=== PATIENT | female | born 1945 | race Two or more races ===

== ENCOUNTER 2024-05-11 14:05 | Emergency (ER) | payer MEDICARE, OTHER, SELFPAY ==
[2024-05-11 14:17] VITALS: BP 157/73; BMI 43.6
[2024-05-11 14:18] VITALS: BP 157/73
--- NOTE | 2024-05-11 14:53 | ED.GENMED ---
History of Present Illness
General
Chief Complaint: Fall
Source: patient and records
Exam Limitations: dementia
Time Seen by Provider: 05/11/24 14:47
History of Present Illness
History of Present Illness:
78-year-old female apparently found on the floor. Unwitnessed fall. Complains of pain all over but mostly complaining of pain in her neck that she states resolved with removal of the collar. She also had pain in her finger with a pulse ox was
that also resolved when removing the pulse ox. She was no other specific complaints.
Past History
Past History
ED Past Medical History: HTN, NIDDM and Other (Dementia)
Social History
Tobacco: Non-smoker
Alcohol: None
Drug: None
Living: half-way
Employment: Not employed
Family History
Family History: Diabetes
Review of Systems
Review of Systems
Unable to obtain full review of systems at this time due to: dementia
All Other Systems: Not applicable
Phy Exam
Physical Exam
Physical Exam:
TRAUMA EXAM:
VITAL SIGNS: Vital signs reviewed, cooperative
DISTRESS: No active disease
EYES: Pupils reactive, no orbital trauma
NOSE: No deformity or epistaxis
FACE AND SCALP: No scalp or facial trauma, external canals no blood
NECK: Supple nontender
BACK: Back nontender, pelvis stable to compression
RESPIRATORY: No distress, breath sounds normal, no tender chest wall
CARDIAC: No murmur, pulses equal and strong
ABDOMEN: Soft nontender bowel sounds normal
SKIN: Skin intact no bleeding, color normal
EXTREMITIES: Chronic edema and chronic erythematous changes to both lower extremities. No pain with motion movement or point tenderness of any of the extremities. No pain with hip rotation. Pelvis is stable. No pain with leg movement flexion of
the knees ankles. No pain with upper extremity movement. No deformities. No open wounds or abrasions. Back without abrasions.
NEUROLOGICAL: Alert, oriented x 1, no motor deficits
PSYCH: Mood affect normal. Pleasant
Course
Orders/Labs/Results
Orders:
Orders
05/11/24 15:22
CT Cervical Spine W/o Iv Contr Urgent
Comment:
Reason For Exam: trauma
CT Head W/o Iv Contrast Urgent
Comment:
Reason For Exam: trauma
Cardiac Monitoring- Treatment ONCE
05/11/24 15:40
Basic Metabolic Panel Urgent
Complete Blood Count/With Diff Urgent
Abnormal Lab Results
05/11/24
15:40
RBC 3.88 L 10^6/uL
(4.20-5.40)
Hgb 11.3 L g/dL
(12.0-16.0)
Hct 35.7 L %
(37.0-47.0)
MCHC 31.7 L g/dL
(33.0-37.0)
Carbon Dioxide 31 H mmol/L
(22-30)
Glucose 108 H mg/dl
(70-99)
05/11/24 15:40
05/11/24 15:40
Vital Signs
Initial and Last Documented VS:
Initial Vital Signs
Temp
98.0 F
05/11/24 14:15
Last Documented Vital Signs
Temp Pulse Resp BP Pulse Ox
98.0 F 64 16 157/73 99
05/11/24 14:15 05/11/24 14:18 05/11/24 14:18 05/11/24 14:18 05/11/24 14:18
MDM/Problems Addressed
Differential Diagnosis Includes:
Patient with an unwitnessed fall. Clinically stable. No serious trauma currently. No history or anything that would be suspicious for significant arrhythmia. We will check labs and electrolytes and place her on a monitor. She does seem to
complain of some vague mild neck discomfort. We will CT her head and cervical spine. No signs of extremity trauma.
*Radiology
Radiology exam reviewed: radiology read reviewed (No acute findings)
*Pulse Oximetry
Patient hypoxic: no
*Franchise Development Manager Interpretation
Rate: normal
Interpretation: normal
Heart Rate: 80
Rhythm: sinus
*Critical Care Note
Total Time (30-74mins, 75-104mins- exclusive of procedures): Not Applicable
Data Reviewed
Review of Other/Old Records Reveals: Labs and Records
Update Note
Update Note:
Patient has remained stable. Guardian contacted. Discharged to follow-up
ED Attending Note
-
Portions of this chart may have been created with voice recognition software.� Occasional wrong word or��sound alike� substitutions may have occurred due to the inherent limitations of voice recognition software.
Discharge Plan
Departure
Patient Disposition: Home (Routine Discharge)
Date of Disposition: 05/11/24
Time of Disposition: 19:05
Patient with high blood pressure during this ER visit?: Yes
Discharge Problem:
Evaluation of unwitnessed fall
Instructions: Preventing falls in adults, BLOOD PRESSURE
Prescriptions:
No Action
levothyroxine [Synthroid] 50 mcg Tablet
50 mcg PO DAILY
metoprolol tartrate 25 mg Tablet
25 mg PO BID
acetaminophen [Tylenol] 325 mg Capsule
650 mg PO Q4H PRN (Reason: MILD PAIN/FEVER)
miconazole nitrate [Zeasorb (miconazole)] 2 % Powder
1 applic TOPICAL DAILY
ascorbic acid (vitamin C) [Vitamin C] 500 mg Tablet
500 mg PO DAILY
ferrous sulfate 325 mg (65 mg iron) Tablet
325 mg PO DAILY
sertraline [Zoloft] 25 mg Tablet
25 mg PO DAILY
folic acid 1 mg Tablet
1 mg PO DAILY
Referrals:
Collin Moreno MD [Family Provider] - Follow up in 2-3 days
Activity Restrictions/Additional Instructions:
Return with any concerning issues including unusual pain vomiting headache etc.
Interventions
Interventions:
*Risk Screen - Suicide Last Done: 05/11/24 17:33
*Neglect/Abuse Screening Last Done: 05/11/24 17:33
*ED COVID-19 Vaccine History Last Done: 05/11/24 17:33
ED-Musculoskeletal Assessment Last Done: 05/11/24 17:33
ED- Neurological Assessment Last Done: 05/11/24 17:33
Discharge Date and Time
Print Language: HEBREW
[2024-05-11 15:59] LABS: % Basophils 0.5 % (0-2); % Eosinophils 2.5 % (0-6); % Immature Granulocytes 0.3 % (0-0.5); % Lymphocytes 25.7 % (20.5-51.1); % Monocytes 5.7 % (1.7-9.3); % Neutrophils 65.3 % (42.2-75.2); Absolute Eosinophils 0.2 10^3/uL (0-0.7); Absolute Lymphocytes 2.3 10^3/uL (1.2-3.4); Absolute Monocytes 0.5 10^3/uL (0.1-0.6); Absolute Neutrophils 5.8 10^3/uL (1.4-6.5); Hematocrit 35.7 % (37.0-47.0); Hemoglobin 11.3 g/dL (12.0-16.0); Mean Corp Hgb Conc. 31.7 g/dL (33.0-37.0); Mean Corpuscular Hgb 29.1 pg (27.0-31.0); Mean Platelet Volume 9.5 fL (7.4-10.4); Nucleated Red Blood Cells % 0 %; Platelet Count 266 10^3/uL (130-400); Red Blood Cell Count 3.88 10^6/uL (4.20-5.40); Red Cell Dist. Width 12.8 % (11.5-14.5); White Blood Cell Count 8.8 10^3/uL (4.8-10.8)
[2024-05-11 16:06] LABS: Blood Urea Nitrogen 12 mg/dl (7-17); Calcium 8.8 mg/dl (8.4-10.2); Carbon Dioxide 31 mmol/L (22-30); Chloride 101 mmol/L (98-107); Estimated Creatinine Clearance 84 ml/min; Glucose 108 mg/dl (70-99); Sodium 140 mmol/L (135-145); eGFR > 60.00
[2024-05-11 21:09] VITALS: BP 151/78
== END 2024-05-11 21:50 | disposition home or self-care (01) ==
LOC: EMR 14:05
PROVIDERS: EMERGENCY PHYSICIAN Emergency Medicine; FAMILY PHYSICIAN Internal Medicine
DX: R52 Pain, unspecified (principal); F03.90 Unspecified dementia, unspecified severity, without behavioral disturbance, psychotic disturbance, mood disturbance, and anxiety; W19.XXXA Unspecified fall, initial encounter; R60.0 Localized edema; I10 Essential (primary) hypertension
CPT/HCPCS: 99285; 70450; 72125; 80048; 85025

== ENCOUNTER 2024-09-06 15:59 | Inpatient (IN) | payer MEDICARE, OTHER, SELFPAY ==
[2024-09-06] VITALS (11 sets, daily range): BP systolic 93–169; BP diastolic 47–87; BMI 37.4
[2024-09-06 10:01] LABS: ALT (SGPT) 11 U/L (0-35); AST (SGOT) 16 U/L (14-36); Albumin 3.6 g/dl (3.5-5.0); Alkaline Phosphatase 127 U/L (38-126); Blood Urea Nitrogen 12 mg/dl (7-17); Calcium 8.7 mg/dl (8.4-10.2); Carbon Dioxide 30 mmol/L (22-30); Chloride 103 mmol/L (98-107); Glucose 161 mg/dl (70-99); Potassium 3.9 mmol/L (3.5-5.1); Sodium 140 mmol/L (135-145); Total Bilirubin 0.7 mg/dl (0.2-1.3); Total Protein 6.6 g/dl (6.3-8.2); eGFR > 60.00
[2024-09-06 10:03] LABS: INR 1.03
[2024-09-06 10:04] LABS: APTT 37.4 Sec (23.4-35.0)
[2024-09-06 10:05] LABS: Hematocrit 31.8 % (37.0-47.0); Hemoglobin 10.2 g/dL (12.0-16.0); Mean Corp Hgb Conc. 32.1 g/dL (33.0-37.0); Mean Corpuscular Hgb 29.8 pg (27.0-31.0); Mean Platelet Volume 9.6 fL (7.4-10.4); Platelet Count 221 10^3/uL (130-400); Red Blood Cell Count 3.42 10^6/uL (4.20-5.40); White Blood Cell Count 7.6 10^3/uL (4.8-10.8)
[2024-09-06] MEDS: NSS 500 IV (10:30)
[2024-09-06 11:03] LABS: % Basophils 0.4 % (0-2); % Eosinophils 2.9 % (0-6); % Immature Granulocytes 0.4 % (0-0.5); % Lymphocytes 24.1 % (20.5-51.1); % Monocytes 4.2 % (1.7-9.3); Absolute Eosinophils 0.2 10^3/uL (0-0.7); Absolute Lymphocytes 1.8 10^3/uL (1.2-3.4); Absolute Monocytes 0.3 10^3/uL (0.1-0.6); Absolute Neutrophils 5.2 10^3/uL (1.4-6.5); Nucleated Red Blood Cells % 0 %
--- NOTE | 2024-09-06 13:00 | ED.GENMED ---
History of Present Illness
<Elver Alexandra Jr., PA-C - Last Filed: 09/06/24 14:38>
General
Chief Complaint: Vaginal Bleeding
Source: patient
Exam Limitations: none
Time Seen by Provider: 09/06/24 09:59
Nursing documentation reviewed up to this point in time: agreed with
History of Present Illness
History of Present Illness:
79-year-old female presenting to the emergency department today with concerns of vaginal bleeding with clots. Started this morning. Has had previous history of this in the past requiring a D&C 2 years ago. Confused at baseline does not history of
dementia. No specific complaints at this time no pain.
Past History
<Elver Alexandra Jr., PA-C - Last Filed: 09/06/24 14:38>
Past History
ED Past Medical History: HTN, NIDDM and Other (Dementia)
Social History
Tobacco: Non-smoker
Alcohol: None
Drug: None
Living: [facility]
Employment: Not employed
Family History
Family History: Diabetes
Review of Systems
<Elver Alexandra Jr., PA-C - Last Filed: 09/06/24 14:38>
Review of Systems
Allergies reviewed?: Yes
All Other Systems: ROS reviewed and negative except as documented in HPI and ROS
Phy Exam
<Elver Alexandra Jr., PA-C - Last Filed: 09/06/24 14:38>
Physical Exam
Physical Exam:
GENERAL: Alert , in no apparent distress
EYE: pupils equal and reactive
NECK: Supple, no significant adenopathy.
ENT: o/p clr, mmm.
CARDIAC: Regular rate and rhythm .
LUNGS: Clear breath sounds bilaterally, no acute respiratory distress, no wheezes/rales/rhonchi
ABDOMEN: Soft, without focal tenderness, no r/g, no cvat
NEUROLOGICAL: Alert, no focal neuro deficits
SKIN: Warm and dry, skin intact.
MUSCULOSKELETAL: No edema, well perfused.
PSYCH: Normal and appropriate interaction.
Course
<Elver Alexandra Jr., PA-C - Last Filed: 09/06/24 14:38>
Orders/Labs/Results
Orders:
Orders
09/06/24 09:34
Complete Blood Count/With Diff Urgent
Comprehensive Metabolic Panel Urgent
PTT Urgent
Prothrombin Time Urgent
09/06/24 09:36
Type And Crossmatch [Type+Screen] Urgent
09/06/24 09:54
ABO2 Urgent
BBK Wristband Number:
Associate notified that ABO2 has been ordered: [id number]
Date: 09/06/24
Time: 09:52
Process Control Engineer ID: [id number]
09/06/24 10:28
0.9% Sodium Chloride 500 ml [Nss] 500 ml IV BOLUS
09/06/24 11:40
US Pelvis Only (non-obstetric) Urgent
Reason For Exam: Vaginal bleeding, pain
09/06/24 13:03
EKG [Electrocardiogram (*1)] Urgent
Reason for Study: Bradycardia / Tachycardia
EKG- Treatment ONCE
09/06/24 13:46
CBC/With Diff [Complete Blood Count/With Diff] Urgent
09/06/24 14:05
Urinalysis Reflex To Culture Urgent
Date Specimen was Collected: 09/06/24
Time Specimen was Collected: 13:48
Urine Microscopic Reflex Cult Urgent
Urine Culture Urgent
BRANDYN Source: U
Specimen Description:
Date Specimen was Collected: 09/06/24
Time Specimen was Collected: 13:48
Abnormal Lab Results
09/06/24 09/06/24 09/06/24
09:34 13:46 14:05
RBC 3.42 L 10^6/uL 2.98 L 10^6/uL
(4.20-5.40) (4.20-5.40)
Hgb 10.2 L g/dL 9.1 L g/dL
(12.0-16.0) (12.0-16.0)
Hct 31.8 L % 28.1 L %
(37.0-47.0) (37.0-47.0)
MCHC 32.1 L g/dL 32.4 L g/dL
(33.0-37.0) (33.0-37.0)
APTT 37.4 H Sec
(23.4-35.0)
Glucose 161 H mg/dl
(70-99)
Alkaline Phosphatase 127 H U/L
(38-126)
Leukocyte Esterase Rfl 3+ A
(Negative)
09/06/24 13:46
09/06/24 09:34
Vital Signs
Initial and Last Documented VS:
Initial Vital Signs
Pulse Resp
48 20
09/06/24 09:30 09/06/24 09:30
Last Documented Vital Signs
Temp Pulse Resp BP Pulse Ox
95.3 F L 42 12 121/55 97
09/06/24 09:41 09/06/24 11:06 09/06/24 10:45 09/06/24 11:00 09/06/24 11:00
<Omar Lyn, DO - Last Filed: 09/06/24 14:18>
Orders/Labs/Results
Orders:
Orders
09/06/24 09:34
Complete Blood Count/With Diff Urgent
Comprehensive Metabolic Panel Urgent
PTT Urgent
Prothrombin Time Urgent
09/06/24 09:36
Type And Crossmatch [Type+Screen] Urgent
09/06/24 09:54
ABO2 Urgent
BBK Wristband Number:
Associate notified that ABO2 has been ordered: [id number]
Date: 09/06/24
Time: 09:52
Process Control Engineer ID: [id number]
09/06/24 10:28
0.9% Sodium Chloride 500 ml [Nss] 500 ml IV BOLUS
09/06/24 11:40
US Pelvis Only (non-obstetric) Urgent
Reason For Exam: Vaginal bleeding, pain
09/06/24 13:03
EKG [Electrocardiogram (*1)] Urgent
Reason for Study: Bradycardia / Tachycardia
EKG- Treatment ONCE
09/06/24 13:46
CBC/With Diff [Complete Blood Count/With Diff] Urgent
09/06/24 14:05
Urinalysis Reflex To Culture Urgent
Date Specimen was Collected: 09/06/24
Time Specimen was Collected: 13:48
Urine Microscopic Reflex Cult Urgent
Urine Culture Urgent
BRANDYN Source: U
Specimen Description:
Date Specimen was Collected: 09/06/24
Time Specimen was Collected: 13:48
Abnormal Lab Results
09/06/24 09/06/24 09/06/24
09:34 13:46 14:05
RBC 3.42 L 10^6/uL 2.98 L 10^6/uL
(4.20-5.40) (4.20-5.40)
Hgb 10.2 L g/dL 9.1 L g/dL
(12.0-16.0) (12.0-16.0)
Hct 31.8 L % 28.1 L %
(37.0-47.0) (37.0-47.0)
MCHC 32.1 L g/dL 32.4 L g/dL
(33.0-37.0) (33.0-37.0)
APTT 37.4 H Sec
(23.4-35.0)
Glucose 161 H mg/dl
(70-99)
Alkaline Phosphatase 127 H U/L
(38-126)
Leukocyte Esterase Rfl 3+ A
(Negative)
09/06/24 13:46
09/06/24 09:34
Vital Signs
Initial and Last Documented VS:
Initial Vital Signs
Pulse Resp
48 20
09/06/24 09:30 09/06/24 09:30
Last Documented Vital Signs
Temp Pulse Resp BP Pulse Ox
95.3 F L 42 12 121/55 97
09/06/24 09:41 09/06/24 11:06 09/06/24 10:45 09/06/24 11:00 09/06/24 11:00
<Elver Alexandra Jr., PA-C - Last Filed: 09/06/24 14:38>
MDM/Problems Addressed
MDM/Problems Addressed:
71-year-old female presenting to the emergency department from her nursing facility with concerns of vaginal bleeding. Started this morning. On arrival heart rate was in the 40s temperature was 95.3. Pulm examination was performed that did not
show any hemorrhage there is a small amount of blood in the vaginal vault. Hemoglobin was obtained 10.2 which is near patient's baseline which tends to be in 10-11. Otherwise labs unremarkable. Case was discussed with gynecology that would like
to discuss the case with Bonita Curran due to the ultrasound findings. Ultrasound findings showing progressive thickening of the endometrial stripe. Otherwise hemoglobin here repeated and decreasing. Plan to admit for monitoring and hemoglobin
trending.
<Elver Alexandra Jr., PA-C - Last Filed: 09/06/24 14:38>
*Critical Care Note
Total Time (30-74mins, 75-104mins- exclusive of procedures): Not Applicable
ED Attending Note
<VIKRAM Robertson Jr. Last Filed: 09/06/24 14:38>
-
Portions of this chart may have been created with voice recognition software.� Occasional wrong word or��sound alike� substitutions may have occurred due to the inherent limitations of voice recognition software.
<Omar Lyn DO - Last Filed: 09/06/24 14:18>
ED Attending Note
Patient seen and examined by attending physician: Yes
I performed the substantive portion of visit, reviewed & personally made and approve the management plan that is documented in note by myself or PEYMAN.: Yes
ED Attending Note:
I have seen and evaluated the patient with a [id number] encounter. I have spoken to the advance practicer provider and involved in the medical history, the physical exam, medical decision making.
Evaluation and management service: agree unless noted differently below.
Results interpretation: agree unless noted differently below.
Focused HPI: 79-year-old female presenting for evaluation of vaginal bleeding. It apparently started this morning. She does have a history of postmenopausal bleeding and has required D&C in the past
Physical exam: Sitting bed comfortably. Skin pale. Abdomen soft and nontender
Medical Decision Making: Per PA, no hemorrhaging noted on vaginal exam. Given the drop in hemoglobin, will admit and have RIGGING MAN evaluate
Discharge Plan
Departure
Patient Disposition: Admit
Date of Disposition: 09/06/24
Time of Disposition: 14:38
Admit to: Med/Surg
Admit to doctor: Sandro
Presentation/result/management discussed w/ accepting MD/DO: Hospitalist
Patient with high blood pressure during this ER visit?: No
Condition: Fair
Covid-19: Not Applicable
Discharge Problem:
Anemia, Abnormal vaginal bleeding, Endometrial hyperplasia
Prescriptions:
No Action
levothyroxine [Synthroid] 50 mcg Tablet
50 mcg PO DAILY
metoprolol tartrate 25 mg Tablet
25 mg PO BID
ascorbic acid (vitamin C) [Vitamin C] 500 mg Tablet
500 mg PO DAILY
ferrous sulfate 325 mg (65 mg iron) Tablet
325 mg PO DAILY
sertraline [Zoloft] 25 mg Tablet
25 mg PO DAILY
folic acid 1 mg Tablet
1 mg PO DAILY
acetaminophen 325 mg Tablet
650 mg PO Q4HPRN PRN (Reason: mild pain/temp>100F)
vitamin A and D Ointment
1 applic TOPICAL DAILY
Rx Instructions:
apply to dry skin of B/L LE
magnesium hydroxide [Milk of Magnesia] 400 mg/5 mL Suspension
30 ml PO HSPRN PRN (Reason: if no bm in 3 days)
cyanocobalamin (vitamin B-12) 500 mcg Tablet
500 mcg PO DAILY
calcium carbonate 500 mg calcium (1,250 mg) Tablet
500 mg PO DAILY
bisacodyl [Dulcolax (bisacodyl)] 10 mg Suppository
10 mg DE DAILYPRN PRN (Reason: if no results for MOM)
Referrals:
Collin Moreno MD [Family Provider] -
Interventions
Interventions:
*Risk Screen - Suicide Last Done: 09/06/24 09:30
*General Assessment Last Done: 09/06/24 09:30
*Neglect/Abuse Screening Last Done: 09/06/24 11:07
*ED- Fall Risk Assessment Last Done: 09/06/24 11:07
*ED COVID-19 Vaccine History Last Done: 09/06/24 11:07
ED-Female Genitourinary Assessment Last Done: 09/06/24 09:42
Discharge Date and Time
Print Language: MOSOTHO
[2024-09-06 14:02] LABS: Hematocrit 28.1 % (37.0-47.0); Hemoglobin 9.1 g/dL (12.0-16.0); Mean Corp Hgb Conc. 32.4 g/dL (33.0-37.0); Mean Corpuscular Hgb 30.5 pg (27.0-31.0); Mean Corpuscular Volume 94.3 fL (81.0-99.0); Mean Platelet Volume 9.8 fL (7.4-10.4); Platelet Count 189 10^3/uL (130-400); Red Blood Cell Count 2.98 10^6/uL (4.20-5.40); Red Cell Dist. Width 12.9 % (11.5-14.5); White Blood Cell Count 7.7 10^3/uL (4.8-10.8)
[2024-09-06 14:14] LABS: Urine Albumin Negative (Neg - Trace); Urine Bilirubin Negative (Negative); Urine Character Clear (Clear); Urine Color Yellow; Urine Glucose Negative (Negative); Urine Ketone Negative (Negative); Urine Leukocyte 3+ (Negative); Urine Nitrite Negative (Negative); Urine Occult Blood Negative (Negative); Urine Specific Gravity 1.005 (<1.030); Urine Urobilinogen Negative (Neg - 1+)
[2024-09-06 14:46] LABS: % Basophils 0.4 % (0-2); % Eosinophils 2.5 % (0-6); % Immature Granulocytes 0.4 % (0-0.5); % Lymphocytes 22.8 % (20.5-51.1); % Neutrophils 68.9 % (42.2-75.2); Absolute Eosinophils 0.2 10^3/uL (0-0.7); Absolute Lymphocytes 1.8 10^3/uL (1.2-3.4); Absolute Monocytes 0.4 10^3/uL (0.1-0.6); Absolute Neutrophils 5.3 10^3/uL (1.4-6.5); Nucleated Red Blood Cells % 0 %
[2024-09-06 14:49] LABS: Urine Bacteria Moderate (Negative); Urine Red Blood Cell 0-2 /HPF (0-2); Urine White Cell 16-20 /HPF (0-5)
--- NOTE | 2024-09-06 14:59 | HPS.HSE ---
Addendum entered and electronically signed by Marce Jo MD 09/06/24 22:02:
I saw and examined the patient.
The HEAD BAGGAGE PORTER or PA's note was reviewed and I agree with the note.
Comment:
79F [place] (fluent Telugu speaking) Dementia, oriented only to self, HTN Hypothyroidism presents from [facility] for evaluation intermittent heavy vaginal bleeding. Has had prior vaginal bleeding episodes 2021 2022 that required D&C
with pathology results concerning for endometrial hyperplasia vs carcinoma- lost to follow up. Though fluent speech, following simple commands, patient notably confused poor historian. All of history obtained from records and reports. BP stable
though significant bradycardia 40s noted with cold stress temp<97 but >95 (tempt at lowest 95.1). Patient otherwise appeared comfortable, no acute distress.
Physical Exam
General: Comfortable, Conversant, Obese
HEENT: Anicteric and Moist mucous membranes
Respiratory: Clear and Non Labored Respirations
Cardiac: S1/S2 and Regular Rhythm
GI: Soft and Non Tender
Musculoskeletal: No Clubbing and No Cyanosis
Skin: Warm and Dry
Neuro: Awake, Alert, and Oriented to self only
Psych: Confused but calm cooperative
Vaginal Bleeding
Acute Blood Loss Anemia secondary to Vaginal Bleeding
Hypothermia suspect thermoregulatory dysfunction related to dementia
Anxiety/depression
Severe Bradycardia 40s
Essential Hypertension
-2PRBC transfusion follow up post-transfusion H&H
-Check TSH and AM Cortisol
-giovanni hart prn
-monitor H&H
-Residential Carpet Installer eval appreciated D&C planned
-Cardio eval appreciated pre-op risk assessment
-Patient at intermittent risk complication but risk of D&C is not prohibitive
-Metoprolol held d/t severe bradycardia, ok to resume with holding parameters if severe bradycardia resolved.
-Continue home levothyroxine
Original Note:
Family Physician
-
Family Physician: Collin Moreno
Chief Complaint
-
Vaginal Bleeding
History of Present Illness
Patient is a 79 y/o female past medical history of dementia, hypertension, hypothyroidism and prior episodes of vaginal bleeding who presents with vaginal bleeding. Patient is unable to provide much history. [place] home paperwork indicates vaginal
bleeding with clots since this morning. Nursing staff in ED confirms episodes of vaginal bleeding with clots here in the emergency department. Review of records indicate patient required in D&C in 2021 and 2022 for vaginal bleeding.
Medical History
Past Medical History
Past Medical History: Reports Other
Additional Past Medical History:
Dementia
Anxiety / Depression
Essential Hypertension
Hypothyroidism
Vaginal Bleeding
Past Surgical History: Reports Other
Additional Past Surgical History:
D&C
Social History
Unable to obtain full social history at this time due to: Dementia
Living: Intermediate
Family History
Family History: Unable to Obtain
Allergies / Home Medications
Allergies reflects when Allergies were last updated in [facility].
Home Medications with original date entered in [facility]
Allergy/Medication List:
Allergies
Allergy/AdvReac Type Severity Reaction Status Date / Time
No Known Allergies Allergy Verified 07/16/22 08:41
Home Medications
levothyroxine 50 mcg tablet (Synthroid) 50 mcg PO DAILY 02/03/22
metoprolol tartrate 25 mg tablet 25 mg PO BID 02/03/22
ascorbic acid (vitamin C) 500 mg tablet (Vitamin C) 500 mg PO DAILY 07/12/22
ferrous sulfate 325 mg (65 mg iron) tablet 325 mg PO DAILY 07/12/22
folic acid 1 mg tablet 1 mg PO DAILY 07/12/22
sertraline 25 mg tablet (Zoloft) 25 mg PO DAILY 07/12/22
acetaminophen 325 mg tablet 650 mg PO Q4HPRN PRN mild pain/temp>100F 09/06/24
bisacodyl 10 mg rectal suppository (Dulcolax (bisacodyl)) 10 mg NM DAILYPRN PRN if no results for MOM 09/06/24
calcium carbonate 500 mg PO DAILY 09/06/24
cyanocobalamin (vitamin B-12) 500 mcg tablet 500 mcg PO DAILY 09/06/24
magnesium hydroxide 400 mg/5 mL oral suspension (Milk of Magnesia) 30 ml PO HSPRN PRN if no bm in 3 days 09/06/24
vitamin A and D 1 applic topical DAILY 09/06/24
Review of Systems
-
Unable to obtain full review of systems at this time due to: Dementia
Physical Exam
Vital Signs
Vital Signs
Temp Pulse Resp BP Pulse Ox
95.3 F L 42 12 121/55 97
09/06/24 09:41 09/06/24 11:06 09/06/24 10:45 09/06/24 11:00 09/06/24 11:00
Physical Exam
General: Comfortable, Conversant and Obese
HEENT: Anicteric and Moist mucous membranes
Respiratory: Clear and Non Labored Respirations
Cardiac: S1/S2 and Regular Rhythm
GI: Soft and Non Tender
Musculoskeletal: No Clubbing and No Cyanosis
Skin: Warm and Dry
Neuro: Awake, Alert and Oriented (Patient correctly states year but unable to tell me where she is or who the president is)
Psych: Confused
Laboratory Results
-
09/06/24 13:46
09/06/24 09:34
Laboratory Results
PT 14.0 Sec (11.4-14.6) 09/06/24 09:34
INR 1.03 09/06/24 09:34
APTT 37.4 Sec (23.4-35.0) H 09/06/24 09:34
Total Bilirubin 0.7 mg/dl (0.2-1.3) 09/06/24 09:34
AST 16 U/L (14-36) 09/06/24 09:34
ALT 11 U/L (0-35) 09/06/24 09:34
Alkaline Phosphatase 127 U/L (38-126) H 09/06/24 09:34
Pelvis Ultrasound:
Progressed thickened appearance of the endometrial stripe.
Data Reviewed
-
Diagnostic Radiology: Report Reviewed by me
Lab Data: Labs Reviewed by me
Impression/Plan
-
Vaginal Bleeding
-Consult FIELD CROP TECHNICAL OFFICER
-Check Abd/Pelvis CT scan
-Consult Cardiology for pre-op cardiac evaluation
Acute Blood Loss Anemia secondary to Vaginal Bleeding
-Check iron studies
-Trend serial Hgb
-Blood consent obtained from Veronica Vazquez (Legal Guardian) and scanned into chart
Hypothermia, no other symptoms of infection suspect thermoregulatory dysfunction related to dementia
-Check TSH and AM Cortisol
Dementia
-Monitor for mood/behavior changes during hospitalization
Anxiety / Depression
-Continue Zoloft
Essential Hypertension
-Continue metoprolol with hold parameters
Hypothyroidism
-Continue levothyroxine
DVT proph: SCDs
Code Status: Full Code
--- NOTE | 2024-09-06 15:27 | CON.CAR ---
Addendum entered and electronically signed by Prasanna Rashid MD 09/06/24 18:04:
79 yo female with PMH of advanced dementia, HTN, PAC's is admitted with vaginal bleeding. She need D&C. We are consulted for pre-op risk assessment. She denies CP. EKG shows sinus tess, 1st degree AVB. Echo is normal with EF 55-60%.
She can proceed to OR at intermediate risk.
Marked sinus bradycardia, 1st degree AVB. Reduce metoprolol to 25mg (succinate qHS). She also takes this for PAC's. If BP trends up, will add another agent.
Original Note:
Consultation
Consultation Request
Date/Time Consultation Requested: 09/06/241521
Date/Time Consultation Performed: 09/06/241526
Requesting Provider: Patricia Edmondson
Performing Provider: Rose MANCINI for Dr. Rashid
Reason for Consultation: pre-op cardiovascular risk assessment
Medical History
-
Chief Complaint: vaginal bleeding
History of Present Illness:
79 y/o female with dementia, hypertension, hypothyroidism, obesity, venous insufficiency who is here for vaginal bleeding and there are plans for D&C and we are consulted for pre-op cardiovascular risk assessment. She denies any CP, SOB, or
dizziness. She is in no distress at the time of my assessment. Her EKG shows SB in 40's. She is hypothermic 95.3.
Past Medical History
Past Medical History: HTN, Hypothyroidism and Other (as above)
Social History
Tobacco: Non-Smoker
Living: [facility]
Family History
Family History: Reviewed & Not Pertinent
Allergies / Home Medications
Allergy/AdvReac Type Severity Reaction Status Date / Time
No Known Allergies Allergy Verified 07/16/22 08:41
�Medication �Instructions �Recorded �Confirmed �Type
levothyroxine 50 mcg tablet 50 mcg PO DAILY 02/03/22 09/06/24 History
(Synthroid)
metoprolol tartrate 25 mg tablet 25 mg PO BID 02/03/22 09/06/24 History
ascorbic acid (vitamin C) 500 mg 500 mg PO DAILY 07/12/22 09/06/24 History
tablet (Vitamin C)
ferrous sulfate 325 mg (65 mg 325 mg PO DAILY 07/12/22 09/06/24 History
iron) tablet
folic acid 1 mg tablet 1 mg PO DAILY 07/12/22 09/06/24 History
sertraline 25 mg tablet (Zoloft) 25 mg PO DAILY 07/12/22 09/06/24 History
acetaminophen 325 mg tablet 650 mg PO Q4HPRN PRN mild 09/06/24 09/06/24 History
pain/temp>100F
bisacodyl 10 mg rectal suppository 10 mg SC DAILYPRN PRN if no 09/06/24 09/06/24 History
(Dulcolax (bisacodyl)) results for MOM
calcium carbonate 500 mg PO DAILY 09/06/24 09/06/24 History
cyanocobalamin (vitamin B-12) 500 500 mcg PO DAILY 09/06/24 09/06/24 History
mcg tablet
magnesium hydroxide 400 mg/5 mL 30 ml PO HSPRN PRN if no bm in 3 09/06/24 09/06/24 History
oral suspension (Milk of Magnesia) days
vitamin A and D 1 applic topical DAILY 09/06/24 09/06/24 History
Review of Systems
-
History Source: Patient and Other (and chart)
All other systems: Negative unless noted
: Bleeding
Physical Exam
Vital Signs
Temp Pulse Resp BP Pulse Ox
95.3 F L 42 12 121/55 97
09/06/24 09:41 09/06/24 11:06 09/06/24 10:45 09/06/24 11:00 09/06/24 11:00
Lab Results
09/06/24 13:46
09/06/24 09:34
Physical Exam
General: Well Developed and No Apparent Distress
HEENT: Normocephalic and Anicteric
Respiratory: Clear and Non Labored Respirations
Cardiac: Regular Rhythm (SB)
Musculoskeletal: Edema (mild BLE edema)
Skin: Warm, Dry and Other (BLE's dry)
Neuro: Awake, Alert and Oriented (to self)
Psych: Calm
Impression / Plan
-
Vaginal bleeding, anemia, abnormal pelvic u/s:
-severe in that she is requiring admission and surgical management
-plan is for D&C per batch operator
-follow hgb closely
-pre-op cardiovascular risk assessment: she denies any CP, SOB, or dizziness. She is at intermediate risk for proposed procedure. We are obtaining echo. Follow telemetry.
Bradycardia:
-EKG shows SB at 42 BPM. We will obtain echo. I also ordered TSH. She is hypothermic as well, so recommend correction of that.
-denies any dizziness
-no advanced heart block seen
-follow telemetry
-reduce BB
HTN:
-BP stable to low
-monitor with decreased BB
Dementia
Obesity
Hypothyroidism: on meds, check labs
Data Reviewed
-
EKG: Tracing Personally Visualized and interpreted (SB with 1st degree AVB 43 BPM)
Ultrasound: Report Reviewed by me (Myomatous uterus. None appear submucosal. Progressed thickened appearance of the endometrial stripe. Differential diagnosis includes endometrial hyperplasia, carcinoma and polyp. )
Medical Tests (Nuc Med, Echo etc): Other (echo ordered)
Labs: Labs Reviewed by me
--- NOTE | 2024-09-06 16:19 | CON.MD ---
Consultation - Medical
-
Consult: postmenopausal bleeding
HPI: Patient is a 79yo female who presented to the ED via [place] from [place] [facility] with complaints of heavy vaginal bleeding. Patient has dementia and is a very poor historian. No one was present while I was speaking with the patient so encounter was
very limited. Information is from previous documentation. Staff reporting heavy vaginal bleeding with clots. She has a history of postmenopausal bleeding and had 2 previous D&Cs in 02/2022 and 07/2022. Pathology was 02/2022 possible atypical
hyperplasia/EIN and pathology from 07/2022 showed changes associated with endometrial hyperplasia or endometrial carcinoma. Per patient's guardian, she was lost to follow up. This morning, she was found to have intermittent heavy vaginal bleeding. In
the ED, patient has had intermittent vaginal bleeding with clots. Per the patient, she is fine and no longer has bleeding.
ROS negative unless otherwise noted in the HPI
PMHx: dementia, anxiety/depression, HTN, hypothyroidism
Meds: Synthroid, metoprolol, Vit C, iron, sertraline
Surghx: D&C
NKDA
Socilahx: lives in [facility]
Famhx: unable to obtain
O:
BP 121/63, HR in the 40s in the ED
General: well appearing, confused, resting in bed
Patient refused the rest of the physical exam. Unable to check for any vaginal bleeding at the time of my examination
Labs: Hgb 10.2->9.1, Plt 221->189
Pelvic US:
Indication: Vaginal bleeding. Pain
COMPARISON: 03/24/2023
Scanning parameters:
Real-time/grayscale transabdominal ultrasound of the pelvis was obtained. The patient refused transvaginal imaging.
FINDINGS:
The uterus is normal in size contour and echogenicity measuring 9.4 x 5.2 x 6.3 cm. There is a calcified mass in the anterior right fundus measuring 1.8 x 0.7 x 1.5 cm consistent with a fibroid. There is a second similar finding on the left
measuring 4.3 x 2.6 x 4.0 cm. These are both intramural. There is a third similar finding on the right measuring 3.2 x 2.6 x 2.9 cm. This is subserosal. There is a fourth finding on the right measuring 2.1 x 2.3 x 2.2 cm. This is subserosal.
The imaged stripe is difficult to visualize but appears thickened measuring 1.9 cm. This previously measured 0.9 cm.
There are no abnormal solid or complex adnexal masses.
The ovaries are not visualized.
IMPRESSION:
Myomatous uterus. None appear submucosal.
Progressed thickened appearance of the endometrial stripe. Differential diagnosis includes endometrial hyperplasia, carcinoma and polyp. This would better be evaluated by transvaginal imaging. However, the patient refused the transvaginal scan. This
could be confirmed by MR examination. If this is truly thickened and further evaluation is desired, sonohysterogram recommended
Nonvisualization the ovaries.
In accordance with Act 112, known as the Patient Test Results Information Act, a letter will be sent to the patient which notifies the patient that a significant abnormality may exist. The letter will be sent within approximately 20 days of the
date the results were sent to the ordering health care practitioner.
A/P: Patient is a 79yo female admitted with postmenopausal bleeding
- She has a history of PMB for several years and has had 2 previous D&Cs with evidence of atypical hyperplasia or endometrial carcinoma. She was lost to follow up. Pelvic US today shows progressed thickening of the endometrium with concern for
endometrial hyperplasia or carcinoma. I spoke with Dr. Youngblood, SWIMMING POOL SERVICEPERSON/ONC who recommends repeat D&C for sampling. This can also be therapeutic and help with her current episode of bleeding. Patient HR was in the 40s on admission and she will need both
cardiac and medical clearance prior to proceeding. If the patient has an episode of significant vaginal bleeding while waiting for clearance, can consider uterine artery embolization as an emergent intervention. He also recommended, when proceeding
with the D&C to speak with the Pathologist to expedite the pathology for results in 24-48hrs if possible. He recommended a CT of the abdomen and pelvis to evaluate for metastatic disease which was ordered by the primary team
- Patient refused any examination by me, but per nursing in the ED, she has had intermittent episodes of vaginal bleeding with clots. Continue to trend hemoglobin
- Patient has a legal guardian, Veronica Vazquez ([phone]) who I spoke with regarding the plan of care. She would like to proceed with the D&C. She will need to be contacted for consents prior to the procedure
- Will make patient NPO after midnight in case we are able to proceed with D&C tomorrow
45 minutes spent with patient, coordinating care, reviewing the chart, and documenting
--- NOTE | 2024-09-06 16:57 | CM ---
Cm spoke to patient's legal guardian, Veronica Vazquez. Patient LTC resident of [facility]. Per staff at SNF patient walks with out device. Feeds self. Regular diet and regular liquids. It is difficult for them to get her to shower regularly.
PCP At snf Collin Moreno.
Pharmacy: [facility]
Alert and oriented times 2. Veronica Vazquez updated by CM .
PLAN: return to SNF.
[2024-09-06] MEDS: OMNIPAQUE 50 ML PO (17:24)
[2024-09-06 17:31] LABS: TSH Reflex To Free T4 3.41 uIU/ml (0.47-4.68)
[2024-09-06] MEDS: LOPRESSOR 25 MG PO (22:45)
[2024-09-07] VITALS (15 sets, daily range): BP systolic 104–178; BP diastolic 53–86; BMI 35.3
[2024-09-07] MEDS: SYNTHROID 50 MCG PO (06:21)
--- NOTE | 2024-09-07 07:04 | W.PN.HOSP.TC ---
Today's Communication/Plan
-
see a/p
Assessment / Plan
Assessment / Plan
Physical Exam
General: Comfortable, Conversant, Obese
HEENT: Anicteric and Moist mucous membranes
Respiratory: Clear and Non Labored Respirations
Cardiac: S1/S2 and Regular Rhythm
GI: Soft and Non Tender
Musculoskeletal: No Clubbing and No Cyanosis
Skin: Warm and Dry
Neuro: Awake, Alert, and Oriented to self only
Psych: Confused but calm cooperative
79F Mauritian (fluent Surinamese speaking) Dementia, oriented only to self, HTN Hypothyroidism presents from [facility] for evaluation intermittent heavy vaginal bleeding. Has had prior vaginal bleeding episodes 2021 2022 that required D&C
with pathology results concerning for endometrial hyperplasia vs carcinoma- lost to follow up. Though fluent speech, following simple commands, patient notably confused poor historian. All of history obtained from records and reports. BP stable
though significant bradycardia 40s noted with cold stress temp<97 but >95 (tempt at lowest 95.1). Patient otherwise appeared comfortable, no acute distress.
Vaginal Bleeding
-Consult MUFFLER TENDER appreciated Hysteroscopy, D&C with Myosure for post menopausal bleeding completed 09/07/24
-Cardiology pre-op cardiac evaluation appreciated
Abd/Pelvis CT scan appreciated
-thickened endometrium approximately 1.8 cm. The differential included endometrial hyperplasia, polyp possible malignancy
-Leiomyomatous uterus with multiple calcified fibroids measuring up to 5.5 cm.
-Mild rectal stool burden which likely represents constipation.
-Ectopic location of the left kidney which is present in the upper pelvis, slightly eccentric to the right..
Sinus Bradycardia 1st deg AV block
-metoprolol briefly held, bradycardia since resolved, metoprolol resumed with holding parameters
-ECHO appreciated EF 55-60% no significant valve disease
Acute Blood Loss Anemia secondary to Vaginal Bleeding
-iron studies appreciated wnl
-2PRBC transfused empirically due to severity of bleeding noted on initial presentation and following admission
-monitor H&H
Cold stress suspect thermoregulatory dysfunction related to dementia
-TSH and AM Cortisol wnl
-since resolved
Dementia
-Monitor for mood/behavior changes during hospitalization
Anxiety / Depression
-Continue Zoloft
Essential Hypertension
-Continue metoprolol with hold parameters
Hypothyroidism
-Continue levothyroxine
DVT proph: SCDs
Code Status: Full Code
I spent a total of 50 minutes with the patient or on the floor. More than 50% of this time involved counseling and coordination of care.
Anticipated Discharge: 24 - 48 hours
Subjective/Interval History
-
Date of Service: September 07, 2024
no acute distress. pleasantly demented.
Objective Data
-
Labs:
Laboratory Results
09/07/24
06:44
WBC Pending
Hgb Pending
Hct Pending
Plt Count Pending
Sodium Pending
Potassium Pending
Chloride Pending
Carbon Dioxide Pending
BUN Pending
Creatinine Pending
Glucose Pending
Calcium Pending
Vital Signs:
Vital Signs
Temp Pulse Resp BP Pulse Ox
97.6 F 69 18 178/86 99
09/07/24 03:11 09/07/24 03:11 09/07/24 03:11 09/07/24 03:11 09/07/24 03:11
I&O
09/06/24 09/07/24 09/08/24
06:59 06:59 06:59
Intake Total 500 / 500
Balance 500 / 500
[2024-09-07 07:36] LABS: Blood Urea Nitrogen 11 mg/dl (7-17); Calcium 8.8 mg/dl (8.4-10.2); Carbon Dioxide 32 mmol/L (22-30); Chloride 103 mmol/L (98-107); Estimated Creatinine Clearance 89 ml/min; Glucose 109 mg/dl (70-99); Hematocrit 35.5 % (37.0-47.0); Hemoglobin 11.9 g/dL (12.0-16.0); Iron 89 ug/dl (37-170); Mean Corp Hgb Conc. 33.5 g/dL (33.0-37.0); Mean Corpuscular Hgb 29.5 pg (27.0-31.0); Mean Corpuscular Volume 88.1 fL (81.0-99.0); Mean Platelet Volume 10.1 fL (7.4-10.4); Platelet Count 212 10^3/uL (130-400); Potassium 4.3 mmol/L (3.5-5.1); Red Blood Cell Count 4.03 10^6/uL (4.20-5.40); Red Cell Dist. Width 14.3 % (11.5-14.5); Sodium 140 mmol/L (135-145); White Blood Cell Count 9.8 10^3/uL (4.8-10.8); eGFR > 60.00
[2024-09-07 07:45] LABS: Percent Saturation 30 % (20-50); Total Iron Binding Capacity 288 ug/dl (265-497)
[2024-09-07] MEDS: FEOSOL 325 MG PO (08:05)
[2024-09-07] MEDS: ZOLOFT 25 MG PO (08:05)
[2024-09-07] MEDS: FOLVITE 1 MG PO (08:05)
[2024-09-07] MEDS: LOPRESSOR 25 MG PO ×2 (08:06→20:35)
[2024-09-07 10:10] LABS: Cortisol, Random 6.5 ug/dl
[2024-09-07 10:14] LABS: Ferritin 19.9 ng/ml (11.1-264.0)
[2024-09-07 10:46] LABS: Vitamin B12 819 pg/ml (239-931)
[2024-09-07 12:07] LABS: Folate > 20.0 ng/ml (2.76-20)
--- NOTE | 2024-09-07 13:15 | W.PN.OBG.DWH ---
Today's Communication / Plan
-
Hysteroscopy, D&C with Myosure for post menopausal bleeding
Assessment/Plan
-
Post menopausal bleeding-Reviewed with patient's guardian the need to proceed with hysteroscopy, D&C. Patient has been NPO since midnight. Spoke at length with guardian, Veronica Vaqzuez, reviewed rationale for the procedure, possible risks and
complications. Consent obtained by phone, JUSTINO Winston was witness. OR notified.
Subjective Data
-
Pt awake, smiling. Denies pain. Per RN, bleeding lime vat tender
Objective Data
-
Laboratory Results
09/07/24 06:44
09/07/24 06:44
Vital Signs
Temp Pulse Resp BP Pulse Ox
97.6 F 69 18 119/80 100
09/07/24 11:11 09/07/24 11:11 09/07/24 11:11 09/07/24 11:11 09/07/24 11:11
Abdomen-soft, nontender, nondistended
Extremities-no calf pain
--- NOTE | 2024-09-07 14:08 | W.PN.CD ---
Addendum entered and electronically signed by Shlomo Hooper MD 09/07/24 16:35:
I saw and examined the patient.
The KAIAWHINA KOHANGA REO's note was reviewed and I agree with the note.
Comment:
79F with dementia, hypertension, hypothyroidism, obesity, venous insufficiency who is here for vaginal bleeding. We were consulted for preoperative risk stratification in the setting of sinus bradycardia and first-degree AV block. Yesterday her
metoprolol was decreased to 25 mg daily. Today she underwent uncomplicated D&C.
Physical exam with regular rate and rhythm, no murmurs, no lower extremity edema, clear lungs.
Monitor on telemetry overnight on reduced dose metoprolol. If no symptomatic bradycardia or pauses, okay to stop telemetry and would be safe for discharge from cardiovascular standpoint.
Original Note:
Today's Communication / Plan
-
OR today
Telemetry overnight
Impression / Plan
-
I/P: 79F with dementia, hypertension, hypothyroidism, obesity, venous insufficiency who is here for vaginal bleeding and there are plans for D&C and we are consulted for pre-op cardiovascular risk assessment.
Pre-Op Risk Assessment
-Intermediate
-Denies anginal complaints, no heart failure
Vaginal bleeding, anemia, abnormal pelvic u/s:
-Severe in that she is requiring admission and surgical management
-D/C today with Dr. Lantigua
Sinus bradycardia:
-EKG shows SB at 42 BPM
-Echo without acute findings
-TSH stable
-No advanced heart block seen
-Metoprolol decreased
HTN:
-BP elevated overnight, follow post op
Dementia
Obesity
Hypothyroidism: on levothyroxine, TSH stable
Physical Exam
Vital Signs/Labs
Vital Signs
Temp Pulse Resp BP Pulse Ox
97.6 F 69 18 119/80 100
09/07/24 11:11 09/07/24 11:11 09/07/24 11:11 09/07/24 11:11 09/07/24 11:11
09/06/24 09/07/24 09/08/24
06:59 06:59 06:59
Actual Weight 96.332 kg
09/07/24 06:44
09/07/24 06:44
PT 14.0 Sec (11.4-14.6) 09/06/24 09:34
INR 1.03 09/06/24 09:34
APTT 37.4 Sec (23.4-35.0) H 09/06/24 09:34
Physical Exam
Constitutional: No acute distress and Comfortable
EENT: Anicteric and Moist mucous membranes
Cardiovascular: Rhythm & rate is regular and S1S2 is normal
Respiratory: Respiratory effort normal and Lungs clear to auscul.
GI: Soft, Distention absent, Flat, Non tender and Normal bowel sounds
Neuro/Psych: Alert
Other: Skin (warm and dry)
Data Reviewed
-
Date of Service: September 07, 2024
--- NOTE | 2024-09-07 14:57 | W.IMMPOSTOP ---
Surgical Immed Post Op Note
-
Primary Surgeon: Miguel Ángel Lantigua MD
Assisting Surgeon: N/A
Pre-op Diagnosis: Postmenopausal bleeding
Post-op Diagnosis: same-pathology pending
Procedure Performed: Hysteroscopy, D&C with Myosure
Anesthesia Type: general with LMA-Katin
Specimen / Cultures: ECC, Endometrial biopsy, Myosure specimen
Estimated Blood Loss: 25 cc
Complications: none
Operative Findings: Uterus sounds to 8 cm. Uterine cavity with large amount of tissue, obscures visualization of cornua. TXA given for post op bleeding.
Pathology aware to expedite the processing of the specimens.
Guardian notified.
Dictation [id number]
--- NOTE | 2024-09-07 14:58 | PTCARENOTE ---
1440 Admit pt from OR. Pt converting back and forth from Aflutter/Afib to NSR, Dr Orona aware, no new orders at this time, pt remains hemodynamically stable
[2024-09-07] MEDS: SUBLIMAZE 25 MCG IV (15:11)
--- NOTE | 2024-09-07 19:13 | PTCARENOTE ---
Pt in bed awake, alert and very pleasant. Pt denies pain and discomfort at this time. Personal items and call light within reach. Jenny pad noted. All needs met at this time.
[2024-09-08 03:20] VITALS: BP 140/77
[2024-09-08] MEDS: SYNTHROID 50 MCG PO (05:39)
--- NOTE | 2024-09-08 06:25 | W.PN.HOSP.TC ---
Addendum entered and electronically signed by Marce Jo MD 09/08/24 14:17:
Correction to documentation
Sinus Bradycardia 1st deg AV block
-metoprolol briefly held due to severe bradycardia (HR 40s) since resolved, home metoprolol resumed, tolerated well. no significant symptoms bradycardia noted during stay.
-ECHO appreciated EF 55-60% no significant valve disease
Original Note:
Today's Communication/Plan
-
discharge
Assessment / Plan
Assessment / Plan
Physical Exam
General: Comfortable, Conversant, Obese
HEENT: Anicteric and Moist mucous membranes
Respiratory: Clear and Non Labored Respirations
Cardiac: S1/S2 and Regular Rhythm
GI: Soft and Non Tender
Musculoskeletal: No Clubbing and No Cyanosis
Skin: Warm and Dry
Neuro: Awake, Alert, and Oriented to self only
Psych: Confused but calm cooperative
79F [place] (fluent Portuguese speaking) Dementia, oriented only to self, HTN Hypothyroidism presents from [facility] for evaluation intermittent heavy vaginal bleeding. Has had prior vaginal bleeding episodes 2021 2022 that required D&C
with pathology results concerning for endometrial hyperplasia vs carcinoma- lost to follow up. Though fluent speech, following simple commands, patient notably confused poor historian. All of history obtained from records and reports. BP stable
though significant bradycardia 40s noted with cold stress temp<97 but >95 (tempt at lowest 95.1). Patient otherwise appeared comfortable, no acute distress.
Postmenopausal bleeding
-Consult RAILROAD SHOP INSPECTOR appreciated Hysteroscopy, D&C with Myosure for post menopausal bleeding completed 09/07/24 bleeding since resolved
-Cardiology pre-op cardiac evaluation appreciated
Abd/Pelvis CT scan appreciated
-thickened endometrium approximately 1.8 cm. The differential included endometrial hyperplasia, polyp possible malignancy
-Leiomyomatous uterus with multiple calcified fibroids measuring up to 5.5 cm.
-Mild rectal stool burden which likely represents constipation.
-Ectopic location of the left kidney which is present in the upper pelvis, slightly eccentric to the right..
Sinus Bradycardia 1st deg AV block
-metoprolol briefly held, bradycardia since resolved, metoprolol resumed with holding parameters
-ECHO appreciated EF 55-60% no significant valve disease
Acute Blood Loss Anemia secondary to Vaginal Bleeding
-iron studies appreciated wnl
-2PRBC transfused empirically due to severity of bleeding noted on initial presentation and following admission
-anemia since resolved as above
Cold stress suspect thermoregulatory dysfunction related to dementia
-TSH and AM Cortisol wnl
-since resolved
Dementia
-pleasant and cooperative throughout stay
Anxiety / Depression
-Continue Zoloft
Essential Hypertension
-Continue metoprolol with hold parameters
Hypothyroidism
-Continue levothyroxine
DVT proph: SCDs
Code Status: Full Code
Medically stable for discharge back to [facility] with outpatient follow up recommendations.
Discussed with guardian Veronica.
Total Time Preparing Discharge __40 minutes including examination of the patient, summary of the hospital stay, instructions for continuing care to all relevant caregivers; and preparation of discharge records, prescriptions, and referral
forms if necessary.
Anticipated Discharge: Today
Subjective/Interval History
-
Date of Service: September 08, 2024
No acute distress. Pleasantly demented. Conversant coherent. Ambulatory without need for assist device. No further bleeding noted by nurse/staff. Morning labs note resolution anemia.
Objective Data
-
Labs:
Laboratory Results
09/08/24
06:00
WBC Pending
Hgb Pending
Hct Pending
Plt Count Pending
Sodium Pending
Potassium Pending
Chloride Pending
Carbon Dioxide Pending
BUN Pending
Creatinine Pending
Glucose Pending
Calcium Pending
Vital Signs:
Vital Signs
Temp Pulse Resp BP Pulse Ox
98.1 F 73 17 140/77 94
09/07/24 19:25 09/08/24 03:20 09/08/24 03:20 09/08/24 03:20 09/08/24 03:20
I&O
09/06/24 09/07/24 09/08/24
06:59 06:59 06:59
Intake Total 500 / 500
Balance 500 / 500
[2024-09-08 07:40] VITALS: BP 139/70
[2024-09-08 08:00] LABS: Hematocrit 38.7 % (37.0-47.0); Mean Corp Hgb Conc. 33.6 g/dL (33.0-37.0); Mean Corpuscular Volume 89.2 fL (81.0-99.0); Platelet Count 225 10^3/uL (130-400); Red Blood Cell Count 4.34 10^6/uL (4.20-5.40); Red Cell Dist. Width 14.4 % (11.5-14.5); White Blood Cell Count 11.3 10^3/uL (4.8-10.8)
[2024-09-08 08:08] LABS: Blood Urea Nitrogen 16 mg/dl (7-17); Carbon Dioxide 28 mmol/L (22-30); Chloride 102 mmol/L (98-107); Estimated Creatinine Clearance 89 ml/min; Glucose 123 mg/dl (70-99); Magnesium 2.2 mg/dl (1.6-2.3); Phosphorus 3.9 mg/dl (2.5-4.5); Potassium 4.8 mmol/L (3.5-5.1); Sodium 139 mmol/L (135-145); eGFR > 60.00
[2024-09-08] MEDS: LOPRESSOR 25 MG PO (09:24)
[2024-09-08] MEDS: FOLVITE 1 MG PO (09:24)
[2024-09-08] MEDS: FEOSOL 325 MG PO (09:24)
[2024-09-08] MEDS: ZOLOFT 25 MG PO (09:24)
--- NOTE | 2024-09-08 11:29 | CM ---
Addendum entered by Sariah Pina 09/08/24 12:01:
OK per Shani to return today. Spoke with Guardian Jody, in agreement of return to [facility]. Requests dc summary be faxed to her at [phone].
Original Note:
Referral sent via [facility] for return to [facility].
[2024-09-08 11:51] VITALS: BP 119/58
--- NOTE | 2024-09-08 12:33 | CM ---
Addendum entered by Sariah Pina 09/08/24 12:53:
Addendum: [facility] ph # [phone] and fax # is [phone]
Original Note:
[facility] report # is [phone] and fax # is [phone]
--- NOTE | 2024-09-08 14:17 | W.DCSUMMARY ---
Discharge Summary
Discharge Data
Date of Admission: 09/06/24
Date of Discharge: 09/08/24
-
Pending Results: Yes
Additional Pending Results:
Pathology results to be followed up with Gynecology
Hospital Course
79F Colombian (fluent Czech speaking) Dementia, oriented only to self, HTN Hypothyroidism presented from [facility] for evaluation intermittent heavy vaginal bleeding. Has had prior vaginal bleeding episodes 2021 and 2022 that required
D&C with pathology results concerning for endometrial hyperplasia vs carcinoma- lost to follow up. Though fluent speech, following simple commands, patient notably confused poor historian. All of history obtained from records and reports. BP
stable though significant bradycardia 40s noted with cold stress temp<97 but >95 (tempt at lowest 95.1). Patient otherwise appeared comfortable, no acute distress. TSH and random Cortisol wnl. Cold stress resolved soon following admission.
Consult PROJECT MANAGER evaluated and performed Hysteroscopy, D&C with Myosure for post menopausal bleeding completed 09/07/24 bleeding since resolved. Pathology results pending.
Abd/Pelvis CT scan appreciated:
-thickened endometrium approximately 1.8 cm. The differential included endometrial hyperplasia, polyp possible malignancy
-Leiomyomatous uterus with multiple calcified fibroids measuring up to 5.5 cm.
-Mild rectal stool burden which likely represents constipation.
-Ectopic location of the left kidney which is present in the upper pelvis, slightly eccentric to the right..
Hospital course was notable for severe Sinus Bradycardia 40s asymptomatic. Home Metoprolol was briefly held, severe bradycardia since resolved. Home metoprolol resumed, tolerated well. ECHO for pre-op cardiac risk assessment appreciated EF 55-60%
no significant valve disease. Acute Blood Loss Anemia secondary to postmenopausal bleeding, iron studies appreciated wnl. 2PRBC were empirically transfused due to severity of bleeding noted on initial presentation and following admission. Anemia
since resolved following transfusions and D&C procedure as aforementioned. Patient was pleasantly demented and cooperative throughout stay. Medically stable, patient was discharged back to [facility] with outpatient follow up
recommendations.
Discharge Plan
-
Patient Disposition: Prison/SNF
Discharge Diagnosis/Procedures: Postmenopausal bleeding status post Hysteroscopy, D&C
Leiomyomatous uterus
Sinus Bradycardia 1st deg AV block
Acute Blood Loss Anemia resolved
Dementia
Anxiety / Depression
Hypertension
Condition: Fair
Diet: Regular
Activity: As tolerated
Driving Restrictions: No driving
Bathing Restrictions: None
Activity Restrictions/Additional Instructions:
Follow up with primary care provider in 1 week of discharge and Gynecology in 1-2 weeks of discharge.
Referrals:
Miguel Ángel Lantigua MD [Active] - in one to two weeks
Collin Moreno MD [Family Provider] - in one week
Prescriptions:
Continued
levothyroxine [Synthroid] 50 mcg Tablet
50 mcg PO DAILY
metoprolol tartrate 25 mg Tablet
25 mg PO BID
ascorbic acid (vitamin C) [Vitamin C] 500 mg Tablet
500 mg PO DAILY
ferrous sulfate 325 mg (65 mg iron) Tablet
325 mg PO DAILY
sertraline [Zoloft] 25 mg Tablet
25 mg PO DAILY
folic acid 1 mg Tablet
1 mg PO DAILY
acetaminophen 325 mg Tablet
650 mg PO Q4HPRN PRN (Reason: mild pain/temp>100F)
vitamin A and D Ointment
1 applic TOPICAL DAILY
Rx Instructions:
apply to dry skin of B/L LE
magnesium hydroxide [Milk of Magnesia] 400 mg/5 mL Suspension
30 ml PO HSPRN PRN (Reason: if no bm in 3 days)
cyanocobalamin (vitamin B-12) 500 mcg Tablet
500 mcg PO DAILY
calcium carbonate 500 mg calcium (1,250 mg) Tablet
500 mg PO DAILY
bisacodyl [Dulcolax (bisacodyl)] 10 mg Suppository
10 mg VT DAILYPRN PRN (Reason: if no results for MOM)
Discharge Orders:
Discharge Patient (As Directed); Ordered 09/08/24
Ordered By: Marce Jo
Discharge Date and Time
Print Language: LITHUANIAN
[2024-09-08 15:25] VITALS: BP 130/70
== END 2024-09-08 17:20 | DRG 744 ==
LOC: 3 WEST ACU 15:59
PROVIDERS: Emergency Medicine; Obstetrics & Gynecology; Physician Assistant; Physician Assistant Medical; ADMITTING PHYSICIAN Internal Medicine; CONSULT PHYSICIAN Internal Medicine; CONSULT PHYSICIAN Student in an Organized Health Care Education/Training Program; EMERGENCY PHYSICIAN Student in an Organized Health Care Education/Training Program; FAMILY PHYSICIAN Internal Medicine
PROC: 30233N1 Transfusion of Nonautologous Red Blood Cells into Peripheral Vein, Percutaneous Approach (ICD-10-PCS; 2024-09-06)
PROC: 0UDB8ZZ Extraction of Endometrium, Via Natural or Artificial Opening Endoscopic (ICD-10-PCS; 2024-09-07)
DX: D25.9 Leiomyoma of uterus, unspecified (principal); C45.1 Mesothelioma of peritoneum; D62 Acute posthemorrhagic anemia; F03.94 Unspecified dementia, unspecified severity, with anxiety; F03.93 Unspecified dementia, unspecified severity, with mood disturbance; N95.0 Postmenopausal bleeding; I44.0 Atrioventricular block, first degree; F32.A Depression, unspecified; I10 Essential (primary) hypertension; E03.9 Hypothyroidism, unspecified; N85.00 Endometrial hyperplasia, unspecified; N84.0 Polyp of corpus uteri; E11.9 Type 2 diabetes mellitus without complications; E66.9 Obesity, unspecified; Z68.35 Body mass index [BMI] 35.0-35.9, adult; I87.2 Venous insufficiency (chronic) (peripheral); Z79.890 Hormone replacement therapy; Z79.899 Other long term (current) drug therapy; Q63.2 Ectopic kidney
CPT/HCPCS: 88305; 74177; 76856; 80048; 80053; 81003; 81015; 82533; 82607; 82728; 82746; 83540; 83550; 83735; 84100; 84443; 85025; 85027; 85610; 85730; 86850; 86900; 86901; 86920; 87077; 87086; 87186; 88341; 88342; 88360; 93005; 93306; 99285; P9016; Q9967

== ENCOUNTER → 2024-12-04 13:23 | Outpatient (REF) | payer MEDICARE, OTHER, SELFPAY | LOC: RAD 13:23 | PROVIDERS: ATTENDING PHYSICIAN Physician Assistant Surgical; FAMILY PHYSICIAN Internal Medicine | DX: C54.1 Malignant neoplasm of endometrium (principal); N95.0 Postmenopausal bleeding | CPT/HCPCS: 71260; 74177; Q9967 ==

== ENCOUNTER → 2024-12-11 08:44 | Outpatient (REF) | payer MEDICARE, OTHER, SELFPAY | LOC: SDSPAT 08:44 | PROVIDERS: ATTENDING PHYSICIAN Obstetrics & Gynecology Gynecologic Oncology | DX: C54.1 Malignant neoplasm of endometrium (principal) | CPT/HCPCS: 36415; 86850; 86900; 86901; 93005 ==

== ENCOUNTER 2025-01-15 20:56 | Inpatient (IN) | payer MEDICARE, OTHER, SELFPAY ==
--- NOTE | 2024-12-11 13:58 | PTCARENOTE ---
Patients 7/8 ECG abnormal- reviewed by Dr. Girard- no additional interventions required
[2024-12-11 14:17] VITALS: BMI 42.9
--- NOTE | 2025-01-14 06:30 | W.CON.GYNONC ---
Chief Complaint
-
endometrial ca
History of Present Illness
79�yr�old�female�referred�to�us�from�Dr�Lantigua�for�grade�1�endometrioid�endometrial�carcinoma�with�invasion�of�the�myometrium on�D�&�C�specimen.�Patient�was�brought�to�[facility]from[facility]�for�her�second�know�episode�of
vaginal�bleeding�where�d�&�c�was�preformed.�History�is�from�her�legal�guardian,�because�patient�has�dementia.�She�has�only�known
patient�since�2020�when�she�was�placed�in�the�nursing�home.�So�medical�hx�prior�to�2020�not�well�known.�Patient�states�no pregnancies�and�only�has�brother�who�lives�in�[place].�She�denies�any�family�hx�of�cancer.
currently�being�treated�for�hypothyroidism,HTN�and�dementia.�unknown�if�she�has�had�any�previous�surgery.
meds
acetaminophen�325�mg�tablet 11/22/2024 0 prn bisacodyl�10�mg�rectal�suppository 11/22/2024 0 prn calcium�500�mg�(as�calcium�carbonate�1,250�mg) chewable�tablet 11/22/2024 0 1�p.o.�q.�day ferrous�sulfate�325�mg�(65�mg�iron)�tablet 11/22/2024 0
1�p.o.�q.�day folic�acid�1�mg�tablet 11/22/2024 0 1�p.o.�q.�day metoprolol�tartrate�25�mg�tablet 11/22/2024 0 1�p.o.�twice�a day�(BID) Milk�of�Magnesia�400�mg/5�mL�oral�suspension 11/22/2024 0 prn Synthroid�50�mcg�tablet 11/22/2024 0 1�p.o.�q.�day
vitamin�A�and�D�topical 11/22/2024 0 prn Vitamin�B�12�500�mcg�tablet 11/22/2024 0 1�p.o.�q.�day Vitamin�C�500�mg�tablet 11/22/2024 0 1�p.o.�q.�day
Zoloft�25�mg�tablet 11/22/2024 0 1�p.o.�q.�day
Medical History
Allergies
Allergies reflect when allergies were last updated in [facility].
No Known Allergies Allergy (Verified 12/19/24 10:07)
Physical Exam
Physical Exam
Pelvic�Examination:�External�normal�labia,�urethra,�anus.�urine�leakage�before�exam�Vagina:�Normal�mucosa.�Cervix:�normal appearance,�small�amt�of�blood�and�yellow�discharge�Uterus:�normal�size.�Adnexa:�No�pelvic�mass.�RVE:�no�masses�or�nodularity
In�no�acute�distress. Atraumatic�and�normocephalic. Neck:�No�cervical�masses�present. No�respiratory�distress. Regular�rate. Right�Breast:�No�masses�or�dimpling.�No�nipple�discharge. Left�Breast:�No�masses�or�dimpling.�No�nipple�discharge.
Abdomen:�Abdomen�is�soft.�Non�tender�to�palpation.�Non�distended.�Without�masses. Extremities:�lower�leg�edema� Hematologic/Lymphatic:�No�palpable�lymphadenopathy. Musculoskeletal:�Strength�and�Tone�are�normal.Decreased�range�of�motion.
Results
-
[facility]
[address] [place] [id number]
[phone]
Patient Name: CHAD MCKEON
: 1945
Unit Number: [id number]
Age/Sex: 79/F
Patient
Location: RAD
Order Provider: Ambreen Ramirez PA-C
Exam Service Date: 12/04/24

Diagnostic Imaging Report
SignedOrder #:[id number]
Exams: CT Chest/abd/pel W Iv Cont
PROCEDURE: CT Chest/abd/pel W Iv Cont
CLINICAL INDICATION: Malignant neoplasm of endometrium
TECHNIQUE: Axial images through the chest, abdomen and pelvis following oral contrast and intravenous nonionic contrast administration with coronal and sagittal reformations. Automated dose reduction technique utilized.
COMPARISON: Abdomen and Pelvis CT September 06, 2024
FINDINGS:
Chest: Evaluation is somewhat limited as a result of some respiratory/motion artifact as well as some beam hardening artifact from the patient's bilateral upper extremities without focal parenchymal opacification or mass. The heart is at least top
normal in size. There are likely coronary artery calcifications limited by contrast. There is no significant hilar, mediastinal or axillary lymphadenopathy. No pleural or pericardial effusion is seen. The thyroid gland is predominantly homogeneous.
Degenerative changes are seen within the thoracic spine. There are a few small scattered sclerotic densities within some thoracic vertebral bodies most likely representing benign bone islands.
Abdomen: Limited by some beam hardening artifact from the patient's bilateral upper extremities, there are no gross focal intrinsic abnormality of the liver, spleen, relative atrophic pancreas or adrenal glands. The gallbladder is surgically absent.
There is no biliary tract dilatation. The left kidney is again ectopically located in the upper pelvis midline and slightly to the right with stable subcentimeter low-attenuation lesions, too small to characterize. The abdominal aorta is normal in
caliber with calcific atherosclerotic changes. There is no retroperitoneal lymphadenopathy. No intestinal obstruction or free air is seen. There are degenerative changes within the lumbar spine.
Pelvis: Again identified are several scattered partially calcified uterine fibroids. Uterus/endometrium limited with this imaging modality, known endometrial carcinoma not well demonstrated. The incompletely distended and incompletely opacified
urinary bladder demonstrates mild relative diffuse wall thickening most likely due to underdistention. There is no true pelvis free fluid or significant adenopathy. There is no focal suspicious osseous lesion.
IMPRESSION:
Numerous at least partially calcified uterine fibroids again seen. Patient's known endometrial carcinoma not well demonstrated with this imaging modality.
Evaluation overall limited as a result of several factors, as detailed above, without gross findings to suggest suspicious mass or significant lymphadenopathy throughout the remainder of the abdomen and pelvis.
Prior cholecystectomy.
Ectopic left kidney again noted with subcentimeter low-attenuation lesions too small to characterize.
Suspected coronary artery calcifications.
Electronically signed by Lamont Stanley MD, 12/04/2024 4:12 PM
[facility] Dose Report: Up-to-date CT equipment and radiation dose reduction techniques were employed. CTDIvol: 12.3 - 22.6 mGy. DLP: 1511 mGy-cm.
Dictated By: Jaden HALE,Lamont Snider.
Dictated Date & Time: 12/04/24 1603
Impression / Plan
-
endometrial�cancer reviewed�dx�with�guardian�Veronica�Vann�and�that�initial�treatment�would�be�Robotic�assisted�laparoscopy�hysterectomy�with BSO�and�sentinel�lymph�node�bx�
explained�that�there�are�risk�to�the�surgery�and�would�need�to�be�cleared�by�her�physician�at�[facility]�and�did�put�that�on�her
consult�orders.�Also�explained�that�we�would�need�to�get�labs�which�we�will�draw�in�the�office�today�and�CT�scan�of�chest�abdomen and�pelvis�that�can�be�done�at�[facility]
[2025-01-15] VITALS (15 sets, daily range): BP systolic 90–132; BP diastolic 42–71; BMI 42.9
[2025-01-15] MEDS: NORMOSOL-R/PLASMALYTE-A 1000 IV (12:58)
[2025-01-15] MEDS: HEPARIN 5000 UNITS SC (12:59)
--- NOTE | 2025-01-15 13:20 | W.SUR.PREOP ---
Pre-Operative Surgical Note
-
I have examined this patient prior to the performance of the scheduled procedure.
The patient's condition is unchanged from the time of the current History and
Physical and the patient is able to undergo the scheduled procedure.
I spoke to legal guardian of this patient in the preoperative area, we reviewed the procedure including removal of uterus cervix bilateral tubes and ovaries as well as sentinel lymph nodes. Risks benefits and alternatives to the procedure were
rereviewed and reiterated. She is in agreement to proceed with surgery as previously planned. It is our intent to hopefully return back the patient to her long term facility where she is long-term resident. Preoperative nurse was present
and was witness to this conversation.
Lamont Youngblood MD
--- NOTE | 2025-01-15 15:37 | W.IMMPOSTOP ---
Surgical Immed Post Op Note
-
Primary Surgeon: Lamont Youngblood
Assisting Surgeon: Ambreen Ramirez PA-C
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
Post-op Diagnosis: Same
Procedure Performed: Robotic assisted total laparoscopic hysterectomy, bilateral salpingo-oophorectomy (uterus greater than 250 g ) with pelvic washing
Injection of cervix with ICG dye, bilateral, for mapping and identification of bilateral sentinel lymph nodes
Robotic assisted laparoscopic bilateral sentinel lymphadenectomy
Repair of vaginal introitus and periurethral lacerations
Anesthesia Type: General endotracheal intubation, tap block
Specimen / Cultures: Uterus and cervix with bilateral tubes and ovaries, right and left external iliac sentinel lymph nodes, pelvic washings
Estimated Blood Loss: 100 cc
Complications: None
Operative Findings: Intra-abdominal examination reveals upper abdomen including liver spleen stomach and diaphragms to be within normal limits visualized portions of large and small bowel are within normal limits. The tip of her appendix was
adherent to right ovary, the left fallopian tube was dilated and was adherent to adjacent sigmoid colon, uterus is enlarged with calcified leiomyoma as well as exophytic fibroids on the right and anterior left side, there is no obvious implants of
tumor throughout the peritoneal cavity. Specimen was removed intact in an Endo Catch bag vaginally.
--- NOTE | 2025-01-15 15:41 | OR.RPT ---
Operative Report
Operative Report
Date of procedure: January 15, 2025
Primary Surgeon: Lamont Youngblood
Assisting Surgeon: Ambreen Ramirez PA-C
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
Post-op Diagnosis: Same
Procedure Performed: Robotic assisted total laparoscopic hysterectomy, bilateral salpingo-oophorectomy (uterus greater than 250 g ) with pelvic washing
Injection of cervix with ICG dye, bilateral, for mapping and identification of bilateral sentinel lymph nodes
Robotic assisted laparoscopic bilateral sentinel lymphadenectomy
Repair of vaginal introitus and periurethral lacerations
Anesthesia Type: General endotracheal intubation, tap block
Specimen / Cultures: Uterus and cervix with bilateral tubes and ovaries, right and left external iliac sentinel lymph nodes, pelvic washings
Estimated Blood Loss: 100 cc
Complications: None
Operative Findings: Intra-abdominal examination reveals upper abdomen including liver spleen stomach and diaphragms to be within normal limits visualized portions of large and small bowel are within normal limits. The tip of her appendix was
adherent to right ovary, the left fallopian tube was dilated and was adherent to adjacent sigmoid colon, uterus is enlarged with calcified leiomyoma as well as exophytic fibroids on the right and anterior left side, there is no obvious implants of
tumor throughout the peritoneal cavity. Specimen was removed intact in an Endo Catch bag vaginally.
Operative procedure in detail: This patient was taken to the operating room for definitive management of endometrial cancer. The patient is not fully oriented, informed consent was obtained by legal guardian. She has a preoperative diagnosis of
grade 1 endometrioid adenocarcinoma of the uterus. Upon arrival to the operating room she was placed in supine position. Appropriate IVs were placed and she was placed under general anesthesia and intubated. She was positioned in lithotomy
position using yellowfin stirrups and prepped in the abdomen perineum and vagina we ensured that her neck shoulders as well as arms and extremities were probably positions and there was no excessive pressure on any of them. Timeout procedure was
carried out, she received combination of Ancef and Flagyl for prophylaxis. Jefferson catheter was inserted under sterile conditions in the bladder. Anterior lip of the cervix was grasped with single-tooth tenaculum and cervical canal was dilated, we
injected the cervix with approximately 4 to 5 cc ICG dye split on 3:00 and 9:00 location at 5 and 10 mm deep stations. Uterine manipulator brand manager type with 3.0 cm MIMI ring was placed in the uterine cavity and vaginal cuff occluder was
insufflated. Following this attention was turned abdominally, Veress needle was inserted just below the left subcostal margin, pneumoperitoneum was created up to pressure of 15 mmHg. A KSI robotic port was inserted at 25 cm cephalad to symphysis
pubis into the peritoneal cavity, tap block with combination of ropivacaine and Decadron was injected 2 fingerbreadths below right and left lateral aspect of subcostal margin and also right and left lateral mid abdomen. 8 mm excised robotic ports
were inserted right and left upper quadrants right and left lateral abdomen. Survey of the abdomen was performed with the findings noted above. The patient was placed in maximum Trendelenburg, and the robotic system was docked. Washings were
collected in the pelvis. Right and left round ligaments were sealed and divided anterior and posterior leaves of the broad ligament were dissected open. Both infundibulopelvic ligaments were isolated sealed 3 times and divided tubes and ovaries
were left attached to the uterus we took down the adhesions between the left fallopian tube and the sigmoid colon as well as right ovary and appendix anterior cul-de-sac peritoneum was opened and vesicouterine space was developed. Right and left
retroperitoneal spaces were opened and using firefly mode I was able to map right and left external iliac sentinel lymph nodes which were excised and submitted to pathology. Uterine arteries followed by cardinal ligaments followed by uterosacral
ligaments were serially sealed and divided circumferential incision was made over the MIMI ring. I was able to detach the uterine manipulator, introduced a large Endo Catch bag through the vagina in the abdomen and placed the entire specimen in the
Endo Catch bag. The bag was then removed vaginally with moderate resistance. Once this was completed the vaginal cuff was closed with 0 Vicryl suture ligature on right and left apices incorporating uterosacral ligaments for support. V-Loc suture
was used to close the cuff starting from right going to the left and coming back in a second layer. Good hemostasis was present we irrigated the pelvis copiously and there was no additional foci or concern for bleeding. Robotic system was
undocked, all 8 mm port sites were closed with 4-0 Monocryl in a subcuticular fashion. Skin glue was applied to all of them. I did examine the vagina at the completion of the surgery there was superficial lacerations that were bleeding on the
right side of the urethral meatus as well as just at the introitus on the right side both of these were repaired with a [id number] suture of 3-0 Vicryl. The vagina was irrigated and there was no additional foci of bleeding. Jefferson catheter was
removed. Patient returned back to recovery room stable awake and extubated condition. counts of laps instruments and needle was correct x 2. I was present and scrubbed for entire procedure as dictated above
Disposition: To PACU stable awake and extubated. I plan to check labs including CBC and BMP prior to her discharge back to her custodial facility
[2025-01-15 16:20] LABS: Hematocrit 19.3 % (37.0-47.0); Hemoglobin 6.0 g/dL (12.0-16.0); Mean Corp Hgb Conc. 31.1 g/dL (33.0-37.0); Mean Corpuscular Volume 98.5 fL (81.0-99.0); Platelet Count 110 10^3/uL (130-400); Red Cell Dist. Width 14.9 % (11.5-14.5)
[2025-01-15 16:32] LABS: Blood Urea Nitrogen 25 mg/dl (7-17); Calcium 7.7 mg/dl (8.4-10.2); Carbon Dioxide 31 mmol/L (22-30); Chloride 106 mmol/L (98-107); Estimated Creatinine Clearance 79 ml/min; Glucose 123 mg/dl (70-99); Potassium 4.5 mmol/L (3.5-5.1); Sodium 140 mmol/L (135-145); eGFR > 60.00
--- NOTE | 2025-01-15 16:46 | CON.HOSP ---
Addendum entered and electronically signed by Bethany Garcia MD 01/15/25 19:18:
This is an addendum to H&P written by Radha Vasquez on 01/15/2025. �Patient seen and examined independently with [facility] [employer].
79-year-old Samoan-speaking female past medical history of endometrial cancer status post robotic assisted total laparoscopic hysterectomy, bilateral salpingo-oophorectomy with pelvic washing today, dementia, hypertension, hypothyroidism for which
hospitalist was consulted for anemia.
She underwent robotic assisted total laparoscopic hysterectomy, bilateral salpingo-oophorectomy with pelvic washing today today.
100 cc blood loss.
Lab work was checked postoperatively showed hemoglobin of 6 from 13 in September. �Hemoglobin was [address] Yuongblood's office.
Patient with intermittent vaginal bleeding for years.
Vital signs show temperature of 93.
Patient with hypothermia likely secondary to anemia. �Seems that anemia could be acute on chronic from ongoing vaginal bleeding for which hysterectomy was performed as well as some blood loss from surgery today. �2 units blood transfusion check iron
studies, B12 and folate. �Check fecal occult. Check Hb q6.�
SCDs for DVT prophylaxis. �Clear liquid diet.
Original Note:
Consultation
-
Date/Time Consultation Requested: 01/15/2025 1643
Date/Time Consultation Performed: 01/15/2025 1649
Requesting Provider: Dr. Lamont Youngblood
Performing Provider: Dr. Chris Garcia and Jacquelyn MANCINI
Reason for Consultation: medical management
Family Physician
-
Family Physician: NO INTERVIEW UNKNOWN
Chief Complaint
-
medical management
History of Present Illness
Patient is a 79-year-old female with past medical history significant for dementia, hypertension, hypothyroidism and endometrial carcinoma who is present at [facility] for robotic assisted total laparoscopic hysterectomy, bilateral salpingo-oophorectomy
(uterus greater than 250 g ) with pelvic washing with Dr. Youngblood who was found to be anemic post operatively.
Medical History
Past Medical History
Additional Past Medical History:
Dementia
Anxiety / Depression
Essential Hypertension
Hypothyroidism
Vaginal Bleeding
Endometrial Carcinoma
Additional Past Surgical History:
D&C
s/p robotic [facility] BSO 01/15/2025
Social History
Unable to obtain full social history at this time due to: Dementia
Allergies / Home Medications
Allergies reflects when Allergies were last updated in [employer].
Home Medications with original date entered in [employer]
Allergy/Medication List:
Allergies
Allergy/AdvReac Type Severity Reaction Status Date / Time
No Known Allergies Allergy Verified 01/15/25 11:41
Home Medications
levothyroxine 50 mcg tablet (Synthroid) 50 mcg PO DAILY Thyroid 02/03/22
metoprolol tartrate 25 mg tablet 25 mg PO BID Blood Pressure 02/03/22
ascorbic acid (vitamin C) 500 mg tablet (Vitamin C) 500 mg PO DAILY Supplement 07/12/22
ferrous sulfate 325 mg (65 mg iron) tablet 325 mg PO DAILY Supplement 07/12/22
folic acid 1 mg tablet 1 mg PO DAILY Supplement 07/12/22
sertraline 25 mg tablet (Zoloft) 25 mg PO DAILY Mental Health/Anxiety 07/12/22
acetaminophen 325 mg tablet 650 mg PO Q4HPRN PRN mild pain/temp>100F 09/06/24
bisacodyl 10 mg rectal suppository (Dulcolax (bisacodyl)) 10 mg ND DAILYPRN PRN if no results for MOM 09/06/24
calcium carbonate 500 mg PO DAILY Supplement 09/06/24
cyanocobalamin (vitamin B-12) 500 mcg tablet 500 mcg PO DAILY Supplement 09/06/24
magnesium hydroxide 400 mg/5 mL oral suspension (Milk of Magnesia) 30 ml PO HSPRN PRN if no bm in 3 days 09/06/24
vitamin A and D 1 applic topical DAILY Skin Issues 09/06/24
Review of Systems
-
Unable to obtain full review of systems at this time due to: Dementia
Physical Exam
Vital Signs
Vital Signs
Temp Pulse Resp BP Pulse Ox
95.4 F L 75 15 103/57 100
01/15/25 15:35 01/15/25 15:35 01/15/25 15:35 01/15/25 15:35 01/15/25 15:35
Physical Exam
General: Well Developed, Well Nourished and No Apparent Distress
HEENT: Normocephalic, Moist Mucous Membranes, Atraumatic and Oxygen
Respiratory: Clear and Non Labored Respirations; Negative Wheezes, Rales or Rhonchi
Cardiac: S1/S2 and Regular Rhythm; Negative Murmur, Rub or Peripheral Edema
Breast: Deferred by me
GI: Soft, Non Distended, Normal Bowel Sounds, Tender and Other (5 incisions for robotic TLH BSO, all closed with glue )
Rectal: Deferred by Provider
Musculoskeletal: No Clubbing, No Cyanosis and No Edema
Skin: Warm and Other (5 incisions for robotic TLH BSO, all closed with glue ); Negative Rash
Neuro: Awake and Nonfocal/Grossly Intact
Psych: Agitated and Apparent Dementia
Laboratory Results
-
Laboratory Results
01/15/25 16:07
01/15/25 16:07
Data Reviewed
-
Lab Data: Labs Reviewed (hgb 6.0, hct 19.3, plt 110)
Impression / Plan
-
IMPRESSION/PLAN:
#anemia
hgb 6.0, hct 19.3, plt 110
s/p robotic TLH BSO with Dr. Youngblood 01/15/2025
Last hgb 11/[address] Youngblood, preop labs not drawn today, 100cc documented blood loss
patient with vaginal bleeding hx, likely source of anemia
- Transfer to telemetry
- transfuse PRBCs and trend H/H
- monitor for continued bleeding
- check iron studies
- continue ferrous sulfate
#Anxiety / Depression
- continue sertraline
#Essential Hypertension
- continue metoprolol
#Hypothyroidism
- continue levothyroxine
#Vaginal Bleeding
#Endometrial Carcinoma
follows with Dr. Youngblood with [facility]
s/p robotic [facility] 01/15/2025
- continue to follow up out patient
#Dementia
Code status: full code
DVT prophylaxis: SCDs
--- NOTE | 2025-01-15 17:15 | W.PN.GYNONC ---
Today's Communication
-
admit , blood transfusion
Impression / Plan
-
endometrial�cancer reviewed�dx�with�guardian�Veronica�Vann�and�that�initial�treatment�would�be�Robotic�assisted�laparoscopy�hysterectomy�with BSO�and�sentinel�lymph�node�bx�
Labs were obtained in the recovery room, indicating hemoglobin 6. Patient's vital signs are stable, most likely she has had blood loss over the course of the summer leading to this. I did not expect significant bleeding intraoperatively and did
not note any. I am going to repeat her CBC and coagulation studies
Plan of transfer back to facility was canceled
Patient will receive 2 units of blood
I have discussed the situation with Veronica Vazquez, her power of employment law attorney and legal guardian
I have also consulted hospitalist service requesting evaluation whether the patient is appropriate for MedSurg level or whether she should be escalated to stepdown or ICU. I do suspect she will need CBC checked every 6 hours over the next 24 hours
Subjective / Interval History
-
POD0 robotic TLH BSO, bilateral sentinel lymph node excision
Patient is in the recovery room, she is comfortable, does not have any complaints except when blood draw was performed.
Objective Data
-
Lab Results:
01/15/25 16:07
Physical Exam
Vital Signs / I&O
Vitals
Temp Pulse Resp BP Pulse Ox
95.4 F L 75 15 103/57 100
01/15/25 15:35 01/15/25 15:35 01/15/25 15:35 01/15/25 15:35 01/15/25 15:35
Physical Exam
General: No Apparent Distress
Cardiac: Regular Rhythm
GI: Soft
Psych: Calm
Data Reviewed
-
Lab Data: Labs Reviewed
[2025-01-15 17:39] LABS: ALT (SGPT) 13 U/L (0-35); AST (SGOT) 20 U/L (14-36); Albumin 2.7 g/dl (3.5-5.0); Alkaline Phosphatase 146 U/L (38-126); Total Protein 5.3 g/dl (6.3-8.2)
[2025-01-15 18:11] LABS: Hematocrit 21.8 % (37.0-47.0); Hemoglobin 6.8 g/dL (12.0-16.0); Mean Corp Hgb Conc. 31.2 g/dL (33.0-37.0); Mean Corpuscular Volume 97.3 fL (81.0-99.0); Nucleated Red Blood Cells % 0 %; Platelet Count 121 10^3/uL (130-400); Red Cell Dist. Width 14.8 % (11.5-14.5)
[2025-01-15 18:13] LABS: APTT 35.5 Sec (23.4-35.0); INR 1.01; PT 13.6 Sec (11.4-14.6)
--- NOTE | 2025-01-15 20:25 | PTCARENOTE ---
PT arrived from PACU, transferred to bed. Pt drowsy, arousable to tactile stimuli, pt pinching staff when being repositioned, Pt moans and does not answer questions. vss. pox 92% on RA, placed on 2L NC, pox 96%. nsr on monitor. 1 unit PRBCs
transfusing. Small amount of vaginal bleeding present. Pt changed and repositioned. foam dressings placed on bl heels for protection. call dixon within reach.
[2025-01-15] MEDS: COLACE PO (21:31)
[2025-01-15] MEDS: TYLENOL PO ×2 (21:31→23:38)
[2025-01-15] MEDS: NSS 1000 IV (22:39)
--- NOTE | 2025-01-15 23:30 | PTCARENOTE ---
Pt sleeping, arousable to tactile stimuli, does not answer questions when spoke to. Unable to obtain oral or axillary temp, rectal temp 92. bp: 90/47. Hephziba BAR USEFUL OR BUSSER notified, labs and bolus ordered ordered. labs sent. House COOK SEAFOOD at the bedside.
bladder scanned for 294ml. Declan hart applied.
--- NOTE | 2025-01-15 23:52 | W.PN.UPDATE ---
Update Note
Progress Note Update
RN reports patient rectal temp 92 BP 90/47 HR 73 97% 2L, patient is lethargic post op as well. labs ordered in place, NSS bolus IV.
Patient seen and evaluated, arousable to name, opens eyes, agitated when checking BP, then back to sleeping. Lungs clear, + BS 4 quad incisions CDI, no hematoma noted
patient is warm to touch, room was cold temp increased manually. Camila huger in place
H&H 8.9/27.3 Lactic 1.3 BMP wnl
BP 150/80's, 75 after IV bolus , continue IV fluids
drowsy likely due to Anaesthesia?
ABG now
0130 ABG results noted, will transfer patient to IMU for Bipap
BP 70'/40's -90/40's HR 70'. Will start Levophed IV infusion now.
Patient is still lethargic, on BiPap, ABG now. CT head now
Dr. Youngblood made aware. Dr. Youngblood wants to transfer patient to ICU now, Transfer order in place, Senior Quality Control Inspector consult in place.
[2025-01-16] VITALS (88 sets, daily range): BP systolic 70–152; BP diastolic 35–88; PULSE 2–98; BMI 44.8; BMI 44.7
[2025-01-16] MEDS: NSS 250 IV (00:09)
[2025-01-16 00:35] LABS: Hematocrit 27.3 % (37.0-47.0); Hemoglobin 8.9 g/dL (12.0-16.0); Mean Corp Hgb Conc. 32.6 g/dL (33.0-37.0); Mean Corpuscular Volume 94.5 fL (81.0-99.0); Platelet Count 100 10^3/uL (130-400); Red Cell Dist. Width 15.3 % (11.5-14.5)
[2025-01-16 00:35] LABS: Glucose - Point of Care 168 mg/dl (70-99)
[2025-01-16 00:43] LABS: Blood Urea Nitrogen 23 mg/dl (7-17); Calcium 7.5 mg/dl (8.4-10.2); Carbon Dioxide 30 mmol/L (22-30); Chloride 108 mmol/L (98-107); Estimated Creatinine Clearance 79 ml/min; Glucose 170 mg/dl (70-99); Potassium 4.7 mmol/L (3.5-5.1); Sodium 140 mmol/L (135-145); eGFR > 60.00
[2025-01-16 01:30] LABS: B.E. 3.0 mmol/L; HCO3 29.9 mmol/L (21-28); O2 Saturation % 99.2 % (94-98); PCO2 58 mmHg (32-35); PO2 109 mmHg (83-108)
--- NOTE | 2025-01-16 02:06 | RESPNOTE ---
PT is ordered for incentive spirometry Q1 hrs, while awake, PT has been somewhat unresponsive, prompting a STAT ABG and is being moved to IMU for BIPAP, will revisit IS when appropriate.
--- NOTE | 2025-01-16 02:35 | PTCARENOTE ---
Report given to Ericka in IMU. PT's rectal temp 93.6. Pt transferred to 3350.
--- NOTE | 2025-01-16 03:00 | PTCARENOTE ---
Addendum entered by Ericka Ugalde RN 01/16/25 04:56:
patient only responsive to tactile, does not follow commands. Patient yelled out when being turned.
Original Note:
received patient from [address] [place] [address]. Patient using bare hugger with goal temp of 97.0. Patient on bipap. Patient cayman islander speaking with hx of dementia. Patient very drowsy and only appears orientated to self. NSR on monitor. Rectal probe in place to
monitor temps. assessment and vitals as documented. call dixon in reach.
--- NOTE | 2025-01-16 03:45 | PTCARENOTE ---
0100 TT sent to in regards to Pt's h&H results as ordered.
0335 responded to TT, and given update on Pt's status.
[2025-01-16] MEDS: LEVOPHED 250 IV (04:19)
[2025-01-16 04:42] LABS: Hematocrit 25.1 % (37.0-47.0); Hemoglobin 8.0 g/dL (12.0-16.0); Mean Corp Hgb Conc. 31.9 g/dL (33.0-37.0); Mean Corpuscular Volume 94.0 fL (81.0-99.0); Nucleated Red Blood Cells % 0 %; Platelet Count 106 10^3/uL (130-400); Red Cell Dist. Width 15.8 % (11.5-14.5)
--- NOTE | 2025-01-16 04:53 | PTCARENOTE ---
patient bp 70/40. Temp still 95 with bare hugger. Patient only arousable to tactile, does not follow commands. TT TOOLING MANAGER. Levo ordered and started for bp. Labs drawn and sent. no active signs of bleeding. Patient 99% with bipap on. After levo started
patient bp back up to 126/72. continuing to monitor.
[2025-01-16] MEDS: SYNTHROID PO (05:15)
[2025-01-16] MEDS: TYLENOL PO ×3 (05:15→23:23)
[2025-01-16 05:17] LABS: ALT (SGPT) 12 U/L (0-35); AST (SGOT) 20 U/L (14-36); Albumin 2.6 g/dl (3.5-5.0); Alkaline Phosphatase 124 U/L (38-126); Blood Urea Nitrogen 23 mg/dl (7-17); Calcium 7.2 mg/dl (8.4-10.2); Carbon Dioxide 27 mmol/L (22-30); Chloride 109 mmol/L (98-107); Estimated Creatinine Clearance 81 ml/min; Glucose 166 mg/dl (70-99); Iron 51 ug/dl (37-170); Potassium 4.8 mmol/L (3.5-5.1); Sodium 140 mmol/L (135-145); Total Protein 5.2 g/dl (6.3-8.2); eGFR > 60.00
--- NOTE | 2025-01-16 05:24 | W.PN.GYNONC ---
Today's Communication
-
regular diet
pulmonary toilet
PT eval
Impression / Plan
-
endometrial�cancer reviewed�dx�with�guardian�Veronica�Vann�and�that�initial�treatment�would�be�Robotic�assisted�laparoscopy�hysterectomy�with BSO�and�sentinel�lymph�node�bx�
Labs were obtained in the recovery room, indicating hemoglobin 6.
Patient's vital signs are stable, most likely she has had blood loss over the course of the summer leading to this.
H/H followed overnight seems like hgb rashid to 8 after 2 units prbc
I have discussed the situation with Veronica Vazquez, her power of production machine tender and legal guardian
Appreciate assistance from hospitalist with management
I will also ask heme/onc to weigh in and make recommendations.
Subjective / Interval History
-
POD1 Robotic TLH BSO, SLN, repair of vaginal lacerations
overnight slept on and off
does not appear in pain
Objective Data
-
Lab Results:
01/16/25 04:27
Physical Exam
Vital Signs / I&O
Vitals
Temp Pulse Resp BP Pulse Ox
96.5 F L 77 15 126/88 100
01/16/25 05:00 01/16/25 02:45 01/16/25 02:45 01/16/25 02:34 01/16/25 02:54
I&O
01/13/25 01/14/25 01/15/25 01/16/25
06:59 06:59 06:59 06:59
Intake Total 400 / 400
Balance 400 / 400
Physical Exam
General: No Apparent Distress
HEENT: Normocephalic
Respiratory: Clear and Non Labored Respirations
Cardiac: S1/S2 and Regular Rhythm
GI: Soft, Non Tender and Other (port sites are intact)
Skin: Warm
Neuro: Awake and Alert
[2025-01-16 05:25] LABS: Total Iron Binding Capacity 286 ug/dl (265-497)
[2025-01-16 05:35] LABS: Ferritin 25.0 ng/ml (11.1-264.0)
[2025-01-16 06:06] LABS: Folate > 20.0 ng/ml (2.76-20); Vitamin B12 928 pg/ml (239-931)
[2025-01-16 06:13] LABS: B.E. 2.0 mmol/L; HCO3 27.7 mmol/L (21-28); O2 Saturation % 99.3 % (94-98); PCO2 48 mmHg (32-35); PO2 119 mmHg (83-108)
[2025-01-16] MEDS: CALCIUM GLUCONATE 100 IV (06:37)
[2025-01-16] MEDS: NSS 1000 IV (06:37)
--- NOTE | 2025-01-16 07:36 | CON.INTV ---
Consultation
Consultation Request
Date/Time Consultation Requested: 01/16/2025
Date/Time Consultation Performed: 01/16/2025
Medical History
-
Chief Complaint: Vaginal bleeding
History of Present Illness:
Patient is a 79-year-old female with past medical history for dementia, hypertension, hypothyroidism as well as known diagnosis of endometrial carcinoma. She was admitted to the hospital for robotic assisted laparoscopic hysterectomy, bilateral
salpingo-oophorectomy and pelvic washing.
Overnight patient was noted to be more lethargic and bilateral gas was suggestive of hypercapnia, patient was initiated on BiPAP and transferred to IMU. Later on patient developed hypotension blood pressure of 70 x 40 to 90 x 40. Patient was
initiated on Levophed. Lactate was checked which was normal at 1.3. In view of hypotension requiring pressors, respiratory failure requiring BiPAP, patient was subsequently transferred to ICU and director appointment consultation was requested for further
input.
Past Medical History
Additional Past Medical History:
Dementia
Anxiety / Depression
Essential Hypertension
Hypothyroidism
Vaginal Bleeding
Endometrial Carcinoma
Additional Past Surgical History:
D&C
s/p robotic TL BSO 01/15/2025
Social History
Unable to obtain full social history at this time due to: Dementia
Allergies / Home Medications
Allergies / Home Medications
Allergies
Allergy/AdvReac Type Severity Reaction Status Date / Time
No Known Allergies Allergy Verified 01/15/25 11:41
Home Medications
�Medication �Instructions �Recorded �Confirmed �Last Taken �Type
levothyroxine 50 mcg tablet 50 mcg PO DAILY Thyroid 02/03/22 01/15/25 01/14/25 06:00 History
(Synthroid)
metoprolol tartrate 25 mg tablet 25 mg PO BID Blood Pressure 02/03/22 12/19/24 01/15/25 06:30 History
ascorbic acid (vitamin C) 500 mg 500 mg PO DAILY Supplement 07/12/22 01/15/25 01/14/25 08:00 History
tablet (Vitamin C)
ferrous sulfate 325 mg (65 mg 325 mg PO DAILY Supplement 07/12/22 01/15/25 01/14/25 08:00 History
iron) tablet
folic acid 1 mg tablet 1 mg PO DAILY Supplement 07/12/22 01/15/25 01/14/25 08:00 History
sertraline 25 mg tablet (Zoloft) 25 mg PO DAILY Mental 07/12/22 12/19/24 01/15/25 06:30 History
Health/Anxiety
acetaminophen 325 mg tablet 650 mg PO Q4HPRN PRN mild 09/06/24 01/15/25 01/06/25 History
pain/temp>100F
bisacodyl 10 mg rectal suppository 10 mg FL DAILYPRN PRN if no 09/06/24 01/15/25 Unknown History
(Dulcolax (bisacodyl)) results for MOM
calcium carbonate 500 mg PO DAILY Supplement 09/06/24 01/15/25 01/14/25 08:00 History
cyanocobalamin (vitamin B-12) 500 500 mcg PO DAILY Supplement 09/06/24 01/15/25 01/14/25 08:00 History
mcg tablet
magnesium hydroxide 400 mg/5 mL 30 ml PO HSPRN PRN if no bm in 3 09/06/24 01/15/25 Unknown History
oral suspension (Milk of Magnesia) days
vitamin A and D 1 applic topical DAILY Skin Issues 09/06/24 01/15/25 Unknown History
Review of Systems
Vitals / Labs / Diagnostic Testing
Vital Signs
Temp Pulse Resp BP Pulse Ox
97.6 F 90 15 118/61 97
01/16/25 06:00 01/16/25 06:15 01/16/25 06:15 01/16/25 06:00 01/16/25 06:15
Lab Data
01/16/25 04:27
Laboratory Results
08/12/25 08/13/25 08/13/25
17:55 01:25 06:05
PT 13.6
INR 1.01
APTT 35.5 H
pH 7.32 L 7.37
pCO2 58 H 48 H
pO2 109 H 119 H
HCO3 29.9 H 27.7
O2 Delivery Level
Diagnostic Testing:
Physical Exam
-
HEENT: Normocephalic and Other (Pale conjunctiva)
Cardiovascular: S1/S2 and Peripheral Edema (1+, bilateral)
Respiratory: Clear
GI: Soft
Neurology: Awake
Skin: Warm
General: Comfortable
Assessment
-
#1. Acute hypercapnic respiratory failure.
- 7.32/58, patient initiated on BiPAP, most recent blood gas 7.37/48, significantly improved
- Suspect hypercapnia related to hypoventilation in the setting of sedation
- Noon VBG suggestive of mild compensated hypercapnia, normal pH. Trial off BiPAP for 2 hours
#2. Hypotension.
- Suspect primarily related to hypovolemia. Patient also has been on metoprolol 25 mg p.o. twice daily
- Hold antihypertensive medications,, continue PRBC as needed to keep hemoglobin above 7, Levophed as needed to keep MAP above 65
- Follow-up lactate, initial lactate was unremarkable
- Developing trace pedal edema, discontinue additional IV fluids for now
- Normal WBC count, continues to be afebrile. Chest x-ray reviewed, mild volume loss appears to be more suggestive of atelectasis than pneumonia. Monitor off antibiotics for now.
#3. Anemia, Acute on chronic
- Known history of chronic vaginal bleeding, likely anemia further exacerbated by acute blood loss with surgery, dilution with IV. Fluid resuscitation
- Serial H&H and transfuse as needed to keep hemoglobin above 7
#4. Endometrial carcinoma with chronic vaginal bleeding
- S/p TLH, BSO, 01/15/2025
- Gynecologic oncology service on case
Other medical diagnoses:
- Hypothyroidism
- Hypertension
- Anxiety/depression
- Dementia
Critical Care time 67 mins -- The patient is admitted for acute critical illness for the treatment of vital organ failure and/or prevention of further life-threatening conditions. Total care includes time spent in review of history, physical exam,
medications, hemodynamic/ventilator parameters, laboratory data, imaging and discussion with house staff, pharmacy, respiratory therapy, crystal flat grinder, and nursing.
Data:
CT C/A/P 01/2025: Numerous at least partially calcified uterine fibroids again seen. Patient's known endometrial carcinoma not well demonstrated with this imaging modality.
Evaluation overall limited as a result of several factors, as detailed above, without gross findings to suggest suspicious mass or significant lymphadenopathy throughout the remainder of the abdomen and pelvis.
Prior cholecystectomy.
Ectopic left kidney again noted with subcentimeter low-attenuation lesions too small to characterize.
Suspected coronary artery calcifications
ECHO 09/2024: Normal biventricular size and systolic function without regional wall motion
abnormality. Estimated LVEF 55-60%.
No significant valve disease.
--- NOTE | 2025-01-16 07:43 | W.PN.HOSP.TC ---
Addendum entered and electronically signed by Marion Patel MD 01/16/25 14:55:
discussed with patient's guardian, Veronica, and she is a full code.
Original Note:
Today's Communication/Plan
-
see plan
Assessment / Plan
Assessment / Plan
Ms. Natalya Ronquillo is a 79 yo woman, Surinamese-speaking, with hx dementia, [facility] resident, essential HTN, hypothyroidism, stage 1 endometrial cancer s/p robotic assisted total laparoscopic hysterectomy, bilateral salpino-oopherectomy with
pelvic washing 01/15/25 with post-op course complicated by anemia, hypothermia, hypotension requiring levophed overnight.
Altered mental status post-op
Hypercarbic respiratory failure
Hypothermia
-patient with lethargy post-op, ABG with CO2 58, pH 7.32, placed on BiPAP and transferred to ICU
-suspect AE from anesthesia, she is more awake now
-BiPAP titration per Pulmonary
-follow up CXR, UA
-AM Cortisol
-TSH WNL
Hypotension
-now resolved post fluids
-briefly required Levophed overnight, now off
-titrate down fluids NS from 125cc/hr to 70cc/hr
Acute on chronic blood loss anemia
-patient's Hg post-op was 6, had likely been slowly losing blood over months with acute loss during OR
-s/p PRBC transfusion
-repeat Hg later this morning
Stage 1 Endometrial Cancer
-s/p Robotic�assisted�laparoscopy�hysterectomy�with BSO�and�sentinel�lymph�node�bx on 01/15/25
Anxiety/Depression
-FIRE FIGHTERS DISPATCHER Zoloft
Essential Hypertension
-hold FIRE FIGHTERS DISPATCHER Metoprolol
Hypothyroidism
-TSH OK, FIRE FIGHTERS DISPATCHER Synthroid
Dementia
-patient has a guardian
Code status: full code
DVT prophylaxis: SCDs
51 minutes spent on patient care
Anticipated Discharge: > 48 hours
Subjective/Interval History
-
Date of Service: January 16, 2025
patient opens eyes easily to stimuli, able to say hi
she is seen on BiPAp
Objective Data
-
Labs:
Laboratory Results
01/16/25 01/16/25 01/16/25
00:02 00:02 00:02
WBC 8.2
Hgb Cancelled 8.9 L D
Hct Cancelled 27.3 L
Plt Count 100 L
HCO3
Sodium 140
Potassium 4.7
Chloride 108 H
Carbon Dioxide 30
BUN 23 H
Creatinine 0.6
Glucose 170 H
Calcium 7.5 L
Total Bilirubin
AST
ALT
Alkaline Phosphatase
01/16/25 01/16/25 01/16/25
01:25 04:27 06:05
WBC 9.3
Hgb 8.0 L
Hct 25.1 L
Plt Count 106 L
HCO3 29.9 H 27.7
Sodium 140
Potassium 4.8
Chloride 109 H
Carbon Dioxide 27
BUN 23 H
Creatinine 0.6
Glucose 166 H
Calcium 7.2 L
Total Bilirubin 0.3
AST 20
ALT 12
Alkaline Phosphatase 124
01/16/25
11:45
WBC
Hgb Pending
Hct Pending
Plt Count
HCO3
Sodium
Potassium
Chloride
Carbon Dioxide
BUN
Creatinine
Glucose
Calcium
Total Bilirubin
AST
ALT
Alkaline Phosphatase
Vital Signs:
Vital Signs
Temp Pulse Resp BP Pulse Ox
97.6 F 90 15 118/61 97
01/16/25 06:00 01/16/25 06:15 01/16/25 06:15 01/16/25 06:00 01/16/25 06:15
I&O
01/15/25 01/16/25 01/17/25
06:59 06:59 06:59
Intake Total 400 / 400
Balance 400 / 400
Review of Systems
-
History Source: Patient
All other systems: Reviewed and negative
Physical Exam
-
General: No Apparent Distress and Other (on BiPAP, opens eyes to verbal stimuli )
HEENT: PERRLA
Respiratory: Negative Wheezes
Cardiac: Regular Rhythm and S1/S2
GI: Soft, Nontender and Other (lap incisions c/d/i, abdomen soft)
Musculoskeletal: No Edema
Skin: Warm and Dry; Negative Rash
Neuro: Sedated (arousable to voice)
Psych: Calm
Data Reviewed
-
Diagnostic Radiology: Report Reviewed by me
Labs: Labs Reviewed by me
--- NOTE | 2025-01-16 08:15 | PTCARENOTE ---
Pt received into Rm 3369 via bed following transfer report from IMU RN. Pt drowsy but opens eyes to name and says 'Yes?' Eyes closed and appears to be sleeping when not disturbed. Received on BiPap 12/5 w/ O2 @ 4l/min with rate 12 (increased to 16
by RT). Pox 100%. Respirations shallow but no distress noted. IVF of NS @ 125ml/hr and Levophed gtt infusing at 2 mcg/min at time of arrival- adjusted as documented in work list intervention. Declan Hugger in use w/ rectal temp= 97.1F. Declan Hugger
placed on standby and will monitor continuous rectal temp on monitor. Physical assessment completed as documented.
[2025-01-16 10:14] LABS: Cortisol, Random 2.7 ug/dl
[2025-01-16 10:18] LABS: Urine Character Clear (Clear)
[2025-01-16 10:35] LABS: Urine Urothelial Cell 0-2 /LPF (FEW)
--- NOTE | 2025-01-16 11:07 | PTCARENOTE ---
Titrating Levophed as documented. Declan Catalinogger in use and monitoring continuous rectal temp w/ rectal probe. Pt remains drowsy/lethargic but arousable to name. Straight cath completed as ordered by Dr Patel and urine specimen sent to lab.
Repositioned and comfort care provided q2hr or more frequently. Bipap remains in use w/ Pox stable upper 90's. No resp. distress noted.
--- NOTE | 2025-01-16 11:40 | CM ---
Patient is alf at [facility] . Spoke with Guardian Jody [phone] and Shani liaison from [facility] .Pt is confused at times. She uses a walker
She is assisted in all activities of daily living.As per Jody pt will return to [facility].at discharge via ambulance .Pt is currently postop hysterectomy and in ICU .She required blood transfusion.
[facility] medical doctor nuclear medicine
[facility]
PCP Dr Collin Laguna
PLAN Return to [facility]
[2025-01-16 12:20] LABS: Hematocrit 26.3 % (37.0-47.0); Hemoglobin 8.6 g/dL (12.0-16.0)
[2025-01-16 12:27] LABS: Venous Blood Gas B.E. 3.0 mmol/L (-4 to +4); Venous Blood Gas O2 Sat % 99.5 %
[2025-01-16] MEDS: FEOSOL 325 MG PO (12:54)
[2025-01-16] MEDS: VITAMIN B-12 500 MCG PO (12:54)
[2025-01-16] MEDS: FOLVITE 1 MG PO (12:54)
[2025-01-16] MEDS: TYLENOL 650 MG PO (12:54)
[2025-01-16] MEDS: COLACE 100 MG PO (12:54)
[2025-01-16] MEDS: SYNTHROID 50 MCG PO (12:55)
[2025-01-16] MEDS: ZOLOFT 25 MG PO (13:00)
--- NOTE | 2025-01-16 13:05 | PTCARENOTE ---
VBG results reported to Dr Mix. Order received to take pt off BiPap x2hr and then replace for 2hrs. RT notified and removed BiPap and placed pt on O2 at 2l/min via NC. POx 98%. No distress. Smiling and saying 'yes' to various questions. With
assist, pt was sble to take AM meds PO w/ sips of water. Remains on Levophed at 2mcg/min. Will taper per ordered parameters.
[2025-01-16] MEDS: CORTROSYN 0.25 MG IV (14:25)
[2025-01-16] MEDS: NSS (PRESERVATIVE FREE) 1 ML IV (14:26)
--- NOTE | 2025-01-16 14:52 | PTCARENOTE ---
Pt transported off unit w/ this RN for ordered CT Head. No complications. Returned to room and pt complete feed for lunch. Stated 'enough' and 'no more' to indicate when she was done eating. Remains off Bipap on O2 at 2l/min w/ POx 100%. Will place
on RA and monitor POx and resp status
[2025-01-16 16:00] LABS: ACTH Stim Cortisol 0 Min 2.0 ug/dl
[2025-01-16 16:04] LABS: ACTH Stim Cortisol 30 Min 14.1 ug/dl
[2025-01-16 16:28] LABS: ACTH Stim Cortisol 60 Min 19.5 ug/dl
--- NOTE | 2025-01-16 17:20 | PTCARENOTE ---
Pt's POx intermittently down to mid to low 80's on RA when asleep. O2 reapplied at 2l/min via NC w/ PO improved to 98%. Pt arousable to name and responsive. No resp. distress. Bladder scan repeated for no urine output. Dr Mix notified of low
urine output this shift as well as POx dropping when asleep. Order for IVF received. Pt placed back on Bipap by RT. No additional changes from previous assessment findings.
[2025-01-16] MEDS: LR 1000 IV (17:33)
--- NOTE | 2025-01-16 20:00 | PTCARENOTE ---
Resumed care of pt this evening. Received pt on bipap, 12/5 w/ 2L. Pt is tolerating bipap settings and is satting at 98% pulse ox. Pt is resting comfortably.
[2025-01-16] MEDS: COLACE PO (23:08)
[2025-01-17] VITALS (53 sets, daily range): BP systolic 93–167; BP diastolic 44–85; PULSE 2–80; O2SAT 100; BMI 45.1
[2025-01-17 03:32] LABS: Urine Character Cloudy (Clear)
--- NOTE | 2025-01-17 04:00 | PTCARENOTE ---
Levo gtt turned off per protocol.
[2025-01-17 04:47] LABS: Hematocrit 22.6 % (37.0-47.0); Hemoglobin 7.3 g/dL (12.0-16.0); Mean Corp Hgb Conc. 32.3 g/dL (33.0-37.0); Mean Corpuscular Volume 94.6 fL (81.0-99.0); Nucleated Red Blood Cells % 0.2 %; Platelet Count 128 10^3/uL (130-400); Red Cell Dist. Width 16.1 % (11.5-14.5)
[2025-01-17 05:01] LABS: Blood Urea Nitrogen 24 mg/dl (7-17); Calcium 7.5 mg/dl (8.4-10.2); Carbon Dioxide 30 mmol/L (22-30); Chloride 109 mmol/L (98-107); Estimated Creatinine Clearance 69 ml/min; Glucose 105 mg/dl (70-99); Magnesium 2.2 mg/dl (1.6-2.3); Potassium 4.7 mmol/L (3.5-5.1); Sodium 136 mmol/L (135-145); eGFR > 60.00
[2025-01-17 05:34] LABS: Urine Squamous Cell >30 /LPF (Few)
[2025-01-17 05:35] LABS: Urine Red Blood Cell 40-50 /HPF (0-2)
--- NOTE | 2025-01-17 06:02 | W.PN.GYNONC ---
Today's Communication
-
see above
Impression / Plan
-
endometrial�cancer reviewed�dx�with�guardian�Veronica�Vann�and�that�initial�treatment�would�be�Robotic�assisted�laparoscopy�hysterectomy�with BSO�and�sentinel�lymph�node�bx�
Labs were obtained in the recovery room, indicating hemoglobin 6.
Patient's vital signs are stable, most likely she has had blood loss over the course of the summer leading to this.
H/H followed overnight seems like hgb rashid to 8 after 2 units prbc
I appreciate the support by critical care and hospitalist team
1. consider 1 u prbc for borderline hgb 7.3 today , her VS ok
2. may advance diet to regular as tolerated no concern from surgical perpective though she maybe at aspiration risk
3. baseline non ambulatory, reposition, PT at bed to decrease risk of decubitous ulcer
4. she is incontinent, difficult to assess I/O
5. needs bowel regimen
6. continue communication with Luz Vazquez her POA, for goals of care
Subjective / Interval History
-
POD2
in ICU for hypoxia, hypercapnea, hypotension and somnolescence
not verbally communicating
Objective Data
-
Lab Results:
01/17/25 04:18
01/17/25 04:18
Physical Exam
Vital Signs / I&O
Vitals
Temp Pulse Resp BP Pulse Ox
97.4 F 72 14 127/55 100
01/17/25 03:09 01/17/25 04:00 01/17/25 04:00 01/17/25 04:00 01/17/25 04:00
I&O
01/14/25 01/15/25 01/16/25 01/17/25
06:59 06:59 06:59 06:59
Intake Total 400 / 400 1318.0 / 1318.0
Output Total 850 / 850
Balance 400 / 400 468.0 / 468.0
Physical Exam
General: No Apparent Distress
Respiratory: Clear
Cardiac: S1/S2 and Regular Rhythm
GI: Soft and Non Distended
Neuro: Nonfocal/Grossly Intact and Other
[2025-01-17] MEDS: SYNTHROID 50 MCG PO (06:26)
[2025-01-17] MEDS: TYLENOL 650 MG PO ×2 (06:27→17:29)
--- NOTE | 2025-01-17 07:26 | W.PN.HOSP.TC ---
Today's Communication/Plan
-
trend Hg
PT/OT
F/U ACTH - this AM
patient needs outpatient sleep study
appreciate consultants
likely transfer out of ICU later today
Assessment / Plan
Assessment / Plan
Ms. Natalya Ronquillo is a 79 yo woman, Uruguayan-speaking, with hx dementia, [facility] resident, essential HTN, hypothyroidism, stage 1 endometrial cancer s/p robotic assisted total laparoscopic hysterectomy, bilateral salpino-oopherectomy with
pelvic washing 01/15/25 with post-op course complicated by anemia, hypothermia, hypotension requiring levophed overnight.
Altered mental status post-op
Hypercarbic respiratory failure
Hypothermia
-patient with lethargy post-op, ABG with CO2 58, pH 7.32, placed on BiPAP and transferred to ICU evening of 01/15-01/16
-suspect AE from anesthesia, she is more awake now
-BiPAP titration per Pulmonary, she wore overnight on 2L this AM (01/17) and easily arousable
-CXR likely atelectasis, UA without significant inflammation
-AM Cortisol low followed by normal cosyntropin stim test - will review results with Endocrinology
-TSH WNL
-PT/OT ordered
Hypotension
-now resolved post fluids
-briefly required Levophed overnight and during day 01/16, now off
-titrate down fluids NS from 125cc/hr to 70cc/hr
Acute on chronic blood loss anemia
-patient's Hg post-op was 6, had likely been slowly losing blood over months with acute loss during OR
-s/p PRBC transfusion
-Hg drop this AM likely dilutional - repeat this afternoon
Stage 1 Endometrial Cancer
-s/p Robotic�assisted�laparoscopy�hysterectomy�with BSO�and�sentinel�lymph�node�bx on 01/15/25
Anxiety/Depression
-ZINC ETCHER Zoloft
Essential Hypertension
-hold ZINC ETCHER Metoprolol
Hypothyroidism
-TSH OK, ZINC ETCHER Synthroid
Dementia
-patient has a guardian
Code status: full code - confirmed with tremayne on 01/16
DVT prophylaxis: SCDs
51 minutes spent on patient care
Anticipated Discharge: > 48 hours
Subjective/Interval History
-
Date of Service: January 17, 2025
laying in bed
denies pain
Objective Data
-
Labs:
Laboratory Results
01/17/25 01/17/25
04:18 14:00
WBC 9.1
Hgb 7.3 L Pending
Hct 22.6 L
Plt Count 128 L D
Sodium 136
Potassium 4.7
Chloride 109 H
Carbon Dioxide 30
BUN 24 H
Creatinine 0.7
Glucose 105 H
Calcium 7.5 L
Vital Signs:
Vital Signs
Temp Pulse Resp BP Pulse Ox
97.4 F 71 22 111/54 98
01/17/25 03:09 01/17/25 06:00 01/17/25 06:00 01/17/25 06:00 01/17/25 06:00
I&O
01/16/25 01/17/25 01/18/25
06:59 06:59 06:59
Intake Total 400 / 400 1468.0 / 1468.0
Output Total 850 / 850
Balance 400 / 400 618.0 / 618.0
Review of Systems
-
History Source: Patient
All other systems: Reviewed and negative
Physical Exam
-
General: No Apparent Distress and Other (easily awoken from sleep )
HEENT: PERRLA
Respiratory: Negative Wheezes
Cardiac: Regular Rhythm and S1/S2
GI: Soft, Nontender and Other (lap incisions c/d/i, abdomen soft)
Musculoskeletal: No Edema
Skin: Warm and Dry; Negative Rash
Neuro: Awake and Alert
Psych: Calm
Data Reviewed
-
Diagnostic Radiology: Report Reviewed by me
Labs: Labs Reviewed by me
--- NOTE | 2025-01-17 08:00 | PTCARENOTE ---
Assumed care of pt at 0715 following shift report. Pt received on O2 at 2l/min w/ Pox 100%. Easily arousable to name. States 'no' when asked if having any pain. Pt primarily Mongolian speaking per report but able to communicate w/ simple words and
gestures. Physical assessment completed as documented. Turned and repositioned, comfort care provided. Remains on IVF. Off pressors since previous shift. Declan Hugger currently not in use. Will monitor temp. Ordered breakfast for pt when she
indicated she was hungry.
[2025-01-17] MEDS: LR 1000 IV (08:35)
[2025-01-17] MEDS: COLACE 100 MG PO ×2 (08:37→20:45)
[2025-01-17] MEDS: FOLVITE 1 MG PO (08:37)
[2025-01-17] MEDS: ZOLOFT 25 MG PO (08:37)
[2025-01-17] MEDS: FEOSOL 325 MG PO (08:37)
[2025-01-17] MEDS: VITAMIN B-12 500 MCG PO (08:38)
--- NOTE | 2025-01-17 09:04 | CON.ONC ---
Impression
Impression
79yoF PMH HTN, hypothyroidism, dementia, chronic normocytic anemia, endometrial cancer s/p TLH BSO 01/15/25 with acute on chronic normocytic anemia.'
Pt was in ICU on BiPAP overnight now weaned to 2L NC. Off levophed at 3am. Primary team plans to transfer out of ICU.
Iron, B12, folate studies WNL. RDW borderline elevated aligning with acute surgery. MCV WNL and stable.
Plan
Plan
#acute on chronic normocytic anemia
Follow H+H
Continue outpt supplements folate, b12, iron.
Evaluate retic count with normal MCV and RDW. If abnormally low, can plan to follow up outpt with bone marrow bx.
Repeat coagulation studies
Recommend evaluating for other sources of blood loss, ie heme occult stool.
Tranfuse Hgb<7
#endometrial cancer
Pending patholgoy and sentinel lymph node biopsy. Follow outpt with Dr. Youngblood
Patient History
History of Present Illness
79yoF PMH HTN, hypothyrodism, dementia, endometrial cancer s/p TLH+BSO 01/15/25 with acute on chronic anemia.
Pt is on home folate 1mg, B12 500mcg, iron 325mg for findings of outpt anemia prior to surgery. Post-op Hgb was 6. She received 2 units of pRBCs with increase fo Hgb to 8.9. Hgb has since dropped to 7.3 today with repeat planned for 2pm.
Pt is minimally communicative but describes bilateral leg pain. Nurse reports minimal vaginal bleeding.
Past-Medical/Surgical History
TLH+BSO 01/15/25
Cholecystectomy
Patient Medication
�Medication �Instructions �Recorded �Confirmed �Last Taken �Type
levothyroxine 50 mcg tablet 50 mcg PO DAILY Thyroid 02/03/22 01/15/25 01/14/25 06:00 History
(Synthroid)
metoprolol tartrate 25 mg tablet 25 mg PO BID Blood Pressure 02/03/22 12/19/24 01/15/25 06:30 History
ascorbic acid (vitamin C) 500 mg 500 mg PO DAILY Supplement 07/12/22 01/15/25 01/14/25 08:00 History
tablet (Vitamin C)
ferrous sulfate 325 mg (65 mg 325 mg PO DAILY Supplement 07/12/22 01/15/25 01/14/25 08:00 History
iron) tablet
folic acid 1 mg tablet 1 mg PO DAILY Supplement 07/12/22 01/15/25 01/14/25 08:00 History
sertraline 25 mg tablet (Zoloft) 25 mg PO DAILY Mental 07/12/22 12/19/24 01/15/25 06:30 History
Health/Anxiety
acetaminophen 325 mg tablet 650 mg PO Q4HPRN PRN mild 09/06/24 01/15/25 01/06/25 History
pain/temp>100F
bisacodyl 10 mg rectal suppository 10 mg MI DAILYPRN PRN if no 09/06/24 01/15/25 Unknown History
(Dulcolax (bisacodyl)) results for MOM
calcium carbonate 500 mg PO DAILY Supplement 09/06/24 01/15/25 01/14/25 08:00 History
cyanocobalamin (vitamin B-12) 500 500 mcg PO DAILY Supplement 09/06/24 01/15/25 01/14/25 08:00 History
mcg tablet
magnesium hydroxide 400 mg/5 mL 30 ml PO HSPRN PRN if no bm in 3 09/06/24 01/15/25 Unknown History
oral suspension (Milk of Magnesia) days
vitamin A and D 1 applic topical DAILY Skin Issues 09/06/24 01/15/25 Unknown History
Active Medications
Generic Name Dose Route Start Last Admin
Trade Name Freq PRN Reason Stop Dose Admin
Acetaminophen 650 mg 01/15/25 18:00 01/17/25 06:27
Acetaminophen 325 Mg Tablet PO 02/12/25 17:59 650 mg
Q6 MIGUEL A Administration
Cyanocobalamin 500 mcg 01/16/25 08:00 01/17/25 08:38
Cyanocobalamin 1,000 Mcg Tablet PO 02/13/25 07:59 500 mcg
DAILY MIGUEL A Administration
Docusate Sodium 100 mg 01/15/25 20:00 01/17/25 08:37
Docusate Sodium 100 Mg Capsule PO 02/12/25 19:59 100 mg
BID MIGUEL A Administration
Enoxaparin Sodium 40 mg 01/15/25 18:00 01/15/25 21:31
Enoxaparin Sodium 40 Mg/0.4 Ml Syringe SC 02/12/25 17:59 Not Given
On Hold: 01/15/25 18:02 QPM MIGUEL A
Ferrous Sulfate 325 mg 01/16/25 08:00 01/17/25 08:37
Ferrous Sulfate 325 Mg Tablet PO 02/13/25 07:59 325 mg
DAILY MIGUEL A Administration
Folic Acid 1 mg 01/16/25 08:00 01/17/25 08:37
Folic Acid 1 Mg Tablet PO 02/13/25 07:59 1 mg
DAILY MIGUEL A Administration
Norepinephrine Bitartrate 4 mg in 250 mls @ 0 mls/hr 01/16/25 04:15 01/16/25 04:19
Levophed IV 250 mls
PER PROTOCOL MIGUEL A Administration
Protocol
Per Protocol
Lactated Ringer's 1,000 mls @ 75 mls/hr 01/16/25 18:00 01/17/25 08:35
Lr IV 1,000 mls
.[id number] MIGUEL A Administration
Levothyroxine Sodium 50 mcg 01/16/25 06:00 01/17/25 06:26
Levothyroxine 50 Mcg Tablet PO 02/13/25 05:59 50 mcg
DAILY@0600 MIGUEL A Administration
Ondansetron HCl 4 mg 01/15/25 17:09
Ondansetron 4 Mg/2 Ml Vial IV 02/12/25 17:08
Q6HPRN PRN
nausea and vomiting
Oxycodone HCl 5 mg 01/15/25 17:09
Oxycodone 5 Mg Regular Release Tablet PO 01/29/25 17:08
Q4HPRN PRN
severe pain when tolerating PO
Sertraline HCl 25 mg 01/16/25 08:00 01/17/25 08:37
Sertraline 25 Mg Tablet PO 02/13/25 07:59 25 mg
DAILY MIGUEL A Administration
Simethicone 80 mg 01/15/25 17:09
Simethicone 80 Mg Chewable Tablet PO 02/12/25 17:08
Q6HPRN PRN
gas distention
Sodium Chloride 0 flush 01/15/25 06:00
Sodium Chloride 0.9% (Flush) Syringe IV 02/12/25 05:59
PER PROTOCOL MIGUEL A
Review of Systems
-
Unable to obtain full review of systems at this time due to: Dementia
Physical Exam
-
General: No Apparent Distress, Comfortable and Obese
HEENT: Moist Mucous Membranes
Cardiology: Normal Sinus Rhythm
Pulmonary: Clear
GI: Soft and Other (incisional pain)
Musculoskeletal: No Edema
Extremities: Pulses Present
Neurology: No Lateralizing Symptoms
Skin: Warm and Dry
Labs
Lab Results
WBC 9.1 10^3/uL (4.8-10.8) 01/17/25 04:18
RBC 2.39 10^6/uL (4.20-5.40) L 01/17/25 04:18
Hgb 7.3 g/dL (12.0-16.0) L 01/17/25 04:18
Hct 22.6 % (37.0-47.0) L 01/17/25 04:18
MCV 94.6 fL (81.0-99.0) 01/17/25 04:18
MCH 30.5 pg (27.0-31.0) 01/17/25 04:18
MCHC 32.3 g/dL (33.0-37.0) L 01/17/25 04:18
RDW 16.1 % (11.5-14.5) H 01/17/25 04:18
Plt Count 128 10^3/uL (130-400) L D 01/17/25 04:18
MPV 11.0 fL (7.4-10.4) H 01/17/25 04:18
Abs Immat Gran (auto) 0.1 10^3/uL (0-0.05) H 01/17/25 04:18
Absolute Neuts (auto) 6.9 10^3/uL (1.4-6.5) H 01/17/25 04:18
Absolute Lymphs (auto) 1.6 10^3/uL (1.2-3.4) 01/17/25 04:18
Absolute Monos (auto) 0.5 10^3/uL (0.1-0.6) 01/17/25 04:18
Absolute Eos (auto) 0.1 10^3/uL (0-0.7) 01/17/25 04:18
Absolute Basos (auto) 0.0 10^3/uL (0-0.2) 01/17/25 04:18
Immature Gran % 0.7 % (0-0.5) H 01/17/25 04:18
Neutrophils % 75.6 % (42.2-75.2) H 01/17/25 04:18
Lymphocytes % 17.4 % (20.5-51.1) L 01/17/25 04:18
Monocytes % 5.6 % (1.7-9.3) 01/17/25 04:18
Eosinophils % 0.5 % (0-6) 01/17/25 04:18
Basophils % 0.2 % (0-2) 01/17/25 04:18
Creatinine 0.7 mg/dL (0.6-1.0) 01/17/25 04:18
Vital Signs
Vital Signs
Temp Pulse Resp BP Pulse Ox
96.8 F L 71 22 111/54 98
01/17/25 08:44 01/17/25 06:00 01/17/25 06:00 01/17/25 06:00 01/17/25 06:00
--- NOTE | 2025-01-17 10:08 | PN.CDI ---
CDI
- -
CDI:
Physician Documentation Request
Admit Date: 01/15/25 20:56
Dear Doctor Amanda,
Please review the following and provide your response in the progress notes.
Current documentation includes a diagnosis of hypotension.
Clinical Indicators:
Pt admitted with Endometrial cancer s/p TLH BSO on 01/15
Update note 01/16, ' BP 70'/40's -90/40's HR 70'.NSS bolus IV..... Will start Levophed IV infusion now. ...'
Satellite Specialist consult, 'Later on patient developed hypotension blood pressure of 70 x 40 to 90 x 40. Patient was initiated on Levophed. Hypotension. Suspect primarily related to hypovolemia....'
Progress notes 01/16&01/17, ' Hypotension now resolved post fluids briefly required Levophed overnight, now off titrate down fluids NS from 125cc/hr to 70cc/hr...'
01/16/25
04:00 01/16/25
04:01 01/16/25
04:05
Blood pressure 70/44 78/47 76/46
MAP (cuff-Helene Monitor) 53 58 56
01/16/25
04:23
Blood pressure 79/60
Please clarify which of the following is the most likely etiology of the above symptoms and treatment rendered:
Hypovolemic shock
Hemorrhagic shock
Hypotension -only
Other ( please specify)
Use of terms such as suspected, likely, concern for, or probable (associated with a specific diagnosis that is being evaluated, monitored, or treated as if it exists) are acceptable and can be coded in the inpatient setting, when documented at the
time of discharge.
Thank you,
Rosemary Laureano RN
CDI Specialist
[place] [facility]
Please use your independent medical judgment in providing your response.
--- NOTE | 2025-01-17 10:21 | PN.CDI ---
CDI
- -
CDI:
Physician Documentation Request
Admit Date: 01/15/25 20:56
Dear Doctor Amanda,
Please review the following and provide your response in the progress notes.
Clinical Indicators:
Height: 4 ft 11 in
Weight:212 lb 4.8 oz
BMI:42.9
If possible, please provide an associated diagnosis related to the abnormal BMI, such as:
BMI > or = to 40
Obesity:
Due to excess calories
Drug induced
Due to other cause
Severe or morbid obesity:
With alveolar hypoventilation (Obesity hypoventilation syndrome)
Without alveolar hypoventilation
- Other
Use of terms such as suspected, likely, concern for, or probable (associated with a specific diagnosis that is being evaluated, monitored, or treated as if it exists) are acceptable and can be coded in the inpatient setting, when documented at the
time of discharge.
Thank you,
Rosemary Laureano RN
CDI Specialist
[place] [facility]
Please use your independent medical judgment in providing your response.
--- NOTE | 2025-01-17 10:24 | PN.CDI ---
CDI
- -
CDI:
Physician Documentation Request
Admit Date: 01/15/25 20:56
Dear Doctor Amanda,
Please review the following and provide your response in the progress notes.
Clinical Indicators:
Pt admitted with Endometrial cancer s/p [facility] BSO on 01/15/HX of Dementia
V Belt Inspector consult, ' Overnight patient was noted to be more lethargic and bilateral gas was suggestive of hypercapnia, patient was initiated on BiPAP and transferred to IMU. ..'
Update note 01/15 2 8793, ' Patient seen and evaluated, arousable to name, opens eyes, agitated when checking BP, then back to sleeping...drowsy likely due to Anaesthesia? ...'
Progress note 01/16, ' Altered mental status post-op..patient with lethargy post-op, ABG with CO2 58, pH 7.32, placed on BiPAP and transferred to ICU...suspect AE from anesthesia..'
Pt care note 01/16 @ 0300' patient only responsive to tactile, does not follow commands. Patient yelled out when being turned....'
Pt care note 01/16 @ 0453,' Temp still 95 with bare hugger. Patient only arousable to tactile, does not follow commands...'
Pt care note 01/16 @ 1107, ' Titrating Levophed as documented. Declan Hugger in use and monitoring continuous rectal temp w/ rectal probe. Pt remains drowsy/lethargic but arousable to name...'
Based on the above, could you clarify in the Progress Notes and Discharge Summary which, if any of the following, is the most likely etiology of the confusion/altered mental status.
Metabolic Encephalopathy
Toxic metabolic Encephalopathy
Other ( please specify)
Use of terms such as suspected, likely, concern for, or probable (associated with a specific diagnosis that is being evaluated, monitored, or treated as if it exists) are acceptable and can be coded in the inpatient setting, when documented at the
time of discharge.
Thank you,
Rosemary Laureano RN
CDI Specialist
[place] [facility]
Please use your independent medical judgment in providing your response.
[2025-01-17] MEDS: TYLENOL PO (12:00)
--- NOTE | 2025-01-17 12:43 | PTCARENOTE ---
Pt noted to be in AFib on monitor w/ HR 70's. Woken w/o difficulty to name. No distress noted or acute changes from previous assessment findings. BP 122/65. EKG obtained. TT to Dr Patel w/ update on pt's rhythm change, BP.
--- NOTE | 2025-01-17 13:40 | CM ---
Addendum entered by Veronica Clifford 01/17/25 13:53:
clinical information sent to [facility] via all scripts to provide update.
Original Note:
Patient seen at bedside in ICU. Patient LTC patient at [facility]. CM will continue to follow for return to SNF when medically appropriate. Guardian Veronica [phone] to be updated. CM will continue to follow for discharge planning needs.
PLan; return to SNF; when medically appropriate.
--- NOTE | 2025-01-17 13:47 | W.PN.INTV ---
Today's Communication / Plan
Recommendations
- Patient stable for transfer out of ICU
- Continue BiPAP therapy nightly and when napping
- Avoid sedating medications
- Pulmonary service will follow along
Assessment
-
Patient is a 79-year-old female with past medical history for dementia, hypertension, hypothyroidism as well as known diagnosis of endometrial carcinoma. She was admitted to the hospital for robotic assisted laparoscopic hysterectomy, bilateral
salpingo-oophorectomy and pelvic washing.
Overnight patient was noted to be more lethargic and bilateral gas was suggestive of hypercapnia, patient was initiated on BiPAP and transferred to IMU. Later on patient developed hypotension blood pressure of 70 x 40 to 90 x 40. Patient was
initiated on Levophed. Lactate was checked which was normal at 1.3. In view of hypotension requiring pressors, respiratory failure requiring BiPAP, patient was subsequently transferred to ICU and window shade estimator consultation was requested for further
input.
#1. Acute on suspect chronic hypercapnic respiratory failure.
- Patient has morbid obesity, BMI 45, suspect she has underlying obstructive sleep apnea. Post surgery and anesthesia contributed to increased drowsiness and worsening hypercapnia requiring BiPAP support.
- Tolerated BiPAP well overnight, transition to nasal cannula this morning. Awake, alert, saturating well on nasal cannula at 2 L. Saturating 100%.
- 01/16, compensated hypercapnia noted 7.37/50, again suggestive of underlying sleep disordered breathing and possibly obesity hypoventilation syndrome.
- Continue nightly BiPAP while in hospital, also when napping. Avoid any sedating medication.
- Patient will need outpatient sleep study for further evaluation. Pulmonary service will continue to follow along
#2. Hypotension, required pressors briefly
- Suspect primarily related to hypovolemia, anesthetics etc. Patient also had been on metoprolol 25 mg p.o. twice daily
- Holding antihypertensive medications,, continue PRBC as needed to keep hemoglobin above 7, off Levophed now
- Serial lactate has been normal
- Developing trace pedal edema, discontinued additional IV fluids for
- Normal WBC count, continues to be afebrile. Chest x-ray reviewed, mild volume loss appears to be more suggestive of atelectasis than pneumonia. Monitor off antibiotics for now.
#3. Anemia, Acute on chronic
- Known history of chronic vaginal bleeding, likely anemia further exacerbated by acute blood loss with surgery, dilution with IV.
- Serial H&H and transfuse as needed to keep hemoglobin above 7
#4. Endometrial carcinoma with chronic vaginal bleeding
- S/p TLH, BSO, 01/15/2025
- Gynecologic oncology service on case
Other medical diagnoses:
- Hypothyroidism
- Hypertension
- Anxiety/depression
- Dementia
Critical Care time 38 mins -- The patient is admitted for acute critical illness for the treatment of vital organ failure and/or prevention of further life-threatening conditions. Total care includes time spent in review of history, physical exam,
medications, hemodynamic/ventilator parameters, laboratory data, imaging and discussion with house staff, pharmacy, respiratory therapy, lawyer, and nursing.
Data:
CT C/A/P 01/2025: Numerous at least partially calcified uterine fibroids again seen. Patient's known endometrial carcinoma not well demonstrated with this imaging modality.
Evaluation overall limited as a result of several factors, as detailed above, without gross findings to suggest suspicious mass or significant lymphadenopathy throughout the remainder of the abdomen and pelvis.
Prior cholecystectomy.
Ectopic left kidney again noted with subcentimeter low-attenuation lesions too small to characterize.
Suspected coronary artery calcifications
ECHO 09/2024: Normal biventricular size and systolic function without regional wall motion
abnormality. Estimated LVEF 55-60%.
No significant valve disease.
Subjective Dataa
Subjective Data
Date of Service:
Date of Service: January 17, 2025
Subjective:
Patient more awake, alert, sitting comfortably in bed.
Review of Systems
Genitourinary: Other (No acute distress noted, appears comfortable)
Objective Data
Data Reviewed
Vital Signs / I&O / Oxygen:
Vital Signs
Temp Pulse Resp BP Pulse Ox
97.2 F 71 22 111/54 99
01/17/25 12:00 01/17/25 06:00 01/17/25 06:00 01/17/25 06:00 01/17/25 08:00
Intake and Output
01/16/25 01/17/25 01/18/25
06:59 06:59 06:59
Intake Total 400 / 400 1468.0 / 1543.0 297 / 297
Output Total 850 / 850
Balance 400 / 400 618.0 / 693.0 297 / 297
SaO2 99
Nasal Cannula flow liters per 2
minute
Physical Exam
General: Comfortable
HEENT: Normocephalic
Cardiovascular: S1-S2 and Peripheral Edema (Trace edema on exam)
Respiratory: Clear
GI: Soft and Non Distended
Neurology: Awake and Alert
Skin: Warm
Labs/Micro/Reports
Lab Data
01/17/25 04:18
Microbiology
01/16/25 00:42 Nose MRSA Screen - Final
No Methicillin Resistant Staphylococcus aureus isolated.
[2025-01-17 15:15] LABS: Hemoglobin 7.7 g/dL (12.0-16.0); Reticulocyte Count 2.4 % (0.4-2.8)
[2025-01-17 15:25] LABS: APTT 31.6 Sec (23.4-35.0); INR 1.03; PT 14.1 Sec (11.4-14.6)
--- NOTE | 2025-01-17 15:28 | W.PN.UPDATE ---
Update Note
Progress Note Update
patient with rate controlled afib, new diagnosis. Recent TTE results below, TSH WNL, She is not currently an AC candidate with recent surgery and anemia.
CHADS2-VASC score = at least 4
given slight drop in Hg overnight, would not start AC at this time; will discuss further with Dr. Youngblood and consult Cardiology tomorrow
patient's POA updated.
-continue WRITER PRODUCER Metoprolol
TTE 09/06/24
CONCLUSIONS
Normal biventricular size and systolic function without regional wall motion
abnormality. Estimated LVEF 55-60%.
No significant valve disease.
No prior study available for comparison.
--- NOTE | 2025-01-17 15:50 | PTCARENOTE ---
Dr Patel on unit and notified of Hgb result. no new orders received.
--- NOTE | 2025-01-17 16:27 | PTCARENOTE ---
Transfer report given to 'Carmencita' JUSTINO. Pt transferred via bed to Rm [id number]. Pt remains alert and responsive to questions. Speaks in fragmented Wolof. Confused at times.
--- NOTE | 2025-01-17 19:55 | PTCARENOTE ---
recieved pt from icu this afternoon. no changes in reported assessment. lap sites on abdomen film or videotape editor with surgical adhesive present. pt incontinent of yellow urine. no vaginal bleeding noted.pt ate 100 percent of dinner tray.
[2025-01-18] VITALS (12 sets, daily range): BP systolic 135–168; BP diastolic 64–102; PULSE 2–74
[2025-01-18] MEDS: TYLENOL PO (00:41)
[2025-01-18] MEDS: SYNTHROID 50 MCG PO (05:34)
[2025-01-18] MEDS: TYLENOL 650 MG PO ×3 (05:34→18:35)
[2025-01-18 05:38] LABS: Blood Urea Nitrogen 28 mg/dl (7-17); Calcium 8.5 mg/dl (8.4-10.2); Carbon Dioxide 31 mmol/L (22-30); Chloride 108 mmol/L (98-107); Estimated Creatinine Clearance 69 ml/min; Glucose 95 mg/dl (70-99); Potassium 4.7 mmol/L (3.5-5.1); Sodium 139 mmol/L (135-145); eGFR > 60.00
--- NOTE | 2025-01-18 05:56 | PTCARENOTE ---
Received pt at change of shift. Pt offers no complaints of pain throughout shift. Laparoscopic sites with surgical glue intact. Hypoactive BS. AFib/Flutter on monitor. No vaginal discharge noted. Normothermic status maintained. Resting in bed
with call dixon in reach.
[2025-01-18 05:59] LABS: Hematocrit 25.2 % (37.0-47.0); Hemoglobin 8.0 g/dL (12.0-16.0); Mean Corp Hgb Conc. 31.7 g/dL (33.0-37.0); Mean Corpuscular Volume 95.8 fL (81.0-99.0); Platelet Count 131 10^3/uL (130-400); Red Cell Dist. Width 16.0 % (11.5-14.5)
--- NOTE | 2025-01-18 06:06 | W.PN.GYNONC ---
Today's Communication
-
management of Afib
Impression / Plan
-
POD 3
#1. Endometrial ca
she is s/p RObotic TLH BSO, SLN, path pending
pre op CT showed no obvious mets, awaiting final results to comment further about need for adjuvant therapy
#2. Acute on suspect chronic hypercapnic respiratory failure.
-probable underlying obstructive sleep apnea.
- Continue nightly BiPAP while in hospital, also when napping.
-appreciate pulmonary input
#3. Hypotension, required pressors briefly
- Suspect primarily related to hypovolemia, and anemia anesthetics etc.
#4 Anemia, Acute on chronic
- Known history of chronic vaginal bleeding, due to endometrial ca, received 2 u prbc on Tuesday
- Serial H&H and transfuse as needed to keep hemoglobin above 7
-appreciate input of Dr Marie (heme/Onc)
-hgb is 8 this am, stable
#5. Afib
new development, rate controlled.
likely developed due to stress of surgery this week and anemia
cardiology consulted,
possibility of pulmonary embolism considered, although she is not hypoxic or tachycardic. may need CT angio for PE evaluation
I am ok with starting anticoagulation (prefer enoxaparin during hospital stay and eliquis certification engineer).
Other medical diagnoses:
- Hypothyroidism
- Hypertension
- Anxiety/depression
- Dementia
I appreciate the efforts of Dr Patel Hospitalist and collaboration of other consultants in this complicated case
we may need to consider palliative care input given her social and medical issues.
Subjective / Interval History
-
POD3 s/p Robotic TLH BSO, SLN for endometrial cancer
She is stable but remains critically ill, transferred out of ICU, remains very drowsy this am
events of yesterday noted, unable to communicate with patient, her POA is availble and updated
Objective Data
-
Lab Results:
01/18/25 04:53
01/18/25 04:53
Physical Exam
Vital Signs / I&O
Vitals
Temp Pulse Resp BP Pulse Ox
97.6 F 69 13 148/64 95
01/18/25 03:35 01/18/25 05:00 01/18/25 05:00 01/18/25 04:01 01/18/25 05:00
I&O
01/15/25 01/16/25 01/17/25 01/18/25
06:59 06:59 06:59 06:59
Intake Total 400 / 400 1468.0 / 1543.0 657 / 657
Output Total 850 / 850
Balance 400 / 400 618.0 / 693.0 657 / 657
Physical Exam
General: No Apparent Distress and Comfortable
HEENT: Normocephalic
Respiratory: Clear and Non Labored Respirations
Cardiac: S1/S2 and Regular Rhythm
GI: Soft, Non Tender and Other (laparoscopic ports are intact)
--- NOTE | 2025-01-18 07:46 | W.PN.HOSP.TC ---
Addendum entered and electronically signed by Marion Patel MD 01/18/25 07:56:
Shock post-op likely related to anesthesia and hypovolemia
-now resolved
TME 2/2 anethesia and hypercarbic respiratory failure - now resolved
Obesity 2/2 excess calories
-dietary consult apreciated
Original Note:
Today's Communication/Plan
-
start Lovenox for stroke prevention with new afib
hold Metoprolol with bradycardia
Cardiology consult
BiPAP when sleeping
appreciate consultants
PT/OT - eventual SNF
Assessment / Plan
Assessment / Plan
Ms. Natalya Ronquillo is a 79 yo woman, [place]-speaking, with hx dementia, [facility] resident, essential HTN, hypothyroidism, stage 1 endometrial cancer s/p robotic assisted total laparoscopic hysterectomy, bilateral salpino-oopherectomy with
pelvic washing 01/15/25 with post-op course complicated by anemia, hypothermia, hypotension requiring levophed overnight.
Altered mental status post-op
Hypercarbic respiratory failure
Hypothermia
-patient with lethargy post-op, ABG with CO2 58, pH 7.32, placed on BiPAP and transferred to ICU evening of 01/15-01/16
-suspect AE from anesthesia with underlying JC, she is more awake now
-appreciate pulmonary - continue BiPAP qhs and when napping
-outpatient sleep study
-CXR likely atelectasis, UA without significant inflammation
-AM Cortisol low followed by normal cosyntropin stim test - reviewed with Endocrinology - do not suspect secondary adrenal insufficiency
-TSH WNL
-PT/OT --> SNF on DC
Hypotension
-now resolved post fluids
-briefly required Levophed overnight and during day 01/16, now off
-off fluids
New diagnosis atrial fibrillation - seen on EKG 01/17
-now 3 days post-op OK to start AC per surgery
-will start weight based Lovenox q 12
-CHADS2-VASC score = at least 4
TTE 09/06/24
CONCLUSIONS
Normal biventricular size and systolic function without regional wall motion
abnormality. Estimated LVEF 55-60%.
No significant valve disease.
-TSH WNL
-consult Cardiology
Acute on chronic blood loss anemia
-patient's Hg post-op was 6, had likely been slowly losing blood over months with acute loss during OR
-s/p 2 PRBC transfusions
-Hg drop this AM likely dilutional - repeat this afternoon
Stage 1 Endometrial Cancer
-s/p Robotic�assisted�laparoscopy�hysterectomy�with BSO�and�sentinel�lymph�node�bx on 01/15/25
-awaiting pathology
-seen by Oncology
Anxiety/Depression
-GARMENT PARTS CUTTER HAND Zoloft
Essential Hypertension
-continue to hold Metoprolol given bradycardia
Hypothyroidism
-TSH OK, GARMENT PARTS CUTTER HAND Synthroid
Dementia
-patient has a guardian
Code status: full code - confirmed with guardian on 01/16;
DVT prophylaxis: Lovenox subQ
51 minutes spent on patient care
guardian Jody updated daily
Anticipated Discharge: 24 - 48 hours
Subjective/Interval History
-
Date of Service: January 18, 2025
awoken from sleep
feeling well
denies pain
no chest pain or shortness of breath
Objective Data
-
Labs:
Laboratory Results
01/18/25
04:53
WBC 7.1
Hgb 8.0 L
Hct 25.2 L
Plt Count 131
Sodium 139
Potassium 4.7
Chloride 108 H
Carbon Dioxide 31 H
BUN 28 H
Creatinine 0.7
Glucose 95
Calcium 8.5
Vital Signs:
Vital Signs
Temp Pulse Resp BP Pulse Ox
97.6 F 69 13 148/64 95
01/18/25 03:35 01/18/25 05:00 01/18/25 05:00 01/18/25 04:01 01/18/25 05:00
I&O
01/17/25 01/18/25 01/19/25
06:59 06:59 06:59
Intake Total 1468.0 / 1543.0 657 / 657
Output Total 850 / 850
Balance 618.0 / 693.0 657 / 657
Review of Systems
-
History Source: Patient
All other systems: Reviewed and negative
Physical Exam
-
General: No Apparent Distress and Other (easily awoken from sleep )
HEENT: PERRLA
Respiratory: Negative Wheezes
Cardiac: Regular Rhythm and S1/S2
GI: Soft, Nontender and Other (lap incisions c/d/i, abdomen soft)
Musculoskeletal: No Edema
Skin: Warm and Dry; Negative Rash
Neuro: Awake and Alert
Psych: Calm
Data Reviewed
-
Diagnostic Radiology: Report Reviewed by me
Labs: Labs Reviewed by me
--- NOTE | 2025-01-18 08:35 | W.PN.ONC ---
Today's Communication / Plan
-
Plan reviewed with attending
Impression
Impression
79yoF PMH HTN, hypothyroidism, dementia, chronic normocytic anemia, endometrial cancer s/p TLH BSO 01/15/25 with acute on chronic normocytic anemia.
Iron, B12, folate studies WNL. Ferritin 25. RDW borderline elevated aligning with acute surgery. MCV WNL and stable. Retic 2.4. Coags WNL. Hgb increased to 8.0 from 7.3 yesterday.
Plan
Plan
#acute on chronic normocytic anemia
Follow H+H. Hgb stabilized
Continue outpt supplements folate, b12. IV iron infusion for ferritin 25.
Tranfuse Hgb<7
#endometrial cancer
Pending patholgoy and sentinel lymph node biopsy. Follow outpt with Dr. Youngblood
Subjective/Objective
Subjective/Objective
Vital Signs:
Vital Signs
Temp Pulse Resp BP Pulse Ox
97.6 F 69 13 148/64 95
01/18/25 07:23 01/18/25 05:00 01/18/25 05:00 01/18/25 04:01 01/18/25 05:00
Lab Results:
Laboratory Data
WBC 7.1 10^3/uL (4.8-10.8) 01/18/25 04:53
Hgb 8.0 g/dL (12.0-16.0) L 01/18/25 04:53
Plt Count 131 10^3/uL (130-400) 01/18/25 04:53
PT 14.1 Sec (11.4-14.6) 01/17/25 14:35
INR 1.03 01/17/25 14:35
APTT 31.6 Sec (23.4-35.0) 01/17/25 14:35
eGFR > 60.00 01/18/25 04:53
Orders
Orders
Orders From Last 24 Hours
01/17/25 14:35
PT/INR [Prothrombin Time] Routine
PTT Routine
[2025-01-18] MEDS: COLACE 100 MG PO ×2 (08:51→20:43)
[2025-01-18] MEDS: FEOSOL 325 MG PO (08:51)
[2025-01-18] MEDS: FOLVITE 1 MG PO (08:51)
[2025-01-18] MEDS: VITAMIN B-12 500 MCG PO (08:51)
[2025-01-18] MEDS: ZOLOFT 25 MG PO (08:52)
[2025-01-18] MEDS: LOVENOX 100 MG SC ×2 (09:07→20:43)
--- NOTE | 2025-01-18 09:22 | W.PN.PUL3 ---
Today's Communication / Plan
-
BIPAP continued nightly, no further issues
Will consult CM for DME set up at home, unlikely to be able to do sleep study due to facility/limited help/guardian
Will try to arrange OP FU for sleep
Otherwise, ok for d/c planning per team, likely eval for SNF
Assessment
-
Patient is a 79-year-old female with past medical history for dementia, hypertension, hypothyroidism as well as known diagnosis of endometrial carcinoma. She was admitted to the hospital for robotic assisted laparoscopic hysterectomy, bilateral
salpingo-oophorectomy and pelvic washing. Overnight patient was noted to be more lethargic and bilateral gas was suggestive of hypercapnia, patient was initiated on BiPAP and transferred to IMU. Later on patient developed hypotension blood
pressure of 70 x 40 to 90 x 40. Patient was initiated on Levophed. Lactate was checked which was normal at 1.3. In view of hypotension requiring pressors, respiratory failure requiring BiPAP, patient was subsequently transferred to ICU and
lang path therapist consultation was requested for further input.
Acute on chronic hypercapnic respiratory failure.
Undiagnosed JC/OHS
Hypotension, required pressors briefly, resolved
Acute LUCA on chronic anemia
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
Chronic vaginal bleeding s/p Robotic assisted total laparoscopic hysterectomy, bilateral salpingo-oophorectomy with pelvic washing/Injection of cervix with ICG dye, bilateral, for mapping and identification of bilateral sentinel lymph nodes/Robotic
assisted laparoscopic bilateral sentinel lymphadenectomy/Repair of vaginal introitus and periurethral lacerations 01/15/25
s/p Hysteroscopy, D&C with Myosure 09/07/24
Other medical diagnoses:
Hypothyroidism
Hypertension
Anxiety/depression
Dementia
Morbid obesity, BMI 45
PACs/sinus bradycardia, 1st degree AVB
Plan
Patient has morbid obesity, BMI 45, suspect she has underlying obstructive sleep apnea.
Post surgery and anesthesia contributed to increased drowsiness and worsening hypercapnia requiring BiPAP support.
Tolerated BiPAP well overnight, transition to nasal cannula this morning. Awake, alert, saturating well on nasal cannula at 2 L. Saturating 100%.
01/16, compensated hypercapnia noted 7.37/50, again suggestive of underlying sleep disordered breathing and possibly obesity hypoventilation syndrome.
Continue nightly BiPAP while in hospital, also when napping. Avoid any sedating medication.
Can arrange DME set up for OP use, CM consult
Suspect primarily related to hypovolemia, anesthetics etc. Patient also had been on metoprolol 25 mg p.o. twice daily
Holding antihypertensive medications,, continue PRBC as needed to keep hemoglobin above 7, off Levophed now
Serial lactate has been normal
Developing trace pedal edema, discontinued additional IV fluids for
Normal WBC count, continues to be afebrile. Chest x-ray reviewed, mild volume loss appears to be more suggestive of atelectasis than pneumonia. Monitor off antibiotics for now.
Known history of chronic vaginal bleeding, likely anemia further exacerbated by acute blood loss with surgery, dilution with IV.
Serial H&H and transfuse as needed to keep hemoglobin above 7
S/p TLH, BSO, 01/15/2025
Gynecologic oncology service on case
Discharge planning per team
We will follow
Data:
CT C/A/P 01/2025: Numerous at least partially calcified uterine fibroids again seen. Patient's known endometrial carcinoma not well demonstrated with this imaging modality. Evaluation overall limited as a result of several factors, as detailed
above, without gross findings to suggest suspicious mass or significant lymphadenopathy throughout the remainder of the abdomen and pelvis. Prior cholecystectomy. Ectopic left kidney again noted with subcentimeter low-attenuation lesions too small
to characterize. Suspected coronary artery calcifications
ECHO 09/2024: Normal biventricular size and systolic function without regional wall motion abnormality. Estimated LVEF 55-60%. No significant valve disease.
Total time spent on this consultation/encounter __50__ minutes which includes review of history, physical exam, medications, laboratory data, personal review of imaging, extensive review of outpatient records, discussion with care team and
respiratory therapy.
Subjective Data
-
Date of Service:
Date of Service: January 18, 2025
Chief Complaint: Pulmonary Follow Up
Subjective:
No complaints, stable on RA
Unable to give more ROS
Objective Data
Data Reviewed
Vital Signs / I&O / Oxygen:
Vital Signs
Temp Pulse Resp BP Pulse Ox
97.6 F 69 13 148/64 95
01/18/25 07:23 01/18/25 05:00 01/18/25 05:00 01/18/25 04:01 01/18/25 05:00
Intake and Output
01/17/25 01/18/25 01/19/25
06:59 06:59 06:59
Intake Total 1468.0 / 1543.0 657 / 657
Output Total 850 / 850
Balance 618.0 / 693.0 657 / 657
SaO2 95
Nasal Cannula flow liters per 2
minute
Physical Exam
General: Comfortable and Other (NAD)
HEENT: Normocephalic, Anicteric and Moist Mucous Membranes
Cardiovascular: S1-S2, Regular Rhythm and Peripheral Edema
Respiratory: Clear (diminished at bases) and Non-Labored Respirations
GI: Soft, Non Distended and Non Tender
Neurology: Awake, Alert, No Motor Deficits and Other (confused, does not answer appropriately at times)
Skin: Warm and Dry
Labs/Micro/Reports
Lab Data
01/18/25 04:53
01/18/25 04:53
Laboratory Results
01/17/25
14:35
PT 14.1
INR 1.03
APTT 31.6
Microbiology
01/16/25 00:42 Nose MRSA Screen - Final
No Methicillin Resistant Staphylococcus aureus isolated.
--- NOTE | 2025-01-18 11:49 | CON.CAR ---
Consultation
Consultation Request
Date/Time Consultation Requested: 01/18/2025
Date/Time Consultation Performed: 01/18/2025
Requesting Provider: Dr. Patel
Performing Provider: Dr. Hoffman
Reason for Consultation: New onset atrial fibrillation
Medical History
-
Chief Complaint: vaginal bleeding
History of Present Illness:
79 y/o [place]-speaking female with dementia, hypertension, hypothyroidism, obesity, venous insufficiency who underwent laparoscopic hysterectomy on 01/15/2025. Patient was severely anemic with a hemoglobin of 6.0. Cardiology now consulted for new
onset paroxysmal atrial fibrillation. Patient is a poor historian.
Past Medical History
Past Medical History: HTN, Hypothyroidism and Other (as above)
Social History
Tobacco: Non-Smoker
Living: [facility]
Family History
Family History: Reviewed & Not Pertinent
Allergies / Home Medications
Allergy/AdvReac Type Severity Reaction Status Date / Time
No Known Allergies Allergy Verified 01/15/25 11:41
�Medication �Instructions �Recorded �Confirmed �Type
levothyroxine 50 mcg tablet 50 mcg PO DAILY Thyroid 02/03/22 01/15/25 History
(Synthroid)
metoprolol tartrate 25 mg tablet 25 mg PO BID Blood Pressure 02/03/22 12/19/24 History
ascorbic acid (vitamin C) 500 mg 500 mg PO DAILY Supplement 07/12/22 01/15/25 History
tablet (Vitamin C)
ferrous sulfate 325 mg (65 mg 325 mg PO DAILY Supplement 07/12/22 01/15/25 History
iron) tablet
folic acid 1 mg tablet 1 mg PO DAILY Supplement 07/12/22 01/15/25 History
sertraline 25 mg tablet (Zoloft) 25 mg PO DAILY Mental 07/12/22 12/19/24 History
Health/Anxiety
acetaminophen 325 mg tablet 650 mg PO Q4HPRN PRN mild 09/06/24 01/15/25 History
pain/temp>100F
bisacodyl 10 mg rectal suppository 10 mg NV DAILYPRN PRN if no 09/06/24 01/15/25 History
(Dulcolax (bisacodyl)) results for MOM
calcium carbonate 500 mg PO DAILY Supplement 09/06/24 01/15/25 History
cyanocobalamin (vitamin B-12) 500 500 mcg PO DAILY Supplement 09/06/24 01/15/25 History
mcg tablet
magnesium hydroxide 400 mg/5 mL 30 ml PO HSPRN PRN if no bm in 3 09/06/24 01/15/25 History
oral suspension (Milk of Magnesia) days
vitamin A and D 1 applic topical DAILY Skin Issues 09/06/24 01/15/25 History
Review of Systems
-
Unable to obtain full review of systems at this time due to: Dementia
Physical Exam
Vital Signs
Temp Pulse Resp BP Pulse Ox
97.4 F 86 16 141/81 97
01/18/25 11:22 01/18/25 10:00 01/18/25 10:00 01/18/25 10:00 01/18/25 11:05
Lab Results
01/18/25 04:53
01/18/25 04:53
Physical Exam
General: No Apparent Distress and Comfortable
HEENT: Normocephalic
Respiratory: Clear (Anteriorly (unable to sit up to cooperate for examination))
Cardiac: S1/S2, Irregular Rhythm and Peripheral Edema (Trace)
Breast: Deferred by me
GI: Soft
Rectal: Deferred by Provider
Musculoskeletal: Edema (Trace)
Skin: Warm and Dry
Neuro: Awake and Other (Somnolent)
Psych: Calm
Impression / Plan
-
I/P: 79 y/o [place]-speaking female with dementia, hypertension, hypothyroidism, obesity, venous insufficiency who underwent laparoscopic hysterectomy on 01/15/2025. Patient was severely anemic with a hemoglobin of 6.0. Cardiology now consulted for
new onset paroxysmal atrial fibrillation.
New onset postoperative atrial fibrillation:
- Transthoracic echocardiogram/08/28: LVEF 55-60%, no significant valve disease.
- Patient was previously on metoprolol, which was subsequently discontinued secondary to bradycardia.
- The patient currently has intrinsically rate-controlled atrial fibrillation; no rate-controlling medications appear to be indicated at this time.
- The patient is being bridged with Lovenox, until cleared to start Eliquis (5 mg PO BID); transition to Eliquis when cleared by surgery.
- No further cardiac recommendations at this time; Cardiology will remain available on an as-needed basis.
Endometrial cancer status-post laparoscopic hysterectomy:
-Management as per surgery team.
HTN:
- Stable/controlled.
Dementia
Obesity
Hypothyroidism: on levothyroxine, TSH stable
Data Reviewed
-
EKG: Tracing Personally Visualized and interpreted (Telemetry: PAF.)
Medical Tests (Nuc Med, Echo etc): Report Reviewed by me (Echo 09/06/24: EF 55-60%; no significant valve disease.)
Labs: Labs Reviewed by me
[2025-01-18] MEDS: FERRLECIT 110 MG IV (13:11)
--- NOTE | 2025-01-18 18:31 | PTCARENOTE ---
Rec'd pt this AM. Pt incontinent of large amount of urine. Repeatedly taking off gown. vital signs stable.
[2025-01-19] VITALS (12 sets, daily range): BP systolic 95–156; BP diastolic 57–98; PULSE 2–88
[2025-01-19] MEDS: TYLENOL PO ×2 (00:30→17:49)
--- NOTE | 2025-01-19 00:37 | PTCARENOTE ---
Rectal temp 94.7. Declan hart ordered and placed on pt. H&H drawn and sent to lab. Pt offers no complaints
[2025-01-19 00:42] LABS: Hematocrit 25.1 % (37.0-47.0); Hemoglobin 8.1 g/dL (12.0-16.0)
[2025-01-19] MEDS: TYLENOL 650 MG PO ×3 (05:38→23:19)
[2025-01-19] MEDS: SYNTHROID 50 MCG PO (05:38)
[2025-01-19 06:03] LABS: Blood Urea Nitrogen 26 mg/dl (7-17); Calcium 8.2 mg/dl (8.4-10.2); Carbon Dioxide 30 mmol/L (22-30); Chloride 107 mmol/L (98-107); Estimated Creatinine Clearance 81 ml/min; Glucose 102 mg/dl (70-99); Magnesium 1.9 mg/dl (1.6-2.3); Potassium 4.4 mmol/L (3.5-5.1); Sodium 137 mmol/L (135-145); eGFR > 60.00
[2025-01-19 06:09] LABS: Hematocrit 25.0 % (37.0-47.0); Hemoglobin 8.1 g/dL (12.0-16.0); Mean Corp Hgb Conc. 32.4 g/dL (33.0-37.0); Mean Corpuscular Volume 94.7 fL (81.0-99.0); Platelet Count 139 10^3/uL (130-400); Red Cell Dist. Width 15.3 % (11.5-14.5)
--- NOTE | 2025-01-19 07:00 | PTCARENOTE ---
Cannot verify VS captured from prior shift.
--- NOTE | 2025-01-19 07:07 | W.PN.HOSP.TC ---
Today's Communication/Plan
-
Lovenox switched to Eliquis
Possible discharge tomorrow if tolerating PO Eliquis
monitor H&H
possible iatrogenic fluid overload, diuresis PO lasix 40 mg daily
daily weights I/O
Assessment / Plan
Assessment / Plan
Physical Exam
General: No Apparent Distress, appears comfortable
HEENT: EOMI moist mucus membrane normocephalic atraumatic
Respiratory: Negative Wheezes
Cardiac: Regular Rhythm and S1/S2
GI: Soft, Nontender, lap incisions c/d/i, abdomen soft
Musculoskeletal: pedal edema +1 b/l
Skin: Warm and Dry; Negative Rash
Neuro: AOx2 disoriented to place
Psych: Calm
79F [place]-speaking hx dementia, [facility] resident, Guardianship, HTN, hypothyroidism, stage 1 endometrial cancer s/p robotic assisted total laparoscopic hysterectomy, bilateral salpino-oopherectomy with pelvic washing 01/15/25 with post-op
course complicated by anemia, hypothermia, hypotension requiring Levophed overnight. Hospital course further complicated with new onset Afib.
AMS post-op
Hypercarbic respiratory failure
Hypothermia
-patient with lethargy post-op, ABG with CO2 58, pH 7.32, placed on BiPAP and transferred to ICU evening of 01/15-01/16
-suspect AE from anesthesia with underlying JC, Patient since improved
-appreciate pulmonary - continue BiPAP qhs and when napping
-outpatient sleep study
-CXR likely atelectasis, UA without significant inflammation
-AM Cortisol low followed by normal cosyntropin stim test - low suspicion secondary adrenal insufficiency
-TSH WNL
-PT/OT --> SNF on DC
Hypotension
-now resolved post fluids
-briefly required Levophed overnight and during day 01/16, now off
-off fluids
Possible Iatrogenic Fluid Overload
-significant wt gain noted
-otherwise stable respiratory status on room air
-Pulm eval appreciated
-PO Lasix 40 mg daily started, monitor response, consider discontinuing prior to discharge
New diagnosis atrial fibrillation - seen on EKG 01/17
-OK to start AC per Management Manager Surgeon
-initially started weight based Lovenox q 12, since cleared to transition to Eliquis as per Management Manager Surgeon
-CHADS2-VASC score = at least 4
TTE 09/06/24
CONCLUSIONS
Normal biventricular size and systolic function without regional wall motion
abnormality. Estimated LVEF 55-60%.
No significant valve disease.
-TSH WNL
-consult Cardiology appreciated
Acute on chronic blood loss anemia
-patient's Hg post-op was 6, had likely been slowly losing blood over months with acute loss during OR
-s/p 2 PRBC transfusions
-H&H stable since transfusions
Stage 1 Endometrial Cancer
-s/p Robotic�assisted�laparoscopy�hysterectomy�with BSO�and�sentinel�lymph�node�bx on 01/15/25
-awaiting pathology
-Management Manager Oncology Eval appreciated
Anxiety/Depression
-COMPUTER FORENSICS EXAMINER Zoloft
Essential Hypertension
-continue to hold Metoprolol given bradycardia
Hypothyroidism
-TSH OK, COMPUTER FORENSICS EXAMINER Synthroid
Dementia
-patient has a guardian
Code status: Full Code
DVT prophylaxis: Eliquis
I spent a total of 45 minutes with the patient or on the floor. More than 50% of this time involved counseling and coordination of care.
Anticipated Discharge: Within 24 hours
Subjective/Interval History
-
Date of Service: January 19, 2025
AOx[address], interviewed with international language line [place] streetcar repairer helper, reported current location as some where in [place], also reported severe pain lower ext's indeterminate duration ('long time'). Otherwise appeared
relatively comfortable, no acute distress.
Objective Data
-
Labs:
Laboratory Results
01/19/25 01/19/25
00:20 05:29
WBC 6.8
Hgb 8.1 L 8.1 L
Hct 25.1 L 25.0 L
Plt Count 139
Sodium 137
Potassium 4.4
Chloride 107
Carbon Dioxide 30
BUN 26 H
Creatinine 0.6
Glucose 102 H
Calcium 8.2 L
Vital Signs:
Vital Signs
Temp Pulse Resp BP Pulse Ox
98.1 F 82 13 95/57 94
01/19/25 06:42 01/19/25 02:00 01/19/25 02:00 01/19/25 02:00 01/19/25 02:00
I&O
01/18/25 01/19/25 01/20/25
06:59 06:59 06:59
Intake Total 657 / 657 720 / 720
Balance 657 / 657 720 / 720
[2025-01-19] MEDS: FEOSOL 325 MG PO (08:44)
[2025-01-19] MEDS: LOVENOX 100 MG SC (08:44)
[2025-01-19] MEDS: FOLVITE 1 MG PO (08:44)
[2025-01-19] MEDS: VITAMIN B-12 500 MCG PO (08:44)
[2025-01-19] MEDS: COLACE 100 MG PO ×2 (08:45→20:18)
[2025-01-19] MEDS: ZOLOFT 25 MG PO (08:45)
--- NOTE | 2025-01-19 10:44 | W.PN.GYNONC ---
Today's Communication
-
Discharge planning with transfers back to original residential facility should begin today
Impression / Plan
-
POD 3
#1. Endometrial ca
she is s/p RObotic TLH BSO, SLN,
pre op CT showed no obvious mets, awaiting final results to comment further about need for adjuvant therapy
Final pathology is pending
#2. Acute on suspect chronic hypercapnic respiratory failure.
-probable underlying obstructive sleep apnea.
- Continue nightly BiPAP while in hospital, also when napping.
-appreciate pulmonary input
#3. Hypotension, required pressors briefly
- Appears to be resolved after volume depletion is corrected
#4 Anemia, Acute on chronic
- Known history of chronic vaginal bleeding, due to endometrial ca, received 2 u prbc on Tuesday
-appreciate input of Dr Marie (heme/Onc)
-hgb is 8 this am, stable
#5. Afib
new development, rate controlled. Appreciate cardiology input
Patient has previously been on metoprolol and probably will resume that
There is no plans for any additional intervention.
From my perspective patient is okay after surgery to start Eliquis today
Obviously because of her lack of ambulation and fall risk she remains at risk for bleeding and this needs to be monitored
Other medical diagnoses:
- Hypothyroidism
- Hypertension
- Anxiety/depression
- Dementia
I appreciate the efforts of hospitalist, pulmonary critical care, hematology oncology as well as cardiology in this complicated case
we may need to consider palliative care input given her social and medical issues.
Subjective / Interval History
-
POD4 robotic hysterectomy, BSO, sentinel lymph node excision for surgical treatment of endometrial cancer
Postoperative care complicated by chronic anemia, hypoxia, hypertension as well as atrial fibrillation
Patient appears to be alert and most communicative since surgical procedure, she is eating and does not have any complaints
Objective Data
-
Lab Results:
01/19/25 05:29
01/19/25 05:29
Physical Exam
Vital Signs / I&O
Vitals
Temp Pulse Resp BP Pulse Ox
98.1 F 96 14 124/72 97
01/19/25 06:42 01/19/25 06:00 01/19/25 06:00 01/19/25 06:00 01/19/25 08:59
I&O
01/17/25 01/18/25 01/19/25 01/20/25
06:59 06:59 06:59 06:59
Intake Total 1468.0 / 1543.0 657 / 657 720 / 720
Output Total 850 / 850
Balance 618.0 / 693.0 657 / 657 720 / 720
Physical Exam
General: No Apparent Distress
Respiratory: Clear and Wheezes
GI: Soft, Non Tender and Other (Laparoscopic port incisions are intact there is no erythema)
Skin: Warm
Neuro: Awake and Alert
Hematologic/Lymphatic: No Lymphadenopathy
Psych: Calm and Apparent Dementia
Data Reviewed
-
Lab Data: Labs Reviewed
[2025-01-19] MEDS: ROXICODONE 2.5 MG PO (10:45)
--- NOTE | 2025-01-19 12:09 | W.PN.PUL3 ---
Today's Communication / Plan
-
- Continue nightly BiPAP, case management to help arrange outpatient BIPAP therapy nightly
- Recommend gentle diuresis, defer to primary team
Assessment
-
Patient is a 79-year-old female with past medical history for dementia, hypertension, hypothyroidism as well as known diagnosis of endometrial carcinoma. She was admitted to the hospital for robotic assisted laparoscopic hysterectomy, bilateral
salpingo-oophorectomy and pelvic washing. Overnight patient was noted to be more lethargic and bilateral gas was suggestive of hypercapnia, patient was initiated on BiPAP and transferred to IMU. Later on patient developed hypotension blood
pressure of 70 x 40 to 90 x 40. Patient was initiated on Levophed. Lactate was checked which was normal at 1.3. In view of hypotension requiring pressors, respiratory failure requiring BiPAP, patient was subsequently transferred to ICU and
refinery operator reforming unit consultation was requested for further input.
Acute on chronic hypercapnic respiratory failure.
Undiagnosed JC/OHS
Hypotension, required pressors briefly, resolved
Acute LUCA on chronic anemia
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
Chronic vaginal bleeding s/p Robotic assisted total laparoscopic hysterectomy, bilateral salpingo-oophorectomy with pelvic washing/Injection of cervix with ICG dye, bilateral, for mapping and identification of bilateral sentinel lymph nodes/Robotic
assisted laparoscopic bilateral sentinel lymphadenectomy/Repair of vaginal introitus and periurethral lacerations 01/15/25
s/p Hysteroscopy, D&C with Myosure 09/07/24
Other medical diagnoses:
Hypothyroidism
Hypertension
Anxiety/depression
Dementia
Morbid obesity, BMI 45
PACs/sinus bradycardia, 1st degree AVB
Plan
Patient has morbid obesity, BMI 45, suspect she has underlying obstructive sleep apnea.
Post surgery and anesthesia contributed to increased drowsiness and worsening hypercapnia requiring BiPAP support.
Tolerated BiPAP well overnight, transition to nasal cannula this morning. Awake, alert, saturating well on nasal cannula at 2 L. Saturating 100%.
08/13, compensated hypercapnia noted 7.37/50, again suggestive of underlying sleep disordered breathing and possibly obesity hypoventilation syndrome.
Continue nightly BiPAP while in hospital, also when napping. Avoid any sedating medication.
Can arrange DME set up for OP use, CM consult
Suspect primarily related to hypovolemia, anesthetics etc. Patient also had been on metoprolol 25 mg p.o. twice daily
Holding antihypertensive medications,, continue PRBC as needed to keep hemoglobin above 7, off Levophed now
Serial lactate has been normal
Developing trace pedal edema, discontinued additional IV fluids for
Normal WBC count, continues to be afebrile. Chest x-ray reviewed, mild volume loss appears to be more suggestive of atelectasis than pneumonia. Monitor off antibiotics for now.
Known history of chronic vaginal bleeding, likely anemia further exacerbated by acute blood loss with surgery, dilution with IV.
Serial H&H and transfuse as needed to keep hemoglobin above 7
S/p TLH, BSO, 01/15/2025
Gynecologic oncology service on case
Discharge planning per team
We will follow
Data:
CT C/A/P 01/2025: Numerous at least partially calcified uterine fibroids again seen. Patient's known endometrial carcinoma not well demonstrated with this imaging modality. Evaluation overall limited as a result of several factors, as detailed
above, without gross findings to suggest suspicious mass or significant lymphadenopathy throughout the remainder of the abdomen and pelvis. Prior cholecystectomy. Ectopic left kidney again noted with subcentimeter low-attenuation lesions too small
to characterize. Suspected coronary artery calcifications
ECHO 09/2024: Normal biventricular size and systolic function without regional wall motion abnormality. Estimated LVEF 55-60%. No significant valve disease.
Total time spent on this consultation/encounter __50__ minutes which includes review of history, physical exam, medications, laboratory data, personal review of imaging, extensive review of outpatient records, discussion with care team and
respiratory therapy.
Subjective Data
-
Date of Service:
Date of Service: January 19, 2025
Chief Complaint: Pulmonary Follow Up
Subjective:
Comfortably lying in bed in no acute distress
Review of Systems
Genitourinary: Other (Patient appears comfortable)
Objective Data
Data Reviewed
Vital Signs / I&O / Oxygen:
Vital Signs
Temp Pulse Resp BP Pulse Ox
97.5 F 96 14 124/72 97
01/19/25 11:00 01/19/25 06:00 01/19/25 06:00 01/19/25 06:00 01/19/25 08:59
Intake and Output
01/18/25 01/19/25 01/20/25
06:59 06:59 06:59
Intake Total 657 / 657 720 / 720
Balance 657 / 657 720 / 720
SaO2 97
Nasal Cannula flow liters per 2
minute
Physical Exam
General: Comfortable and Other (NAD)
HEENT: Normocephalic, Anicteric and Moist Mucous Membranes
Cardiovascular: S1-S2, Regular Rhythm and Peripheral Edema (Bilateral)
Respiratory: Clear (diminished at bases) and Non-Labored Respirations
GI: Soft, Non Distended and Non Tender
Neurology: Awake, Alert, No Motor Deficits and Other (confused, does not answer appropriately at times)
Skin: Warm and Dry
Labs/Micro/Reports
Lab Data
01/19/25 05:29
01/19/25 05:29
Microbiology
01/17/25 02:43 Urine Urine Culture - Final
NO GROWTH
01/16/25 00:42 Nose MRSA Screen - Final
No Methicillin Resistant Staphylococcus aureus isolated.
--- NOTE | 2025-01-19 12:41 | PTCARENOTE ---
Pt's assessment as documented. Aox1, confused. Afib on tele monitor. Sating high 90's on RA. Lab sites approximated with surgical glue present. Q2T maintained. Bed alarm in place for safety.
[2025-01-19] MEDS: LASIX 40 MG PO (13:19)
[2025-01-19] MEDS: FERRLECIT 110 MG IV (13:23)
[2025-01-19] MEDS: ELIQUIS 5 MG PO (20:18)
[2025-01-20] VITALS (12 sets, daily range): BP systolic 105–130; BP diastolic 51–87; PULSE 2–79
--- NOTE | 2025-01-20 01:47 | PTCARENOTE ---
Patient assessment and care as charted. Pt AAOx1, confused, disoriented to time and place. A-fib on the monitor. HR 70. RT bedside to place pt on the BiPAP overnight, pt tolerating mask. 5 lap sites approximated intact with surgical glue. Pt grossly
incontinent of urine, purewick in place. Clear yellow urine. Pt tolerating frequent turning and repositioning with foam wedge. Heels floated on a pillow. Bed alarm on for safety.
--- NOTE | 2025-01-20 03:51 | PTCARENOTE ---
Unable to obtain axillary temperature. Rectal temp 94.1. Declan hart ordered and placed.
[2025-01-20 05:06] LABS: Venous Blood Gas B.E. 10.7 mmol/L (-4 to +4); Venous Blood Gas O2 Sat % 100.0 %
[2025-01-20 05:27] LABS: Hematocrit 28.0 % (37.0-47.0); Hemoglobin 9.0 g/dL (12.0-16.0); Mean Corp Hgb Conc. 32.1 g/dL (33.0-37.0); Mean Corpuscular Volume 94.0 fL (81.0-99.0); Platelet Count 154 10^3/uL (130-400); Red Cell Dist. Width 15.4 % (11.5-14.5)
[2025-01-20 05:33] LABS: Blood Urea Nitrogen 20 mg/dl (7-17); Calcium 7.9 mg/dl (8.4-10.2); Carbon Dioxide 35 mmol/L (22-30); Chloride 102 mmol/L (98-107); Estimated Creatinine Clearance 81 ml/min; Glucose 100 mg/dl (70-99); Magnesium 1.7 mg/dl (1.6-2.3); Potassium 4.2 mmol/L (3.5-5.1); Sodium 136 mmol/L (135-145); eGFR > 60.00
[2025-01-20] MEDS: TYLENOL 650 MG PO (05:51)
[2025-01-20] MEDS: SYNTHROID 50 MCG PO (05:51)
--- NOTE | 2025-01-20 07:29 | W.PN.HOSP.TC ---
Today's Communication/Plan
-
see A/P
Assessment / Plan
Assessment / Plan
79F Norwegian-speaking hx dementia, [place] resident, Guardianship, HTN, hypothyroidism, stage 1 endometrial cancer s/p robotic assisted total laparoscopic hysterectomy, bilateral salpino-oopherectomy with pelvic washing 01/15/25 with post-op
course complicated by anemia, hypothermia, hypotension requiring Levophed. Hospital course further complicated with new onset Afib.
A/P:
# Stage 1 Endometrial Cancer
s/p Robotic�assisted�laparoscopy�hysterectomy�with BSO�and�sentinel�lymph�node�bx on 01/15/25
awaiting pathology
Machine Chain Maker Oncology Eval appreciated
# AMS post-op
# Hypothermia
patient with lethargy post-op, ABG with CO2 58, pH 7.32, placed on BiPAP and transferred to ICU evening of 01/15-01/16
suspect AE from anesthesia with underlying CJ, Patient since improved
appreciate pulmonary - continue BiPAP qhs and when napping
outpatient sleep study
CXR likely atelectasis, UA without significant inflammation
AM Cortisol low followed by normal cosyntropin stim test - low suspicion secondary adrenal insufficiency
TSH WNL
urine culture this admission negative
PT/OT recc SNF on DC
# Hypotension, resolved post fluids
briefly required Levophed overnight and during day 01/16, now off
off fluids
# Possible Iatrogenic Fluid Overload
significant wt gain noted
otherwise stable respiratory status on room air
Pulm eval appreciated
PO Lasix 40 mg daily started, monitor response, consider discontinuing prior to discharge
# New diagnosis atrial fibrillation - seen on EKG 01/17
OK to start AC per Machine Chain Maker Surgeon
initially started weight based Lovenox q 12, since cleared to transition to Eliquis as per Machine Chain Maker Surgeon
CHADS2-VASC score = at least 4
TTE 09/06/24: EF 55-60%. No significant valve disease.
TSH WNL
Cardiology input appreciated
# Acute on chronic blood loss anemia
patient's Hg post-op was 6, had likely been slowly losing blood over months with acute loss during OR
s/p 2 PRBC transfusions
H&H stable since transfusions, Hg today at 9.0
# Anxiety/Depression
ASSEMBLING MACHINE OPERATOR Zoloft
# Essential Hypertension
continue to hold Metoprolol given bradycardia
# Hypothyroidism
TSH OK, ASSEMBLING MACHINE OPERATOR Synthroid
# Dementia
patient has a guardian
Code status: Full Code
DVT prophylaxis: Eliquis
DW RN
total time 51 min
Anticipated Discharge: Within 24 hours
Subjective/Interval History
-
Date of Service: January 20, 2025
Objective Data
-
Labs:
Laboratory Results
01/20/25
04:38
WBC 5.3
Hgb 9.0 L
Hct 28.0 L
Plt Count 154
Sodium 136
Potassium 4.2
Chloride 102
Carbon Dioxide 35 H
BUN 20 H
Creatinine 0.6
Glucose 100 H
Calcium 7.9 L
Vital Signs:
Vital Signs
Temp Pulse Resp BP Pulse Ox
35.8 C L 74 11 114/57 93
01/20/25 07:00 01/20/25 06:00 01/20/25 06:00 01/20/25 06:00 01/20/25 06:00
I&O
01/19/25 01/20/25 01/21/25
06:59 06:59 06:59
Intake Total 720 / 720 100 / 100
Output Total 1400 / 1400
Balance 720 / 720 -1300 / -1300
Review of Systems
-
Unable to obtain full review of systems at this time due to: Dementia
History Source: Patient
Physical Exam
-
General: Well Developed, Well Nourished, No Apparent Distress and Comfortable
Respiratory: Clear to Auscultation and Non Labored Respirations; Negative Wheezes or Accessory Resp Muscle Use
Cardiac: Regular Rhythm and S1/S2
GI: Soft, Nontender and Other (lap incisions, abdomen soft)
Musculoskeletal: Edema, Right Lower Extrem (mild) and Edema, Left Lower Extrem (mild)
Skin: Warm and Dry; Negative Rash
Neuro: Awake
Psych: Calm and Apparent Dementia
Data Reviewed
-
Labs: Labs Reviewed by me
[2025-01-20] MEDS: ZOLOFT 25 MG PO (08:16)
[2025-01-20] MEDS: LASIX 40 MG PO (08:16)
[2025-01-20] MEDS: ELIQUIS 5 MG PO ×2 (08:17→21:08)
[2025-01-20] MEDS: FEOSOL 325 MG PO (08:17)
[2025-01-20] MEDS: FOLVITE 1 MG PO (08:17)
[2025-01-20] MEDS: VITAMIN B-12 500 MCG PO (08:17)
[2025-01-20] MEDS: MIRALAX 17 GRAMS PO (08:17)
[2025-01-20] MEDS: COLACE 100 MG PO ×2 (08:17→21:08)
--- NOTE | 2025-01-20 11:23 | W.PN.PUL3 ---
Today's Communication / Plan
-
- Continue BiPAP at night and when napping
- Can be discharged from pulmonary standpoint once BiPAP therapy has been arranged
- Outpatient follow-up with [facility] pulmonary clinic
Assessment
-
Patient is a 79-year-old female with past medical history for dementia, hypertension, hypothyroidism as well as known diagnosis of endometrial carcinoma. She was admitted to the hospital for robotic assisted laparoscopic hysterectomy, bilateral
salpingo-oophorectomy and pelvic washing. Overnight patient was noted to be more lethargic and bilateral gas was suggestive of hypercapnia, patient was initiated on BiPAP and transferred to IMU. Later on patient developed hypotension blood
pressure of 70 x 40 to 90 x 40. Patient was initiated on Levophed. Lactate was checked which was normal at 1.3. In view of hypotension requiring pressors, respiratory failure requiring BiPAP, patient was subsequently transferred to ICU and
superintendent drivers consultation was requested for further input.
Acute on chronic hypercapnic respiratory failure.
Undiagnosed JC/OHS
Hypotension, required pressors briefly, resolved
Acute LUCA on chronic anemia
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
Chronic vaginal bleeding s/p Robotic assisted total laparoscopic hysterectomy, bilateral salpingo-oophorectomy with pelvic washing/Injection of cervix with ICG dye, bilateral, for mapping and identification of bilateral sentinel lymph nodes/Robotic
assisted laparoscopic bilateral sentinel lymphadenectomy/Repair of vaginal introitus and periurethral lacerations 01/15/25
s/p Hysteroscopy, D&C with Myosure 09/07/24
Other medical diagnoses:
Hypothyroidism
Hypertension
Anxiety/depression
Dementia
Morbid obesity, BMI 45
PACs/sinus bradycardia, 1st degree AVB
Plan
Patient has morbid obesity, BMI 45, suspect she has underlying obstructive sleep apnea.
Post surgery and anesthesia contributed to increased drowsiness and worsening hypercapnia requiring BiPAP support.
Tolerated BiPAP well overnight, transition to nasal cannula this morning. Awake, alert, saturating well on nasal cannula at 2 L. Saturating 100%.
01/16, compensated hypercapnia noted 7.37/50, again suggestive of underlying sleep disordered breathing and possibly obesity hypoventilation syndrome.
Continue nightly BiPAP while in hospital, also when napping. Avoid any sedating medication.
Can arrange DME set up for OP use, CM consult
01/20, VBG reassuring, compensated hypercapnia
Suspect primarily related to hypovolemia, anesthetics etc. Patient also had been on metoprolol 25 mg p.o. twice daily
Holding antihypertensive medications,, continue PRBC as needed to keep hemoglobin above 7, off Levophed now
Serial lactate has been normal
Developing trace pedal edema, discontinued additional IV fluids for
Normal WBC count, continues to be afebrile. Chest x-ray reviewed, mild volume loss appears to be more suggestive of atelectasis than pneumonia. Monitor off antibiotics for now.
Known history of chronic vaginal bleeding, likely anemia further exacerbated by acute blood loss with surgery, dilution with IV.
Serial H&H and transfuse as needed to keep hemoglobin above 7
S/p TLH, BSO, 01/15/2025
Gynecologic oncology service on case
Discharge planning per team
We will follow
Data:
CT C/A/P 01/2025: Numerous at least partially calcified uterine fibroids again seen. Patient's known endometrial carcinoma not well demonstrated with this imaging modality. Evaluation overall limited as a result of several factors, as detailed
above, without gross findings to suggest suspicious mass or significant lymphadenopathy throughout the remainder of the abdomen and pelvis. Prior cholecystectomy. Ectopic left kidney again noted with subcentimeter low-attenuation lesions too small
to characterize. Suspected coronary artery calcifications
ECHO 09/2024: Normal biventricular size and systolic function without regional wall motion abnormality. Estimated LVEF 55-60%. No significant valve disease.
Total time spent on this consultation/encounter __28__ minutes which includes review of history, physical exam, medications, laboratory data, personal review of imaging, extensive review of outpatient records, discussion with care team and
respiratory therapy.
Subjective Data
-
Date of Service:
Date of Service: January 20, 2025
Chief Complaint: Pulmonary Follow Up
Subjective:
Patient comfortably sitting in bed, on room air in no distress.
Review of Systems
Genitourinary: Other (Appears comfortable)
Objective Data
Data Reviewed
Vital Signs / I&O / Oxygen:
Vital Signs
Temp Pulse Resp BP Pulse Ox
97.3 F 81 12 118/62 97
01/20/25 09:00 01/20/25 08:16 01/20/25 08:00 01/20/25 08:16 01/20/25 08:00
Intake and Output
01/19/25 01/20/25 01/21/25
06:59 06:59 06:59
Intake Total 720 / 720 100 / 100
Output Total 1400 / 1400
Balance 720 / 720 -1300 / -1300
SaO2 97
Nasal Cannula flow liters per 2
minute
Physical Exam
General: Comfortable and Other (NAD)
HEENT: Normocephalic, Anicteric and Moist Mucous Membranes
Cardiovascular: S1-S2, Regular Rhythm and Peripheral Edema (Bilateral)
Respiratory: Clear (diminished at bases) and Non-Labored Respirations
GI: Soft, Non Distended and Non Tender
Neurology: Awake, Alert and No Motor Deficits
Skin: Warm and Dry
Labs/Micro/Reports
Lab Data
01/20/25 04:38
01/20/25 04:38
Microbiology
01/17/25 02:43 Urine Urine Culture - Final
NO GROWTH
01/16/25 00:42 Nose MRSA Screen - Final
No Methicillin Resistant Staphylococcus aureus isolated.
[2025-01-20] MEDS: TYLENOL PO ×3 (13:10→23:21)
[2025-01-20] MEDS: FERRLECIT 110 MG IV (15:07)
--- NOTE | 2025-01-20 15:41 | PTCARENOTE ---
Rec'd pt this AM. Awake and alert. Pt repeatedly pulling at leads, wires and IVS. pulled out her IV. Declan hart on and off throughout the day.
--- NOTE | 2025-01-20 16:09 | PTCARENOTE ---
Pt repeatedly pulling on leads and wires, pulled out IV. Unable to be redirected. Notified Dr. Tapia who is cross coverage MD. B/L mitts ordered and placed on pt.
[2025-01-20] MEDS: ROXICODONE 5 MG PO (21:08)
[2025-01-21] VITALS (11 sets, daily range): BP systolic 96–151; BP diastolic 55–84; PULSE 70; O2SAT 98; BMI 43.4
--- NOTE | 2025-01-21 01:10 | PTCARENOTE ---
Pt wants to 'walk' out of hospital. Repeatedly asking for her sneakers to leave. Consistently taking off tele leads. Attempting to avoid putting mitts back on pt. Reorienting pt frequently. EKG obtained as pt converted back to NSR. EKG
confirmed.
[2025-01-21 05:59] LABS: Hematocrit 28.8 % (37.0-47.0); Hemoglobin 9.2 g/dL (12.0-16.0); Mean Corp Hgb Conc. 31.9 g/dL (33.0-37.0); Mean Corpuscular Volume 95.0 fL (81.0-99.0); Platelet Count 163 10^3/uL (130-400); Red Cell Dist. Width 15.8 % (11.5-14.5)
[2025-01-21] MEDS: SYNTHROID PO (06:13)
[2025-01-21] MEDS: TYLENOL PO (06:13)
[2025-01-21 06:24] LABS: Blood Urea Nitrogen 16 mg/dl (7-17); Calcium 8.5 mg/dl (8.4-10.2); Carbon Dioxide 34 mmol/L (22-30); Chloride 102 mmol/L (98-107); Estimated Creatinine Clearance 81 ml/min; Glucose 94 mg/dl (70-99); Magnesium 1.8 mg/dl (1.6-2.3); Potassium 4.4 mmol/L (3.5-5.1); Sodium 137 mmol/L (135-145); eGFR > 60.00
--- NOTE | 2025-01-21 06:30 | PTCARENOTE ---
Despite reorientation pt continued to pull tele leads off and pulled IV out. STERILIZER OPERATOR able to place new site in right AC. Notified HEALTH OUTREACH WORKER. B/L soft limb restraints with 4 side rails are ordered and placed on pt.
--- NOTE | 2025-01-21 07:56 | W.PN.HOSP.TC ---
Today's Communication/Plan
-
remove restraint
remove IV line
frequent reorientation to help with dementia
add Seroquel HS for agitation
Assessment / Plan
Assessment / Plan
79F [place] Irish-speaking hx dementia, [place] [employer] resident, Guardianship, HTN, hypothyroidism, stage 1 endometrial cancer s/p robotic assisted total laparoscopic hysterectomy, bilateral salpino-oopherectomy with pelvic washing 01/15/25 with post-op
course complicated by anemia, hypothermia, hypotension requiring Levophed. Hospital course further complicated with new onset Afib.
A/P:
# Stage 1 Endometrial Cancer
s/p Robotic�assisted�laparoscopy�hysterectomy�with BSO�and�sentinel�lymph�node�bx on 01/15/25
awaiting pathology
Sales And Service Agent Oncology Eval appreciated
# AMS post-op
# Hypothermia likely due to environmental factor (pt refuses to wear clothes)
patient with lethargy post-op, ABG with CO2 58, pH 7.32, placed on BiPAP and transferred to ICU evening of 01/15-01/16
suspect AE from anesthesia with underlying JC, Patient since improved
appreciate pulmonary - continue BiPAP qhs and when napping
outpatient sleep study
CXR likely atelectasis, UA without significant inflammation
AM Cortisol low followed by normal cosyntropin stim test - low suspicion secondary adrenal insufficiency
TSH WNL
urine culture this admission negative
PT/OT recc SNF
# Hypotension, resolved post fluids
briefly required Levophed overnight and during day 01/16, now off
off fluids
# Possible Iatrogenic Fluid Overload
significant wt gain noted
otherwise stable respiratory status on room air
Pulm eval appreciated
PO Lasix 40 mg daily started, monitor response, consider discontinuing prior to discharge
# New diagnosis atrial fibrillation - seen on EKG 01/17
CHADS2-VASC score = at least 4
TTE 09/06/24: EF 55-60%. No significant valve disease.
TSH WNL
OK to start AC per Sales And Service Agent Surgeon
initially started weight based Lovenox q 12, since cleared to transition to Eliquis as per Sales And Service Agent Surgeon, now on Eliquis 5 mg BID
Cardiology input appreciated
# Acute on chronic blood loss anemia
patient's Hg post-op was 6, had likely been slowly losing blood over months with acute loss during OR
s/p 2 PRBC transfusions
H&H stable since transfusions, Hg today at 9.2
# Anxiety/Depression
EMERGENCY NURSE Zoloft
# Dementia with agitation
patient has a guardian
add Seroquel 25 mg HS for agitation
frequent reorientate
Avoid restraint if able, remove IV line
# Essential Hypertension
continue to hold Metoprolol given bradycardia
# Hypothyroidism
TSH OK, EMERGENCY NURSE Synthroid
Code status: Full Code
DVT prophylaxis: Eliquis
DW RN
total time 51 min
Anticipated Discharge: Within 24 hours
Subjective/Interval History
-
Date of Service: January 21, 2025
Objective Data
-
Labs:
Laboratory Results
01/21/25
05:48
WBC 6.2
Hgb 9.2 L
Hct 28.8 L
Plt Count 163
Sodium 137
Potassium 4.4
Chloride 102
Carbon Dioxide 34 H
BUN 16
Creatinine 0.6
Glucose 94
Calcium 8.5
Vital Signs:
Vital Signs
Temp Pulse Resp BP Pulse Ox
35.7 C L 67 7 111/62 97
01/21/25 07:33 01/21/25 06:01 01/21/25 06:01 01/21/25 06:00 01/20/25 08:00
I&O
01/20/25 01/21/25 01/22/25
06:59 06:59 06:59
Intake Total 100 / 100 960 / 960
Output Total 1400 / 1400 1800 / 1800
Balance -1300 / -1300 -840 / -840
Review of Systems
-
Unable to obtain full review of systems at this time due to: Dementia
History Source: Patient
Physical Exam
-
General: Well Developed, Well Nourished, No Apparent Distress and Comfortable
Respiratory: Clear to Auscultation and Non Labored Respirations; Negative Wheezes or Accessory Resp Muscle Use
Cardiac: Regular Rhythm and S1/S2
GI: Soft, Nontender and Other (lap incisions, abdomen soft)
Musculoskeletal: Edema, Right Lower Extrem (mild) and Edema, Left Lower Extrem (mild)
Skin: Warm and Dry; Negative Rash
Neuro: Awake
Psych: Calm and Apparent Dementia
Data Reviewed
-
Labs: Labs Reviewed by me
--- NOTE | 2025-01-21 08:42 | W.PN.ONC ---
Today's Communication / Plan
-
Plan reviewed with attending.
Impression
Impression
79yoF PMH HTN, hypothyroidism, dementia, chronic normocytic anemia, endometrial cancer s/p TLH BSO 01/15/25 with acute on chronic normocytic anemia.
Iron, B12, folate studies WNL. Ferritin 25. RDW borderline elevated aligning with acute surgery. MCV WNL and stable. Retic 2.4. Coags WNL. Hgb increased to 9.2
Plan
Plan
#acute on chronic normocytic anemia
Follow H+H. Hgb stabilized
Continue outpt supplements folate, b12. Continue IV iron infusion. Dr. Youngblood will monitor outpt. If continued low iron, outpt f/u and infusion can be done.
Tranfuse Hgb<7
#endometrial cancer
Pending patholgoy and sentinel lymph node biopsy. Follow outpt with Dr. Youngblood
Subjective/Objective
Subjective/Objective
Vital Signs:
Vital Signs
Temp Pulse Resp BP Pulse Ox
96.3 F L 67 7 111/62 97
01/21/25 07:33 01/21/25 06:01 01/21/25 06:01 01/21/25 06:00 01/20/25 08:00
Lab Results:
Laboratory Data
WBC 6.2 10^3/uL (4.8-10.8) 01/21/25 05:48
Hgb 9.2 g/dL (12.0-16.0) L 01/21/25 05:48
Plt Count 163 10^3/uL (130-400) 01/21/25 05:48
PT 14.1 Sec (11.4-14.6) 01/17/25 14:35
INR 1.03 01/17/25 14:35
APTT 31.6 Sec (23.4-35.0) 01/17/25 14:35
eGFR > 60.00 01/21/25 05:48
[2025-01-21] MEDS: COLACE 100 MG PO ×2 (08:44→19:25)
[2025-01-21] MEDS: LASIX 40 MG PO (08:45)
[2025-01-21] MEDS: FOLVITE 1 MG PO (08:46)
[2025-01-21] MEDS: FEOSOL 325 MG PO (08:46)
[2025-01-21] MEDS: ELIQUIS 5 MG PO ×2 (08:46→19:25)
[2025-01-21] MEDS: ZOLOFT 25 MG PO (08:47)
[2025-01-21] MEDS: VITAMIN B-12 500 MCG PO (08:47)
--- NOTE | 2025-01-21 09:38 | PTCARENOTE ---
Rec'd pt this AM. Removed restraints, Temp 97.6 axillary, removed giovanni huggar. Pt now med/ surg. vital signs stable.
--- NOTE | 2025-01-21 09:50 | CM ---
Patient chart reviewed
LTC resident at [facility]
Referral updated in [facility]
Left Shani liaision message
PLAN: Return to [facility] when medically stable
Report #: [phone]
Fax #: [phone]
--- NOTE | 2025-01-21 10:23 | W.PN.PUL.V3 ---
Today's Communication / Plan
-
Wean oxygen
BiPAP at night and during the daytime as tolerated
Assessment
-
Patient is a 79-year-old female with past medical history for dementia, hypertension, hypothyroidism as well as known diagnosis of endometrial carcinoma. She was admitted to the hospital for robotic assisted laparoscopic hysterectomy, bilateral
salpingo-oophorectomy and pelvic washing. Overnight patient was noted to be more lethargic and bilateral gas was suggestive of hypercapnia, patient was initiated on BiPAP and transferred to IMU. Later on patient developed hypotension blood
pressure of 70 x 40 to 90 x 40. Patient was initiated on Levophed. Lactate was checked which was normal at 1.3. In view of hypotension requiring pressors, respiratory failure requiring BiPAP, patient was subsequently transferred to ICU and
awning craftsperson consultation was requested for further input.
Acute on chronic hypercapnic respiratory failure.
Undiagnosed JC/OHS
Hypotension, required pressors briefly, resolved
Acute LUCA on chronic anemia
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
Chronic vaginal bleeding s/p Robotic assisted total laparoscopic hysterectomy, bilateral salpingo-oophorectomy with pelvic washing/Injection of cervix with ICG dye, bilateral, for mapping and identification of bilateral sentinel lymph nodes/Robotic
assisted laparoscopic bilateral sentinel lymphadenectomy/Repair of vaginal introitus and periurethral lacerations 01/15/25
s/p Hysteroscopy, D&C with Myosure 09/07/24
Other medical diagnoses:
Hypothyroidism
Hypertension
Anxiety/depression
Dementia
Morbid obesity, BMI 45
PACs/sinus bradycardia, 1st degree AVB
Plan
Patient has morbid obesity, BMI 45, suspect she has underlying obstructive sleep apnea.
Post surgery and anesthesia contributed to increased drowsiness and worsening hypercapnia requiring BiPAP support.
Tolerating BiPAP 12/5 cm with a set rate of 16 and no supplemental oxygen well overnight-occasionally refusing, transition to nasal cannula in the morning.
Supplemental oxygen as needed-currently on room air
01/16/25, compensated hypercapnia noted 7.37/50, again suggestive of underlying sleep disordered breathing and possibly obesity hypoventilation syndrome.
Continue nightly BiPAP while in hospital, also when napping. Avoid any sedating medication.
Can arrange DME set up for OP use, CM consult
01/20/25, VBG reassuring, compensated hypercapnia
Suspect primarily related to hypovolemia, anesthetics etc. Patient also had been on metoprolol 25 mg p.o. twice daily
Holding antihypertensive medications,, continue PRBC as needed to keep hemoglobin above 7, off Levophed now
Serial lactate has been normal
Developing trace pedal edema, discontinued additional IV fluids for
Normal WBC count, continues to be afebrile. Chest x-ray reviewed, mild volume loss appears to be more suggestive of atelectasis than pneumonia.
Observe off antibiotics for now
Known history of chronic vaginal bleeding, likely anemia further exacerbated by acute blood loss with surgery, dilution with IV.
Serial H&H and transfuse as needed to keep hemoglobin above 7
S/p TLH, BSO, 01/15/2025
Gynecologic oncology service on case
DVT prophylaxis-on Eliquis
Discharge planning per team
We will follow
Data:
CT C/A/P 01/2025: Numerous at least partially calcified uterine fibroids again seen. Patient's known endometrial carcinoma not well demonstrated with this imaging modality. Evaluation overall limited as a result of several factors, as detailed
above, without gross findings to suggest suspicious mass or significant lymphadenopathy throughout the remainder of the abdomen and pelvis. Prior cholecystectomy. Ectopic left kidney again noted with subcentimeter low-attenuation lesions too small
to characterize. Suspected coronary artery calcifications
ECHO 09/2024: Normal biventricular size and systolic function without regional wall motion abnormality. Estimated LVEF 55-60%. No significant valve disease.
.
Subjective Data
-
Date of Service:
Date of Service: January 21, 2025
Chief Complaint: Pulmonary Follow Up
Subjective:
Tolerated BiPAP, no complaints shortness of breath, chest pain, chest congestion, productive cough
Review of Systems
General: Other ( per HPI)
Objective Data
Data Reviewed
Vital Signs / I&O:
Vital Signs
Temp Pulse Resp BP Pulse Ox
97.6 F 67 7 112/55 97
01/21/25 09:38 01/21/25 08:45 01/21/25 06:01 01/21/25 08:45 01/20/25 08:00
Intake and Output
01/20/25 01/21/25 01/22/25
06:59 06:59 06:59
Intake Total 100 / 100 960 / 960
Output Total 1400 / 1400 1800 / 1800
Balance -1300 / -1300 -840 / -840
SaO2: 97
Nasal Cannula flow liters per minute: 2
Physical Exam
General: Respiratory Distress (n), Comfortable and Other (NAD)
HEENT: Normocephalic, Anicteric and Moist Mucous Membranes
Cardiovascular: Regular Rhythm, Murmur and Peripheral Edema (Bilateral)
Respiratory: Crackles (To basilar), Non-Labored Respirations, Accessory Resp Muscle Use (n) and Stridor (n)
GI: Soft, Non Distended and Non Tender
Neurology: Awake, Alert and No Motor Deficits
Skin: Warm, Good Color, Cyanosis (n) and Jaundice (n)
Labs/Micro/Reports
Lab Data
01/21/25 05:48
01/21/25 05:48
Microbiology
01/17/25 02:43 Urine Urine Culture - Final
NO GROWTH
[2025-01-21] MEDS: DULCOLAX 10 MG RECTAL (11:43)
[2025-01-21] MEDS: TYLENOL 650 MG PO ×2 (11:43→19:25)
[2025-01-21] MEDS: MIRALAX 17 GRAMS PO (11:43)
[2025-01-21] MEDS: SEROQUEL 25 MG PO (19:25)
[2025-01-22] MEDS: TYLENOL PO (00:13)
[2025-01-22] MEDS: SYNTHROID 50 MCG PO (06:04)
[2025-01-22] MEDS: TYLENOL 650 MG PO ×2 (06:07→12:41)
--- NOTE | 2025-01-22 06:19 | W.PN.GYNONC ---
Today's Communication
-
ok to transfer back to facility from my perspective
Impression / Plan
-
POD 3
#1. Endometrial ca
she is s/p RObotic TLH BSO, SLN,
pre op CT showed no obvious mets, awaiting final results to comment further about need for adjuvant therapy
Final pathology is pending, discussed with Dr Moraes
#2. Acute on suspect chronic hypercapnic respiratory failure.
-probable underlying obstructive sleep apnea.
- Continue nightly BiPAP
#3. Hypotension, required pressors briefly
- Appears to be resolved after volume depletion is corrected
#4 Anemia, Acute on chronic
- Known history of chronic vaginal bleeding, due to endometrial ca, received 2 u prbc last week
-appreciate input of heme/Onc, iron infusion given
#5. Afib
new development, rate controlled. Appreciate cardiology input
Patient has previously been on metoprolol,
From my perspective patient is okay after surgery to start Eliquis
Other medical diagnoses:
- Hypothyroidism
- Hypertension
- Anxiety/depression
- Dementia
I appreciate the efforts of hospitalist, pulmonary critical care, hematology oncology as well as cardiology in this complicated case
we may need to consider palliative care input given her social and medical issues.
Subjective / Interval History
-
POD 7
she is more alert during daytime. spoke with her RN and note periods of agitation specially at night, pulling IV and other attachments
restraints noted on Tuesday
she offers no complaints
Objective Data
-
Lab Results:
01/21/25 05:48
01/21/25 05:48
Physical Exam
Vital Signs / I&O
Vitals
Temp Pulse Resp BP Pulse Ox
96.3 F L 95 20 151/82 98
01/21/25 23:34 01/21/25 23:34 01/21/25 23:34 01/21/25 23:34 01/21/25 23:34
I&O
01/19/25 01/20/25 01/21/25 01/22/25
06:59 06:59 06:59 06:59
Intake Total 720 / 720 100 / 100 960 / 960 0 / 0
Output Total 1400 / 1400 1800 / 1800 550 / 550
Balance 720 / 720 -1300 / -1300 -840 / -840 -550 / -550
Physical Exam
General: No Apparent Distress and Comfortable
Respiratory: Clear and Non Labored Respirations
Cardiac: S1/S2 and Regular Rhythm
GI: Soft, Non Tender and Non Distended
Psych: Confused and Apparent Dementia
[2025-01-22 07:36] VITALS: BP 102/52
[2025-01-22] MEDS: LASIX 40 MG PO (08:56)
[2025-01-22] MEDS: ZOLOFT 25 MG PO (08:56)
[2025-01-22] MEDS: FOLVITE 1 MG PO (08:56)
[2025-01-22] MEDS: COLACE 100 MG PO (08:56)
[2025-01-22] MEDS: FEOSOL 325 MG PO (08:56)
[2025-01-22] MEDS: ELIQUIS 5 MG PO (08:56)
[2025-01-22] MEDS: VITAMIN B-12 500 MCG PO (09:12)
--- NOTE | 2025-01-22 10:39 | W.PN.PUL.V3 ---
Today's Communication / Plan
-
.
Wean oxygen.
BiPAP if needed.
Stable for proposed discharge.
Pulmonary will sign off
Assessment
-
Patient is a 79-year-old female with past medical history for dementia, hypertension, hypothyroidism as well as known diagnosis of endometrial carcinoma. She was admitted to the hospital for robotic assisted laparoscopic hysterectomy, bilateral
salpingo-oophorectomy and pelvic washing. Overnight patient was noted to be more lethargic and bilateral gas was suggestive of hypercapnia, patient was initiated on BiPAP and transferred to IMU. Later on patient developed hypotension blood
pressure of 70 x 40 to 90 x 40. Patient was initiated on Levophed. Lactate was checked which was normal at 1.3. In view of hypotension requiring pressors, respiratory failure requiring BiPAP, patient was subsequently transferred to ICU and
greenhouse manager consultation was requested for further input.
Acute on chronic hypercapnic respiratory failure.
Undiagnosed JC/OHS
Hypotension, required pressors briefly, resolved
Acute LUCA on chronic anemia
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
Chronic vaginal bleeding s/p Robotic assisted total laparoscopic hysterectomy, bilateral salpingo-oophorectomy with pelvic washing/Injection of cervix with ICG dye, bilateral, for mapping and identification of bilateral sentinel lymph nodes/Robotic
assisted laparoscopic bilateral sentinel lymphadenectomy/Repair of vaginal introitus and periurethral lacerations 01/15/25
s/p Hysteroscopy, D&C with Myosure 09/07/24
Other medical diagnoses:
Hypothyroidism
Hypertension
Anxiety/depression
Dementia
Morbid obesity, BMI 45
PACs/sinus bradycardia, 1st degree AVB
Plan
Patient has morbid obesity, BMI 45, suspect she has underlying obstructive sleep apnea.
Post surgery and anesthesia contributed to increased drowsiness and worsening hypercapnia requiring BiPAP support.
Tolerating BiPAP 12/5 cm with a set rate of 16 and no supplemental oxygen well overnight-occasionally refusing, transition to nasal cannula in the morning.
Supplemental oxygen as needed-currently on room air
01/16/25, compensated hypercapnia noted 7.37/50, again suggestive of underlying sleep disordered breathing and possibly obesity hypoventilation syndrome.
Continue nightly BiPAP while in hospital, also when napping. Avoid any sedating medication.
Can arrange DME set up for OP use, CM consult
01/20/25, VBG reassuring, compensated hypercapnia
Suspect primarily related to hypovolemia, anesthetics etc. Patient also had been on metoprolol 25 mg p.o. twice daily
Holding antihypertensive medications,, continue PRBC as needed to keep hemoglobin above 7, off Levophed now
Serial lactate has been normal
Developing trace pedal edema, discontinued additional IV fluids for
Normal WBC count, continues to be afebrile. Chest x-ray reviewed, mild volume loss appears to be more suggestive of atelectasis than pneumonia.
Observe off antibiotics for now
Known history of chronic vaginal bleeding, likely anemia further exacerbated by acute blood loss with surgery, dilution with IV.
Serial H&H and transfuse as needed to keep hemoglobin above 7
S/p TLH, BSO, 01/15/2025
Gynecologic oncology service on case
DVT prophylaxis-on Eliquis
Discharge planning per team
We will follow
Data:
CT C/A/P 01/2025: Numerous at least partially calcified uterine fibroids again seen. Patient's known endometrial carcinoma not well demonstrated with this imaging modality. Evaluation overall limited as a result of several factors, as detailed
above, without gross findings to suggest suspicious mass or significant lymphadenopathy throughout the remainder of the abdomen and pelvis. Prior cholecystectomy. Ectopic left kidney again noted with subcentimeter low-attenuation lesions too small
to characterize. Suspected coronary artery calcifications
ECHO 09/2024: Normal biventricular size and systolic function without regional wall motion abnormality. Estimated LVEF 55-60%. No significant valve disease.
.
Subjective Data
-
Date of Service:
Date of Service: January 22, 2025
Chief Complaint: Pulmonary Follow Up and Dyspnea Follow Up
Subjective:
On room air, no complaints shortness of breath, chest pain, did not use BiPAP, no abdominal pain
Review of Systems
General: Other ( per HPI)
Objective Data
Data Reviewed
Vital Signs / I&O:
Vital Signs
Temp Pulse Resp BP Pulse Ox
97.7 F 76 16 102/52 97
01/22/25 07:36 01/22/25 08:56 01/22/25 07:36 01/22/25 08:56 01/22/25 07:36
Intake and Output
01/21/25 01/22/25 01/23/25
06:59 06:59 06:59
Intake Total 960 / 960 0 / 0
Output Total 1800 / 1800 550 / 550
Balance -840 / -840 -550 / -550
SaO2: 97
Nasal Cannula flow liters per minute: 2
Physical Exam
General: Respiratory Distress (n), Comfortable and Other (NAD)
HEENT: Normocephalic, Anicteric and Moist Mucous Membranes
Cardiovascular: Regular Rhythm, Murmur and Peripheral Edema (Bilateral)
Respiratory: Crackles (To basilar), Non-Labored Respirations, Accessory Resp Muscle Use (n) and Stridor (n)
GI: Soft, Non Distended and Non Tender
Neurology: Awake, Alert and No Motor Deficits
Skin: Warm, Good Color, Cyanosis (n) and Jaundice (n)
Labs/Micro/Reports
Lab Data
01/21/25 05:48
01/21/25 05:48
--- NOTE | 2025-01-22 11:19 | W.PN.HOSP.TC ---
Today's Communication/Plan
-
see A/P
DC today back to NH
Assessment / Plan
Assessment / Plan
79F [place] Islander-speaking hx dementia, Rosie cardenas resident, Guardianship, HTN, hypothyroidism, stage 1 endometrial cancer s/p robotic assisted total laparoscopic hysterectomy, bilateral salpino-oopherectomy with pelvic washing 01/15/25 with post-op
course complicated by anemia, hypothermia, hypotension requiring Levophed. Hospital course further complicated with new onset Afib.
A/P:
# Stage 1 Endometrial Cancer
s/p Robotic�assisted�laparoscopy�hysterectomy�with BSO�and�sentinel�lymph�node�bx on 01/15/25
awaiting pathology, follow up outpatient
Marketing Business Analyst Oncology Eval appreciated
# AMS post-op
# Hypothermia likely due to environmental factor (pt refuses to wear clothes)
patient with lethargy post-op, ABG with CO2 58, pH 7.32, placed on BiPAP and transferred to ICU evening of 01/15-01/16
suspect AE from anesthesia with underlying JC, Patient since improved
appreciate pulmonary - continue BiPAP qhs and when napping
outpatient sleep study
CXR likely atelectasis, UA without significant inflammation
AM Cortisol low followed by normal cosyntropin stim test - low suspicion secondary adrenal insufficiency
TSH WNL
urine culture this admission negative
PT/OT recc SNF
# Hypotension, resolved post fluids
briefly required Levophed overnight and during day 01/16, now off
off fluids
# Possible Iatrogenic Fluid Overload
significant wt gain noted
otherwise stable respiratory status on room air
Pulm eval appreciated
PO Lasix 40 mg daily started, monitor response, consider discontinuing prior to discharge
# New diagnosis atrial fibrillation - seen on EKG 01/17
CHADS2-VASC score = at least 4
TTE 09/06/24: EF 55-60%. No significant valve disease.
TSH WNL
OK to start AC per Marketing Business Analyst Surgeon
initially started weight based Lovenox q 12, since cleared to transition to Eliquis as per Marketing Business Analyst Surgeon, now on Eliquis 5 mg BID
Cardiology input appreciated
# Acute on chronic blood loss anemia
patient's Hg post-op was 6, had likely been slowly losing blood over months with acute loss during OR
s/p 2 PRBC transfusions
H&H stable since transfusions, Hg today at 9.2
# Anxiety/Depression
SUPERVISOR GLYCERIN Zoloft
# Dementia with agitation
patient has a guardian
added Seroquel 25 mg HS for agitation
frequent reorientate
Avoid restraint if able, remove IV line
# Essential Hypertension
continue to hold Metoprolol given bradycardia
# Hypothyroidism
TSH OK, SUPERVISOR GLYCERIN Synthroid
Code status: Full Code
DVT prophylaxis: Eliquis
DW RN
updated pt's guardian
Anticipated Discharge: Today
Subjective/Interval History
-
Date of Service: January 22, 2025
Objective Data
-
Vital Signs:
Vital Signs
Temp Pulse Resp BP Pulse Ox
36.5 C 76 16 102/52 97
01/22/25 07:36 01/22/25 08:56 01/22/25 07:36 01/22/25 08:56 01/22/25 10:39
I&O
01/21/25 01/22/25 01/23/25
06:59 06:59 06:59
Intake Total 960 / 960 0 / 0
Output Total 1800 / 1800 550 / 550
Balance -840 / -840 -550 / -550
Review of Systems
-
Unable to obtain full review of systems at this time due to: Dementia
Physical Exam
-
General: Well Developed, Well Nourished, No Apparent Distress and Comfortable
Respiratory: Clear to Auscultation and Non Labored Respirations; Negative Wheezes or Accessory Resp Muscle Use
Cardiac: Regular Rhythm and S1/S2
GI: Soft, Nontender and Other (lap incisions, abdomen soft)
Skin: Warm and Dry; Negative Rash
Neuro: Awake
Psych: Calm and Apparent Dementia
Data Reviewed
-
Labs: Labs Reviewed by me
--- NOTE | 2025-01-22 11:56 | CM ---
entered order for discharge
Spoke with Shani at [facility]
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
Spoke with Jody guardian she agrees with discharge and IMM
Medical nec form completed
[facility]
Report #: [phone]
Fax #: [phone]
PLAN Return to [facility] Pt
--- NOTE | 2025-01-22 12:39 | W.DCSUMMARY ---
Discharge Summary
Discharge Data
Date of Admission: 01/15/25
Date of Discharge: 01/22/25
Total time spent discharging patient (in min): 40
-
Pending Results: No
Hospital Course
Principal Diagnosis:
Stage 1 endometrial cancer status post surgery this admission.
AMS post-op, with hypothermia, likely due to anesthesia effect.
New diagnosis atrial fibrillation, rate controlled.
Chronic Diagnoses:�
Anxiety/Depression on Zoloft
Dementia with agitation
History of essential Hypertension, discontinued prior to admission metoprolol due to bradycardia and soft blood pressure
Hypothyroidism, continue prior to admission Synthroid
Consultations:�
COLD MOLDING PRESS OPERATOR oncologist Dr. Youngblood
Translation Director
Cathead Operator
Procedures:�
s/p Robotic�assisted�laparoscopy�hysterectomy�with BSO�and�sentinel�lymph�node�bx on 01/15/25
Clinical course:�
This is a 79 F Syrian-speaking woman with severe dementia, and other past medical history as stated above, who is a resident at a local senior living, presented for surgery for her stage I endometrial cancer.
Problem 1:
Stage 1 Endometrial Cancer.
s/p Robotic�assisted�laparoscopy�hysterectomy�with BSO�and�sentinel�lymph�node�bx on 01/15/25.
The patient can follow-up biopsy results outpatient. This was informed to her guardian.
Of note, the patient had acute blood loss anemia postop, and received 2 unit PRBC transfusion. Her last hemoglobin check was at 9.2.
She was briefly on Levophed for blood pressure support which was subsequently discontinued.
Problem 2:
AMS post-op, with hypothermia, likely due to anesthesia effect.
Her TSH was within normal limit.
Her am cortisol level was low but this was followed by normal cosyntropin stim test, hence low suspicion for adrenal insufficiency
Her urine culture was negative.
She was recommended by PT OT for SNF.
Problem 3:
New diagnosis atrial fibrillation, rate controlled.
Her echo from September 2024 was unrevealing: EF 55-60%. No significant valve disease.
Anticoagulation was started this admission, and the patient was discharged with Eliquis 5 mg twice daily.
Her prior to admission metoprolol was discontinued for borderline blood pressure and bradycardia.
As for the rest of her medical problems, they were stable during her hospital stay.
Discharge Plan
-
Patient Disposition: Shelter/SNF
Discharge Diagnosis/Procedures: # Stage 1 Endometrial Cancer s/p Robotic assisted laparoscopy hysterectomy with BSO and sentinel lymph node bx on 01/15/25;
# Confusion and Hypothermia post op (resolved);
# New diagnosis atrial fibrillation (rate controlled);
# Dementia with agitation
Condition: Fair
Diet: As tolerated
Activity: As tolerated
Driving Restrictions: No driving
Activity Restrictions/Additional Instructions:
Follow pathology report outpatient
Referrals:
UNKNOWN,NO INTERVIEW [Family Provider] - in less than 1 week
Additional Discharge Medication Instructions: Stop Metoprolol (HR and BP low)
Added low dose Seroquel 25 mg HS, continue as needed for agitation
Prescriptions:
New
Eliquis 5 mg Tablet
5 mg PO BID Qty: 60 0RF
quetiapine 25 mg Tablet
25 mg PO DAILY@1999 PRN (Reason: agitation) Qty: 7 0RF
Continued
levothyroxine [Synthroid] 50 mcg Tablet
50 mcg PO DAILY
ascorbic acid (vitamin C) [Vitamin C] 500 mg Tablet
500 mg PO DAILY
ferrous sulfate 325 mg (65 mg iron) Tablet
325 mg PO DAILY
sertraline [Zoloft] 25 mg Tablet
25 mg PO DAILY
folic acid 1 mg Tablet
1 mg PO DAILY
acetaminophen 325 mg Tablet
650 mg PO Q4HPRN PRN (Reason: mild pain/temp>100F)
vitamin A and D Ointment
1 applic TOPICAL DAILY
Rx Instructions:
apply to dry skin of B/L LE
magnesium hydroxide [Milk of Magnesia] 400 mg/5 mL Suspension
30 ml PO HSPRN PRN (Reason: if no bm in 3 days)
cyanocobalamin (vitamin B-12) 500 mcg Tablet
500 mcg PO DAILY
bisacodyl [Dulcolax (bisacodyl)] 10 mg Suppository
10 mg ID DAILYPRN PRN (Reason: if no results for MOM)
Discontinued
metoprolol tartrate 25 mg Tablet
25 mg PO BID
calcium carbonate 500 mg calcium (1,250 mg) Tablet
500 mg PO DAILY
Discharge Orders:
Discharge Patient (As Directed); Ordered 01/22/25
Ordered By: Lesa Reina
Discharge Date and Time
Print Language: CZECH
[2025-01-22 15:26] VITALS: BP 120/51
== END 2025-01-22 18:05 | DRG 739 ==
LOC: 3 WEST ACU 20:56
PROVIDERS: Internal Medicine; Nurse Practitioner Family; Nurse Practitioner Gerontology; Student in an Organized Health Care Education/Training Program; ADMITTING PHYSICIAN Obstetrics & Gynecology Gynecologic Oncology; ATTENDING PHYSICIAN Internal Medicine; CONSULT PHYSICIAN Internal Medicine; CONSULT PHYSICIAN Internal Medicine Hematology & Oncology; OTHER PHYSICIAN Hospitalist
PROC: 0UT94ZZ Resection of Uterus, Percutaneous Endoscopic Approach (ICD-10-PCS; 2025-01-15)
PROC: 30233N1 Transfusion of Nonautologous Red Blood Cells into Peripheral Vein, Percutaneous Approach (ICD-10-PCS; 2025-01-15)
PROC: 4A1 Measurement and Monitoring, Physiological Systems, Monitoring (ICD-10-PCS; 2025-01-15)
PROC: 07BC4ZX Excision of Pelvis Lymphatic, Percutaneous Endoscopic Approach, Diagnostic (ICD-10-PCS; 2025-01-15)
PROC: 0UT24ZZ Resection of Bilateral Ovaries, Percutaneous Endoscopic Approach (ICD-10-PCS; 2025-01-15)
PROC: 0UT74ZZ Resection of Bilateral Fallopian Tubes, Percutaneous Endoscopic Approach (ICD-10-PCS; 2025-01-15)
PROC: 0TQDXZZ Repair Urethra, External Approach (ICD-10-PCS; 2025-01-15)
PROC: 8E0W4CZ Robotic Assisted Procedure of Trunk Region, Percutaneous Endoscopic Approach (ICD-10-PCS; 2025-01-15)
PROC: 5A09357 Assistance with Respiratory Ventilation, Less than 24 Consecutive Hours, Continuous Positive Airway Pressure (ICD-10-PCS; 2025-01-16)
DX: C54.1 Malignant neoplasm of endometrium (principal); G92.8 Other toxic encephalopathy; J96.22 Acute and chronic respiratory failure with hypercapnia; T81.19XA Other postprocedural shock, initial encounter; D62 Acute posthemorrhagic anemia; F03.C3 Unspecified dementia, severe, with mood disturbance; F03.C4 Unspecified dementia, severe, with anxiety; Z68.42 Body mass index [BMI] 45.0-49.9, adult; F03.C11 Unspecified dementia, severe, with agitation; E03.9 Hypothyroidism, unspecified; I10 Essential (primary) hypertension; R68.0 Hypothermia, not associated with low environmental temperature; F32.A Depression, unspecified; I48.91 Unspecified atrial fibrillation; Y83.8 Other surgical procedures as the cause of abnormal reaction of the patient, or of later complication, without mention of misadventure at the time of the procedure; T41.45XA Adverse effect of unspecified anesthetic, initial encounter; I87.2 Venous insufficiency (chronic) (peripheral); E87.70 Fluid overload, unspecified; E66.01 Morbid (severe) obesity due to excess calories; G47.33 Obstructive sleep apnea (adult) (pediatric); I44.1 Atrioventricular block, second degree; D25.9 Leiomyoma of uterus, unspecified; Q63.2 Ectopic kidney; Z79.899 Other long term (current) drug therapy; Z79.890 Hormone replacement therapy; Z79.01 Long term (current) use of anticoagulants
CPT/HCPCS: 36600; 70450; 71045; 80048; 80053; 81003; 81015; 82024; 82533; 82607; 82728; 82746; 82805; 82962; 83540; 83550; 83605; 83735; 84100; 84443; 85014; 85018; 85025; 85027; 85045; 85610; 85730; 86850; 86900; 86901; 86920; 87070; 87086; 88112; 88307; 88309; 88311; 88341; 88342; 88360; 93005; 94660; 97163; 97167; 97530; 97535; J2916; P9016

== ENCOUNTER 2025-03-13 11:17 | Inpatient (IN) | payer MEDICARE, OTHER, SELFPAY ==
[2025-03-13] VITALS (53 sets, daily range): BP systolic 49–182; BP diastolic 25–165; PULSE 2–58; BMI 39.2; BMI 38.7
--- NOTE | 2025-03-13 08:00 | ED.GENMED ---
History of Present Illness
General
Chief Complaint: Breathing Problem
Source: patient
Exam Limitations: none
Time Seen by Provider: 03/13/25 07:57
Nursing documentation reviewed up to this point in time: agreed with
History of Present Illness
History of Present Illness:
The patient is a 79-year-old Sudanese-speaking woman who arrives by paramedics with acute respiratory distress and low blood pressure. Patient appears lethargic but is responsive and opens eyes to voice. Paramedics report patient has been hypoxic
in the 50s to 60s s. Patient cannot provide any history.
Past History
Past History
ED Past Medical History: HTN, NIDDM and Other (Dementia)
ED Past Surgical History: Orthopedic
Social History
Tobacco: Non-smoker
Alcohol: None
Drug: None
Personal: Other
Living: custodial
Employment: Not employed
Family History
Family History: Diabetes
Review of Systems
Review of Systems
Allergies reviewed?: Yes
Unable to obtain full review of systems at this time due to: due to acuity
Other source history: custodial and ambulance crew
All Other Systems: Not applicable
Respiratory: Reports trouble breathing
Phy Exam
Physical Exam
Physical Exam:
Physical Exam
General: Patient arrives tachypneic, coughing, cool to the touch. Decreased responsiveness but opens eyes to touch and voice and then shuts eyes
Neck: supple. Dry mucous membrane
Heart: Bradycardic
Lungs: Tachypneic, wheezing
Abdomen: mildly distended
Neuro: Nonfocal, lethargic
Skin: Cool to touch
Psychiatric: Barely interactive
Extremities: 3+ pitting edema bilateral lower extremities
Scores
Heart Failure Risk
Heart Failure Risk Score: Not Applicable
Sepsis
Sepsis Screening
Sepsis Assessment: Severe Sepsis
Sepsis Screening: Need for mechanical ventilation or BiPAP
Sepsis Screen
Sepsis Screen: Severe Sepsis
Date: 03/13/25
Time: 10:34
Course
Orders/Labs/Results
Orders:
Orders
03/13/25
Electrocardiogram (*1) Stat
Reason for Study: Chest Pain
Comment: DONE
03/13/25 07:53
CXR [CR Chest Portable - 1 View] Stat
Comment:
Reason For Exam: resp distress
Reason Study Needs to be Portable: Patient Unstable
03/13/25 08:00
COVID-19 Antigen Urgent
Source: Nasal Swab
Complete Blood Count/With Diff Urgent
Comprehensive Metabolic Panel Urgent
Manual Differential Urgent
NT-proBNP Urgent
Troponin I Urgent
03/13/25 08:01
0.9% Sodium Chloride 1000 ml [Nss] 1,000 ml IV BOLUS
Ipratropium/Albuterol Sulfate [Duoneb] 3 ml INH R NOW ONE
03/13/25 08:07
Lactic Acid Urgent
Blood Culture Q30M
BRANDYN Source: Blood/Venous
Specimen Description:
Influenza A+B Rapid Molecular Urgent
BRANDYN Source: Nasal Swab
Specimen Description:
03/13/25 08:15
Piperacillin/Tazo 4.5 Gram [Zosyn] 4.5 gram in 100 ml IV NOW
03/13/25 08:27
Blood Culture Q30M
BRANDYN Source: Blood/Venous
Specimen Description:
03/13/25 08:39
Vancomycin [Vancocin] 1,500 mg 0.9% Sodium Chloride 500 ml [Nss] 500 ml IV NOW
03/13/25 08:46
Piperacillin/Tazo 4.5 Gram [Zosyn] 4.5 gram in 100 ml IV NOW
03/13/25 09:01
0.9% Sodium Chloride 1000 ml [Nss] 1,000 ml IV BOLUS
03/13/25 09:11
Procalcitonin Urgent
03/13/25 09:15
NORepinephrine 4 MG/250 ML [Levophed] 4 mg in 250 ml IV PER PROTOCOL
Initial dose in mcg/min, then titrate:: 2
Titrate to keep:: MAP > 65 mmHg
Titrate by mcg/min:: 1-2 mcg/min
Frequency of titrations (minutes):: 5
Maximum dose in ICU in mcg/min:: 30
Maximum dose in IMU in mcg/min:: 8
Maximum dose in IVU in mcg/min:: 4
Begin to taper infusion when:: Remained at goal for 4hrs
Taper by mcg/min:: 1-2 mcg/min
Frequency of taper (minutes) if patient maintains goal:: 30
Taper to off?: Yes
If infusion off & no longer maintaining goal:: Contact Provider
03/13/25 09:46
Arterial Blood Gas Urgent
%Oxygen/Room Air: 15
Abnormal Lab Results
03/13/25 03/13/25 03/13/25
08:00 08:07 09:11
WBC 3.2 L 10^3/uL
(4.8-10.8)
RBC 3.44 L 10^6/uL
(4.20-5.40)
Hgb 10.7 L g/dL
(12.0-16.0)
Hct 34.5 L %
(37.0-47.0)
MCV 100.3 H fL
(81.0-99.0)
MCH 31.1 H pg
(27.0-31.0)
MCHC 31.0 L g/dL
(33.0-37.0)
RDW 19.9 H %
(11.5-14.5)
Plt Count 109 L 10^3/uL
(130-400)
MPV 11.3 H fL
(7.4-10.4)
Band Neutrophils 9 H %
(0-3)
pH
pCO2
pO2
BUN 31 H mg/dl
(7-17)
Creatinine 1.3 H mg/dL
(0.6-1.0)
Lactic Acid 2.3 H mmol/L
(0.7-2.0)
AST 58 H U/L
(14-36)
ALT 39 H U/L
(0-35)
Alkaline Phosphatase 233 H U/L
(38-126)
Albumin 3.2 L g/dl
(3.5-5.0)
Procalcitonin 1.45 H ng/ml
(0.0-0.25)
03/13/25
09:46
WBC
RBC
Hgb
Hct
MCV
MCH
MCHC
RDW
Plt Count
MPV
Band Neutrophils
pH 7.26 L
(7.35-7.45)
pCO2 55 H mmHg
(32-35)
pO2 78 L mmHg
(83-108)
BUN
Creatinine
Lactic Acid
AST
ALT
Alkaline Phosphatase
Albumin
Procalcitonin
03/13/25 09:07
03/13/25 08:00
Vital Signs
Initial and Last Documented VS:
Initial Vital Signs
Pulse Resp BP Pulse Ox
57 16 84/48 94
03/13/25 07:54 03/13/25 07:54 03/13/25 07:54 03/13/25 07:54
Last Documented Vital Signs
Temp Pulse Resp BP Pulse Ox
98.2 F 58 41 83/49 99
03/13/25 08:35 03/13/25 09:30 03/13/25 09:30 03/13/25 09:30 03/13/25 09:30
MDM/Problems Addressed
Differential Diagnosis Includes:
Acute septic shock, acute cardiogenic shock, acute dehydration
MDM/Problems Addressed:
Patient presents with acute respiratory distress and hypotension
*Radiology
Radiology exam reviewed: preliminary read by ED provider (Chest x-ray read by me. Multiple infiltrates right lung) and radiology read reviewed
*Pulse Oximetry
Oxygen Mode of Delivery: Room air
Patient hypoxic: yes
Comment: Patient is 64% on room air according to paramedics. She was hypoxic
*EKG
Interpreted by ED Provider?: Yes
Interpretation: abnormal
Comparison EKG: changes noted
Rate: bradycardiac
Rhythm: sinus
Wade: normal axis
Interval: first degree heart block
QRS Pattern: normal QRS
Ischemia: non-specific ST changes
*Surveying Crew Rodman Interpretation
Rate: bradycardiac
Interpretation: normal
Rhythm: sinus
*Critical Care Note
Total Time (30-74mins, 75-104mins- exclusive of procedures): 57 min
comment:
57 minutes critical care given to patient including frequent reassessments of her mental status, blood pressure, respiratory effort, as well as discussing the case with the hospitalist, reviewing her lab work, EKG as well as chest x-ray
Data Reviewed
Review of Other/Old Records Reveals: Discharge Summary (Discharge summary reviewed from 01/2025 when patient was admitted for hysterectomy for endometrial cancer)
Source: ambulance crew and custodial
Patient Management
Social determinants of health affecting care: Living situation and Strong social support
Discussion with other providers: Hospitalist
Update Note
Update Note:
I left a message on voicemail with patient's guardian, Veronica Vazquez, at [phone] to let her know that patient is in the ED
Patient is more arousable on BiPAP and with IV fluids. Given she is still hypotensive, we will proceed with the Levophed. ABG reviewed by me. We will increase patient's respiratory rate as well as her FiO2
ED Attending Note
-
Portions of this chart may have been created with voice recognition software.� Occasional wrong word or��sound alike� substitutions may have occurred due to the inherent limitations of voice recognition software.
Discharge Plan
Departure
Patient Disposition: Admit
Date of Disposition: 03/13/25
Time of Disposition: 08:16
Admit to: ICU and IVU
Presentation/result/management discussed w/ accepting MD/DO: Hospitalist
Patient with high blood pressure during this ER visit?: No
Condition: Critical
Covid-19: Negative COVID-19
Discharge Problem:
Acute respiratory failure with hypercapnia, Acute hypoxemic respiratory failure, Septic shock, Pneumonia
Prescriptions:
No Action
ascorbic acid (vitamin C) [Vitamin C] 500 mg Tablet
500 mg PO DAILY
ferrous sulfate 325 mg (65 mg iron) Tablet
325 mg PO DAILY
sertraline [Zoloft] 25 mg Tablet
25 mg PO DAILY
folic acid 1 mg Tablet
1 mg PO DAILY
acetaminophen 325 mg Tablet
650 mg PO Q4HPRN PRN (Reason: mild pain/temp>100F)
vitamin A and D Ointment
1 applic TOPICAL DAILY
Rx Instructions:
apply to dry skin of B/L LE
magnesium hydroxide [Milk of Magnesia] 400 mg/5 mL Suspension
30 ml PO HSPRN PRN (Reason: if no bm in 3 days)
cyanocobalamin (vitamin B-12) 500 mcg Tablet
500 mcg PO DAILY
bisacodyl [Dulcolax (bisacodyl)] 10 mg Suppository
10 mg NE DAILYPRN PRN (Reason: if no results for MOM)
Eliquis 5 mg Tablet
5 mg PO BID Qty: 60 0RF
ipratropium-albuterol [DuoNeb] 0.5 mg-3 mg(2.5 mg base)/3 mL Solution For Nebulization
3 ml INHALATION R Q6HPRN PRN (Reason: SOB)
levothyroxine [Synthroid] 75 mcg Tablet
75 mcg PO DAILY
calcium carbonate 500 mg calcium (1,250 mg) Tablet,Chewable
500 mg PO DAILY
Interventions
Interventions:
*Risk Screen - Suicide Last Done: 03/13/25 08:20
*General Assessment Last Done: 03/13/25 08:20
*Neglect/Abuse Screening Last Done: 03/13/25 08:20
ED- Cardiac Assessment Last Done: 03/13/25 08:20
ED- Pulmonary Assessment Last Done: 03/13/25 08:20
Discharge Date and Time
Print Language: TURKISH
[2025-03-13] MEDS: DUONEB 3 ML INH (08:08)
[2025-03-13] MEDS: NSS 1000 IV ×4 (08:20→23:52)
[2025-03-13 08:26] LABS: Hematocrit 34.5 % (37.0-47.0); Hemoglobin 10.7 g/dL (12.0-16.0); Mean Corp Hgb Conc. 31.0 g/dL (33.0-37.0); Mean Corpuscular Volume 100.3 fL (81.0-99.0); Platelet Count 109 10^3/uL (130-400); Red Cell Dist. Width 19.9 % (11.5-14.5)
[2025-03-13 08:35] LABS: ALT (SGPT) 39 U/L (0-35); AST (SGOT) 58 U/L (14-36); Albumin 3.2 g/dl (3.5-5.0); Alkaline Phosphatase 233 U/L (38-126); Blood Urea Nitrogen 31 mg/dl (7-17); Calcium 8.8 mg/dl (8.4-10.2); Carbon Dioxide 30 mmol/L (22-30); Chloride 105 mmol/L (98-107); Estimated Creatinine Clearance 39 ml/min; Glucose 94 mg/dl (70-99); Potassium 4.9 mmol/L (3.5-5.1); Sodium 139 mmol/L (135-145); Total Protein 6.4 g/dl (6.3-8.2); eGFR 42.09
[2025-03-13 08:47] LABS: Troponin I < 0.012 ng/ml
[2025-03-13 08:48] LABS: COVID-19 Antigen Negative (Negative)
[2025-03-13] MEDS: ZOSYN 100 IV (08:58)
[2025-03-13] MEDS: VANCOCIN 530 MG IV (09:29)
[2025-03-13 09:35] LABS: Absolute Neutrophils -Man Diff 2.3 10^3/uL (1.4-6.5); Normal RBC Morphology Yes; Platelets Checked Yes; Total Cells Counted 100
[2025-03-13 10:02] LABS: B.E. -2.6 mmol/L; HCO3 24.7 mmol/L (21-28); O2 Saturation % 96.6 % (94-98); PCO2 55 mmHg (32-35); PO2 78 mmHg (83-108)
[2025-03-13 10:12] LABS: Procalcitonin 1.45 ng/ml (0.0-0.25)
--- NOTE | 2025-03-13 10:16 | HPS.HSE ---
Family Physician
-
Family Physician: Collin Moreno
Chief Complaint
-
Hypoxia and hypotension
History of Present Illness
79-year-old female with PMHx significant for hypothyroidism, hypertension, anxiety, dementia morbid obesity with BMI of 45, recent hospitalization for grade 1 endometrioid adenocarcinoma, Atrial fibrillation on eliquis, history of chronic
hypercapnic respiratory failure with questionable undiagnosed JC/OHS presents to the hospital after being found to be hypoxic and hypotensive in long-term care facility. Per long-term care facility, patient choked on food about 3 days ago, has
been running soft on blood pressures for 3 days but in the a.m. today she was found to be hypoxic with saturations at 50 to 60% and unresponsive.
Upon arrival to the ER, she was found to be diaphoretic with a blood pressure of 66/30, sats of on nonrebreather mask 95% on nonrebreather mask, bradycardic and tachypneic at 41. Patient is primarily Citizen [place]-speaking, in the ER she was transitioned
to BiPAP, was given 2 L of IV fluid boluses, DuoNebs, vancomycin and Zosyn. Patient cyanosis resolved, continued to remain hypotensive and patient was started on Levophed. Currently at bedside patient's MAP is at 63, continues to remain hypoxic at
89%, and is responding to name.
Medical History
Past Medical History
Past Medical History: Reports Other (Undiagnosed JC/OHS history of hypercapnic respiratory failure, chronic, blood loss anemia, grade 1 endometrioid adenocarcinoma, hypothyroidism, hypertension, anxiety/depression, dementia, morbid obesity,
PACs/sinus bradycardia, first-degree AV block.)
Past Surgical History: Reports Other (Robotic assisted total laparoscopic hysterectomy, bilateral salpingo-oophorectomy, sentinel lymph node biopsy, repair of vaginal introitus and periurethral lacerations.)
Social History
Unable to obtain full social history at this time due to: Acuity
Family History
Family History: Not pertinent
Allergies / Home Medications
Allergies reflects when Allergies were last updated in [facility].
Home Medications with original date entered in [facility]
Allergy/Medication List:
Allergies
Allergy/AdvReac Type Severity Reaction Status Date / Time
No Known Allergies Allergy Verified 01/15/25 11:41
Home Medications
ascorbic acid (vitamin C) 500 mg tablet (Vitamin C) 500 mg PO DAILY Supplement 07/12/22
ferrous sulfate 325 mg (65 mg iron) tablet 325 mg PO DAILY Supplement 07/12/22
folic acid 1 mg tablet 1 mg PO DAILY Supplement 07/12/22
sertraline 25 mg tablet (Zoloft) 25 mg PO DAILY Mental Health/Anxiety 07/12/22
acetaminophen 325 mg tablet 650 mg PO Q4HPRN PRN mild pain/temp>100F 09/06/24
bisacodyl 10 mg rectal suppository (Dulcolax (bisacodyl)) 10 mg [place] DAILYPRN PRN if no results for MOM 09/06/24
cyanocobalamin (vitamin B-12) 500 mcg tablet 500 mcg PO DAILY Supplement 09/06/24
magnesium hydroxide 400 mg/5 mL oral suspension (Milk of Magnesia) 30 ml PO HSPRN PRN if no bm in 3 days 09/06/24
vitamin A and D 1 applic topical DAILY Skin Issues 09/06/24
apixaban 5 mg tablet (Eliquis) 5 mg PO BID #60 tabs 01/22/25
calcium carbonate 500 mg PO DAILY 03/13/25
ipratropium 0.5 mg-albuterol 3 mg (2.5 mg base)/3 mL nebulization soln 3 ml inhalation R Q6HPRN PRN SOB 03/13/25
levothyroxine 75 mcg tablet (Synthroid) 75 mcg PO DAILY 03/13/25
Review of Systems
-
Unable to obtain full review of systems at this time due to: Acuity
Physical Exam
Vital Signs
Vital Signs
Temp Pulse Resp BP Pulse Ox
98.2 F 58 41 83/49 99
03/13/25 08:35 03/13/25 09:30 03/13/25 09:30 03/13/25 09:30 03/13/25 09:30
Physical Exam
General: Respiratory Distress
HEENT: Anicteric; No Moist mucous membranes
Respiratory: Clear (In the left lung.) and Decreased Breath Sounds (In the right lung.); No Non Labored Respirations
Cardiac: S1/S2, Regular Rhythm and Bradycardia; No Murmur, Rub or Gallop
GI: Soft, Non Tender, Non Distended and Normal Bowel Sounds
Musculoskeletal: No Clubbing, No Cyanosis, Edema, Left Lower Extremity (Nonpitting edema extending up to the knees, possibly lymphedema, skin changes.) and Edema, Right Lower Extremity (Nonpitting edema extending up to the knees, possibly
lymphedema, skin changes.)
Skin: Warm
Neuro: No Awake, Alert or Oriented
Laboratory Results
-
03/13/25 09:07
03/13/25 08:00
Laboratory Results
pH 7.26 (7.35-7.45) L 03/13/25 09:46
pCO2 55 mmHg (32-35) H 03/13/25 09:46
pO2 78 mmHg (83-108) L 03/13/25 09:46
HCO3 24.7 mmol/L (21-28) 03/13/25 09:46
Lactic Acid 2.3 mmol/L (0.7-2.0) H 03/13/25 08:07
Total Bilirubin 0.8 mg/dl (0.2-1.3) 03/13/25 08:00
AST 58 U/L (14-36) H 03/13/25 08:00
ALT 39 U/L (0-35) H 03/13/25 08:00
Alkaline Phosphatase 233 U/L (38-126) H 03/13/25 08:00
Troponin I < 0.012 ng/ml 10/08/25 08:00
Data Reviewed
-
Diagnostic Radiology: Image Personally Visualized and interpreted, Report Reviewed by me, Discussed with Physician, Discussed with Nurse and Discussed with Family
Lab Data: Labs Reviewed by me, Discussed with Physician and Discussed with Family
Impression/Plan
-
IMPRESSION: 79-year-old female with PMHx significant for hypothyroidism, hypertension, anxiety, dementia morbid obesity with BMI of 45,Atrial fibrillation on eliquis, recent hospitalization for grade 1 endometrioid adenocarcinoma, history of
chronic hypercapnic respiratory failure with questionable undiagnosed JC/OHS presents to the ER for evaluation of hypoxia. Diagnosed to be in septic shock secondary to pneumonia.
PLAN:
# Septic shock -
Hypotension, bradycardia, tachypnea, elevated lactate levels, leukopenia.
Hypotension requiring pressors.
Likely secondary to pneumonia as evidenced by chest x-ray.
Admit the patient to the ICU, s/p 2 L bolus
Continue IV fluids, titrate Levophed as needed.
Blood cultures x 2 pending, chest x-ray showed pneumonia
Started the patient on vancomycin and Zosyn. Urine Legionella antigen and strep antigen pending.
Flu and COVID-negative.
Trend lactate levels, monitor CBC and fever curve.
# Acute hypercapnic respiratory failure-
pH-7.26, pCO2-55, pO2-78
Currently requiring BiPAP-18/6
May need intubation in the light of impending respiratory failure.
ICU consulted, utility lineman on board.
Likely secondary to pneumonia, history of aspiration about 3 days ago.
No prior history of aspiration, undiagnosed JC/OHS.
Procalcitonin at 1.35, currently made NPO.
Speech evaluation when patient more awake and alert.
# SAYDA-
Serum creatinine at 1.3, baseline 0.9
Likely secondary to septic shock
Continue IV fluids, monitor serum creatinine for improvement.
Monitor I's and O's, Jefferson catheter for ICU care.
# Anemia of chronic disease,
Currently macrocytic anemia,
History of acute blood loss anemia
Hemoglobin stable - 10.7
Thrombocytopenia
# transaminitis -
Likely secondary to shock
Monitor for resolution
#Hypothyroidism -
Home meds held,
#Afib -
Not on rate control
Eliquis held
# Anxiety/Depression -
Hold seroquel
# DVT prophylaxis -
Lovenox
# COde status -
Full code
[2025-03-13] MEDS: LEVOPHED 250 IV ×2 (10:34→22:04)
--- NOTE | 2025-03-13 11:02 | W.PN.UPDATE ---
Update Note
Progress Note Update
I have personally supervised the history, physical exam, medical decision-making, and care plan for this patient in conjunction with the resident. I have reviewed and discussed the resident�s documentation and findings. I confirm that this note
accurately reflects my supervision and input in the care of this patient
79 y/o F [place] speaking female presenting via EMS from local SNF with acute respiratory distress, hypotension. Patient was noted to have lethargy and hypoxia to 50s. BiPAP applied and patient more arousable, also pressors given with BP now in
higher 80s from mid 60s. Patient currently on BiPAP and more arousable now compared to presentation. POÓscar Martin contacted and confirmed full code status based off prior directives; patient has no family per POA. POA does not recall any prior
pneumonia events.
Of note, patient was admitted in January for hysterectomy and was noted in pulm notes to have concern for undiagnosed JC or OHS.
Exam:
General: Well Developed, Well Nourished, Respiratory Distress
HEENT: poor dentition
Respiratory: Tachypnea, rhonchi RLL, no significant wheezing noted
Cardiac: Regular Rhythm and S1/S2
GI: Soft, Nontender and Other (lap incisions, abdomen soft)
Skin: Warm and Dry; Negative Rash
Neuro: decreased responsive but opens eyes to touch/voice/tactile stimulation
Psych: Apparent Dementia
Assessment:
Septic shock present on arrival
- leukopenia, tachypnea, shock state requiring pressors
- Levophed; MAP Goal >65
- sepsis protocol IVF and trend lactate levels to normal
- ICU consulted
Suspected aspiration pneumonia
- CXR: new large area of dense opacification in the right upper lobe and there is some additional patchy opacification in the right lower lung
- IV Vanco/Zosyn, day 1; check MRSA swab and sputum culture
- check strep/legionella
Acute hypoxic respiratory failure on BiPAP
Underlying concern of undiagnosed OHS vs JC
- initial ABG on BIPAP without evidence of acidosis/hypercapnia; will repeat ABG when in ICU
- likely will need HS BiPAP going forward; outpatient sleep study
- Pulmonary/ICU consulted
SAYDA in setting of sepsis
- continue IVF; follow labs
History of stage 1 endometrial cancer
- s/p s/p Robotic�assisted�laparoscopy�hysterectomy�with BSO�and�sentinel�lymph�node�bx on 01/15/25
Afib, parox
- holding Eliquis; may need to consider IV Heparin drip if still NPO in 24 hours
- not on rate control meds
Anxiety/Depression
- hold Zoloft
Hypothyroidism - hold Synthroid
Essential HTN
- not on BP meds
DVT ppx: Lovenox
Code: Full, confirmed with ANCELMO Martin
Total Critical Care Time 44 minutes. I was immediately available to the patient and staff. I personally examined, reviewed labs, diagnostic images/reports, interpretations, treatment plans, discussed patient care with other providers and family
or caregivers (if patient is unable to make decisions), entered orders as appropriate and documented the medical record.
--- NOTE | 2025-03-13 11:30 | PTCARENOTE ---
Received patient from ED, A&Ox0, RASS-4, moaning w/ physical stimulation, on BiPAP 15L, SB w/ 1st AVB w/ PACs, BP at goal range on Levophed @8mcg/min, hypothermic, rectal probe inserted, on Declan Hugger, GI/ incontinent.
--- NOTE | 2025-03-13 11:40 | CON.INTV ---
Consultation
Consultation Request
Date/Time Consultation Requested: 03/13/2024
Date/Time Consultation Performed: 03/13/2020
Requesting Provider: Dr. Martinez
Performing Provider: Dr. Isaias Wood
Reason for Consultation: Acute hypercapnic respiratory failure/shock
Medical History
-
Chief Complaint: Vaginal bleeding
History of Present Illness:
Patient is a 79-year-old female with past medical history for dementia, hypertension, hypothyroidism as well as known diagnosis of endometrial carcinoma s/p resection 01/2025, chronic hypercapnic respiratory failure likely obesity hypoventilation
syndrome. assisted resident.
Patient found to be hypoxic and hypotensive at her long-term care facility. Apparently 3 days ago patient choked with food, for the last 3 days she has been relatively hypotensive. Pulse ox today was found to be 50 to 60%.
In the emergency room patient hypotensive down to 66/30 requiring Levophed. Patient was bradycardic down to 41.
She was transition to BiPAP therapy. Received fluid resuscitation.
Critical care consulted for further management and evaluation per
Past Medical History
Additional Past Medical History:
Patient developed postoperative decompensation of hypercapnia 01/2025.
Chronic hypercapnic respiratory failure-likely obesity hypoventilation.
Atrial fibrillation 01/2025
Dementia
Anxiety / Depression
Essential Hypertension
Hypothyroidism
Vaginal Bleeding
Endometrial Carcinoma
Additional Past Surgical History:
D&C
s/p robotic [facility] BSO 01/15/2025
Social History
Unable to obtain full social history at this time due to: Dementia
Allergies / Home Medications
Past Medical History
Past Medical History: Other (See assessment and plan)
Social History
Alcohol: None
Drug: None
Living: Prison
Family History
Family History: Unable to Obtain
Allergies / Home Medications
Allergies
Allergy/AdvReac Type Severity Reaction Status Date / Time
No Known Allergies Allergy Verified 01/15/25 11:41
Home Medications
�Medication �Instructions �Recorded �Confirmed �Last Taken �Type
ascorbic acid (vitamin C) 500 mg 500 mg PO DAILY Supplement 07/12/22 03/13/25 03/12/25 History
tablet (Vitamin C)
ferrous sulfate 325 mg (65 mg 325 mg PO DAILY Supplement 07/12/22 03/13/25 03/12/25 History
iron) tablet
folic acid 1 mg tablet 1 mg PO DAILY Supplement 07/12/22 03/13/25 03/12/25 History
sertraline 25 mg tablet (Zoloft) 25 mg PO DAILY Mental 07/12/22 03/13/25 03/12/25 History
Health/Anxiety
acetaminophen 325 mg tablet 650 mg PO Q4HPRN PRN mild 09/06/24 03/13/25 01/26/25 History
pain/temp>100F
bisacodyl 10 mg rectal suppository 10 mg LA DAILYPRN PRN if no 09/06/24 03/13/25 Unknown History
(Dulcolax (bisacodyl)) results for MOM
cyanocobalamin (vitamin B-12) 500 500 mcg PO DAILY Supplement 09/06/24 03/13/25 03/12/25 History
mcg tablet
magnesium hydroxide 400 mg/5 mL 30 ml PO HSPRN PRN if no bm in 3 09/06/24 03/13/25 Unknown History
oral suspension (Milk of Magnesia) days
vitamin A and D 1 applic topical DAILY Skin Issues 09/06/24 03/13/25 03/12/25 History
apixaban 5 mg tablet (Eliquis) 5 mg PO BID #60 tabs 01/22/25 03/13/25 03/12/25 Rx
calcium carbonate 500 mg PO DAILY 03/13/25 03/13/25 03/12/25 History
ipratropium 0.5 mg-albuterol 3 mg 3 ml inhalation R Q6HPRN PRN SOB 03/13/25 03/13/25 03/12/25 History
(2.5 mg base)/3 mL nebulization
soln
levothyroxine 75 mcg tablet 75 mcg PO DAILY 03/13/25 03/13/25 03/12/25 History
(Synthroid)
Review of Systems
-
Unable to Obtain full review of systems at this time due to: Acuity
Vitals / Labs / Diagnostic Testing
Vital Signs
Temp Pulse Resp BP Pulse Ox
98.2 F 57 18 68/35 87
03/13/25 08:35 03/13/25 10:45 03/13/25 10:45 03/13/25 10:30 03/13/25 10:45
Lab Data
03/13/25 09:07
03/13/25 08:00
Laboratory Results
03/13/25
09:46
pH 7.26 L
pCO2 55 H
pO2 78 L
HCO3 24.7
O2 Delivery Level
Microbiology
03/13/25 08:07 Nasal Swab Influenza Types A & B (EMMA) - Final
Negative for Influenza A & B, NAAT
Negative results must be combined with clinical observations
and patient history.
Nucleic Acid Amplification test (NAAT)performed on the
[employer] platform.
Diagnostic Testing:
Physical Exam
-
HEENT: Normocephalic
Cardiovascular: S1/S2
Respiratory: Wheeze (None) and Rhonchi
GI: Distended (Obese) and Non Tender
Neurology: Other (On BiPAP-Will open eyes to verbal stimuli. Able to move 4 extremities. Not following commands.)
Skin: Warm
General: Respiratory Distress
Assessment
-
79-year-old woman with past medical history noted. This reported that about 3 days ago had a choking event at the long-term care facility. Blood pressure been running low.
Sent to the emergency room after found with change in mental status and hypoxemia. Patient to the emergency room hypotensive requiring vasopressors despite IV fluid resuscitation. Patient required BiPAP therapy due to acute hypercapnic respiratory
failure. Transferred to the critical care unit 03/13/2025 for further care.
Acute on chronic hypercapnic respiratory failure-requiring BiPAP therapy
ABG 7.
Severe aspiration pneumonia: Patient choked on food about 3 days ago
Chest x-ray: Right upper lobe and right lower lobe infiltrate.
Septic shock
Acute kidney injury-suspect prerenal-hypotensive insult.
Abnormal LFT
? Previous low random cortisol level
Other medical diagnoses:
Chronic hypercapnic respiratory failure-likely undiagnosed obstructive sleep apnea/obesity hypoventilation syndrome
Atrial fibrillation-on anticoagulation diagnosed 01/2025
ECHO 09/2024: Normal biventricular size and systolic function without regional wall motion abnormality. Estimated LVEF 55-60%. No significant valve disease.
History of endometrial carcinoma status post resection 01/2025
Hypothyroidism
Hypertension
Anxiety/depression
Dementia
Morbid obesity, BMI 45
PACs/sinus bradycardia, 1st degree AVB
Assessment and plan:
Critically ill-respiratory failure, shock, acute kidney injury. Due to likely aspiration pneumonia. Witnessed aspiration event at the custodial about 3 days ago
-
Septic shock secondary to above.
Patient has inappropriate bradycardia-unclear reasons. Check TSH. Previous TSH during last admission was normal.
Currently on Levophed at 6 mics per minute-will titrate for mean arterial blood pressure 65 mmHg.
Status post IV fluid resuscitation received 2 L of crystalloids in the emergency room. Will continue with IV boluses as needed.
Follow renal function-acute kidney injury likely due to hypotensive insult
-
Interestingly, during last hospital stay random cortisol level was low. Cosyntropin stim test was performed and response was partially blunted.
Agree with IV corticosteroids for now.
Treat relative adrenal insufficiency in the setting of shock.
-
Follow LFTs-suspect hypotensive insult as well per
Follow
-
Broad-spectrum antibiotics to cover for aspiration pneumonia
Cultures were sent
Legionella and strep antigens were sent will follow
COVID-negative
Trend lactic levels
Monitor fever curve and leukocytosis
-
Continue BiPAP at the current settings for now.
Will provide oxygen to maintain pulse ox above 90%.
Not bronchospastic on exam-okay to continue nebulizers as needed
Dose has history of chronic hypercapnic respiratory failure due to likely obesity hypoventilation obstructive sleep apnea that is undiagnosed.
She seems to be tolerating
Mental status did not back to baseline
Patient opening eyes to verbal stimuli
Repeat ABG now
If there is no improvement then we will need to proceed with intubation and mechanical ventilation.
Keep n.p.o. for now
Head of the bed elevation
-
Follow hemoglobin-patient does have chronic anemia
No evidence for bleeding
Heme stools here negative
-
Atrial fibrillation-on anticoagulation.
Anticoagulation on hold for today
If remains n.p.o. in 24 hours heparin drip may need to be started
-
DVT prophylaxis with Lovenox for now
-
Patient is full code
-
Prognosis guarded
-
Case discussed with primary team.
Discussed with respiratory care as well and nursing.
-
Critical care statement: A total of 50 minutes of critical care time was provided for this patient today. This includes management of unstable vital signs, evaluation of the patient at bedside, reviewing the patient's pertinent medical records
including ventilator settings, arterial blood gases, radiographs, microbiology, laboratory evaluations and discussion with primary team, critical care nursing, and respiratory therapy.
--- NOTE | 2025-03-13 11:58 | PHA.VAN.IN ---
Assessment
- Assessment
Renal Function: SCR Appears Elevated from baseline (1.3 from baseline of 0.6)
Maximum Temperature: 98.2F
Concomitant Antimicrobials: Zosyn
Plan
- Plan
Initial / Loading Dose: 1500MG
Maintenance Regimen: Vancomycin PRN by level
Monitoring: Random level 03/14/25 with AM labs
MRSA Screen: Ordered per protocol
Pharmacokinetics Vancomycin I
- -
Patient Age: 79
Patient Sex: Female
Vancomycin Day #: 1
Indication: Pulmonary/Respiratory
Requesting Provider: Monserrat
Pertinent Antimicrobial Allergies:
NDKA
Height / Weight:
Height 5 ft 2 in
Actual Weight 97.1 kg
Pertinent Past Medical History: Morbid obesity (although current BMI 39.2), endometrioid adenocarcinoma
- Vital Signs / Lab Results
Temp Pulse Resp BP Pulse Ox
98.2 F 74 23 159/120 98
03/13/25 08:35 03/13/25 11:45 03/13/25 11:45 03/13/25 11:45 03/13/25 11:45
Lab Results - Hematology
03/13/25
08:00
WBC 3.2 L
Band Neutrophils 9 H
Lab Results - Chemistry
03/13/25
08:00
BUN 31 H
Creatinine 1.3 H
Estimated Creat Clear 39
Albumin 3.2 L
03/13/25
08:07
Lactic Acid 2.3 H
Microbiology Results
03/13/25 08:07 Influenza Types A & B (EMMA) - Final
Nasal Swab Negative for Influenza A & B, NAAT
Negative results must be combined with clinical observations
and patient history.
Nucleic Acid Amplification test (NAAT)performed on the
[employer] platform.
[2025-03-13 12:10] LABS: B.E. -3.4 mmol/L; HCO3 24.7 mmol/L (21-28); O2 Saturation % 99.6 % (94-98); PCO2 59 mmHg (32-35); PO2 130 mmHg (83-108)
[2025-03-13 12:31] LABS: INR 1.23; PT 16.0 Sec (11.4-14.6)
[2025-03-13 12:32] LABS: APTT 42.6 Sec (23.4-35.0)
[2025-03-13] MEDS: ZOSYN 50 IV ×2 (13:59→19:32)
[2025-03-13] MEDS: SOLU-CORTEF 50 MG IV ×3 (13:59→23:51)
[2025-03-13 14:04] LABS: Glucose - Point of Care 155 mg/dl (70-99)
--- NOTE | 2025-03-13 15:12 | W.PN.UPDATE ---
Addendum entered and electronically signed by Isaias Beltran MD 03/13/25 15:19:
Left a message on the contact listed on the chart Veronica Vazquez which is the guardian regarding update on this patient.
Will wait for the callback for now we will proceed with intubation as she is listed as full code.
Original Note:
Update Note
Progress Note Update
Unfortunately, patient has not improved.
Mental status remains unchanged-patient lethargic-only open eyes to sternal rub.
She is hypothermic
Remains hypotensive requiring low-dose vasopressors
Will continue with antibiotics to treat for aspiration pneumonia and sepsis
Will proceed with intubation and mechanical ventilation
AC mechanical ventilation will be ordered 450/16/100%/+5
ABG in 30 minutes
Sedation with fentanyl drip will be added
NPO
Head of the bed elevation
If there is abdominal distention NG tube will be placed
Daughter updated 03/13/[address] Wood
-
Additional CCT 35 min
--- NOTE | 2025-03-13 15:34 | W.PN.ANESINT ---
Anesthesia Intubation Note
- Intubation Note
Intubation Note:
Diagnosis: obtunded/ unprotected airway
Blade: Glidescope 4
Tube Size: 8.0
Depth: 21 cm
Side Taped: right
Drugs Used: Propofol 50mg / phenylephrine 200mcg- followed by post intubation 50mg zemuron
Grade View: I
EtCO2 Present: +
Atraumatic: yes
Attempts: 1
Insertion Start and Stop Time:15:27
SaO2 Pre: 100
SaO2 Post: 100
Glidescope Used: yes
Other Airway Adjustments: no
Pre-Oxygenated: yes
Portable Chest X-Ray: to follow
RSI: yes
Suctioned: ETT thick brown/ pink tinged
Bilateral Breath Sounds Confirmed: yes
Vent Settings:
Settings per _X__Attending Physician
--- NOTE | 2025-03-13 16:00 | PTCARENOTE ---
Reassessed the patient, intubated @15:25 d/t altered mental status and unable to protect airway, ET tube size 8 @21cm Lip, OGT inserted @60cm to Low intermittent suction, Bile/Yellow color output, 16 Fr Jefferson inserted.
[2025-03-13] MEDS: LOVENOX 40 MG SC (17:32)
[2025-03-13 17:58] LABS: B.E. -3.7 mmol/L; HCO3 22.6 mmol/L (21-28); O2 Saturation % 100.0 % (94-98); PCO2 46 mmHg (32-35); PO2 190 mmHg (83-108)
[2025-03-13 18:20] LABS: Glucose - Point of Care 167 mg/dl (70-99)
[2025-03-13] MEDS: SUBLIMAZE 50 MCG IV ×3 (18:31→20:44)
[2025-03-13] MEDS: SUBLIMAZE 100 IV (19:32)
--- NOTE | 2025-03-13 20:53 | W.PN.UPDATE ---
Update Note
Progress Note Update
Procedure Note: Arterial Line�
� Left Wrist Arrow 20 (08/07)�
Diagnosis:��Sepsis/aspiration
IV Line Comments: Uneventful Procedure�
Gabriel completed pre-procedure: Yes�
A-Line Comments: Sterile technique as per standard protocol, Ultrasound guided insertion�
Functioning�A-line in situ: Yes�
A-line Insertion Start Time:��1999
A-line in at:��2014
--- NOTE | 2025-03-13 21:24 | PTCARENOTE ---
Assumed care of pt at 1900. Received pt intubated, #8.0 ETT 21cm at lip, AC 16/450/60/5. Pt on Levophed at 6mcg/min at start of shift, see med titration flowsheet on worklist for titration details throughout shift. Arterial line placed by Sabine
Brianne MANCINI at around 1930, titrating Levo based on MAP reading from arterial line. Fentanyl drip started based on CPOT/vent dyssynchrony. Assessment as documented in nursing shift assessment flowsheet. SR with 1st deg AVB on monitor.
[2025-03-13 23:48] LABS: Glucose - Point of Care 129 mg/dl (70-99)
[2025-03-14] VITALS: BP 117/41
[2025-03-14] MEDS: SUBLIMAZE 50 MCG IV ×2 (00:35→05:27)
--- NOTE | 2025-03-14 01:34 | PTCARENOTE ---
Midnight assessment unchanged. Remains on Levo and Fentanyl. SR 70s on monitor. CHG cloth bath done and linens changed.
[2025-03-14] MEDS: ZOSYN 50 IV ×4 (02:06→21:03)
[2025-03-14 03:51] LABS: B.E. -2.2 mmol/L; HCO3 22.3 mmol/L (21-28); O2 Saturation % 99.8 % (94-98); PCO2 36 mmHg (32-35); PO2 128 mmHg (83-108); Potassium 5.3 mMOL/L (3.5-5.1); Sodium 136 mMOL/L (136-145)
[2025-03-14 03:53] LABS: Hematocrit 26.6 % (37.0-47.0); Hemoglobin 8.9 g/dL (12.0-16.0); Mean Corp Hgb Conc. 33.5 g/dL (33.0-37.0); Mean Corpuscular Volume 95.7 fL (81.0-99.0); Platelet Count 97 10^3/uL (130-400); Red Cell Dist. Width 18.4 % (11.5-14.5)
[2025-03-14 04:01] VITALS: BMI 39.0
--- NOTE | 2025-03-14 04:08 | PTCARENOTE ---
Physical assessment unchanged. Remains on same drips, same vent settings. SR 70s on monitor.
[2025-03-14 04:46] LABS: ALT (SGPT) 39 U/L (0-35); AST (SGOT) 62 U/L (14-36); Albumin 2.6 g/dl (3.5-5.0); Alkaline Phosphatase 184 U/L (38-126); Blood Urea Nitrogen 34 mg/dl (7-17); Calcium 7.8 mg/dl (8.4-10.2); Carbon Dioxide 24 mmol/L (22-30); Chloride 109 mmol/L (98-107); Estimated Creatinine Clearance 46 ml/min; Glucose 135 mg/dl (70-99); Magnesium 1.7 mg/dl (1.6-2.3); Potassium 5.3 mmol/L (3.5-5.1); Sodium 138 mmol/L (135-145); Total Protein 5.5 g/dl (6.3-8.2); eGFR 51.43
[2025-03-14] MEDS: SOLU-CORTEF 50 MG IV ×3 (05:27→21:03)
[2025-03-14] MEDS: SUBLIMAZE 100 IV (05:52)
[2025-03-14 06:03] LABS: Glucose - Point of Care 139 mg/dl (70-99)
[2025-03-14 06:38] LABS: Absolute Neutrophils -Man Diff 6.6 10^3/uL (1.4-6.5)
[2025-03-14 06:40] LABS: Stomatocytes 1+
[2025-03-14 06:41] LABS: Anisocytosis 1+; Hypochromasia 1+; Microcytosis 2+
[2025-03-14 06:57] LABS: Normal RBC Morphology No; Platelets Checked Yes; Total Cells Counted 100
--- NOTE | 2025-03-14 08:00 | PTCARENOTE ---
Assumed care of patient from off-going nurse. Hand-off validation done with off-going nurse. Patient has restraints intact for agitation. Patient moves spontaneously but does not follow commands. Pupils are equal and intact +2. Afebrile. Patient is
in NSR, with adequate blood pressure on 4 of levo. +1 edema in lower extremities, pulses obtained with doppler. Patient on A/C, with size 8.0 ETT at 21 on the lip. A/C 18/450/60%/8p, lowered to 40% and 5 of peep with adequate oxygenation by
respiratory. Lung sounds rhonchi throughout. OG to low intermittent suction. Jefferson in place with light yellow output. IVs and skin c/d/i.
[2025-03-14] MEDS: MIRALAX 17 GRAMS TUBE (08:33)
--- NOTE | 2025-03-14 10:43 | W.PN.INTV ---
Today's Communication / Plan
Recommendations
Continue mechanical ventilation without change
Not ready for spontaneous breathing trial
Restart apixaban
Hold tube feedings for today
Continue antibiotics
Follow cultures
Continue with Levophed-wean down as able
Continue with sedation-sedation breaks per protocol.
Will continue to follow
Assessment
-
79-year-old woman with past medical history noted. This reported that about 3 days ago had a choking event at the long-term care [facility]. Blood pressure been running low.
Sent to the emergency room after found with change in mental status and hypoxemia. Patient to the emergency room hypotensive requiring vasopressors despite IV fluid resuscitation. Patient required BiPAP therapy due to acute hypercapnic respiratory
failure. Transferred to the critical care unit 03/13/2025 for further care.
Acute on chronic hypercapnic respiratory failure-requiring BiPAP therapy
ABG 7.
Severe aspiration pneumonia: Patient choked on food about 3 days ago
Chest x-ray: Right upper lobe and right lower lobe infiltrate.
Septic shock
Acute kidney injury-suspect prerenal-hypotensive insult.
Abnormal LFT
? Previous low random cortisol level
Other medical diagnoses:
Chronic hypercapnic respiratory failure-likely undiagnosed obstructive sleep apnea/obesity hypoventilation syndrome
Atrial fibrillation-on anticoagulation diagnosed 01/2025
ECHO 09/2024: Normal biventricular size and systolic function without regional wall motion abnormality. Estimated LVEF 55-60%. No significant valve disease.
History of endometrial carcinoma status post resection 01/2025
Hypothyroidism
Hypertension
Anxiety/depression
Dementia
Morbid obesity, BMI 45
PACs/sinus bradycardia, 1st degree AVB
Assessment and plan:
Critically ill-respiratory failure, shock, acute kidney injury. Due to likely aspiration pneumonia. Witnessed aspiration event at the custodial about 3 days ago
-
Septic shock secondary to above.
Patient has inappropriate bradycardia-unclear reasons. Previous TSH during last admission was normal.
Currently on Levophed at 4 mics per minute-will titrate for mean arterial blood pressure 65 mmHg.
Status post IV fluid resuscitation received 2 L of crystalloids in the emergency room.
Will continue with IV boluses as needed.
Lactic acid has cleared
Kidney function improved.
Continue to follow urinary output.
-
Interestingly, during last hospital stay random cortisol level was low. Cosyntropin stim test was performed and response was partially blunted.
Agree with IV corticosteroids for now. Treat relative adrenal insufficiency in the setting of shock.
Will decrease dosage today and taper off over the next 48 to 72 hours. Patient's vasopressor requirements not increasing.
Mental status not completely back to baseline.
-
Follow LFTs-suspect hypotensive insult-improved
Follow
-
Broad-spectrum antibiotics to cover for aspiration pneumonia
Afebrile
No
Continue Zosyn
Discontinue vancomycin
MRSA screening negative
Sputum culture result pending.
Negative Legionella and Streptococcus urinary antigen
Blood cultures negative so far
Negative influenza
Legionella and strep antigens were sent will follow
COVID-negative
-
Acute respiratory failure-hypercapnic/hypoxemic requiring mechanical intubation 03/13/2025
Failed BiPAP-poor mental status
Continue current mechanical ventilation without change
ABG (03/14/2025)-7 point 4/36/120
Chest x-ray with significant right upper lobe infiltrate-ET tube with secretions.
Not ready for spontaneous breathing trial today
-
Continue sedation with fentanyl-patient did not tolerate sedation breaks
Will continue to attempt on a daily basis.
If mental status does not improve with sedation breaks a CT of the head will be required.
-
Follow hemoglobin-patient does have chronic anemia
No evidence for bleeding
Heme stools here negative
-
Atrial fibrillation-on anticoagulation.
Restart anticoagulation next
-
DVT prophylaxis-to restart anticoagulation
-
Patient is full code
Prognosis guarded
Dr. Wood call guardian over the phone 03/13/2025 for update. Left a voice message. Waiting for callback.
-
Case discussed with primary team.
Discussed with respiratory care as well and nursing.
-
Critical care statement: A total of 41 minutes of critical care time was provided for this patient today. This includes management of unstable vital signs, evaluation of the patient at bedside, reviewing the patient's pertinent medical records
including ventilator settings, arterial blood gases, radiographs, microbiology, laboratory evaluations and discussion with primary team, critical care nursing, and respiratory therapy.
Subjective Dataa
Subjective Data
Date of Service:
Date of Service: March 14, 2025
Chief Complaint: Operations Systems Specialist Follow Up (Acute respiratory failure-septic shock), Pneumonia Follow Up and Vent Management Follow Up
Subjective:
Sedated, mechanical ventilation.
Patient remains on sedation
Not ready for spontaneous breathing
Review of Systems
General: Unobtainable - Sedation
Objective Data
Data Reviewed
Vital Signs / I&O / Oxygen:
Vital Signs
Temp Pulse Resp BP Pulse Ox
98.5 F 73 18 117/41 96
03/14/25 04:00 03/14/25 10:00 03/14/25 10:00 03/14/25 00:00 03/14/25 10:00
Intake and Output
03/13/25 03/14/25 03/15/25
06:59 06:59 06:59
Intake Total 2142.0 / 2247.0 465.0 / 465.0
Output Total 621 / 656 130 / 130
Balance 1521.0 / 1591.0 335.0 / 335.0
SaO2 [A/C] 97
SaO2 96
Physical Exam
General: Comfortable
HEENT: Normocephalic
Cardiovascular: S1-S2
Respiratory: Non-Labored Respirations and ET Tube (Yellow thick secretion intermittent)
GI: Soft and Non Distended
Neurology: Other (Sedated. Increased work of breathing with sedation breaks. Not following commands.)
Skin: Warm
Labs/Micro/Reports
Lab Data
03/14/25 03:35
03/14/25 03:35
Laboratory Results
03/13/25 03/13/25 03/13/25
11:56 12:03 17:37
PT 16.0 H
INR 1.23
APTT 42.6 H
pH 7.23 L 7.30 L
pCO2 59 H 46 H
pO2 130 H 190 H
HCO3 24.7 22.6
O2 Delivery Level
03/14/25
03:35
PT
INR
APTT
pH 7.40
pCO2 36 H
pO2 128 H
HCO3 22.3
O2 Delivery Level
Microbiology
03/13/25 16:14 Sputum Gram Stain - Preliminary
03/13/25 08:27 Blood/Venous Blood Culture - Preliminary
No Growth in 24 hours- Final report to follow
03/13/25 08:07 Blood/Venous Blood Culture - Preliminary
No Growth in 24 hours- Final report to follow
03/13/25 16:14 Nose Nasal Screen MRSA (PCR) - Final
MRSA not detected - performed by PCR methodology.
03/13/25 16:14 Urine Legionella Urinary Antigen - Final
Negative for Legionella pneumophila Serogroup 1 antigen.
A negative result does not rule out the possiblity of
Legionella infection due to other serogroups or species of
Legionella. Clinical correlation is recommended.
03/13/25 16:14 Urine Streptococcus pneumoniae Antigen (M - Final
Negative for Streptococcus pneumoniae antigen.
A negative result does not exclude infection with
Streptococcus pneumoniae. Clinical correlation is
recommended.
03/13/25 08:07 Nasal Swab Influenza Types A & B (EMMA) - Final
Negative for Influenza A & B, NAAT
Negative results must be combined with clinical observations
and patient history.
Nucleic Acid Amplification test (NAAT)performed on the
[employer] platform.
--- NOTE | 2025-03-14 11:44 | WOUNDNOTE ---
WOC RN note: Patient developed a small mucosal L upper lip pressure injury r/t ET tube along with swelling. Prevalence ICU nurse Jerod stated they loosened ET tube strap. Discussed with RT Cierra and patient's nurses Katlin and Trung. Mouth
moisturizer being used. Protective foam on heels. Heels off bed with pillow. Patient on a Centrella Max air mattress.
--- NOTE | 2025-03-14 11:49 | WOUNDNOTE ---
LIP (UPPER LEFT)
--- NOTE | 2025-03-14 11:50 | WOUNDNOTE ---
WOC RN note: Patient developed a small mucosal L upper lip pressure injury r/t ET tube along with swelling. Prevalence ICU nurse Jerod stated they loosened ET tube strap. Discussed with RT Cierra, JUSTINO Flynn and Dr. Wood. Mouth
moisturizer being used. Protective foam on heels. Heels off bed with pillow. Patient on a Centre[employer] Max air mattress.
--- NOTE | 2025-03-14 12:00 | PTCARENOTE ---
No change in patient assessment. Fentanyl turned down dur to patient not scoring on the CPOT scale, see titrations.
[2025-03-14 12:01] LABS: Glucose - Point of Care 139 mg/dl (70-99)
[2025-03-14] MEDS: LEVOPHED 250 IV (12:04)
[2025-03-14] MEDS: NSS 1000 IV (13:31)
--- NOTE | 2025-03-14 15:17 | CM ---
Patient intubated. Is fdc resident at [facility]. Albanian speaking. Requires assist of 2 to transfer OOB. Has a guardian, Veronica Vazquez @ [phone]. PCP is Dr. Collin Moreno. Pharmacy is [facility]. Discharge POC: Return to [facility]
for resumption of LTC.
--- NOTE | 2025-03-14 15:31 | W.PN.HOSP.TC ---
Today's Communication/Plan
-
continue Abx, stress dose steroids
wean vent/sedation as able
prognosis guarded
Assessment / Plan
Assessment / Plan
Assessment:
Septic shock present on arrival
- leukopenia, tachypnea, shock state requiring pressors
- Levophed; MAP Goal >65
- sepsis protocol IVF and trend lactate levels to normal
- IV HC for stress dose steroids
- ICU managing
Suspected aspiration pneumonia (witness aspiration event 3 days ago at [facility])
- CXR: new large area of dense opacification in the right upper lobe and there is some additional patchy opacification in the right lower lung
- continue Zosyn, day 2; stop Vanco with negative MRSA swab.
- sputum culture: gram negative bacilli
- strep/legionella neg
Acute hypoxic respiratory failure on BiPAP, later required intubation for airway protection
Underlying concern of undiagnosed OHS vs JC
- initial ABG on BIPAP without evidence of acidosis/hypercapnia
- intubated 03/13
- sedation/vent management per ICU
- likely will need HS BiPAP going forward; outpatient sleep study
SAYDA in setting of sepsis
- continue IVF; follow labs
Hyperkalemia
- repeat labs PM
History of stage 1 endometrial cancer
- s/p s/p Robotic�assisted�laparoscopy�hysterectomy�with BSO�and�sentinel�lymph�node�bx on 01/15/25
Afib, parox
- continue Eliquis
- not on rate control meds
Anxiety/Depression
- hold Zoloft
Hypothyroidism - hold Synthroid
Essential HTN
- not on BP meds
DVT ppx: Lovenox
Code: Full, confirmed with ANCELMO Martin
Total Critical Care Time 41 minutes. I was immediately available to the patient and staff. I personally examined, reviewed labs, diagnostic images/reports, interpretations, treatment plans, discussed patient care with other providers and family
or caregivers (if patient is unable to make decisions), entered orders as appropriate and documented the medical record.
Anticipated Discharge: > 48 hours
Subjective/Interval History
-
Date of Service: March 14, 2025
Intubated 03/13 for airway protection; remains intubated and on lower sedation
remains on 3 of Levophed
no purposeful movements presently
Objective Data
-
Labs:
Laboratory Results
03/14/25
03:35
WBC 7.7
Hgb 8.9 L
Hct 26.6 L
Plt Count 97 L
HCO3 22.3
Sodium 138
Potassium 5.3 H
Chloride 109 H
Carbon Dioxide 24
BUN 34 H
Creatinine 1.1 H
Glucose 135 H
Calcium 7.8 L
Total Bilirubin 1.8 H D
AST 62 H
ALT 39 H
Alkaline Phosphatase 184 H
Vital Signs:
Vital Signs
Temp Pulse Resp BP Pulse Ox
99.3 F 76 18 117/41 95
03/14/25 12:00 03/14/25 13:00 03/14/25 13:00 03/14/25 00:00 03/14/25 14:54
I&O
03/13/25 03/14/25 03/15/25
06:59 06:59 06:59
Intake Total 2142.0 / 2247.0 753.9 / 753.9
Output Total 621 / 656 230 / 230
Balance 1521.0 / 1591.0 523.9 / 523.9
Physical Exam
-
General: No Apparent Distress and Intubated
HEENT: Normocephalic and Atraumatic
Respiratory: Rhonchi and Decreased Breath Sounds
Cardiac: S1/S2
GI: Soft
Neuro: Sedated
Data Reviewed
-
Critical Care Time (in minutes): 41
Labs: Labs Reviewed by me
[2025-03-14 16:43] LABS: Blood Urea Nitrogen 34 mg/dl (7-17); Calcium 7.7 mg/dl (8.4-10.2); Carbon Dioxide 23 mmol/L (22-30); Chloride 109 mmol/L (98-107); Estimated Creatinine Clearance 42 ml/min; Glucose 126 mg/dl (70-99); Potassium 4.5 mmol/L (3.5-5.1); Sodium 138 mmol/L (135-145); eGFR 46.33
--- NOTE | 2025-03-14 20:40 | PTCARENOTE ---
Assumed care of pt at 1900. Received pt intubated, #8.0 ETT 21cm at lip, AC 18/450/40/5. Fentanyl turned off, pt currently not on any continuous sedation. Will occasionally open eyes spontaneously but not follow commands or open eyes to voice, has
been able to move all extremities but not currently making any purposeful movements. B/L wrist restraints off. Levophed at 4mcg/min at start of shift, see med titration flowsheet on worklist for titration details throughout the shift, titrating off
of MAP readings from left radial arterial line (goal > 65). Assessment as documented in nursing shift assessment flowsheet. Currently AFib 100s-110s on monitor. SpO2 95% on current vent settings.
[2025-03-14] MEDS: NSS (PRESERVATIVE FREE) 10 ML IV (21:03)
[2025-03-14] MEDS: PROTONIX IV 40 MG IV (21:03)
[2025-03-14] MEDS: ELIQUIS 5 MG TUBE (21:03)
[2025-03-14 23:09] VITALS: BP 146/91
--- NOTE | 2025-03-15 00:30 | PTCARENOTE ---
Midnight assessment unchanged. Continuing to wean Levophed as tolerated to keep MAP >65. AFib 100s on monitor.
[2025-03-15] MEDS: NSS 1000 IV (00:54)
[2025-03-15] MEDS: ZOSYN 50 IV ×4 (02:50→20:31)
[2025-03-15 03:26] VITALS: BMI 39.3
[2025-03-15 04:26] LABS: B.E. -1.4 mmol/L; HCO3 22.6 mmol/L (21-28); O2 Saturation % 98.9 % (94-98); PCO2 34 mmHg (32-35); PO2 85 mmHg (83-108)
[2025-03-15 04:33] LABS: Hematocrit 23.3 % (37.0-47.0); Hemoglobin 7.6 g/dL (12.0-16.0); Mean Corp Hgb Conc. 32.6 g/dL (33.0-37.0); Mean Corpuscular Volume 95.1 fL (81.0-99.0); Platelet Count 78 10^3/uL (130-400); Red Cell Dist. Width 19.4 % (11.5-14.5)
[2025-03-15 04:59] LABS: ALT (SGPT) 37 U/L (0-35); AST (SGOT) 47 U/L (14-36); Albumin 2.4 g/dl (3.5-5.0); Alkaline Phosphatase 170 U/L (38-126); Blood Urea Nitrogen 33 mg/dl (7-17); Calcium 7.9 mg/dl (8.4-10.2); Carbon Dioxide 22 mmol/L (22-30); Chloride 111 mmol/L (98-107); Estimated Creatinine Clearance 42 ml/min; Glucose 128 mg/dl (70-99); Potassium 3.8 mmol/L (3.5-5.1); Sodium 138 mmol/L (135-145); Total Protein 5.3 g/dl (6.3-8.2); eGFR 46.33
[2025-03-15] MEDS: SOLU-CORTEF 50 MG IV ×2 (05:34→17:51)
[2025-03-15] MEDS: SYNTHROID 75 MCG TUBE (05:34)
--- NOTE | 2025-03-15 05:43 | PTCARENOTE ---
0400 assessment unchanged. CHG cloth bath done, linens and gown changed around 0300. Afterwards pt noted to have become disconnected from vent where the circuit connects to the vent (at bottom), SpO2 dropped as low as 49%, able to quickly recover
once connected to vent and at 100% FiO2 for 2 minutes, now 93-95% on same vent settings as previous (AC 18/450/40/5). Remains off Fentanyl, currently on 1mcg/min of Levophed. AFib 70s-80s on monitor.
[2025-03-15] MEDS: SUBLIMAZE 50 MCG IV ×5 (05:53→21:39)
[2025-03-15] MEDS: ZOLOFT 25 MG TUBE (07:42)
[2025-03-15] MEDS: NSS (PRESERVATIVE FREE) 10 ML IV (07:42)
[2025-03-15] MEDS: PROTONIX IV 40 MG IV (07:42)
[2025-03-15] MEDS: MIRALAX 17 GRAMS TUBE (07:42)
[2025-03-15 08:03] LABS: Absolute Neutrophils -Man Diff 16.6 10^3/uL (1.4-6.5); Anisocytosis 1+; Hypochromasia 1+; Normal RBC Morphology No; Platelets Checked Yes; Polychromasia 1+
[2025-03-15 08:04] LABS: Stomatocytes 1+; Target Cells 1+; Total Cells Counted 100
[2025-03-15 08:36] VITALS: BP 112/63
[2025-03-15] MEDS: ELIQUIS TUBE (08:40)
[2025-03-15] MEDS: LASIX 20 MG IV ×2 (09:40→16:32)
--- NOTE | 2025-03-15 10:37 | PTCARENOTE ---
Assumed care of patient at 0700. Patient A fib on the monitor. Patient intubated, #8.0 ETT 21cm at lip, AC 18/450/.4/+5. Lungs coarse w/ rhonchi throughout and expiratory wheezes anteriorly. Pt on Levophed at 1mcg/min through RAC and NSS @ 80mls/hr
through LAC. Patient opens eyes spontaneously but does not track. Pupils minimally responsive w/ R pupil 2mm and L pupil 1mm. Patient w/ +1 B/L LE edema and +2 edema in B/L hands/arms. DP pulses obtained via doppler. Thermistor falk w/ adequate
yellow urine. OGT @ 60 to LIMS.
--- NOTE | 2025-03-15 11:15 | W.PN.INTV ---
Today's Communication / Plan
Recommendations
Continue mechanical ventilation without change
Continue to hold sedation
Start low-dose aspirin
Will start anticoagulation again if hemoglobin is stable
Follow H&H later today
Hold off on tube feedings for today
Continue current antibiotic
Continue hydrocortisone for today
Wean off Levophed which is a low-dose.
Prognosis is guarded
Assessment
-
79-year-old woman with past medical history noted. This reported that about 3 days ago had a choking event at the [facility]. Blood pressure been running low.
Sent to the emergency room after found with change in mental status and hypoxemia. Patient to the emergency room hypotensive requiring vasopressors despite IV fluid resuscitation. Patient required BiPAP therapy due to acute hypercapnic respiratory
failure. Transferred to the critical care unit 03/13/2025 for further care.
Acute on chronic hypercapnic respiratory failure-requiring BiPAP therapy
ABG 7.
Severe aspiration pneumonia: Patient choked on food about 3 days ago
Chest x-ray: Right upper lobe and right lower lobe infiltrate.
Septic shock
Acute kidney injury-suspect prerenal-hypotensive insult.
Abnormal LFT
? Previous low random cortisol level
Normocytic anemia
Other medical diagnoses:
Chronic hypercapnic respiratory failure-likely undiagnosed obstructive sleep apnea/obesity hypoventilation syndrome
Atrial fibrillation-on anticoagulation diagnosed 01/2025
ECHO 09/2024: Normal biventricular size and systolic function without regional wall motion abnormality. Estimated LVEF 55-60%. No significant valve disease.
History of endometrial carcinoma status post resection 01/2025
Hypothyroidism
Hypertension
Anxiety/depression
Dementia
Morbid obesity, BMI 45
PACs/sinus bradycardia, 1st degree AVB
Assessment and plan:
Critically ill-respiratory failure, shock, acute kidney injury. Due to likely aspiration pneumonia. Witnessed aspiration event at the [facility] about 3 days ago
-
Septic shock secondary to above.
Patient has inappropriate bradycardia-unclear reasons. Previous TSH during last admission was normal.
No significant increase in Levophed requirements-will titrate for mean arterial blood pressure 65 mmHg.
Status post IV fluid resuscitation received 2 L of crystalloids in the emergency room.
Discontinue IV fluids-suspect patient volume overloaded.
Lactic acid has cleared
Kidney function improved.
Continue to follow urinary output.
-
Interestingly, during last hospital stay random cortisol level was low. Cosyntropin stim test was performed and response was partially blunted.
Agree with IV corticosteroids for now. Treat relative adrenal insufficiency in the setting of shock.
Continue hydrocortisone every 12. Will attempt to wean off in the next 48 hours.
Mental status not completely back to baseline.
-
Follow LFTs-suspect hypotensive insult-improved
Follow
-
Broad-spectrum antibiotics to cover for aspiration pneumonia
sputum with Klebsiella pneumonia-sensitive to ceftriaxone.
Blood culture x 1Staph species-possibly contaminant
-
Afebrile
Now with leukocytosis 17,000-possibly steroid effect.
Continue Zosyn
Discontinued vancomycin
MRSA screening negative
Negative Legionella and Streptococcus urinary antigen
Blood cultures negative so far
Negative influenza
Legionella and strep antigens were sent will follow
COVID-negative
-
Acute respiratory failure-hypercapnic/hypoxemic requiring mechanical intubation 03/13/2025
Failed BiPAP-poor mental status
Continue current mechanical ventilation without change
ABG (03/14/2025)-7.4/36/120
ABG 03/15/2025: 7.40 3/34/85
Initial chest x-ray with significant right upper lobe infiltrate-ET tube with secretions.
Not ready for spontaneous breathing trial today
-
Patient has been off sedation since yesterday
No meaningful neurological recovery. Unclear baseline. Patient does have underlying dementia per
Differential diagnosis includes hypoactive delirium due to sepsis on top of dementia or acute [employer] event
CT of the head ordered by me 03/15/2025, reviewed showed nonspecific 13 mm hypodensity within the left basal ganglia/mcmahan radiata which may represent subacute infarct. New compared to CAT scan from 01/16/2025. Unchanged moderate chronic white
matter disease.
Start aspirin.
Apixaban on hold due to anemia
-
Follow hemoglobin-patient does have chronic anemia
No evidence for bleeding
Heme stools here negative
Hemoglobin dropped from 8.9-7.6-repeat later per
Transfusion may be needed
Continue to hold anticoagulation.
-
Atrial fibrillation-on anticoagulation.
Will restart anticoagulation depending on hemoglobin stability
-
DVT prophylaxis-to restart anticoagulation
-
Patient is full code
Prognosis guarded
Dr. Wood call guardian over the phone 03/13/2025 for update. Left a voice message. Waiting for callback.
-
Unfortunately poor prognosis, possible new CVA. On top of underlying dementia. Mental status has not improved.
Continue supportive care
Will attempt to call guardian again 03/15/2025
-
Critical care statement: A total of 50 minutes of critical care time was provided for this patient today. This includes management of unstable vital signs, evaluation of the patient at bedside, reviewing the patient's pertinent medical records
including ventilator settings, arterial blood gases, radiographs, microbiology, laboratory evaluations and discussion with primary team, critical care nursing, and respiratory therapy.
Subjective Dataa
Subjective Data
Date of Service:
Date of Service: March 15, 2025
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
Subjective:
Remains on mechanical ventilation-on low-dose vasopressors. Remains critically ill
Mental status still not back to baseline despite stopping sedation.
Review of Systems
General: Other (Unresponsive, mechanical ventilation)
Objective Data
Data Reviewed
Vital Signs / I&O / Oxygen:
Vital Signs
Temp Pulse Resp BP Pulse Ox
98.1 F 83 18 112/63 92
03/15/25 08:00 03/15/25 10:00 03/15/25 10:00 03/15/25 08:36 03/15/25 10:45
Intake and Output
03/14/25 03/15/25 03/16/25
06:59 06:59 06:59
Intake Total 2142.0 / 2247.0 2554.45 / 2638.25 279.5 / 279.5
Output Total 621 / 656 1110 / 1140 485 / 485
Balance 1521.0 / 1591.0 1444.45 / 1498.25 -205.5 / -205.5
SaO2 [A/C] 92
SaO2 92
Physical Exam
General: Comfortable
HEENT: Normocephalic
Cardiovascular: S1-S2
Respiratory: Non-Labored Respirations and ET Tube (Yellow thick secretion intermittent)
GI: Soft and Non Distended
Neurology: Other (Unresponsive, not following commands. Has respiratory effort. Pupils with a sluggish reaction to light.)
Skin: Warm
Labs/Micro/Reports
Lab Data
03/15/25 04:18
Laboratory Results
03/15/25
04:18
pH 7.43
pCO2 34
pO2 85
HCO3 22.6
O2 Delivery Level
Microbiology
03/13/25 08:27 Blood/Venous Blood Culture - Preliminary
Staphylococcus species
03/13/25 08:27 Blood/Venous Gram Stain - Preliminary
03/13/25 16:14 Sputum Respiratory Culture - Final
Klebsiella pneumoniae
03/13/25 16:14 Sputum Gram Stain - Final
03/13/25 08:07 Blood/Venous Blood Culture - Preliminary
No Growth in 48 hours- Final report to follow
03/13/25 16:14 Nose Nasal Screen MRSA (PCR) - Final
MRSA not detected - performed by PCR methodology.
03/13/25 16:14 Urine Legionella Urinary Antigen - Final
Negative for Legionella pneumophila Serogroup 1 antigen.
A negative result does not rule out the possiblity of
Legionella infection due to other serogroups or species of
Legionella. Clinical correlation is recommended.
03/13/25 16:14 Urine Streptococcus pneumoniae Antigen (M - Final
Negative for Streptococcus pneumoniae antigen.
A negative result does not exclude infection with
Streptococcus pneumoniae. Clinical correlation is
recommended.
03/13/25 08:07 Nasal Swab Influenza Types A & B (EMMA) - Final
Negative for Influenza A & B, NAAT
Negative results must be combined with clinical observations
and patient history.
Nucleic Acid Amplification test (NAAT)performed on the
[employer] platform.
[2025-03-15] MEDS: LOW STRENGTH ASPIRIN 81 MG TUBE (11:52)
[2025-03-15 11:59] LABS: Glucose - Point of Care 134 mg/dl (70-99)
--- NOTE | 2025-03-15 12:00 | PTCARENOTE ---
1200 - Systems reviewed. Patient's pupils remain slugglish B/L - 3mm on R and 2mm on L, absent corneal reflex bilaterally. Tracks this RN at times. MD ordered CT scan of head - results w/ possible subacute infarct - Triage Technician notified and ASA
ordered and administered - see AUG. Per MD, CXR w/ new findings and BNP ordered per MD - BNP 4380. Dose of IV lasix ordered and administered - see AUG. Levophed turned off at 1020 w/ map of 70. Patient's goal changed from MAP>65 to SBP >90.
[2025-03-15 12:06] VITALS: BMI 39.3
[2025-03-15 12:09] LABS: Hematocrit 22.9 % (37.0-47.0); Hemoglobin 7.3 g/dL (12.0-16.0)
--- NOTE | 2025-03-15 15:40 | W.PN.HOSP.TC ---
Today's Communication/Plan
-
continue vent
now off sedation; not responding. CT with subacute CVA
reached out to [facility] for GOC - VM left await callback
continue Abx
steroids
prognosis poor
Assessment / Plan
Assessment / Plan
Assessment:
Septic shock present on arrival
- leukopenia, tachypnea, shock state requiring pressors
- Levophed weaned off 03/15
- sepsis protocol IVF and trend lactate levels to normal
- IV HC for stress dose steroids; wean off in 48 hours
- ICU managing
Suspected aspiration pneumonia (witness aspiration event [address] [facility])
- CXR: new large area of dense opacification in the right upper lobe and there is some additional patchy opacification in the right lower lung
- continue Zosyn, day 3; stop Vanco with negative MRSA swab.
- sputum culture: Klebsiella
- strep/legionella neg
Acute hypoxic respiratory failure on BiPAP, later required intubation for airway protection
Underlying concern of undiagnosed OHS vs JC
- initial ABG on BIPAP without evidence of acidosis/hypercapnia
- intubated 03/13
- sedation/vent management per ICU
- not ready from mentation standpoint for SBT
- likely will need HS BiPAP going forward; outpatient sleep study
Subacute CVA
- CT: nonspecific 13 mm hypodensity within the left basal ganglia/mcmahan radiata which may represent subacute infarct
- continue ASA
SAYDA in setting of sepsis
- continue IVF; follow labs
Hyperkalemia
- repeat labs PM
History of stage 1 endometrial cancer
- s/p s/p Robotic�assisted�laparoscopy�hysterectomy�with BSO�and�sentinel�lymph�node�bx on 01/15/25
Afib, parox
- holding Eliquis
- not on rate control meds
Anxiety/Depression
- hold Zoloft
Hypothyroidism - hold Synthroid
Essential HTN
- not on BP meds
Acute anemia of critical illness on chronic anemia
- monitor Hb; may need transfusion
DVT ppx: Lovenox
Code: Full, confirmed with ANCELMO Martin
Total Critical Care Time 41 minutes. I was immediately available to the patient and staff. I personally examined, reviewed labs, diagnostic images/reports, interpretations, treatment plans, discussed patient care with other providers and family
or caregivers (if patient is unable to make decisions), entered orders as appropriate and documented the medical record.
Anticipated Discharge: > 48 hours
Subjective/Interval History
-
Date of Service: March 15, 2025
remains intubated, off sedation without purposeful movements yet (mentation not back to baseline)
subacute CVA found on CT imaging
Objective Data
-
Labs:
Laboratory Results
03/15/25 03/15/25
04:18 12:00
WBC 17.9 H
Hgb 7.6 L 7.3 L
Hct 23.3 L 22.9 L
Plt Count 78 L
HCO3 22.6
Sodium 138
Potassium 3.8
Chloride 111 H
Carbon Dioxide 22
BUN 33 H
Creatinine 1.2 H
Glucose 128 H
Calcium 7.9 L
Total Bilirubin 2.5 H
AST 47 H
ALT 37 H
Alkaline Phosphatase 170 H
Vital Signs:
Vital Signs
Temp Pulse Resp BP Pulse Ox
98.7 F 63 18 112/63 95
03/15/25 15:20 03/15/25 13:00 03/15/25 13:00 03/15/25 08:36 03/15/25 13:00
I&O
03/14/25 03/15/25 03/16/25
06:59 06:59 06:59
Intake Total 2142.0 / 2247.0 2554.45 / 2638.25 329.5 / 329.5
Output Total 621 / 656 1110 / 1140 770 / 770
Balance 1521.0 / 1591.0 1444.45 / 1498.25 -440.5 / -440.5
Physical Exam
-
General: Intubated and Appears Chronically Ill
HEENT: Normocephalic and Atraumatic
Respiratory: Negative Wheezes
Cardiac: Regular Rhythm and S1/S2
GI: Soft
Neuro: Sedated
Psych: Calm
Data Reviewed
-
Critical Care Time (in minutes): 41
Labs: Labs Reviewed by me
--- NOTE | 2025-03-15 16:00 | PTCARENOTE ---
Systems reviewed. Assessment unchanged. Vent settings AC 18/450/.6/+5. Patient remains off levo.
[2025-03-15 17:42] LABS: Glucose - Point of Care 101 mg/dl (70-99)
--- NOTE | 2025-03-15 21:08 | PTCARENOTE ---
Assumed care of pt at 1900. Pt intubated, off sedation, off pressors. Vent settings AC 18/450/60/5 with SpO2 93-95%, AFib 70s on monitor. Pt opens eyes spontaneously and to voice, is able to track. Attempted to get pt to follow commands in both
[place] and [place] and pt unable to do so. Pupils are equal at 2mm/sluggishly reactive. Able to move all extremities but has not done anything purposeful. NIHSS done, pt scored 21, see stroke flowsheet on worklist for details. Assessment as
documented in nursing shift assessment flowsheet.
[2025-03-15 23:26] LABS: Glucose - Point of Care 111 mg/dl (70-99)
--- NOTE | 2025-03-16 00:15 | PTCARENOTE ---
Midnight assessment unchanged. CHG cloth bath done and all linens/gown changed at around 2300. AFib 70s on monitor.
[2025-03-16] MEDS: ZOSYN 50 IV ×2 (02:07→07:36)
[2025-03-16] MEDS: SUBLIMAZE 50 MCG IV ×2 (02:52→06:19)
[2025-03-16 04:02] VITALS: BMI 39.2
--- NOTE | 2025-03-16 04:03 | PTCARENOTE ---
Assessment unchanged except pt is more alert, still does not follow commands but eyes are open most of the time, pt has been moving her RUE frequently, at one point appeared to be reaching for the ETT, was able to flex her arm but not quite able to
reach up to the tube. Pt has been biting the ETT frequently, bite block placed by RT. AFib 60s-70s on monitor. BP soft, 90s/50s, but maintaining SBP goal >90.
[2025-03-16 04:27] LABS: Hematocrit 21.2 % (37.0-47.0); Hemoglobin 7.0 g/dL (12.0-16.0); Mean Corp Hgb Conc. 32.5 g/dL (33.0-37.0); Mean Corpuscular Volume 95.9 fL (81.0-99.0); Nucleated Red Blood Cells % 0.2 %; Platelet Count 53 10^3/uL (130-400); Red Cell Dist. Width 18.9 % (11.5-14.5)
[2025-03-16 04:41] LABS: ALT (SGPT) 33 U/L (0-35); AST (SGOT) 41 U/L (14-36); Albumin 2.3 g/dl (3.5-5.0); Alkaline Phosphatase 229 U/L (38-126); Blood Urea Nitrogen 36 mg/dl (7-17); Calcium 7.9 mg/dl (8.4-10.2); Carbon Dioxide 25 mmol/L (22-30); Chloride 111 mmol/L (98-107); Estimated Creatinine Clearance 42 ml/min; Glucose 95 mg/dl (70-99); Potassium 2.9 mmol/L (3.5-5.1); Sodium 140 mmol/L (135-145); Total Protein 5.1 g/dl (6.3-8.2); eGFR 46.33
[2025-03-16] MEDS: SOLU-CORTEF 50 MG IV (05:02)
[2025-03-16] MEDS: SYNTHROID 75 MCG TUBE (05:03)
[2025-03-16] MEDS: KCL 270 MEQ IV (05:41)
[2025-03-16] MEDS: KCL ELIXIR 40 MEQ TUBE (06:01)
[2025-03-16 06:20] LABS: Glucose - Point of Care 118 mg/dl (70-99)
[2025-03-16] MEDS: ZOLOFT 25 MG TUBE (07:35)
[2025-03-16] MEDS: LOW STRENGTH ASPIRIN 81 MG TUBE (07:35)
[2025-03-16] MEDS: MIRALAX 17 GRAMS TUBE (07:35)
[2025-03-16] MEDS: NSS (PRESERVATIVE FREE) 10 ML IV (07:36)
[2025-03-16] MEDS: PROTONIX IV 40 MG IV (07:36)
--- NOTE | 2025-03-16 08:18 | W.PN.INTV ---
Today's Communication / Plan
Recommendations
Continue mechanical ventilation
Wean down FiO2
Hold further diuresis
Potassium being repleted
BMP 11 AM
Change antibiotics to ceftriaxone
Transfusion of 1 unit of packed red blood cells
Continue to follow CBC
If not intubated start tube feedings
Will attempt a spontaneous breathing trial today.
Assessment
-
79-year-old woman with past medical history noted. This reported that about 3 days ago had a choking event at the [facility]. Blood pressure been running low.
Sent to the emergency room after found with change in mental status and hypoxemia. Patient to the emergency room hypotensive requiring vasopressors despite IV fluid resuscitation. Patient required BiPAP therapy due to acute hypercapnic respiratory
failure. Transferred to the critical care unit 03/13/2025 for further care.
Acute on chronic hypercapnic respiratory failure-requiring BiPAP therapy
ABG 7.
Severe aspiration pneumonia: Patient choked on food about 3 days ago
Chest x-ray: Right upper lobe and right lower lobe infiltrate.
Septic shock
Acute kidney injury-suspect prerenal-hypotensive insult.
Abnormal LFT
? Previous low random cortisol level
Normocytic anemia
Other medical diagnoses:
Chronic hypercapnic respiratory failure-likely undiagnosed obstructive sleep apnea/obesity hypoventilation syndrome
Atrial fibrillation-on anticoagulation diagnosed 01/2025
ECHO 09/2024: Normal biventricular size and systolic function without regional wall motion abnormality. Estimated LVEF 55-60%. No significant valve disease.
History of endometrial carcinoma status post resection 01/2025
Hypothyroidism
Hypertension
Anxiety/depression
Dementia
Morbid obesity, BMI 45
PACs/sinus bradycardia, 1st degree AVB
Assessment and plan:
Critically ill-respiratory failure, shock, acute kidney injury. Due to likely aspiration pneumonia. Witnessed aspiration event at the [facility] about 3 days prior to admission.
-
Septic shock secondary to above.
Septic shock resolved.
Normal TSH on admission
Levophed has been weaned off 03/15/2025
Kidney function is stable-improved
Adequate urinary output
Fluid balance -1156 mL(patient received Lasix twice 20 mg yesterday)
Continue to monitor for fluid overload.
FiO2 improved down to 50%.
Lactic acid has cleared
Continue to follow urinary output.
Will continue with intermittent diuresis.
-
Interestingly, during last hospital stay random cortisol level was low. Cosyntropin stim test was performed and response was partially blunted.
Agree with IV corticosteroids for now. Treat relative adrenal insufficiency in the setting of shock.
Received initial hydrocortisone for 2 days. Now discontinued as shock resolved.
Continue to observe
-
Follow LFTs-suspect hypotensive insult-improved
-
Continue antibiotics to cover for pneumonia.
Sputum with Klebsiella pneumonia-sensitive to ceftriaxone.
Discontinue Zosyn, start ceftriaxone 03/16/2025.
Blood culture x 1 Staph species-possibly contaminant --->repeat blood cultures today 03/16/2025
-
Afebrile
Now with leukocytosis 17,000-possibly steroid effect.
Antibiotics as above
MRSA screening negative
Negative Legionella and Streptococcus urinary antigen
Blood cultures negative so far
Negative influenza
Legionella and strep antigens were sent will follow
COVID-negative
-
Acute respiratory failure-hypercapnic/hypoxemic requiring mechanical intubation 03/13/2025
Failed BiPAP-poor mental status
Continue current mechanical ventilation without change
ABG (03/14/2025)-7.4/36/120
ABG 03/15/2025: 7.40 3/34/85
Initial chest x-ray with significant right upper lobe infiltrate-ET tube with secretions.
Now the patient is more alert will attempt a spontaneous breathing trial today. If stable ABG after 40 minutes
Repeat chest x-ray 03/16/2025.
-
Patient has been off sedation since 03/14/2025.
This morning opening eyes, trying to chew the tube. Not following commands. Patient does have underlying advanced dementia.
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
Continue to hold sedation
CT of the head ordered by me 03/15/2025, reviewed showed nonspecific 13 mm hypodensity within the left basal ganglia/mcmahan radiata which may represent subacute infarct. New compared to CAT scan from 01/16/2025. Unchanged moderate chronic white
matter disease.
Continue low-dose aspirin
Apixaban on hold due to anemia
-
Follow hemoglobin-patient does have chronic anemia
No evidence for bleeding
Heme stools here negative
Hemoglobin continues to drift down now at 7 g/dL 03/16/2025.
Will transfuse-medical necessity. I personally called and also Dr. Martinez try to reach the guardian unsuccessfully.
Continue to hold anticoagulation.
-
Atrial fibrillation-on anticoagulation.
Will restart anticoagulation depending on hemoglobin stability
-
Hypokalemia: IV KCl has been ordered
Repeat BMP 11 AM.
No further diuresis of the potassium is correct
-
N.p.o.
NG tube in place
If not extubated will start tube feedings today
-
DVT prophylaxis-to restart anticoagulation
-
Patient is full code
Prognosis guarded
Dr. Wood call guardian over the phone 03/13/2025, 03/15/2025 for update. Left a voice message. Waiting for callback.
-
Unfortunately poor prognosis, possible new CVA. On top of underlying dementia. Mental status has not improved.
Continue supportive care
Will attempt to call guardian again when able.
-
Critical care statement: A total of 45 minutes of critical care time was provided for this patient today. This includes management of unstable vital signs, evaluation of the patient at bedside, reviewing the patient's pertinent medical records
including ventilator settings, arterial blood gases, radiographs, microbiology, laboratory evaluations and discussion with primary team, critical care nursing, and respiratory therapy.
Subjective Dataa
Subjective Data
Date of Service:
Date of Service: March 16, 2025
Chief Complaint: Examiner Rating Clerk Follow Up (Acute respiratory failure-septic shock), Pneumonia Follow Up and Vent Management Follow Up
Subjective:
Remains on mechanical ventilation.
This morning opening eyes
Chewing the ET tube
Not following commands-unclear if baseline.
Review of Systems
General: Other (Intubated/mechanical ventilator)
Objective Data
Data Reviewed
Vital Signs / I&O / Oxygen:
Vital Signs
Temp Pulse Resp BP Pulse Ox
99.1 F 82 18 112/63 93
03/16/25 07:06 03/16/25 07:00 03/16/25 07:00 03/15/25 08:36 03/16/25 08:00
Intake and Output
03/15/25 03/16/25 03/17/25
06:59 06:59 06:59
Intake Total 2554.45 / 2638.25 869.5 / 869.5 100 / 100
Output Total 1110 / 1140 1830 / 1870 80 / 80
Balance 1444.45 / 1498.25 -960.5 / -1000.5 20 / 20
SaO2 [A/C] 95
SaO2 93
Physical Exam
General: Comfortable
HEENT: Normocephalic
Cardiovascular: S1-S2
Respiratory: Non-Labored Respirations and ET Tube (Yellow thick secretion intermittent)
GI: Soft and Non Distended
Neurology: Other (Not opening eyes, overbreathing the ventilator. Chewing the ET tube. Not following commands.)
Skin: Warm
Labs/Micro/Reports
Lab Data
03/16/25 04:07
03/16/25 04:07
Microbiology
03/13/25 08:07 Blood/Venous Blood Culture - Preliminary
No Growth in 72 hours- Final report to follow
03/13/25 08:27 Blood/Venous Blood Culture - Preliminary
Staphylococcus species
03/13/25 08:27 Blood/Venous Gram Stain - Preliminary
03/13/25 16:14 Sputum Respiratory Culture - Final
Klebsiella pneumoniae
03/13/25 16:14 Sputum Gram Stain - Final
03/13/25 16:14 Nose Nasal Screen MRSA (PCR) - Final
MRSA not detected - performed by PCR methodology.
03/13/25 16:14 Urine Legionella Urinary Antigen - Final
Negative for Legionella pneumophila Serogroup 1 antigen.
A negative result does not rule out the possiblity of
Legionella infection due to other serogroups or species of
Legionella. Clinical correlation is recommended.
03/13/25 16:14 Urine Streptococcus pneumoniae Antigen (M - Final
Negative for Streptococcus pneumoniae antigen.
A negative result does not exclude infection with
Streptococcus pneumoniae. Clinical correlation is
recommended.
03/13/25 08:07 Nasal Swab Influenza Types A & B (EMMA) - Final
Negative for Influenza A & B, NAAT
Negative results must be combined with clinical observations
and patient history.
Nucleic Acid Amplification test (NAAT)performed on the
[employer] platform.
[2025-03-16] MEDS: STERILE WATER FOR INJECTION 10 ML IV (09:13)
[2025-03-16] MEDS: ROCEPHIN 1000 MG IV (09:13)
[2025-03-16 11:38] LABS: Blood Urea Nitrogen 37 mg/dl (7-17); Calcium 7.9 mg/dl (8.4-10.2); Carbon Dioxide 25 mmol/L (22-30); Chloride 112 mmol/L (98-107); Estimated Creatinine Clearance 42 ml/min; Glucose 98 mg/dl (70-99); Magnesium 1.9 mg/dl (1.6-2.3); Potassium 4.0 mmol/L (3.5-5.1); Sodium 142 mmol/L (135-145); eGFR 46.33
[2025-03-16 11:39] LABS: Glucose - Point of Care 104 mg/dl (70-99)
--- NOTE | 2025-03-16 11:59 | PTCARENOTE ---
Pt remains on vent wean 5/5/50%, RR 20's, TV 200-300's, pox 95%. No changes in assessment.
[2025-03-16 13:00] VITALS: BP_SYST 150
--- NOTE | 2025-03-16 13:35 | W.PN.UPDATE ---
Update Note
Progress Note Update
I was able to get in touch with Veronica Vazquez guardian. Updated her on the clinical situation. I also asked for permission to transfuse her 1 unit of packed red blood cells.
Consent was obtained.
Will transfuse 1 unit packed red blood cells
A spontaneous breathing trial today. Hopefully extubation
--- NOTE | 2025-03-16 13:49 | W.PN.HOSP.TC ---
Today's Communication/Plan
-
continue IV abx
extubation
start TFs
AM labs
POA updated by ICU team
Assessment / Plan
Assessment / Plan
Assessment:
Septic shock present on arrival
- leukopenia, tachypnea, shock state requiring pressors
- Levophed weaned off 03/15
- sepsis protocol IVF and trend lactate levels to normal
- s/p stress dose steroid course
- ICU managing
Suspected aspiration pneumonia (witness aspiration event 3 days ago at [facility])
- CXR: new large area of dense opacification in the right upper lobe and there is some additional patchy opacification in the right lower lung
- continue day 4 of antibiotics; Rocephin
- sputum culture: Klebsiella
- strep/legionella neg
Acute hypoxic respiratory failure on BiPAP, later required intubation for airway protection
Underlying concern of undiagnosed OHS vs [facility]
- initial ABG on BIPAP without evidence of acidosis/hypercapnia
- intubated 03/13; extubated 03/16 to Hi-Flow
- likely will need HS BiPAP going forward; outpatient sleep study
Subacute CVA
- CT: nonspecific 13 mm hypodensity within the left basal ganglia/mcmahan radiata which may represent subacute infarct
- continue ASA
SAYDA in setting of sepsis
- continue IVF; follow labs
Hyperkalemia
- now with hypokalemia - replete prn
Staph bacteremia
- likely contaminant
History of stage 1 endometrial cancer
- s/p Robotic�assisted�laparoscopy�hysterectomy�with BSO�and�sentinel�lymph�node�bx on 01/15/25
Afib, parox
- holding Eliquis until anemia stabilized
- not on rate control meds
Anxiety/Depression
- hold Zoloft
Hypothyroidism - hold Synthroid
Essential HTN
- not on BP meds
Acute anemia of critical illness on chronic anemia
- monitor Hb; 1 unit PRBC today
DVT ppx: Lovenox
Code: Full, confirmed with ANCELMO Martin
Total Critical Care Time 41 minutes. I was immediately available to the patient and staff. I personally examined, reviewed labs, diagnostic images/reports, interpretations, treatment plans, discussed patient care with other providers and family or
caregivers (if patient is unable to make decisions), entered orders as appropriate and documented the medical record.
Anticipated Discharge: > 48 hours
Subjective/Interval History
-
Date of Service: March 16, 2025
open eyes and chewing on ET tube
no yet following commands
on SBT
Objective Data
-
Labs:
Laboratory Results
03/16/25 03/16/25 03/16/25
04:07 11:03 13:35
WBC 17.1 H
Hgb 7.0 L
Hct 21.2 L
Plt Count 53 L D
HCO3 Pending
Sodium 140 142
Potassium 2.9 L 4.0 D
Chloride 111 H 112 H
Carbon Dioxide 25 25
BUN 36 H 37 H
Creatinine 1.2 H 1.2 H
Glucose 95 98
Calcium 7.9 L 7.9 L
Total Bilirubin 3.2 H
AST 41 H
ALT 33
Alkaline Phosphatase 229 H
Vital Signs:
Vital Signs
Temp Pulse Resp BP Pulse Ox
99.6 F 79 24 112/63 95
03/16/25 11:04 03/16/25 11:00 03/16/25 11:00 03/15/25 08:36 03/16/25 11:55
I&O
03/15/25 03/16/25 03/17/25
06:59 06:59 06:59
Intake Total 2554.45 / 2638.25 869.5 / 869.5 100 / 100
Output Total 1110 / 1140 1830 / 1870 260 / 260
Balance 1444.45 / 1498.25 -960.5 / -1000.5 -160 / -160
Physical Exam
-
General: No Apparent Distress and Intubated
HEENT: Normocephalic and Atraumatic
Respiratory: Negative Wheezes
Cardiac: Regular Rhythm and S1/S2
Genito-urinary: No Costovertebral Tender
Neuro: Awake
Psych: Calm
Data Reviewed
-
Critical Care Time (in minutes): 41
Labs: Labs Reviewed by me
[2025-03-16 14:05] LABS: B.E. -0.6 mmol/L; HCO3 24.2 mmol/L (21-28); O2 Saturation % 97.6 % (94-98); PCO2 39 mmHg (32-35); PO2 104 mmHg (83-108)
[2025-03-16 14:06] LABS: O2 Therapy 40%
[2025-03-16] MEDS: LASIX 20 MG IV (14:59)
--- NOTE | 2025-03-16 15:32 | PTCARENOTE ---
Addendum entered by Harriett Gama RN 03/16/25 15:37:
1500-20mg IV Lasix given
Original Note:
ABG resulted to Dr. Wood. 1420-pt extubated to 15L Midflow. Pt with frequent coarse cough, desaturating to 84-87%, requiring oropharyngeal suctioning. Lungs coarse/rhonchi. SBP dropping into 80's. Dr. Wood notified. Pt placed on HFNC, pox
100%, SBP up to 130-140's. Pt appears calmer, no longer coughing. Pt remains nonverbal at this time, occasionally makes eye contact. Does not follow commands, GALLAGHER.
[2025-03-16 15:53] VITALS: BP 140/66
[2025-03-16 16:12] VITALS: BP 146/70
[2025-03-16 18:01] LABS: Glucose - Point of Care 90 mg/dl (70-99)
[2025-03-16 18:12] VITALS: BP 132/67
--- NOTE | 2025-03-16 18:13 | PTCARENOTE ---
1 unit PRBCs transfused.
--- NOTE | 2025-03-16 20:00 | PTCARENOTE ---
Received pt resting in bed, nonverbal, not following commands. GALLAGHER but weak throughout. NIH = 18 but difficult to assess due to mentation. Afib on tele, HR 70-80s. L radial A line transducing. BP 120-140s/70s. +3 UE, +2 LE edema. Weak DP pulses.
Temp 99.0 core. SCDs maintained. On HF NC 50L/50%. Lungs coarse with rhonchi throughout. Round abd. + bowel sounds. NPO. Smear of BM when turning. Temp sensing falk draining yellow urine. Bathed with CHG, falk + mouth care provided.
--- NOTE | 2025-03-16 20:45 | PTCARENOTE ---
Addendum entered by Isis Jha RN 03/16/25 21:24:
Decreased to 50L/80% as sats were maintaining 98%.
Original Note:
Pt. with very weak moist cough, unable to clear any secretions. Desatting to 83% on HF NC 50L/50%. Oropharyngeal suctioned for thick, white sputum. RT to bedside. Increased to 50L/100%. Spo2 now 97%. SUPERVISOR ROD PLACING aware.
[2025-03-16 23:07] LABS: B.E. 0.8 mmol/L; HCO3 26.0 mmol/L (21-28); O2 Saturation % 97.6 % (94-98); PCO2 43 mmHg (32-35); PO2 77 mmHg (83-108)
[2025-03-16] MEDS: MORPHINE SULFATE 1 MG IV (23:14)
--- NOTE | 2025-03-16 23:58 | PTCARENOTE ---
Addendum entered by Isis Jha RN 03/17/25 00:47:
Desatting to 88%. Increased to 75% fio2 by RT.
Original Note:
Pt with increased work of breathing, using accessory muscles. RR high 20s-30. Spo2 96% on HF 50L/80%. ABG sent. MONEY ROOM SUPERVISOR at bedside. 1mg morphine ordered. RT to bedside to place on NIV - 19/01 with 60% fio2. Spo2 95%.
[2025-03-17] LABS: Glucose - Point of Care 81 mg/dl (70-99)
[2025-03-17 04:03] LABS: B.E. 1.5 mmol/L; HCO3 26.6 mmol/L (21-28); O2 Saturation % 95.3 % (94-98); PCO2 43 mmHg (32-35); PO2 69 mmHg (83-108)
[2025-03-17 04:19] LABS: Hematocrit 28.9 % (37.0-47.0); Hemoglobin 9.2 g/dL (12.0-16.0); Mean Corp Hgb Conc. 31.8 g/dL (33.0-37.0); Mean Corpuscular Volume 94.4 fL (81.0-99.0); Nucleated Red Blood Cells % 0.4 %; Platelet Count 81 10^3/uL (130-400); Red Cell Dist. Width 19.7 % (11.5-14.5)
[2025-03-17 04:31] LABS: ALT (SGPT) 39 U/L (0-35); AST (SGOT) 40 U/L (14-36); Albumin 2.8 g/dl (3.5-5.0); Alkaline Phosphatase 407 U/L (38-126); Blood Urea Nitrogen 36 mg/dl (7-17); Calcium 8.3 mg/dl (8.4-10.2); Carbon Dioxide 25 mmol/L (22-30); Chloride 112 mmol/L (98-107); Estimated Creatinine Clearance 42 ml/min; Glucose 76 mg/dl (70-99); Potassium 3.0 mmol/L (3.5-5.1); Sodium 146 mmol/L (135-145); Total Protein 6.0 g/dl (6.3-8.2); eGFR 46.33
[2025-03-17] MEDS: SYNTHROID TUBE (05:36)
--- NOTE | 2025-03-17 05:47 | PTCARENOTE ---
Assumed care of pt. 0300.
Remains on NIV. tolerating therapy, repeat ABG results reviewed w. provider no changes at this time.
Hemodynamically stable, Normothermic, Normotensive via central pressures. Afib rate controlled.
Euglycemic, adequate urine OP via falk.
Anicteric sclera, partial gaze, pupils 5mm B/L, does not follow commands, see neuro flowsheet for further details.
[2025-03-17 05:58] VITALS: BMI 39.3
[2025-03-17] MEDS: KCL 270 MEQ IV ×2 (06:06→14:12)
[2025-03-17] MEDS: PROTONIX IV 40 MG IV (07:33)
[2025-03-17] MEDS: NSS (PRESERVATIVE FREE) 10 ML IV (07:33)
[2025-03-17] MEDS: LOW STRENGTH ASPIRIN TUBE (07:39)
[2025-03-17] MEDS: MIRALAX TUBE (07:39)
[2025-03-17] MEDS: ZOLOFT TUBE (07:39)
[2025-03-17] MEDS: ROCEPHIN 1000 MG IV (09:35)
[2025-03-17] MEDS: STERILE WATER FOR INJECTION 10 ML IV (09:35)
--- NOTE | 2025-03-17 10:02 | W.PN.INTV ---
Today's Communication / Plan
Recommendations
Continue noninvasive mechanical ventilation for now
Hopefully if mental status improved can take a break later
Head of the bed elevation
Aspiration
Hold anticoagulation for next 24 hours-if hemoglobin stable tomorrow restart
Hold on NG tube placement as the patient has been noninvasive mechanical ventilation dependent since extubation
Potassium repleted-repeat later
ABG in the morning
Chest x-ray in the morning
Poor prognosis
Assessment
-
79-year-old woman with past medical history noted. This reported that about 3 days ago had a choking event at the long-term care facility. Blood pressure been running low.
Sent to the emergency room after found with change in mental status and hypoxemia. Patient to the emergency room hypotensive requiring vasopressors despite IV fluid resuscitation. Patient required BiPAP therapy due to acute hypercapnic respiratory
failure. Transferred to the critical care unit 03/13/2025 for further care.
Acute on chronic hypercapnic respiratory failure-requiring BiPAP therapy subsequent intubation.
ABG 7.2678
- Extubated 03/16/2025
Severe aspiration pneumonia: Patient choked on food about 3 days ago
Chest x-ray: Right upper lobe and right lower lobe infiltrate.
Septic shock
Acute kidney injury-suspect prerenal-hypotensive insult.
Toxic metabolic encephalopathy on dementia
Abnormal LFT
? Previous low random cortisol level
Normocytic anemia
Other medical diagnoses:
Chronic hypercapnic respiratory failure-likely undiagnosed obstructive sleep apnea/obesity hypoventilation syndrome
Atrial fibrillation-on anticoagulation diagnosed 01/2025
ECHO 09/2024: Normal biventricular size and systolic function without regional wall motion abnormality. Estimated LVEF 55-60%. No significant valve disease.
History of endometrial carcinoma status post resection 01/2025
Hypothyroidism
Hypertension
Anxiety/depression
Dementia
Morbid obesity, BMI 45
PACs/sinus bradycardia, 1st degree AVB
Assessment and plan:
Critically ill-respiratory failure, shock, acute kidney injury. Due to likely aspiration pneumonia. Witnessed aspiration event at the care home about 3 days prior to admission.
-
Septic shock resolved
Normal TSH on admission
Levophed has been weaned off 03/15/2025
Kidney function is stable-improved
Adequate urinary output
Fluid balance -1156 mL 1011 2024/-1.8 L 03/17/2025.(Received 1 dose of Lasix 20 mg daily as needed)
Continue to monitor for fluid overload.
-
Interestingly, during last hospital stay random cortisol level was low. Cosyntropin stim test was performed and response was partially blunted.
Agree with IV corticosteroids for now. Treat relative adrenal insufficiency in the setting of shock.
Received initial hydrocortisone for 2 days. Now discontinued as shock resolved.
Continue to observe
-
Follow LFTs-suspect hypotensive insult-improved
-
Continue antibiotics to cover for pneumonia.
Sputum with Klebsiella pneumonia-sensitive to ceftriaxone.
Discontinue Zosyn, start ceftriaxone 03/16/2025-will complete total of 7 days.
Blood culture x 1 Staph species-possibly contaminant --->repeat blood cultures today 03/16/2025
-
Afebrile
Leukocytosis persistent---> remains afebrile.
Antibiotics as above
MRSA screening negative
Negative Legionella and Streptococcus urinary antigen
Negative influenza
Legionella and strep antigens were sent will follow
COVID-negative
-
Acute respiratory failure-hypercapnic/hypoxemic requiring mechanical intubation 03/13/2025
Failed BiPAP-poor mental status
Extubated 03/16/2025.
Initial chest x-ray with significant right upper lobe infiltrate.
Chest x-ray 03/16/2025: Persistent bilateral infiltrates. Bilateral trace pleural effusion.
-
Unfortunately due to her poor mental status-suspect delirium on dementia.
Patient was placed on noninvasive mechanical ventilation
Continue for now
Repeat ABG in the morning
Will attempt to take a break from noninvasive mechanical ventilation to high flow oxygen at some point.
Will keep n.p.o. for now
Head of the bed elevated
High risk for reintubation.
-
Patient has been off sedation since 03/14/2025.
Patient has underlying severe dementia
Now likely has hypoactive delirium as well.
CT of the head ordered by me 03/15/2025, reviewed showed nonspecific 13 mm hypodensity within the left basal ganglia/mcmahan radiata which may represent subacute infarct. New compared to CAT scan from 01/16/2025. Unchanged moderate chronic white
matter disease.
-
Continue low-dose aspirin
Apixaban on hold due to anemia
-
Follow hemoglobin-patient does have chronic anemia
No evidence for bleeding
Heme stools here negative
Hemoglobin continues to drift down now at 7 g/dL 03/16/2025.
Status post transfusion 03/16/2025
Consent obtained from guardian by Dr. Wood
Hemoglobin 03/17/2025 improved.
If remains stable in 24 hours restart anticoagulation
-
Atrial fibrillation-on anticoagulation.
Will restart anticoagulation depending on hemoglobin stability in the next 24 hours. If still n.p.o. and unable to place enteral route
-
Hypokalemia: IV KCl has been ordered
Hypokalemia likely post diuresis.
Repeat BMP later and will replete as necessary.
-
N.p.o.
There is no enteral access
If remains on noninvasive mechanical ventilation we may need to attempt to place an NG tube.
Hold IV fluids, at risk for volume overload.
-
DVT prophylaxis-SCD -if unable to restart anticoagulation in the next 24 hours will start pharmacological prophylaxis.
-
Patient is full code
Prognosis guarded
Dr. Wood call guardian over the phone 03/13/2025, 03/15/2025 for update. Left a voice message. Waiting for callback.
Dr. Wood updated guardian on 03/16/2025 regarding current situation. Remains full code for now.
-
Unfortunately poor prognosis, possible new CVA. On top of underlying dementia. Mental status has not improved.
Continue supportive care
-
Critical care statement: A total of 39 minutes of critical care time was provided for this patient today. This includes management of unstable vital signs, evaluation of the patient at bedside, reviewing the patient's pertinent medical records
including ventilator settings, arterial blood gases, radiographs, microbiology, laboratory evaluations and discussion with primary team, critical care nursing, and respiratory therapy.
Subjective Dataa
Subjective Data
Date of Service:
Date of Service: March 17, 2025
Chief Complaint: Stuffed Casing Tier Follow Up (Acute respiratory failure-septic shock), Pneumonia Follow Up and Vent Management Follow Up
Subjective:
Currently on noninvasive mechanical ventilation
Will open eyes to verbal stimuli
Review of Systems
General: Other (Unable to obtain due to mental status)
Objective Data
Data Reviewed
Vital Signs / I&O / Oxygen:
Vital Signs
Temp Pulse Resp BP Pulse Ox
98.2 F 80 23 132/67 92
03/17/25 07:03 03/17/25 08:00 03/17/25 08:00 03/16/25 18:12 03/17/25 08:00
Intake and Output
03/16/25 03/17/25 03/18/25
06:59 06:59 06:59
Intake Total 869.5 / 869.5 350 / 417.5 135.0 / 135.0
Output Total 1830 / 1870 2185 / 2245 120 / 120
Balance -960.5 / -1000.5 -1835 / -1827.5 15.0 / 15.0
SaO2 [NIV (Non Invasive 92
Ventilation)]
SaO2 [CPAP/PSV] 95
SaO2 [A/C] 95
SaO2 91
Nasal Cannula flow liters per 50
minute
Physical Exam
General: Comfortable
HEENT: Normocephalic
Cardiovascular: S1-S2
Respiratory: Non-Labored Respirations and Other (On noninvasive mechanical ventilation)
GI: Soft and Non Distended
Neurology: Other (Open eyes with verbal stimuli. Not following commands. Somnolent)
Skin: Warm
Labs/Micro/Reports
Lab Data
03/17/25 03:47
Laboratory Results
03/16/25 03/16/25 03/17/25
13:51 23:02 03:47
pH 7.40 7.39 7.40
pCO2 39 H 43 H 43 H
pO2 104 77 L 69 L
HCO3 24.2 26.0 26.6
O2 Delivery Level 40%
Microbiology
03/13/25 08:27 Blood/Venous Blood Culture - Preliminary
Coagulase neg. staphylococcus
Additional testing on request
03/13/25 08:27 Blood/Venous Gram Stain - Preliminary
03/13/25 08:07 Blood/Venous Blood Culture - Preliminary
No Growth in 4 days- Final report to follow
03/13/25 16:14 Sputum Respiratory Culture - Final
Klebsiella pneumoniae
03/13/25 16:14 Sputum Gram Stain - Final
[2025-03-17] MEDS: DESENEX/MITRAZOL/ZEASORB 1 APPLIC TOPICAL ×2 (12:04→21:26)
--- NOTE | 2025-03-17 12:26 | PTCARENOTE ---
Pt remains on NIV, pox 92-95%, desaturates at times with repositioning into mid 80's. Weak cough, frequent mouth care. Opens eyes to verbal stimuli, nonverbal, not following commands. GALLAGHER with gen weakness, lifts arms from bed. Incont for multiple
loose/soft brown BM. Pericare/partial baths completed.
[2025-03-17 12:51] LABS: Glucose - Point of Care 92 mg/dl (70-99)
--- NOTE | 2025-03-17 13:03 | W.PN.HOSP.TC ---
Today's Communication/Plan
-
NIV mech vent with breaks for Hi-raya
IV Abx
hold off TFs while on NIV mech
prognosis poor
Assessment / Plan
Assessment / Plan
Assessment:
Septic shock present on arrival
- leukopenia, tachypnea, shock state requiring pressors
- Levophed weaned off 03/15
- sepsis protocol IVF and trend lactate levels to normal
- s/p stress dose steroid course
- ICU managing
Suspected aspiration pneumonia (witness aspiration event 3 days ago at [facility])
- CXR: new large area of dense opacification in the right upper lobe and there is some additional patchy opacification in the right lower lung
- continue day 10/10 of antibiotics; Rocephin
- sputum culture: Klebsiella
- strep/legionella neg
Acute hypoxic respiratory failure on BiPAP, later required intubation for airway protection
Underlying concern of undiagnosed OHS vs JC
- initial ABG on BIPAP without evidence of acidosis/hypercapnia
- intubated 03/13; extubated 03/16 to NIV mechanical ventilation
- likely will need HS BiPAP going forward; outpatient sleep study
Subacute CVA
- CT: nonspecific 13 mm hypodensity within the left basal ganglia/mcmahan radiata which may represent subacute infarct
- continue ASA
TME in setting of acute illness on top of dementia
SAYDA in setting of sepsis
- continue IVF; follow labs
Hyperkalemia
- now with hypokalemia - replete prn
Staph bacteremia
- likely contaminant
History of stage 1 endometrial cancer
- s/p Robotic�assisted�laparoscopy�hysterectomy�with BSO�and�sentinel�lymph�node�bx on 01/15/25
Afib, parox
- holding Eliquis until anemia stabilized; possible resume Tuesday
- not on rate control meds
Anxiety/Depression
- hold Zoloft
Hypothyroidism - hold Synthroid
Essential HTN
- not on BP meds
Acute anemia of critical illness on chronic anemia
- s/p 1 unit PRBC; Hb
DVT ppx: Lovenox
Code: Full, confirmed with ANCELMO Veraara
Total Critical Care Time 41 minutes. I was immediately available to the patient and staff. I personally examined, reviewed labs, diagnostic images/reports, interpretations, treatment plans, discussed patient care with other providers and family or
caregivers (if patient is unable to make decisions), entered orders as appropriate and documented the medical record.
Anticipated Discharge: > 48 hours
Subjective/Interval History
-
Date of Service: March 17, 2025
now on noninvasive mech ventilation
opens eyes to stimuli but when sleeping has shallow breaths
Objective Data
-
Labs:
Laboratory Results
03/17/25 03/17/25
03:47 13:00
WBC 19.3 H
Hgb 9.2 L D
Hct 28.9 L
Plt Count 81 L D
HCO3 26.6
Sodium 146 H Pending
Potassium 3.0 L Pending
Chloride 112 H Pending
Carbon Dioxide 25 Pending
BUN 36 H Pending
Creatinine 1.2 H Pending
Glucose 76 Pending
Calcium 8.3 L Pending
Total Bilirubin 2.7 H
AST 40 H
ALT 39 H
Alkaline Phosphatase 407 H
Vital Signs:
Vital Signs
Temp Pulse Resp BP Pulse Ox
98.6 F 83 29 132/67 95
03/17/25 11:05 03/17/25 11:00 03/17/25 11:00 03/16/25 18:12 03/17/25 11:32
I&O
03/16/25 03/17/25 03/18/25
06:59 06:59 06:59
Intake Total 869.5 / 869.5 350 / 417.5 135.0 / 135.0
Output Total 1830 / 1870 2185 / 2245 310 / 310
Balance -960.5 / -1000.5 -1835 / -1827.5 -175.0 / -175.0
Physical Exam
-
General: No Apparent Distress
HEENT: Normocephalic and Atraumatic
Respiratory: Negative Wheezes
Cardiac: Regular Rhythm and S1/S2
Neuro: Awake
Psych: Calm
Data Reviewed
-
Critical Care Time (in minutes): 41
Labs: Labs Reviewed by me
[2025-03-17 13:50] LABS: Blood Urea Nitrogen 33 mg/dl (7-17); Calcium 8.4 mg/dl (8.4-10.2); Carbon Dioxide 28 mmol/L (22-30); Chloride 112 mmol/L (98-107); Estimated Creatinine Clearance 46 ml/min; Glucose 92 mg/dl (70-99); Magnesium 1.9 mg/dl (1.6-2.3); Potassium 3.3 mmol/L (3.5-5.1); Sodium 145 mmol/L (135-145); eGFR 51.43
--- NOTE | 2025-03-17 14:15 | PTCARENOTE ---
Repeat labs K+3.3, Dr. Martinez notified. 40meq KCL IVPB ordered and infusing at this time. No changes in assessment.
[2025-03-17 18:38] LABS: Glucose - Point of Care 78 mg/dl (70-99)
--- NOTE | 2025-03-17 21:26 | PTCARENOTE ---
Assumed care of pt. 1900.
Remains on NIV, episode of desaturation --> RT called bedside, placed on 100 fi02 briefly, recovered and fi02 decreased back to 70% per RT.
Remains hemodynamically stable, normotensive via central access pressures, Normothermic core temps, afib rate controlled minimal to no ectopy.
Anicteric sclera, does not follow commands, does not track, pain W/D in all extrem, protective reflexes intact. arousable to tactile stimulation. ICU PEYMAN notified.
[2025-03-17 23:56] LABS: B.E. 2.4 mmol/L; HCO3 27.8 mmol/L (21-28); O2 Saturation % 97.5 % (94-98); PCO2 46 mmHg (32-35); PO2 74 mmHg (83-108)
--- NOTE | 2025-03-18 01:48 | PTCARENOTE ---
*0000*
Pt. only responsive to sternal rub, ICU PEYMAN notified --> orders for STAT ABG.
- ABG results reviewed with ICU PEYMAN, unremarkable.
[2025-03-18 04:13] LABS: B.E. 1.4 mmol/L; HCO3 26.6 mmol/L (21-28); O2 Saturation % 95.3 % (94-98); PCO2 44 mmHg (32-35); PO2 70 mmHg (83-108)
[2025-03-18] MEDS: SYNTHROID TUBE (04:26)
--- NOTE | 2025-03-18 04:28 | PTCARENOTE ---
No changes with patient assessment.
[2025-03-18 04:43] LABS: Hematocrit 27.4 % (37.0-47.0); Hemoglobin 8.6 g/dL (12.0-16.0); Mean Corp Hgb Conc. 31.4 g/dL (33.0-37.0); Mean Corpuscular Volume 97.2 fL (81.0-99.0); Nucleated Red Blood Cells % 0.4 %; Platelet Count 85 10^3/uL (130-400); Red Cell Dist. Width 19.7 % (11.5-14.5)
[2025-03-18 04:44] LABS: ALT (SGPT) 29 U/L (0-35); AST (SGOT) 28 U/L (14-36); Albumin 2.5 g/dl (3.5-5.0); Alkaline Phosphatase 351 U/L (38-126); Blood Urea Nitrogen 31 mg/dl (7-17); Calcium 8.6 mg/dl (8.4-10.2); Carbon Dioxide 26 mmol/L (22-30); Chloride 116 mmol/L (98-107); Estimated Creatinine Clearance 50 ml/min; Glucose 94 mg/dl (70-99); Potassium 3.6 mmol/L (3.5-5.1); Sodium 149 mmol/L (135-145); Total Protein 5.6 g/dl (6.3-8.2); eGFR 57.66
[2025-03-18] MEDS: D5W 1000 IV (05:35)
[2025-03-18] MEDS: KCL 270 MEQ IV (05:50)
[2025-03-18 06:00] VITALS: BMI 38.6
[2025-03-18] MEDS: DESENEX/MITRAZOL/ZEASORB 1 APPLIC TOPICAL ×2 (07:57→20:29)
[2025-03-18] MEDS: NSS (PRESERVATIVE FREE) 10 ML IV (08:01)
[2025-03-18] MEDS: PROTONIX IV 40 MG IV (08:02)
--- NOTE | 2025-03-18 08:13 | W.PN.INTV ---
Today's Communication / Plan
Recommendations
- Intubated this morning, continue ventilation today
- Repeat ABG
- Pending repeat sputum culture from tracheal aspirate
- Pending blood culture
- Stop ceftriaxone; start broad-spectrum antibiotics vancomycin/cefepime
- Start 3-day course of 10 mg IV daily dexamethasone
- 500 mL LR fluids
- Labetalol 10mg q6hr PRN for systolic BP >170
- Precedex as needed
- Repeat head CT today
- Start tube feeds with Dobbhoff
- Subq heparin
Assessment
-
Patient is 71-year-old F with a PMH notable for HTN, likely JC, A-fib (on Eliquis), hypothyroidism, endometrial carcinoma (s/p resection 2024), anxiety/depression, and dementia who presented on 03/13 with hypoxia and hypotension following witnessed
aspiration event 3 days prior, found to have Klebsiella+ pneumonia, now s/p intubation 03/13-03/16), failed weaning from BiPAP, and reintubation on 03/18. Patient required pressors (Levophed) from 03/13-03/15 for presumed septic shock. Patient
received Zosyn, which was transitioned to ceftriaxone on 03/16.
[employer]ing [employer] consulted for management, plan/course as below.
#Acute hypoxic respiratory failure
Patient was intubated from 03/13 through 03/16 for hypercapnic respiratory failure on admission. Following extubation, patient was unable to be weaned from BiPAP. Reintubated on 03/18 AM.
Today: ABG prior to intubation with pH 7.39, pCO2 44, O2 70, bicarbonate 26.6. Vent settings: PEEP 8, VT 450 mL, RR 18, 100% oxygen. With PT 400 mL, P peak 41, P mean 15, minute volume 7.5.
- Continue ventilation, management per respiratory team
- Repeat ABG
#Hypertension
#Tachycardia
Today: Patient with systolic BP 180, MAP 131 approximately 1.5 hours s/p intubation. With HR 115.
- Labetalol 10mg q6hr PRN for systolic BP >170
- Continue to monitor; if BP remains elevated by this afternoon following intubation, consider starting longer acting BP medications standing
#Aspiration pneumonia, c/f superimposed hospital-acquired pneumonia
Patient with positive sputum culture from 03/13 demonstrating Klebsiella. Legionella negative, strep urinary antigen negative, COVID-negative, influenza negative. Blood culture X1 staph species, potential contaminant. Treated with course of
antibiotics (ceftriaxone) through 03/18. CXR on 03/18 with worsening consolidation as compared to prior. New left sided consolidation in addition to RLL pneumonia. Suggests progression of PNA despite presumed appropriate antibiotic coverage.
Perhaps a superimposed HAP vs. ongoing aspiration events.
Today: WBC downtrending (19.3> 13.0); afebrile
- Stop ceftriaxone
- Start broad-spectrum antibiotic coverage with vancomycin and cefepime
- Blood cultures pending
- Repeat sputum cultures from ETT
#AMS, lack of responsiveness
Patient with dementia at baseline. Hospital course was been complicated by depressed mental status/concern for toxic metabolic encephalopathy vs. hypoactive delirium vs. new infarct. CT head on 03/15: 'Nonspecific 13 mm hypodensity within LEFT
basal ganglia/mcmahan radiata which may represent a subacute infarct. This finding is new compared to the prior CT from 01/16/2025. Unchanged chronic white matter disease.'
Today: Patient unresponsive to stimuli approximately 1.5 hours following intubation (administration of rocuronium) without any sedation (no fentanyl, no propofol).
- Repeat head CT today
- Fentanyl bolus as needed
- Precedex as needed
#Low random cortisol level, presumed relative adrenal insufficiency
Random cortisol on 01/16/2025 of 2.7 (low). Response was partially blunted with cosyntropin stimulation test at that time. Patient was treated this admission for relative adrenal insufficiency in the setting of shock with IV hydrocortisone for 2
days.
-Start dexamethasone 10 mg of IV daily for 3 days
#Anemia
Patient with chronic anemia, hemoglobin fluctuating within somewhat low range. Normocytic. S/p transfusion 1 unit 03/16 due to hemoglobin of 7. No signs of acute bleeding source.
Today: Hemoglobin 7>9.2>8.6
- Continue to monitor
#SAYDA, resolved
Patient with SAYDA during earlier part of admission, now resolved s/p blood pressure control and fluids.
Today: Cr 1.2>1.1>1.0
- Continue to monitor
- 500cc LR bolus today
#Chronic
- Hypothyroid�continue home Synthroid
- A-fib -holding Eliquis
- CAD�low-dose aspirin
#Global
- DVT PPx: Subq heparin
- Diet: Dobbhoff tube in place; begin tube feeds today
- Code: Full
- Dispo: Continue ICU level care today
Subjective Dataa
Subjective Data
Date of Service:
Date of Service: March 18, 2025
Chief Complaint: Wallcovering Hanger Follow Up (Acute respiratory failure-septic shock), Pneumonia Follow Up and Vent Management Follow Up
Subjective:
Patient intubated this am and sedated. Being intubated at time of morning eval.
Review of Systems
General: Unobtainable - Sedation
Objective Data
Data Reviewed
Vital Signs / I&O / Oxygen:
Vital Signs
Temp Pulse Resp BP Pulse Ox
98.8 F 97 24 132/67 97
03/18/25 07:25 03/18/25 06:00 03/18/25 06:00 03/16/25 18:12 03/18/25 06:00
Intake and Output
03/17/25 03/18/25 03/19/25
06:59 06:59 06:59
Intake Total 350 / 417.5 747.5 / 817.5 70 / 70
Output Total 2185 / 2245 1000 / 1045 45 / 45
Balance -1835 / -1827.5 -252.5 / -227.5
SaO2 [NIV (Non Invasive 95
Ventilation)]
SaO2 [CPAP/PSV] 95
SaO2 [A/C] 95
SaO2 97
Nasal Cannula flow liters per 50
minute
Physical Exam
General: Respiratory Distress and Other (Somnolence/not arousable to stimuli)
HEENT: Normocephalic and Anicteric
Cardiovascular: S1-S2 and Regular Rhythm
Respiratory: Other (intubated)
GI: Soft and Non Distended
Neurology: Unresponsive (Not responsive to stimuli) and Other (sedated for intubation)
Skin: Warm
Labs/Micro/Reports
Lab Data
03/18/25 04:02
03/18/25 04:02
Laboratory Results
03/17/25 03/18/25
23:50 04:02
pH 7.39 7.39
pCO2 46 H 44 H
pO2 74 L 70 L
HCO3 27.8 26.6
O2 Delivery Level
Microbiology
03/13/25 08:27 Blood/Venous Blood Culture - Preliminary
Coagulase neg. staphylococcus
Additional testing on request
03/13/25 08:27 Blood/Venous Gram Stain - Preliminary
03/13/25 08:07 Blood/Venous Blood Culture - Preliminary
No Growth in 4 days- Final report to follow
03/13/25 16:14 Sputum Respiratory Culture - Final
Klebsiella pneumoniae
03/13/25 16:14 Sputum Gram Stain - Final
[2025-03-18] MEDS: LR 500 IV (08:30)
--- NOTE | 2025-03-18 08:30 | PTCARENOTE ---
Unable to wean off NIV. Pt remains lethargic. Decision was made to intubate patient. 30mg Etomidate and 100mg Rocuronium administered via RAC PIV. Document Examiner at bedside Dr. Mix. Patient intubated #8 ETT 21 cm @ lip. Bilateral breath sounds
equal. ET02 positive color change. Sp02 99-100%. Placed on vent per animal care provider. DHT placed to right nare w/o issue. CXR to confirm placement.
[2025-03-18] MEDS: SUBLIMAZE 50 MCG IV ×2 (10:00→13:44)
[2025-03-18 10:20] LABS: B.E. 1.1 mmol/L; HCO3 25.0 mmol/L (21-28); O2 Saturation % 100.0 % (94-98); PCO2 36 mmHg (32-35); PO2 263 mmHg (83-108)
--- NOTE | 2025-03-18 10:31 | OR.RPT ---
Operative Report
Operative Report
Rapid sequence intubation
Indication. Ongoing aspiration, worsening respiratory failure, inability to wean off noninvasive positive pressure ventilation
Pre-medications: None
Patient was placed in supine position. BIPAP was used to preoxygenate, subsequently [id number] ventilation was applied. SpO2 prior to intubation was 100%. 30 mg of Etomidate was given as an induction agent followed by 100 mg of Rocuronium as
paralytic. Crusted oral secretions were noted in the oral cavity.. GlideScope was used, blade size #4, grade 1 view of vocal cords was obtained. Vocal cord edema was noted (likely due to prior intubation). ET tube, 8.0, was advanced under direct
visualization on attempt #2. Some difficulty in advancing tube due to edema, able to pass the tube on second attempt. No desaturation or hemodynamic instability was observed. Color change was confirmed and patient was bagged. Subsequently patient
was connected to ventilator. Bilateral good air entry noted. Tube was secured at 21 cm at the teeth. Patient tolerated the procedure well. SpO2 post intubation 100%.
Time spent: 25 min
Complications: None
Date of Service: 03/18/2025
--- NOTE | 2025-03-18 10:47 | PHA.VAN.IN ---
Assessment
- Assessment
Renal Function: SCR Appears Elevated from baseline (Baseline Scr ~0.6)
Concomitant Antimicrobials: Cefepime
- Previous Dosing Experience
Pt received vancomycin 1500mg on 03/13 and random level obtained due to SAYDA. Further dosing discontinued.
AUC Dosing Plan
- Dosing Variables
Dosing Weight (kg): 95.6
Dosing CrCl (ml/min): 50
Vd coefficient (L/kg): 0.6
- Empiric Dosing
Initial / Loading Dose: Vancomycin 1500mg - administration pending
Maintenance Regimen: Vancomycin 1250mg IV Q24h
Estimated AUC (mcg*h/mL): 491
Estimated Peak (mcg*h/mL): 32.6
Estimated Trough (mcg/ml): 11.6
Estimated Half Life (H): 15
- Monitoring
No levels ordered at this time: Will continue to monitor renal function closely. Order levels when needed.
Pharmacokinetics Vancomycin I
- -
Patient Age: 79
Patient Sex: Female
Vancomycin Day #: 1
Requesting Provider: Dr. Mix
Pertinent Antimicrobial Allergies:
NDKA
Height / Weight:
Height 5 ft 2 in
Actual Weight 95.6 kg
Pertinent Past Medical History: BMI ~39, endometrioid adenocarcinoma
- Vital Signs / Lab Results
Temp Pulse Resp BP Pulse Ox
98.8 F 97 24 132/67 100
03/18/25 07:25 03/18/25 06:00 03/18/25 06:00 03/16/25 18:12 03/18/25 10:06
Lab Results - Hematology
03/16/25 03/17/25 03/18/25
04:07 03:47 04:02
WBC 17.1 H 19.3 H 13.0 H
Lab Results - Chemistry
03/16/25 03/16/25 03/17/25
04:07 11:03 03:47
BUN 36 H 37 H 36 H
Creatinine 1.2 H 1.2 H 1.2 H
Estimated Creat Clear 42 42 42
Albumin 2.3 L 2.8 L
03/17/25 03/18/25
13:06 04:02
BUN 33 H 31 H
Creatinine 1.1 H 1.0
Estimated Creat Clear 46 50
Albumin 2.5 L
Microbiology Results
03/13/25 08:07 Blood Culture - Final
Blood/Venous No Growth - Final Report
03/13/25 08:27 Blood Culture - Preliminary
Blood/Venous Coagulase neg. staphylococcus
Additional testing on request
Gram Stain - Preliminary
[2025-03-18 10:49] VITALS: BP 122/107
[2025-03-18] MEDS: ZOLOFT 25 MG TUBE (10:51)
[2025-03-18] MEDS: SYNTHROID 75 MCG TUBE (10:51)
[2025-03-18] MEDS: LOW STRENGTH ASPIRIN 81 MG TUBE (10:52)
[2025-03-18] MEDS: MIRALAX TUBE (10:52)
[2025-03-18] MEDS: STERILE WATER FOR INJECTION 10 ML IV ×2 (11:02→17:42)
[2025-03-18] MEDS: DECADRON 10 MG IV (11:03)
[2025-03-18] MEDS: MAXIPIME 1000 MG IV ×2 (11:03→17:41)
[2025-03-18] MEDS: PRECEDEX 100 IV (11:03)
[2025-03-18 11:06] VITALS: BP 96/53
[2025-03-18 11:41] LABS: Glucose - Point of Care 157 mg/dl (70-99)
--- NOTE | 2025-03-18 11:55 | CM ---
CM reviewed chart- pt remains in ICU, ADC >48 hours
Pt intubated from 03/13-03/16
Reintubated this AM due to failure to wean off bipap
Plan to start tube feeds via DHT
Update provided to [facility] via [facility]
T/C to marek/Veronica Vazquez with update
She is requesting daily updates
Discharge Disposition- return to [facility] for LTC
--- NOTE | 2025-03-18 12:00 | PTCARENOTE ---
CT head obtained. Pt tolerating vent after fentanyl bolus. Precedex initiated. IV Abx/steroids administered per AUG. Incont small loose BMs. Barrier cream applied generously. Sacrum with two linear skin tears/sai; foam Mepilex applied. Otherwise
assessment unchanged.
--- NOTE | 2025-03-18 12:27 | W.PN.HOSP.TC ---
Today's Communication/Plan
-
see plan
Assessment / Plan
Assessment / Plan
Gen: NAD, NCAT
Eyes: EOMI, PERRLA, no scleral icterus.
Neck: supple.
CV: RRR, +S1/S2, no m/r/g.
Resp: mild rhonchi B/L
Abd: +BS, soft, NT, ND
Skin: No rashes.
Neuro: CN 2-12 intact, non-focal.
Psych: Normal mood and affect.
03/18/25 10:09 Tracheal Aspirate Gram Stain - Preliminary
03/13/25 08:07 Blood/Venous Blood Culture - Final
No Growth - Final Report
03/13/25 08:27 Blood/Venous Blood Culture - Preliminary
Coagulase neg. staphylococcus
Additional testing on request
03/13/25 08:27 Blood/Venous Gram Stain - Preliminary
03/13/25 16:14 Sputum Respiratory Culture - Final
Klebsiella pneumoniae
03/13/25 16:14 Sputum Gram Stain - Final
03/13/25 16:14 Nose Nasal Screen MRSA (PCR) - Final
MRSA not detected - performed by PCR methodology.
03/13/25 16:14 Urine Legionella Urinary Antigen - Final
Negative for Legionella pneumophila Serogroup 1 antigen.
A negative result does not rule out the possiblity of
Legionella infection due to other serogroups or species of
Legionella. Clinical correlation is recommended.
03/13/25 16:14 Urine Streptococcus pneumoniae Antigen (M - Final
Negative for Streptococcus pneumoniae antigen.
A negative result does not exclude infection with
Streptococcus pneumoniae. Clinical correlation is
recommended.
03/13/25 08:07 Nasal Swab Influenza Types A & B (EMMA) - Final
Negative for Influenza A & B, NAAT
Negative results must be combined with clinical observations
and patient history.
Nucleic Acid Amplification test (NAAT)performed on the
[employer] NOW platform.
CXR 03/13: Right upper lobe greater than right basilar opacification most likely representing pneumonia.
CT brain 03/18: Probable subacute infarct of the left basal ganglia as seen previously. No significant change as compared with the prior examination.
CXR 03/18: ET tube and enteric catheter in position. Unchanged bilateral upper lung consolidation.
Septic shock (POA), acute metabolic encephalopathy, and acute hypoxemic respiratory failure due to aspiration PNA:
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
- leukopenia, tachypnea, shock state requiring pressors
- Levophed weaned off 03/15
- sepsis protocol IVF and trend lactate levels to normal
- s/p stress dose steroid course, currently on Decadron 10mg IV daily
- intubated 03/18AM as pt was not tolerating NIPPV
- sputum culture: Klebsiella
- strep/legionella neg
- follow Cxs
- cont Cefepime/Vanco
- leukocytosis improving
- suspect underlying undiagnosed JC/OHS
Subacute CVA:
- cont ASA
Other problems:
Dementia
SAYDA, resolved with IVFs
Hyperkalemia, resolved
Hypokalemia, resolved
BCxs tih [employer], likely contaminant
h/o stage 1 endometrial cancer
PAF: Eliquis on hold with anemia
Anxiety/Depression: cont Zoloft
Hypothyroidism: cont Synthroid
Acute anemia of critical illness on chronic anemia: trend Hb
FULL/Heparin
Total critical care time spent = 35 min
Anticipated Discharge: > 48 hours
Subjective/Interval History
-
Date of Service: March 18, 2025
Intubated/sedated.
Objective Data
-
Labs:
Laboratory Results
03/18/25 03/18/25
04:02 10:09
WBC 13.0 H
Hgb 8.6 L
Hct 27.4 L
Plt Count 85 L
HCO3 26.6 25.0
Sodium 149 H
Potassium 3.6
Chloride 116 H
Carbon Dioxide 26
BUN 31 H
Creatinine 1.0
Glucose 94
Calcium 8.6
Total Bilirubin 1.9 H
AST 28
ALT 29
Alkaline Phosphatase 351 H
Vital Signs:
Vital Signs
Temp Pulse Resp BP Pulse Ox
98.7 F 97 24 132/67 98
03/18/25 11:14 03/18/25 06:00 03/18/25 06:00 03/16/25 18:12 03/18/25 10:54
I&O
03/17/25 03/18/25 03/19/25
06:59 06:59 06:59
Intake Total 350 / 417.5 747.5 / 817.5 764.8 / 764.8
Output Total 2185 / 2245 1000 / 1045 190 / 190
Balance -1835 / -1827.5 -252.5 / -227.5 574.8 / 574.8
[2025-03-18] MEDS: VANCOCIN 530 MG IV (12:29)
--- NOTE | 2025-03-18 13:55 | W.PN.UPDATE ---
Update Note
Progress Note Update
03/18, I called patient's guardian Veronica Vazquez, , updated about the events this morning. We briefly discussed about ongoing risk of aspiration with her mental status, underlying dementia and now new stroke. Veronica expressed that
she has longstanding association with patient over the years and she does not think patient would want to have feeding tube placement and tracheostomy and be placed in a different facility long-term. Will continue to see how patient's clinical
condition evolves in coming days.
[2025-03-18 15:09] VITALS: BP 152/104
[2025-03-18] MEDS: DUONEB 3 ML INH (15:29)
--- NOTE | 2025-03-18 16:00 | PTCARENOTE ---
Assessment unchanged; Pt opens eyes spontaneously at times, other times she is lethargic. Does not follow commands. Withdrawals from deep nail bed painful stimuli. Precedex continues per the work list. Patient incont small loose BM. Fi02 decreased
to 50% per RT. Sp02 96-98%. Afib on tele, heart rate controlled. Turning q2 hours, heels floated. SCDs on.
[2025-03-18 17:36] VITALS: BP 127/72
[2025-03-18] MEDS: HEPARIN 5000 UNITS SC ×2 (17:42→23:54)
[2025-03-18 17:48] LABS: Glucose - Point of Care 251 mg/dl (70-99)
[2025-03-18] MEDS: NOVOLOG FLEXPEN-MODERATE RESISTANCE 5 UNITS SC (18:22)
--- NOTE | 2025-03-18 20:00 | PTCARENOTE ---
Assumed care of patient. Hand-off drip validation done with off-going nurse. Patient on precedex drip. Moves spontaneously, attempts to localize with R upper extremity. Pupils equal and reactive. Protectives are intact. Patient is in A fib with
controlled rates, blood pressure in acceptable range with systolics in the 140s. Radial pulses are palpable, with DP pulses obtained with a doppler. Patient is ventilated on A/C rate of 18, TV of 450, 50% and 8 peep. Some wheezing noted in the R
upper lobe. Abdomen is round, soft. Tube feeds running through DHT. Jefferson catheter in place draining. IV sites c/d/i.
[2025-03-18 23:31] LABS: Glucose - Point of Care 243 mg/dl (70-99)
[2025-03-19] VITALS (7 sets, daily range): BP systolic 110–175; BP diastolic 72–88; BMI 38.7
--- NOTE | 2025-03-19 | PTCARENOTE ---
No change in patient assessment. Patient on ventilator, sats around 90% on FiO2 of 40%. Respiratory in the room assessing.
[2025-03-19] MEDS: SUBLIMAZE 50 MCG IV ×3 (00:08→05:40)
[2025-03-19] MEDS: NOVOLOG FLEXPEN-HIGH RESISTANCE 4 UNITS SC (00:25)
[2025-03-19] MEDS: NOVOLOG FLEXPEN-MODERATE RESISTANCE SC (01:21)
[2025-03-19] MEDS: MAXIPIME 1000 MG IV ×3 (02:01→17:44)
[2025-03-19] MEDS: STERILE WATER FOR INJECTION 10 ML IV ×3 (02:02→17:45)
[2025-03-19] MEDS: PRECEDEX 100 IV ×2 (02:15→10:03)
[2025-03-19] MEDS: TRANDATE 10 MG IV (03:30)
--- NOTE | 2025-03-19 04:00 | PTCARENOTE ---
Patient required dose of labetolol for systolic > 160. Patient becomes agitated with movement, required 3 fentanyl boluses for CPOT as well as an up titration in precedex. No other changes in assessment.
[2025-03-19 04:01] LABS: B.E. 0.5 mmol/L; HCO3 24.3 mmol/L (21-28); O2 Saturation % 98.1 % (94-98); PCO2 35 mmHg (32-35); PO2 77 mmHg (83-108)
[2025-03-19 04:24] LABS: Hematocrit 28.7 % (37.0-47.0); Hemoglobin 9.0 g/dL (12.0-16.0); Mean Corp Hgb Conc. 31.4 g/dL (33.0-37.0); Mean Corpuscular Volume 95.3 fL (81.0-99.0); Nucleated Red Blood Cells % 0.6 %; Platelet Count 130 10^3/uL (130-400); Red Cell Dist. Width 19.3 % (11.5-14.5)
[2025-03-19 04:32] LABS: ALT (SGPT) 22 U/L (0-35); AST (SGOT) 20 U/L (14-36); Albumin 2.6 g/dl (3.5-5.0); Alkaline Phosphatase 341 U/L (38-126); Blood Urea Nitrogen 30 mg/dl (7-17); Calcium 8.6 mg/dl (8.4-10.2); Carbon Dioxide 25 mmol/L (22-30); Chloride 115 mmol/L (98-107); Estimated Creatinine Clearance 62 ml/min; Glucose 226 mg/dl (70-99); Potassium 4.0 mmol/L (3.5-5.1); Sodium 146 mmol/L (135-145); Total Protein 5.7 g/dl (6.3-8.2); eGFR > 60.00
[2025-03-19 05:21] LABS: Vitamin B12 > 1000 pg/ml (239-931)
[2025-03-19] MEDS: SYNTHROID 75 MCG TUBE (05:44)
[2025-03-19] MEDS: VANCOCIN 275 MG IV (05:44)
[2025-03-19] MEDS: NOVOLOG FLEXPEN-HIGH RESISTANCE 7 UNITS SC (05:45)
[2025-03-19 05:50] LABS: Glucose - Point of Care 266 mg/dl (70-99)
[2025-03-19] MEDS: APRESOLINE 10 MG IV ×2 (06:02→13:17)
[2025-03-19] MEDS: DECADRON 10 MG IV (07:43)
[2025-03-19] MEDS: DESENEX/MITRAZOL/ZEASORB 1 APPLIC TOPICAL ×2 (07:44→20:16)
[2025-03-19] MEDS: MIRALAX TUBE (07:45)
[2025-03-19] MEDS: HEPARIN 5000 UNITS SC (07:45)
[2025-03-19] MEDS: NSS (PRESERVATIVE FREE) 10 ML IV (07:45)
[2025-03-19] MEDS: LOW STRENGTH ASPIRIN 81 MG TUBE (07:45)
[2025-03-19] MEDS: PROTONIX IV 40 MG IV (07:46)
[2025-03-19] MEDS: ZOLOFT 25 MG TUBE (07:46)
--- NOTE | 2025-03-19 08:20 | W.PN.INTV ---
Today's Communication / Plan
Recommendations
- Continue ventilation, management per respiratory team
- 40mg IV lasix today
- Schedule duonebs in addition to PRN
- Add of 3% saline mist
- CXR tmrw am
- Repeat ABG tmrw am
- Continue IV vanc & cefepime (03/18-), pending sputum cx
- Follow blood cx
- Follow sputum cultures from ETT
- Add 10mg hydralazine q6hr PRN for systolic BP >160
- Wean precedex as able
- Fentanyl bolus PRN
- Stop low-dose home aspirin today
- Dexamethasone 10 mg IV daily for 3 days (03/18-)
- Increase SSI to high dose & add standing 3U insulin q6h through end of steroid course
- DVT PPx: Convert subq heparin to eliquis tonight
- Dobbhoff tube feeds
- Continue ICU level care today
Assessment
-
Patient is 71-year-old F with a PMH notable for HTN, likely JC, A-fib (on Eliquis), hypothyroidism, endometrial carcinoma (s/p resection 2024), anxiety/depression, and dementia who presented on 03/13 with hypoxia and hypotension following witnessed
aspiration event 3 days prior, found to have Klebsiella+ pneumonia, now s/p intubation 03/13-03/16), failed weaning from BiPAP, and reintubation on 03/18. Patient required pressors (Levophed) from 03/13-03/15 for presumed septic shock. Patient
received Zosyn, which was transitioned to ceftriaxone on 03/16.
Medical Assistant consulted for management, plan/course as below.
#Acute hypoxic respiratory failure
#Aspiration pneumonia
#C/f cardiogenic pulm edema vs. aspiration pneumonitis
Patient was intubated from 03/13 through 03/16 for hypercapnic respiratory failure. Following extubation, patient was unable to be weaned from BiPAP. Reintubated on 03/18 AM. ABG prior to intubation with pH 7.39, pCO2 44, O2 70, bicarbonate 26.6.
ABG post-intubation: 7.45, pCO2 36, pO2 263, bicarb 25.0.
Patient with positive sputum culture from 03/13 demonstrating Klebsiella. Legionella negative, strep urinary antigen negative, COVID-negative, influenza negative. Treated with course of abx (ceftriaxone) through 03/18. CXR 03/18 with worsening
consolidation as compared to prior; new L-sided consolidation in addition to RLL pneumonia. CXR 03/19: 'progression of bilateral PNA.' Blood cx no growth in 24hr. Prelim gram stain of sputum cx from ETT without organisms seen. Ddx for worsening CXR:
infectious PNA (less likely, WBC trending down, afebrile, no speciation thus far aside from Klebsiella being treated) vs. cardiogenic pulm edema (pt with +1204 mL fluid balance 03/19 & JULIANNA on exam; no hx HF) vs. aspiration pneumonitis.
Today: WBC downtrending (19.3> 13.0>11.6); afebrile; AB.45, pCO2 35, pO2 77, bicarb 24.3. Vent settings: PEEP 8, VT 450 mL, RR 18, 50% oxygen. Per RN, pt with coarse breath sounds anteriorly & wheeze posteriorly. Secretions somewhat improved
today but sounds junky.
- Continue ventilation, management per respiratory team
- 40mg IV lasix today
- Schedule duonebs in addition to PRN
- Add of 3% saline mist
- CXR tmrw am
- Repeat ABG tmrw am
- Continue IV vanc & cefepime (03/18-), pending sputum cx
- Follow blood cx
- Follow sputum cultures from ETT
#Hypertension, improving
Patient with systolic BP 180, MAP 131 approximately 1.5 hours s/p intubation on 03/18. With HR 115. Received 10mg PRN labetalol overnight 03/18, along with hydralazine 10mg after labetalol ineffective. Fentanyl bolus also helped wtih BP regulation,
per RN.
Today: BP 140/70, MAP 97, HR 70 (afib)
- Add 10mg hydralazine q6hr PRN for systolic BP >160
- Monitor BP s/p lasix today
- Consider addition of longer-acting BP med if require ongoing PRNs today
#AMS, lack of responsiveness
#Subacute CVA L basal ganglia
Patient with dementia at baseline. Hospital course was been complicated by depressed mental status/concern for toxic metabolic encephalopathy vs. hypoactive delirium vs. new infarct. CT head on 03/15: 'Nonspecific 13 mm hypodensity within LEFT basal
ganglia/mcmahan radiata which may represent a subacute infarct. This finding is new compared to the prior CT from 01/16/2025. Unchanged chronic white matter disease.' CT head 03/18: 'Probable subacute infarct of the left basal ganglia as seen
previously. No significant change as compared with the prior examination.'
Today: On 0.6 precedex; received fentanyl bolus after going down for CXR & overnight when HTN & breathing asynchronous with vent. Sedated on exam this am. With less activity than expected, per RN.
- Continue to monitor mental status
- Wean precedex as able
- Fentanyl bolus PRN
- Stop low-dose home aspirin today
#Low random cortisol level, presumed relative adrenal insufficiency
Random cortisol on 01/16/2025 of 2.7 (low). Response was partially blunted with cosyntropin stimulation test at that time. Patient was treated this admission for relative adrenal insufficiency in the setting of shock with IV hydrocortisone for 2
days.
Today: glucose 226
- Dexamethasone 10 mg IV daily for 3 days (03/18-)
- Increase SSI to high dose & add standing 3U insulin q6h through end of steroid course
#Anemia
Patient with chronic anemia, hemoglobin fluctuating within somewhat low range. Normocytic. S/p transfusion 1 unit 03/16 due to hemoglobin of 7. No signs of acute bleeding source.
Today: Hemoglobin 7>>8.6>9
- Continue to monitor
#SAYDA, resolved
Patient with SAYDA during earlier part of admission, now resolved s/p blood pressure control and fluids.
Today: Cr 1.2>>1.0>0.8
- Continue to monitor
#Chronic
- Hypothyroid�continue home Synthroid
- A-fib - restart Eliquis tn
- CAD�low-dose aspirin, holding
#Global
- DVT PPx: Convert subq heparin to eliquis tonight
- Diet: Dobbhoff tube in place; continue tube feeds
- Code: Full
- Dispo: Continue ICU level care today
Subjective Dataa
Subjective Data
Date of Service:
Date of Service: March 19, 2025
Chief Complaint: Medical Assistant Follow Up (Acute respiratory failure-septic shock), Pneumonia Follow Up and Vent Management Follow Up
Subjective:
Per RN, pt with asynchronous breathing with the vent overnight; given fentanyl bolus. Precedex drip increased to 0.6. Patient required antihypertensive for systolic greater than 180; labetalol ineffective, so 10 mg hydralazine added. This was
effective in controlling BP, along with fentanyl. This morning, patient with minimal oral secretions compared to yesterday. On Precedex drip, but hypoactive compared to expected while on vent per RN.
Review of Systems
General: Unobtainable - Sedation
Objective Data
Data Reviewed
Vital Signs / I&O / Oxygen:
Vital Signs
Temp Pulse Resp BP Pulse Ox
98.1 F 70 18 152/88 94
03/19/25 04:10 03/19/25 07:58 03/19/25 07:58 03/19/25 07:58 03/19/25 07:58
Intake and Output
03/18/25 03/19/25 03/20/25
06:59 06:59 06:59
Intake Total 747.5 / 817.5 1954.9 / 1953.9
Output Total 1000 / 1045 700 / 700
Balance -252.5 / -227.5 1254.9 / 1254.9
SaO2 [NIV (Non Invasive 95
Ventilation)]
SaO2 [CPAP/PSV] 95
SaO2 [A/C] 95
SaO2 94
Nasal Cannula flow liters per 50
minute
Physical Exam
General: Other (Intubated, sedated)
HEENT: Normocephalic, Anicteric and Other (Poor dentition)
Cardiovascular: S1-S2, Irregular Rhythm (A-fib), Peripheral Edema (Bilateral JULIANNA) and Other (Not tachycardic)
Respiratory: Wheeze (Wheeze posteriorly), Crackles (Coarse lung signs anteriorly ) and Other (intubated, ventilated)
GI: Soft, Non Distended and Feeding Tube (Dobbhoff)
Neurology: Unresponsive (Minimally responsive to stimuli, sedated)
Skin: Warm and Dry
Labs/Micro/Reports
Lab Data
03/19/25 03:51
03/19/25 03:51
Laboratory Results
03/18/25 03/19/25
10: 03:51
pH 7.45 7.45
pCO2 36 H 35
pO2 263 H 77 L
HCO3 25.0 24.3
O2 Delivery Level
Microbiology
03/18/25 04:02 Blood/Venous Blood Culture - Preliminary
No Growth in 24 hours- Final report to follow
03/18/25 04:02 Blood/Venous Blood Culture - Preliminary
No Growth in 24 hours- Final report to follow
03/18/25 10:09 Tracheal Aspirate Gram Stain - Preliminary
03/13/25 08:07 Blood/Venous Blood Culture - Final
No Growth - Final Report
03/13/25 08:27 Blood/Venous Blood Culture - Preliminary
Coagulase neg. staphylococcus
Additional testing on request
03/13/25 08:27 Blood/Venous Gram Stain - Preliminary
[2025-03-19] MEDS: TYLENOL ORAL SOLUTION 650 MG TUBE ×4 (09:13→22:30)
[2025-03-19] MEDS: DUONEB 3 ML INH ×2 (09:18→20:08)
[2025-03-19] MEDS: LASIX 40 MG IV (10:02)
--- NOTE | 2025-03-19 10:36 | W.PN.HOSP.TC ---
Today's Communication/Plan
-
see plan
Assessment / Plan
Assessment / Plan
Gen: NAD, NCAT
Eyes: EOMI, PERRLA, no scleral icterus.
Neck: supple.
CV: irreg/irreg, +S1/S2, no m/r/g.
Resp: CTAB anteriorly
Abd: +BS, soft, NT, ND
Skin: No rashes.
Neuro: sedated
Psych: sedated
03/18/25 10:09 Tracheal Aspirate Gram Stain - Preliminary
03/13/25 08:07 Blood/Venous Blood Culture - Final
No Growth - Final Report
03/13/25 08:27 Blood/Venous Blood Culture - Preliminary
Coagulase neg. staphylococcus
Additional testing on request
03/13/25 08:27 Blood/Venous Gram Stain - Preliminary
03/13/25 16:14 Sputum Respiratory Culture - Final
Klebsiella pneumoniae
03/13/25 16:14 Sputum Gram Stain - Final
03/13/25 16:14 Nose Nasal Screen MRSA (PCR) - Final
MRSA not detected - performed by PCR methodology.
03/13/25 16:14 Urine Legionella Urinary Antigen - Final
Negative for Legionella pneumophila Serogroup 1 antigen.
A negative result does not rule out the possiblity of
Legionella infection due to other serogroups or species of
Legionella. Clinical correlation is recommended.
03/13/25 16:14 Urine Streptococcus pneumoniae Antigen (M - Final
Negative for Streptococcus pneumoniae antigen.
A negative result does not exclude infection with
Streptococcus pneumoniae. Clinical correlation is
recommended.
03/13/25 08:07 Nasal Swab Influenza Types A & B (EMMA) - Final
Negative for Influenza A & B, NAAT
Negative results must be combined with clinical observations
and patient history.
Nucleic Acid Amplification test (NAAT)performed on the
[employer] platform.
CXR 03/13: Right upper lobe greater than right basilar opacification most likely representing pneumonia.
CT brain 03/18: Probable subacute infarct of the left basal ganglia as seen previously. No significant change as compared with the prior examination.
CXR 03/18: ET tube and enteric catheter in position. Unchanged bilateral upper lung consolidation.
Septic shock (POA), acute metabolic encephalopathy, and acute hypoxemic respiratory failure due to aspiration PNA:
- Suspected aspiration pneumonia (witness aspiration event 3 days [employer] at [facility])
- leukopenia, tachypnea, shock state requiring pressors
- Levophed weaned off 03/15
- sepsis protocol IVF and trend lactate levels to normal
- s/p stress dose steroid course, currently on Decadron 10mg IV daily
- intubated 03/18AM as pt was not tolerating NIPPV
- sputum culture: Klebsiella
- strep/legionella neg
- follow Cxs
- cont Cefepime/Vanco
- leukocytosis improving
- suspect underlying undiagnosed JC/OHS
Subacute CVA:
- cont ASA
Other problems:
Hypernatremia, improving, mild
Dementia
SAYDA, resolved with IVFs
Hyperkalemia, resolved
Hypokalemia, resolved
BCxs tih [employer], likely contaminant
h/o stage 1 endometrial cancer
PAF: Eliquis on hold with anemia
Anxiety/Depression: cont Zoloft
Hypothyroidism: cont Synthroid
Acute anemia of critical illness on chronic anemia: trend Hb
FULL/Heparin
Total critical care time spent = 31 min
Anticipated Discharge: > 48 hours
Subjective/Interval History
-
Date of Service: March 19, 2025
Intubated/sedated
Objective Data
-
Labs:
Laboratory Results
03/19/25
03:51
WBC 11.6 H
Hgb 9.0 L
Hct 28.7 L
Plt Count 130 D
HCO3 24.3
Sodium 146 H
Potassium 4.0
Chloride 115 H
Carbon Dioxide 25
BUN 30 H
Creatinine 0.8
Glucose 226 H
Calcium 8.6
Total Bilirubin 1.5 H
AST 20
ALT 22
Alkaline Phosphatase 341 H
Vital Signs:
Vital Signs
Temp Pulse Resp BP Pulse Ox
97.6 F 80 18 152/88 95
03/19/25 09:00 03/19/25 09:18 03/19/25 09:18 03/19/25 07:58 03/19/25 09:18
I&O
03/18/25 03/19/25 03/20/25
06:59 06:59 06:59
Intake Total 747.5 / 817.5 1954.9 / 1969.2 167.5 / 167.5
Output Total 1000 / 1045 700 / 730 115 / 115
Balance -252.5 / -227.5 1254.9 / 1239.2 52.5 / 52.5
[2025-03-19] MEDS: NOVOLOG FLEXPEN-HIGH RESISTANCE 12 UNITS SC (11:45)
[2025-03-19] MEDS: NOVOLOG FLEXPEN 3 UNITS SC (11:45)
[2025-03-19 11:51] LABS: Glucose - Point of Care 354 mg/dl (70-99)
--- NOTE | 2025-03-19 11:56 | PTCARENOTE ---
systems reviewed. systems unchanged. Pt is diuresing from lasix given. Peak pressures mildly improved on vent. Mental status unchanged.
--- NOTE | 2025-03-19 13:23 | PTCARENOTE ---
pt given prn hydralazine with good effect
--- NOTE | 2025-03-19 14:29 | PHA.VAN.FU ---
Vancomycin Assessment / Plan
- Assessment
Renal Function: SCR Decreasing
WBC's are: Trending Down
In the past 24 hrs, patient has been: Afebrile
Concomitant Antimicrobials: cefepime
- Dosing Plan
Continue: Vanc 1250mg Q24H
- Monitoring Plan
No level(s) ordered at this time: consider levels in next few days
- Follow Up
Pharmacy will continue to follow.
Vancomycin Follow UP
- -
Patient Age: 79
Patient Sex: Female
Vancomycin Day #: 2
Indication: Pulmonary/Respiratory
Requesting Provider: Dr. Mix
Pertinent Antimicrobial Allergies:
NKDA
Height / Weight:
Height 5 ft 2 in
Actual Weight 95.9 kg
Pertinent Past Medical History: BMI ~39, endometrioid adenocarcinoma
- Vital Signs / Lab Results
Temp Pulse Resp BP Pulse Ox
97.2 F 70 18 163/74 96
03/19/25 12:00 03/19/25 13:16 03/19/25 13:16 03/19/25 13:17 03/19/25 13:16
Lab Results - Hematology
03/17/25 03/18/25 03/19/25
03:47 04:02 03:51
WBC 19.3 H 13.0 H 11.6 H
Lab Results - Chemistry
03/17/25 03/17/25 03/18/25
03:47 13:06 04:02
BUN 36 H 33 H 31 H
Creatinine 1.2 H 1.1 H 1.0
Estimated Creat Clear 42 46 50
Albumin 2.8 L 2.5 L
03/19/25
03:51
BUN 30 H
Creatinine 0.8
Estimated Creat Clear 62
Albumin 2.6 L
Microbiology Results
03/18/25 10:09 Respiratory Culture - Preliminary
Tracheal Aspirate Usual Respiratory Lilia
Gram Stain - Preliminary
03/18/25 04:02 Blood Culture - Preliminary
Blood/Venous No Growth in 24 hours- Final report to follow
03/18/25 04:02 Blood Culture - Preliminary
Blood/Venous No Growth in 24 hours- Final report to follow
03/13/25 08:07 Blood Culture - Final
Blood/Venous No Growth - Final Report
Therapeutic Drug Monitoring
Random Vancomycin 13.7 ug/ml 03/14/25 03:35
--- NOTE | 2025-03-19 14:56 | CM ---
Addendum entered by Hoa Feldman 03/19/25 15:04:
Patient is senior care resident on [facility]. Last week attending repeatedly attempted to speak with guardian to discuss GOC.
Original Note:
Intubated, daily SAT and SBT, DHT, B/L PNA, F/U ABG and CXR in am, IV/Cefipime/Decadron/Vancomycin. Updated Guardian via voice message. Discharge POC: TBD.
--- NOTE | 2025-03-19 16:18 | PTCARENOTE ---
Systems reviewed. No wheezing noted. Less rhonchi. Precedex weaned as charted. Pt still minimally alert, no need to restrain. Opens eyes at times, seen moving all extremities but no purposeful movement. TF changed.
[2025-03-19 17:45] LABS: Glucose - Point of Care 348 mg/dl (70-99)
[2025-03-19] MEDS: NOVOLOG FLEXPEN SC (17:48)
[2025-03-19] MEDS: NOVOLOG FLEXPEN-HIGH RESISTANCE 10 UNITS SC (17:48)
[2025-03-19] MEDS: NOVOLOG FLEXPEN 10 UNITS SC (17:49)
--- NOTE | 2025-03-19 18:00 | PTCARENOTE ---
Pt blood sugar remains elevated despite adding standing, Dr Mix aware and standing increased to 10units with high dose SSI
--- NOTE | 2025-03-19 20:00 | PTCARENOTE ---
Assumed care of patient. Hand-off drip validation done. Patient resting comfortably on precedex drip. Opens eyes spontaneously, does not follow commands. Afebrile. Patient is in A fib, with rates controlled in the 70s-80s. Blood pressure well
controlled, +2 edema in extremities. Pulses palpable in the radials, doppler in the lower extremities. Patient is on the ventilator A/C 18/450/40%/8 peep. Lung sounds diminished in the bases, coarse in the uppers. Abdomen is round, soft, nontender.
DHT running osmolyte tube feeds at goal, @70cm in the right nare. Jefferson catheter in place draining yellow urine. Skin c/d/i, antifungal powder added to groin area. IV sites and arterial line c/d/i.
[2025-03-19] MEDS: SODIUM CHLORIDE 3% FOR INHALATION 1 VIAL INH (20:08)
[2025-03-19] MEDS: ELIQUIS 5 MG TUBE (20:16)
[2025-03-20] VITALS (24 sets, daily range): BP systolic 88–157; BP diastolic 55–101; BMI 39.4
--- NOTE | 2025-03-20 | PTCARENOTE ---
Patient is more alert in assessment. Not following commands, but making eye contact and lifting L arm all the way into the air spontaneously. No other changes in assessment.
[2025-03-20] MEDS: NOVOLOG FLEXPEN 10 UNITS SC ×5 (00:09→23:17)
[2025-03-20] MEDS: NOVOLOG FLEXPEN-HIGH RESISTANCE 4 UNITS SC ×4 (00:10→18:18)
[2025-03-20 00:19] LABS: Glucose - Point of Care 248 mg/dl (70-99)
[2025-03-20] MEDS: MAXIPIME 1000 MG IV ×3 (02:08→18:19)
[2025-03-20] MEDS: STERILE WATER FOR INJECTION 10 ML IV ×3 (02:08→18:19)
[2025-03-20] MEDS: TYLENOL ORAL SOLUTION 650 MG TUBE ×4 (02:09→18:36)
[2025-03-20] MEDS: PRECEDEX 100 IV (02:23)
--- NOTE | 2025-03-20 04:00 | PTCARENOTE ---
No change in patient assessment. Patient right wrist restrained, on 0.2 precedex drip.
[2025-03-20 04:24] LABS: B.E. 3.3 mmol/L; HCO3 26.7 mmol/L (21-28); O2 Saturation % 97.8 % (94-98); PCO2 35 mmHg (32-35); PO2 74 mmHg (83-108)
[2025-03-20 04:26] LABS: O2 Therapy 50% fio2 vent
[2025-03-20 04:47] LABS: Hematocrit 27.9 % (37.0-47.0); Hemoglobin 8.8 g/dL (12.0-16.0); Mean Corp Hgb Conc. 31.5 g/dL (33.0-37.0); Mean Corpuscular Volume 98.9 fL (81.0-99.0); Platelet Count 221 10^3/uL (130-400); Red Cell Dist. Width 19.0 % (11.5-14.5)
[2025-03-20 04:53] LABS: Blood Urea Nitrogen 40 mg/dl (7-17); Calcium 8.5 mg/dl (8.4-10.2); Carbon Dioxide 28 mmol/L (22-30); Chloride 112 mmol/L (98-107); Estimated Creatinine Clearance 56 ml/min; Glucose 183 mg/dl (70-99); Magnesium 1.8 mg/dl (1.6-2.3); Potassium 3.6 mmol/L (3.5-5.1); Sodium 143 mmol/L (135-145); eGFR > 60.00
[2025-03-20] MEDS: SYNTHROID 75 MCG TUBE (06:10)
[2025-03-20] MEDS: VANCOCIN 275 MG IV (06:14)
[2025-03-20 06:19] LABS: Glucose - Point of Care 204 mg/dl (70-99)
[2025-03-20] MEDS: SODIUM CHLORIDE 3% FOR INHALATION 1 VIAL INH ×2 (07:31→19:57)
[2025-03-20] MEDS: DUONEB 3 ML INH ×2 (07:31→19:57)
--- NOTE | 2025-03-20 08:18 | W.PN.INTV ---
Today's Communication / Plan
Recommendations
- SBT today, with ASV after trial on ventilation
- Pending SBT, plan for cuff leak test & potential extubation tomorrow
- Trial off of precedex today
- Fentanyl bolus PRN
- 40mg IV lasix today
- Continue scheduled duonebs in addition to PRN
- Continue 3% saline mist
- Continue cefepime abx for 7 day course (03/18-)
- Stop vancomycin
- Repeat CXR tmrw am
- Repeat ABG tmrw am
- PRN 10mg hydralazine q6hr for systolic BP >160
- Dexamethasone 10 mg IV daily for 3 days (03/18-), last day today
- High dose SSI
- Standing 3U insulin q6h through end of steroid course (today)
- Eliquis 5mg bid DVT ppx
- ICU level care today
Assessment
-
Patient is 71-year-old F with a PMH notable for HTN, likely JC, A-fib (on Eliquis), hypothyroidism, endometrial carcinoma (s/p resection 2024), anxiety/depression, and dementia who presented on 03/13 with hypoxia and hypotension following witnessed
aspiration event 3 days prior, found to have Klebsiella+ pneumonia, now s/p intubation 03/13-03/16), failed weaning from BiPAP, and reintubation on 03/18. Patient required pressors (Levophed) from 03/13-03/15 for presumed septic shock. Patient
received Zosyn, which was transitioned to ceftriaxone on 03/16.
Drawer Maker consulted for management, plan/course as below.
#Acute hypoxic respiratory failure
#Aspiration pneumonia
#C/f cardiogenic pulm edema vs. aspiration pneumonitis
Patient was intubated from 03/13 through 03/16 for hypercapnic respiratory failure. Following extubation, patient was unable to be weaned from BiPAP. Reintubated on 03/18 AM. ABG prior to intubation with pH 7.39, pCO2 44, O2 70, bicarbonate 26.6.
ABG post-intubation: 7.45, pCO2 36, pO2 263, bicarb 25.0.
Patient with positive sputum culture from 03/13 demonstrating Klebsiella. Legionella negative, strep urinary antigen negative, COVID-negative, influenza negative. Treated with course of abx (ceftriaxone) through 03/18. CXR 03/18 with worsening
consolidation as compared to prior; new L-sided consolidation in addition to RLL pneumonia. CXR 03/19: 'progression of bilateral PNA.' Blood cx no growth in 48hr. Sputum cx with usual respiratory shayna. CXR 03/20: R sided opacities improved from
yesterday. S/p 40mg lasix 03/19.
Ddx for worsening CXR: infectious PNA (less likely, WBC trending down, afebrile, no speciation thus far aside from Klebsiella being treated) vs. cardiogenic pulm edema (pt with +1204 mL fluid balance 03/19 & JULIANNA on exam; no hx HF) vs. aspiration
pneumonitis. Improvement in CXR s/p lasix supports cardiogenic contribution etiology.
Today: WBC downtrending (19.3> 13.0>11.6>11.9); afebrile; AB.49, pCO2 35, pO2 74, bicarb 26.7. Vent settings: PEEP 8, VT 450 mL, RR 18, 40% oxygen. Fluid balance +163mL.
- SBT today, with ASV after trial on ventilation
- Pending SBT today, plan for cuff leak test & potential extubation tomorrow
- 40mg IV lasix today
- Continue scheduled duonebs in addition to PRN
- Continue 3% saline mist
- Repeat CXR tmrw am
- Repeat ABG tmrw am
- Continue cefepime abx for 7 day course (03/18-)
- Stop vancomycin today
#Hypertension, improving
Patient with systolic BP 180, MAP 131 approximately 1.5 hours s/p intubation on 03/18. With HR 115. Received 10mg PRN labetalol overnight 03/18, along with hydralazine 10mg after labetalol ineffective. Fentanyl bolus also helped wtih BP regulation,
per RN. Pt also received 10mg hydral on 03/19.
Today: BP 125/55 (MAP 75), HR 86 (afib)
- PRN 10mg hydralazine q6hr for systolic BP >160
#AMS, lack of responsiveness
#Subacute CVA L basal ganglia
Patient with dementia at baseline. Hospital course was been complicated by depressed mental status/concern for toxic metabolic encephalopathy vs. hypoactive delirium vs. new infarct. CT head on 03/15: 'Nonspecific 13 mm hypodensity within L basal
ganglia/mcmahan radiata which may represent a subacute infarct. This finding is new compared to the prior CT from 01/16/2025. Unchanged chronic white matter disease.' CT head 03/18: 'Probable subacute infarct of the left basal ganglia as seen
previously. No significant change as compared with the prior examination.'
Today: On 0.2 precedex; no fentanyl boluses last 24hr; mental status somewhat improved from yesterday
- Trial off of precedex today
- Fentanyl bolus PRN
#Low random cortisol level, presumed relative adrenal insufficiency
Random cortisol on 01/16/2025 of 2.7 (low). Response was partially blunted with cosyntropin stimulation test at that time. Patient was treated this admission for relative adrenal insufficiency in the setting of shock with IV hydrocortisone for 2
days.
Today: glucose 204
- Dexamethasone 10 mg IV daily for 3 days (03/18-), last day today
- High dose SSI
- Standing 3U insulin q6h through end of steroid course (today)
#Anemia
Patient with chronic anemia, hemoglobin fluctuating within somewhat low range. Normocytic. S/p transfusion 1 unit 03/16 due to hemoglobin of 7. No signs of acute bleeding source.
Today: Hemoglobin 7>>8.6>>8.8
- Continue to monitor
#SAYDA, resolved
Patient with SAYDA during earlier part of admission, now resolved s/p blood pressure control and fluids. S/p 40mg IV lasix 03/19.
Today: Cr 1.2>>1.0>0.8>0.9
- Continue to monitor
#Chronic
- Hypothyroid�continue home Synthroid
- A-fib - eliquis 5mg bid
- CAD�holding low-dose aspirin
#Global
- DVT PPx: eliquis 5mg bid
- Diet: Dobbhoff tube in place; continue tube feeds
- Code: Full
- Dispo: Continue ICU level care today
Subjective Dataa
Subjective Data
Date of Service:
Date of Service: March 20, 2025
Chief Complaint: Drawer Maker Follow Up (Acute respiratory failure-septic shock), Pneumonia Follow Up and Vent Management Follow Up
Subjective:
Patient remains intubated and sedated. Per RN, minimal secretions today. Patient with eyes somewhat open/movement of bilateral upper extremities with sternal rub.
Review of Systems
General: Unobtainable - Sedation
Objective Data
Data Reviewed
Vital Signs / I&O / Oxygen:
Vital Signs
Temp Pulse Resp BP Pulse Ox
99.8 F 86 20 157/71 94
03/20/25 07:35 03/20/25 07:34 03/20/25 07:34 03/20/25 04:00 03/20/25 07:35
Intake and Output
03/19/25 03/20/25 03/21/25
06:59 06:59 06:59
Intake Total 1954.9 / 1969.2 2206.9 / 2206.9
Output Total 700 / 730 2049 / 2049
Balance 1254.9 / 1239.2 156.9 / 156.9
SaO2 [NIV (Non Invasive 95
Ventilation)]
SaO2 [CPAP/PSV] 95
SaO2 [A/C] 94
SaO2 94
Nasal Cannula flow liters per 50
minute
Physical Exam
General: Other (Intubated, sedated; rouses somewhat to external stimuli)
HEENT: Normocephalic, Anicteric and Other (Poor dentition)
Cardiovascular: S1-S2, Irregular Rhythm (A-fib), Peripheral Edema (Bilateral JULIANNA, somewhat improved from yesterday ) and Other (Not tachycardic)
Respiratory: Crackles (Mild coarse lung sounds anteriorly ) and Other (intubated, ventilated)
GI: Soft, Non Distended and Feeding Tube (Dobbhoff)
Neurology: Other (Opens eyes very slightly and raises bilateral upper extremities with sternal rub and with yelling of patient's name )
Skin: Warm and Dry
Labs/Micro/Reports
Lab Data
03/20/25 04:16
03/20/25 04:16
Laboratory Results
03/20/25
04:16
pH 7.49 H
pCO2 35
pO2 74 L
HCO3 26.7
O2 Delivery Level 50% fio2 vent
Microbiology
03/18/25 04:02 Blood/Venous Blood Culture - Preliminary
No Growth in 48 hours- Final report to follow
03/18/25 04:02 Blood/Venous Blood Culture - Preliminary
No Growth in 48 hours- Final report to follow
03/18/25 10:09 Tracheal Aspirate Respiratory Culture - Preliminary
Usual Respiratory Shayna
03/18/25 10:09 Tracheal Aspirate Gram Stain - Preliminary
03/13/25 08:07 Blood/Venous Blood Culture - Final
No Growth - Final Report
03/13/25 08:27 Blood/Venous Blood Culture - Preliminary
Coagulase neg. staphylococcus
Additional testing on request
03/13/25 08:27 Blood/Venous Gram Stain - Preliminary
[2025-03-20] MEDS: DESENEX/MITRAZOL/ZEASORB 1 APPLIC TOPICAL ×2 (08:30→21:14)
[2025-03-20] MEDS: DECADRON 10 MG IV (08:32)
[2025-03-20] MEDS: NSS (PRESERVATIVE FREE) 10 ML IV (08:33)
[2025-03-20] MEDS: PROTONIX IV 40 MG IV (08:33)
[2025-03-20] MEDS: ZOLOFT 25 MG TUBE (08:34)
[2025-03-20] MEDS: ELIQUIS 5 MG TUBE ×2 (08:34→20:39)
[2025-03-20] MEDS: MIRALAX 17 GRAMS TUBE (08:34)
--- NOTE | 2025-03-20 09:00 | PTCARENOTE ---
Rec'd pt at 0800 resting in bed sedated on Precedex at 0.2 mcg. Rec'd pt sedated but does open eyes to verbal/tactile stimuli. Will look at stimuli but not necessarily track. Pupils sluggish at 2mm. GALLAGHER but weakly. Tends to move R arm more and will
lift it up moreso than she does the L arm. R arm with soft wrist restraint for pt safety. Will give a weak grasp is you put your hand in hers but not to command alone. Pt does per report speak only Hungarian. Skin is pale wm and dry. Wounds as
documented. Has a Stage 2 on her L upper lip with scant bloody drainage/pink wound bed and with scab formation. Groin with MASD. Desenex applied. Respirs are intact on the Vent. Currently on AC 18, tv 450, peep 8 Fio2 40%. Sats are 95%. Adding rate
and occasionally volume. #8 ETT at the 21 cm marino L side of her mouth- away from the wound. BS are sl coarse and decreased throughout. + cough and gag. Suctioned for small amt of thin white secretions. Monitor AFib in the 80-100's. + pulses. DP
pulses with the doppler. Edema as noted. L radila A line intact. Site wnl. Zeroed and recalibrated. Within 10 mm/gh of cuff bP. Waveform as documented. Abd is round and soft with + BS. R nare feeding tube with Osmolite 1.2 tube feeds at 55 ml/hr
with 25 ml/hr flush- Tolerating. Thermistor falk intact for yellow urine. Capped ints intact R and L ac sites wnl. KH SCD's in place. Turned and repositioned. Skin and mouth care given.
--- NOTE | 2025-03-20 09:40 | PTCARENOTE ---
Precedex turned off at 0935 per MD order. Pt opening eyes to stimuli and will occasionally lift arms- mostly R arm. Dr. Mix in and pt changed over from AC to CPAP 6/PS 10 at 0930. RR 18-20 and TV in the 300. Sats 94%.
[2025-03-20] MEDS: LASIX 40 MG IV (11:22)
[2025-03-20] MEDS: FLUSH (NSS) 1 FLUSH IV ×2 (11:25→18:20)
--- NOTE | 2025-03-20 11:30 | PTCARENOTE ---
Lasix 40 mg IV given as ordered.
[2025-03-20 11:52] LABS: Glucose - Point of Care 204 mg/dl (70-99)
--- NOTE | 2025-03-20 12:15 | PTCARENOTE ---
Assessment overall is unchanged. Will open eyes to verbal and tactile stimuli and will look at stimuli but not necessarily track. Movement is unchanged. Tolerated CPAP 6/PS 10 for the past few hours with RR 19-23 and TV 290-360. Sats 94-95%- changed
over to ASV 100% with PEEP of 6 at 1200 and will get ABG in an hr. ETT repositioned on the R side of the mouth at the 21 cm marino avoiding the open area on upper lip. VS as documented. Tolerating tube feeds. Bag changed. CPOT is a 2-3 -occasionally
will grimace or keep trying to bite on ETT. Tylenol 650 mg given at 1115 via FT. Repositioned. Mouth and skin care given.
--- NOTE | 2025-03-20 12:59 | W.PN.HOSP.TC ---
Addendum entered and electronically signed by Yeyo Sanon MD 03/20/25 18:11:
Stage 1 posterior thigh pressure injury, POA
Stage 2 left upper lip pressure injury, POA
Stage 1 sacrum pressure injury, POA
Original Note:
Today's Communication/Plan
-
see plan
Assessment / Plan
Assessment / Plan
Gen: NAD, NCAT
Eyes: EOMI, PERRLA, no scleral icterus.
Neck: supple.
CV: remains irreg/irreg, +S1/S2, no m/r/g.
Resp: rhonchi B/L
Abd: remains +BS, soft, NT, ND
Skin: No rashes.
Neuro: sedated
Psych: sedated
03/18/25 10:09 Tracheal Aspirate Respiratory Culture - Final
Mold
03/18/25 10:09 Tracheal Aspirate Gram Stain - Final
03/13/25 08:27 Blood/Venous Blood Culture - Final
Coagulase neg. staphylococcus
Additional testing on request
03/13/25 08:27 Blood/Venous Gram Stain - Final
03/18/25 04:02 Blood/Venous Blood Culture - Preliminary
No Growth in 48 hours- Final report to follow
03/18/25 04:02 Blood/Venous Blood Culture - Preliminary
No Growth in 48 hours- Final report to follow
03/13/25 08:07 Blood/Venous Blood Culture - Final
No Growth - Final Report
03/13/25 16:14 Sputum Respiratory Culture - Final
Klebsiella pneumoniae
03/13/25 16:14 Sputum Gram Stain - Final
03/13/25 16:14 Nose Nasal Screen MRSA (PCR) - Final
MRSA not detected - performed by PCR methodology.
03/13/25 16:14 Urine Legionella Urinary Antigen - Final
Negative for Legionella pneumophila Serogroup 1 antigen.
A negative result does not rule out the possiblity of
Legionella infection due to other serogroups or species of
Legionella. Clinical correlation is recommended.
03/13/25 16:14 Urine Streptococcus pneumoniae Antigen (M - Final
Negative for Streptococcus pneumoniae antigen.
A negative result does not exclude infection with
Streptococcus pneumoniae. Clinical correlation is
recommended.
03/13/25 08:07 Nasal Swab Influenza Types A & B (EMMA) - Final
Negative for Influenza A & B, NAAT
Negative results must be combined with clinical observations
and patient history.
Nucleic Acid Amplification test (NAAT)performed on the
[employer] platform.
CXR 03/13: Right upper lobe greater than right basilar opacification most likely representing pneumonia.
CT brain 03/18: Probable subacute infarct of the left basal ganglia as seen previously. No significant change as compared with the prior examination.
CXR 03/18: ET tube and enteric catheter in position. Unchanged bilateral upper lung consolidation.
CXR 03/19: Limited by patient rotation. Stable position of the endotracheal tube and enteric tube. Airspace opacities in the right upper lobe and throughout the left lung remain concerning for pneumonia. No large pleural effusion or pneumothorax.
Stable cardiomediastinal silhouette.
Septic shock (POA), acute metabolic encephalopathy, and acute hypoxemic respiratory failure due to aspiration PNA:
- Suspected aspiration pneumonia (witness aspiration event 3 days [employer] SOFTWARE [employer] at [facility])
- leukopenia, tachypnea, shock state requiring pressors on admission
- Levophed weaned off 03/15
- s/p sepsis protocol IVFs, lactic acidosis resolved
- s/p stress dose steroid course, currently on Decadron 10mg IV daily
- intubated 03/18AM as pt was not tolerating NIPPV
- sputum culture: Klebsiella
- strep/legionella neg
- follow Cxs
- cont Cefepime
- leukocytosis improving
- suspect underlying undiagnosed JC/OHS
Other problems:
Subacute CVA: cont Eliquis
Hypernatremia, resolved
Dementia
SAYDA, resolved with IVFs
Hyperkalemia, resolved
Hypokalemia, resolved
BCxs tih PATIENT ACCESS, likely contaminant
h/o stage 1 endometrial cancer
PAF: cont Eliquis
Anxiety/Depression: cont Zoloft
Hypothyroidism: cont Synthroid
Thrombocytopenia, likely consumptive due to infection, resolved
Acute anemia of critical illness on chronic anemia: trend Hb (stable)
Discussed with Dr. Mix.
FULL/Eliquis
Total critical care time spent = 33 min
Anticipated Discharge: > 48 hours
Subjective/Interval History
-
Date of Service: March 20, 2025
Intubated/sedated.
Objective Data
-
Labs:
Laboratory Results
03/20/25
04:16
WBC 11.9 H
Hgb 8.8 L
Hct 27.9 L
Plt Count 221 D
HCO3 26.7
Sodium 143
Potassium 3.6
Chloride 112 H
Carbon Dioxide 28
BUN 40 H
Creatinine 0.9
Glucose 183 H
Calcium 8.5
Vital Signs:
Vital Signs
Temp Pulse Resp BP Pulse Ox
100.3 F 96 23 103/66 94
03/20/25 12:50 03/20/25 12:45 03/20/25 12:45 03/20/25 12:45 03/20/25 12:45
I&O
03/19/25 03/20/25 03/21/25
06:59 06:59 06:59
Intake Total 1954.9 / 1969.2 2206.9 / 2291.7 649.4 / 649.4
Output Total 700 / 730 2049 / 2094 240 / 240
Balance 1254.9 / 1239.2 156.9 / 196.7 409.4 / 409.4
--- NOTE | 2025-03-20 13:10 | PTCARENOTE ---
Edithsing from Lasix. Bp's 88-92/40's with MAP's in the [address] Mix.
--- NOTE | 2025-03-20 13:35 | PTCARENOTE ---
ABG sent via L radial a line s/p pt being changed to ASV settings.
[2025-03-20 13:46] LABS: B.E. 3.0 mmol/L; HCO3 27.0 mmol/L (21-28); O2 Saturation % 99.1 % (94-98); PCO2 38 mmHg (32-35); PO2 81 mmHg (83-108)
--- NOTE | 2025-03-20 14:19 | PN.CDI ---
CDI
- -
CDI:
Physician Documentation Request
Admit Date: 03/13/25 11:17
Dear Doctor Fab,
Please review the following and provide your response in the progress notes.
Clinical Indicators:
- RN skin assessments indicate:
- Stage 1 posterior thigh pressure injury, POA
- Stage 2 left upper lip pressure injury
- Stage 1 sacrum pressure injury
Physician documentation of the type and location of wounds is required for compliant documentation. Based on the above clinical findings and your assessment, please provide the following in your progress note:
1. Location of the ulcer/wound, including laterality.
2. Type (etiology) of ulcer/wound:
- Diabetic ulcer
- Arterial (ischemic) ulcer
- Traumatic wound
- Venous stasis ulcer
- Pressure (decubitus) ulcer
- Other
Use of terms such as suspected, likely, concern for, or probable (associated with a specific diagnosis that is being evaluated, monitored, or treated as if it exists) are acceptable and can be coded in the inpatient setting, when documented at the
time of discharge.
Thank you,
Silvestre Bradford RN
CDI Specialist
Please use your independent medical judgment in providing your response.
*Source: National Pressure Ulcer Advisory Panel (NPUAP)
[2025-03-20] MEDS: LEVOPHED 250 IV (14:42)
--- NOTE | 2025-03-20 14:45 | PTCARENOTE ---
MAP's continued to be <65- Dr. Mix and Dr. Bianchi updated and Levophed initiated at 2 mcg via R AC IV site-good blood return. No other changes. Calm unless she coughs then she gets minimally restless but only for a few seconds.
--- NOTE | 2025-03-20 15:00 | CM ---
Remains intubated, SBT today, potential extubation on 03/21/25 IV/Cefepime. Update to Guardian via voice mail. Discharge POC: Return to [facility] for resumption of LTC.
--- NOTE | 2025-03-20 15:15 | PTCARENOTE ---
Levophed turned down to 1 mcg as HR now running in the 130-140's since being started on Levophed. No other changes.
--- NOTE | 2025-03-20 17:00 | PTCARENOTE ---
Remains resting- mostly calm but will at intervals chew on ETT then doze back off. Skin is wm and dry. Foam dressing replaced on sacrum. Suctioned for small amt of whitish secretions. Tolerating ASV settings. VS as documented. A line rezeroed.
Remains on Levophed at 1 mcg. Tolerating tube feeds. Incont of a large amt of loose brown stool. Complete CHG bath given and linens changed. Continues to diurese from earlier lasix. Turned and repositioned. Call dixon in reach. (quad dixon)
--- NOTE | 2025-03-20 17:00 | PTCARENOTE ---
Remains resting- mostly calm but will at intervals chew on ETT then doze back off. Skin is wm and dry. Foam dressing replaced on sacrum. Suctioned for small amt of whitish secretions. Tolerating ASV settings TV mostly in the 300's. Sats 95% VS as
documented. A line rezeroed. Remains on Levophed at 1 mcg. HR mostly 115-125 A fib. Tolerating tube feeds. Incont of a large amt of loose brown stool. Complete CHG bath given and linens changed. Continues to diurese from earlier lasix. Turned and
repositioned. Call dixon in reach.
[2025-03-20 18:29] LABS: Glucose - Point of Care 216 mg/dl (70-99)
--- NOTE | 2025-03-20 18:30 | PTCARENOTE ---
Repositioned. Eyes open to stimulation but then dozes back off. VS as documented
--- NOTE | 2025-03-20 18:35 | PTCARENOTE ---
Tylenol 650 mg given via tube for CPOT of 3.
[2025-03-20] MEDS: SUBLIMAZE 50 MCG IV ×2 (20:39→22:15)
[2025-03-20] MEDS: CORDARONE 103 MG IV (21:14)
[2025-03-20] MEDS: NEO-SYNEPHRINE 250 IV (21:14)
[2025-03-20] MEDS: CORDARONE 259 MG IV (21:17)
[2025-03-20 21:24] LABS: Blood Urea Nitrogen 47 mg/dl (7-17); Calcium 8.5 mg/dl (8.4-10.2); Carbon Dioxide 27 mmol/L (22-30); Chloride 107 mmol/L (98-107); Estimated Creatinine Clearance 51 ml/min; Glucose 170 mg/dl (70-99); Magnesium 1.9 mg/dl (1.6-2.3); Potassium 4.1 mmol/L (3.5-5.1); Sodium 140 mmol/L (135-145); eGFR 57.66
--- NOTE | 2025-03-20 21:30 | PTCARENOTE ---
pt w STUART HR up to 190s, SBP to low 80s, levo titrated to 8mcg, RT switched pt back to AC settings on vent, BDoughertyNP at bedside, EKG, labs sent, amio bolus/gtt started, Levo switched to Luis gtt per BOILER SETTER, FMS inserted for lg amt liquid stool, care
ongoing.
[2025-03-20 21:36] LABS: Troponin I 0.032 ng/ml
--- NOTE | 2025-03-20 21:51 | W.PN.UPDATE ---
Update Note
Progress Note Update
Pt went into rapid�afib�160�� 170, currently was on�levophed�for hypotension, transition to�Luis, Labs sent, amiodarone load and drip started.
[2025-03-20] MEDS: MAGNESIUM SULFATE 102 GRAMS IV (21:56)
[2025-03-20 23:13] LABS: Glucose - Point of Care 197 mg/dl (70-99)
[2025-03-20] MEDS: NOVOLOG FLEXPEN-HIGH RESISTANCE 2 UNITS SC (23:18)
[2025-03-21] VITALS (11 sets, daily range): BP systolic 87–154; BP diastolic 43–96; BMI 39.1
--- NOTE | 2025-03-21 | PTCARENOTE ---
no changes in assessment.
[2025-03-21] MEDS: MAXIPIME 1000 MG IV ×3 (03:00→17:29)
[2025-03-21] MEDS: STERILE WATER FOR INJECTION 10 ML IV ×3 (03:00→17:29)
[2025-03-21] MEDS: SUBLIMAZE 50 MCG IV (03:19)
[2025-03-21 03:55] LABS: B.E. 4.5 mmol/L; HCO3 28.3 mmol/L (21-28); O2 Saturation % 98.6 % (94-98); PCO2 38 mmHg (32-35); PO2 82 mmHg (83-108)
[2025-03-21 03:56] LABS: O2 Therapy 40% ETT
[2025-03-21 04:14] LABS: Hematocrit 26.4 % (37.0-47.0); Hemoglobin 8.3 g/dL (12.0-16.0); Mean Corp Hgb Conc. 31.4 g/dL (33.0-37.0); Mean Corpuscular Volume 100.4 fL (81.0-99.0); Platelet Count 383 10^3/uL (130-400); Red Cell Dist. Width 19.3 % (11.5-14.5)
[2025-03-21 04:19] LABS: Blood Urea Nitrogen 45 mg/dl (7-17); Calcium 8.0 mg/dl (8.4-10.2); Carbon Dioxide 29 mmol/L (22-30); Chloride 108 mmol/L (98-107); Estimated Creatinine Clearance 51 ml/min; Glucose 143 mg/dl (70-99); Potassium 3.8 mmol/L (3.5-5.1); Sodium 140 mmol/L (135-145); eGFR 57.66
[2025-03-21] MEDS: CORDARONE 259 MG IV ×2 (04:32→16:00)
[2025-03-21 05:32] LABS: Glucose - Point of Care 185 mg/dl (70-99)
[2025-03-21] MEDS: NOVOLOG FLEXPEN 10 UNITS SC (06:41)
[2025-03-21] MEDS: NOVOLOG FLEXPEN-HIGH RESISTANCE 2 UNITS SC (06:41)
[2025-03-21] MEDS: SYNTHROID 75 MCG TUBE (06:42)
[2025-03-21] MEDS: DESENEX/MITRAZOL/ZEASORB 1 APPLIC TOPICAL ×2 (07:59→21:01)
[2025-03-21] MEDS: NSS (PRESERVATIVE FREE) 10 ML IV (08:00)
[2025-03-21] MEDS: ELIQUIS 5 MG TUBE ×2 (08:00→21:01)
[2025-03-21] MEDS: MIRALAX 17 GRAMS TUBE (08:00)
[2025-03-21] MEDS: FLUSH (NSS) 1 FLUSH IV (08:00)
[2025-03-21] MEDS: PROTONIX IV 40 MG IV (08:00)
[2025-03-21] MEDS: ZOLOFT 25 MG TUBE (08:01)
[2025-03-21] MEDS: TYLENOL ORAL SOLUTION 650 MG TUBE ×2 (08:01→17:30)
--- NOTE | 2025-03-21 08:23 | W.PN.INTV ---
Today's Communication / Plan
Recommendations
- Pressure assist vent this am
- Pending conversation with guardian, likely attempt extubation later today
- Hold tube feeds in advance
- Continue duonebs & 3% saline mist
- Wean off phenylephrine today, MAP maintain >65
- No lasix today
- Continue amio gtt for a fib
- Continue cefepime abx for 7 day course (03/18-)
- Continue to follow sputum cx speciation
- IV thiamine 200mg daily
- High dose ISS
- Eliquis 5mg bid
- Continue ICU level care
Assessment
-
Patient is 71-year-old F with a PMH notable for HTN, likely JC, A-fib (on Eliquis), hypothyroidism, endometrial carcinoma (s/p resection 2024), anxiety/depression, and dementia who presented on 03/13 with hypoxia and hypotension following witnessed
aspiration event 3 days prior, found to have Klebsiella+ pneumonia, now s/p intubation 03/13-03/16), failed weaning from BiPAP, and reintubation on 03/18. Patient required pressors (Levophed) from 03/13-03/15 for presumed septic shock. Patient
received Zosyn, which was transitioned to ceftriaxone on 03/16.
Senior Financial Analyst consulted for management, plan/course as below.
#Acute hypoxic respiratory failure
#Aspiration pneumonia
#C/f cardiogenic pulm edema vs. aspiration pneumonitis
Patient was intubated from 03/13 through 03/16 for hypercapnic respiratory failure. Following extubation, patient was unable to be weaned from BiPAP. Reintubated on 03/18 AM. ABG prior to intubation with pH 7.39, pCO2 44, O2 70, bicarbonate 26.6.
ABG post-intubation: 7.45, pCO2 36, pO2 263, bicarb 25.0.
Patient with positive sputum culture from 03/13 demonstrating Klebsiella. Legionella negative, strep urinary antigen negative, COVID-negative, influenza negative. Treated with course of abx (ceftriaxone) through 03/18. CXR 03/18 with worsening
consolidation as compared to prior; new L-sided consolidation in addition to RLL pneumonia. CXR 03/19: 'progression of bilateral PNA.' Blood cx no growth in 48hr. Sputum cx with usual respiratory shayna and some mold. CXR 03/20: R sided opacities
improved from yesterday. S/p 40mg lasix 03/19 & 03/20. CXR 03/21: less hazy on L, more hazy on R. SBT on 03/20 successful, pt on ASV 03/20.
Ddx for worsened CXR: infectious PNA (less likely, WBC trending down, afebrile, no speciation thus far aside from Klebsiella being treated) vs. cardiogenic pulm edema (pt with +1204 mL fluid balance 03/19 & JULIANNA on exam; no hx HF) vs. aspiration
pneumonitis. Improvement in CXR s/p lasix supports cardiogenic contribution etiology.
Today: WBC (19.3>>>11.9>20.9); afebrile; AB.48, pCO2 38, pO2 82, bicarb 28.3. ASV vent settings: 10 support P, 6 PEEP, 40% O2. Fluid balance -246mL. Cuff leak test with some air leakage but no volume change. Persistent presence of thin
secretions, per RN.
- Pressure assist mode on ventilator this am
- Likely attempt extubation today, pending conversation with patient's guardian
- Continue scheduled duonebs in addition to PRN
- Continue 3% saline mist
- Continue cefepime abx for 7 day course (03/18-)
- Continue to follow sputum cx speciation
- ID consulted, appreciate recs
#Labile BP
#Afib
Patient with systolic BP 180, MAP 131 approximately 1.5 hours s/p intubation on 03/18. With HR 115. Received 10mg PRN labetalol overnight 03/18, along with hydralazine 10mg after labetalol ineffective. Fentanyl bolus also helped wtih BP regulation,
per RN. Pt also received 10mg hydral on 03/19. Hypotensive MAP 57 on 03/20 following lasix. Pt started on levophed. Later in day 03/20, pt went into rapid afib 160-170. Was transitioned to phenylephrine & amiodarone load & gtt started.
Today: BP 132/62 (MAP 78), HR 87
Pressors: phenylephrine at dose 20, rate 6
- Wean off phenylephrine as able, keeping MAP>65
- Continue amiodarone gtt
- Hold on lasix today
- PRN 10mg hydralazine q6hr for systolic BP >160
- Cards consulted, appreciate recs
#AMS, lack of responsiveness
#Subacute CVA L basal ganglia
Patient with dementia at baseline. Hospital course was been complicated by depressed mental status/concern for toxic metabolic encephalopathy vs. hypoactive delirium vs. new infarct. CT head on 03/15: 'Nonspecific 13 mm hypodensity within L basal
ganglia/mcmahan radiata which may represent a subacute infarct. This finding is new compared to the prior CT from 01/16/2025. Unchanged chronic white matter disease.' CT head 03/18: 'Probable subacute infarct of the left basal ganglia as seen
previously. No significant change as compared with the prior examination.'
Today: no precedex or fentanyl; mental status improved today with eyes open/responding to people in room; not following commands, MS c/w baseline dementia/known subacute infarct
- Continue to monitor mental status
- 200mg IV thiamine daily
#Low random cortisol level, presumed relative adrenal insufficiency
Random cortisol on 01/16/2025 of 2.7 (low). Response was partially blunted with cosyntropin stimulation test at that time. Patient was treated this admission for relative adrenal insufficiency in the setting of shock with IV hydrocortisone for 2
days. Now s/p 3-day course of dex 10mg IV daily (03/18-03/20).
Today: glucose 185
- Continue SSI high dose
#Anemia
Patient with chronic anemia, hemoglobin fluctuating within somewhat low range. Normocytic. S/p transfusion 1 unit 03/16 due to hemoglobin of 7. No signs of acute bleeding source.
Today: Hemoglobin 7>>8.6>>8.3
- Continue to monitor
#SAYDA, resolved
Patient with SAYDA during earlier part of admission, now resolved s/p blood pressure control and fluids. S/p 40mg IV lasix 03/19.
Today: Cr 1.2>>1.0>0.8>0.9>1.0
- Continue to monitor
#Chronic
- Hypothyroid�continue home Synthroid
- A-fib - eliquis 5mg bid
- CAD�holding low-dose aspirin
#Global
- DVT PPx: eliquis 5mg bid
- Diet: hold Dobbhoff tube in advance of planned extubation today
- Code: Full
- Dispo: Continue ICU level care today
Subjective Dataa
Subjective Data
Date of Service:
Date of Service: March 21, 2025
Chief Complaint: Senior Financial Analyst Follow Up (Acute respiratory failure-septic shock), Pneumonia Follow Up and Vent Management Follow Up
Subjective:
Eyes open, not moving extremities, lying with ETT in and staring straight ahead. Moves hands and eyes slightly when touched / when providers approach bed; eyes tracking movement. Per RN, has been biting the tube. No sedation on. Not attempting to
pull out ETT.
Review of Systems
General: Unobtainable - Pat Unresp
Objective Data
Data Reviewed
Vital Signs / I&O / Oxygen:
Vital Signs
Temp Pulse Resp BP Pulse Ox
99.7 F 85 18 89/77 95
03/21/25 08:00 03/21/25 07:48 03/21/25 07:48 03/21/25 07:48 03/21/25 07:58
Intake and Output
03/20/25 03/21/25 03/22/25
06:59 06:59 06:59
Intake Total 2206.9 / 2291.7 2663.3 / 2663.3
Output Total 2049 / 2709
Balance 156.9 / 196.7 -46.7 / -46.7
SaO2 [ASV] 95
SaO2 [NIV (Non Invasive 95
Ventilation)]
SaO2 [CPAP/PSV] 94
SaO2 [A/C] 95
SaO2 95
Nasal Cannula flow liters per 50
minute
Physical Exam
General: Other (awake, with ETT in place, not agitated, lying still in bed )
HEENT: Normocephalic, Anicteric and Other (Poor dentition)
Cardiovascular: S1-S2, Irregular Rhythm (A-fib), Peripheral Edema (Bilateral JULIANNA, somewhat improved from yesterday ) and Other (without tachycardia )
Respiratory: Non-Labored Respirations and ET Tube (assist mode ventilator )
GI: Soft, Non Distended and Feeding Tube (Dobbhoff)
Neurology: Awake and Other (tracks movements with eyes, eyes open )
Skin: Warm and Dry
Labs/Micro/Reports
Lab Data
03/21/25 03:37
03/21/25 03:36
Laboratory Results
03/20/25 03/21/25
13:34 03:37
pH 7.46 H 7.48 H
pCO2 38 H 38 H
pO2 81 L 82 L
HCO3 27.0 28.3 H
O2 Delivery Level 40% ett
Microbiology
03/18/25 04:02 Blood/Venous Blood Culture - Preliminary
No Growth in 72 hours- Final report to follow
03/18/25 04:02 Blood/Venous Blood Culture - Preliminary
No Growth in 72 hours- Final report to follow
03/18/25 10:09 Tracheal Aspirate Respiratory Culture - Final
Mold
03/18/25 10:09 Tracheal Aspirate Gram Stain - Final
03/13/25 08:27 Blood/Venous Blood Culture - Final
Coagulase neg. staphylococcus
Additional testing on request
03/13/25 08:27 Blood/Venous Gram Stain - Final
03/13/25 08:07 Blood/Venous Blood Culture - Final
No Growth - Final Report
[2025-03-21] MEDS: DUONEB 3 ML INH ×2 (08:28→20:09)
[2025-03-21] MEDS: SODIUM CHLORIDE 3% FOR INHALATION 1 VIAL INH ×2 (08:28→20:09)
--- NOTE | 2025-03-21 09:02 | W.PN.HOSP.TC ---
Today's Communication/Plan
-
see plan
Assessment / Plan
Assessment / Plan
Gen: NAD, awake and alert, NCAT
Eyes: EOMI, PERRLA, no scleral icterus.
Neck: supple.
CV: continues to remain irreg/irreg, +S1/S2, no m/r/g.
Resp: mild rhonchi B/L
Abd: remains +BS, soft, NT, ND
Skin: No rashes.
Neuro: CN2-12 intact
Psych: slightly agitated
03/18/25 04:02 Blood/Venous Blood Culture - Preliminary
No Growth in 72 hours- Final report to follow
03/18/25 04:02 Blood/Venous Blood Culture - Preliminary
No Growth in 72 hours- Final report to follow
03/18/25 10:09 Tracheal Aspirate Respiratory Culture - Final
Mold
03/18/25 10:09 Tracheal Aspirate Gram Stain - Final
03/13/25 08:27 Blood/Venous Blood Culture - Final
Coagulase neg. staphylococcus
Additional testing on request
03/13/25 08:27 Blood/Venous Gram Stain - Final
03/13/25 08:07 Blood/Venous Blood Culture - Final
No Growth - Final Report
03/13/25 16:14 Sputum Respiratory Culture - Final
Klebsiella pneumoniae
03/13/25 16:14 Sputum Gram Stain - Final
03/13/25 16:14 Nose Nasal Screen MRSA (PCR) - Final
MRSA not detected - performed by PCR methodology.
03/13/25 16:14 Urine Legionella Urinary Antigen - Final
Negative for Legionella pneumophila Serogroup 1 antigen.
A negative result does not rule out the possiblity of
Legionella infection due to other serogroups or species of
Legionella. Clinical correlation is recommended.
03/13/25 16:14 Urine Streptococcus pneumoniae Antigen (M - Final
Negative for Streptococcus pneumoniae antigen.
A negative result does not exclude infection with
Streptococcus pneumoniae. Clinical correlation is
recommended.
03/13/25 08:07 Nasal Swab Influenza Types A & B (EMMA) - Final
Negative for Influenza A & B, NAAT
Negative results must be combined with clinical observations
and patient history.
Nucleic Acid Amplification test (NAAT)performed on the
[employer] NOW platform.
CXR 03/13: Right upper lobe greater than right basilar opacification most likely representing pneumonia.
CT brain 03/18: Probable subacute infarct of the left basal ganglia as seen previously. No significant change as compared with the prior examination.
CXR 03/18: ET tube and enteric catheter in position. Unchanged bilateral upper lung consolidation.
CXR 03/19: Limited by patient rotation. Stable position of the endotracheal tube and enteric tube. Airspace opacities in the right upper lobe and throughout the left lung remain concerning for pneumonia. No large pleural effusion or pneumothorax.
Stable cardiomediastinal silhouette.
Septic shock (POA), acute metabolic encephalopathy, and acute hypoxemic respiratory failure due to aspiration PNA:
- Suspected aspiration pneumonia (witness aspiration event 3 days [facility]QU[facility]F at [facility])
- leukopenia, tachypnea, shock state requiring pressors on admission
- Levophed weaned off 03/15, then was back on Levophed, went into afib with RVR 1015PM, transitioned to CHAVEZ
- s/p sepsis protocol IVFs, lactic acidosis resolved
- s/p stress dose steroid course, currently on Decadron 10mg IV daily
- intubated 03/18AM as pt was not tolerating NIPPV
- sputum culture: Klebsiella
- strep/legionella neg
- follow Cxs
- cont Cefepime
- leukocytosis now worsening, c/s ID
- suspect underlying undiagnosed JC/OHS
Afib with RVR:
-cont Amio gtt, CHAVEZ as pressor support
-cont Eliquis
-check echo
-c/s cards
Other problems:
Subacute CVA: cont Eliquis
Hypernatremia, resolved
Dementia
SAYDA, resolved with IVFs
Hyperkalemia, resolved
Hypokalemia, resolved
BCxs with CONTRACT WRITER, likely contaminant
h/o stage 1 endometrial cancer
PAF: cont Eliquis
Anxiety/Depression: cont Zoloft
Hypothyroidism: cont Synthroid
Thrombocytopenia, likely consumptive due to infection, resolved
Acute anemia of critical illness on chronic anemia: trend Hb (stable)
Discussed with Dr. Mix.
FULL/Eliquis
Total critical care time spent = 34 min
Anticipated Discharge: > 48 hours
Subjective/Interval History
-
Date of Service: March 21, 2025
Pt awake and alert, intubated, cannot give subjective hx.
Objective Data
-
Labs:
Laboratory Results
03/20/25 03/20/25 03/21/25
20:53 20:57 03:36
WBC
Hgb
Hct
Plt Count
HCO3
Sodium Cancelled 140 140
Potassium Cancelled 4.1 3.8
Chloride Cancelled 107 108 H
Carbon Dioxide Cancelled 27 29
BUN Cancelled 47 H 45 H
Creatinine Cancelled 1.0 1.0
Glucose Cancelled 170 H 143 H
Calcium Cancelled 8.5 8.0 L
03/21/25
03:37
WBC 20.9 H
Hgb 8.3 L
Hct 26.4 L
Plt Count 383 D
HCO3 28.3 H
Sodium
Potassium
Chloride
Carbon Dioxide
BUN
Creatinine
Glucose
Calcium
Vital Signs:
Vital Signs
Temp Pulse Resp BP Pulse Ox
99.7 F 81 18 89/77 96
03/21/25 08:00 03/21/25 08:38 03/21/25 08:38 03/21/25 07:48 03/21/25 08:38
I&O
03/20/25 03/21/25 03/22/25
06:59 06:59 06:59
Intake Total 2206.9 / 2291.7 2663.3 / 2663.3
Output Total 2049 / 2709
Balance 156.9 / 196.7 -46.7 / -46.7
--- NOTE | 2025-03-21 09:28 | CON.CAR ---
Addendum entered and electronically signed by Diego Hoffman MD 03/21/25 10:15:
Patient seen and examined in collaboration with DRYWALL TAPER HELPER; agree with below.
- 79-year-old female with paroxysmal atrial fibrillation on Eliquis; not on any rate-controlling medications secondary to baseline intrinsic bradycardia), hypertension, anemia, and dementia admitted with VDRF/sepsis secondary to aspiration
pneumonia. Cardiology was consulted for A-fib with RVR; patient was started on an amiodarone drip by the primary team.
- The patient is currently intubated on phenylephrine drip and amiodarone drip; continue amiodarone drip.
- Eliquis was transiently discontinued recently secondary to anemia, but patient had subsequent subacute infarct--now resumed.
- Continue supportive care; prognosis guarded.
- Patient is full code.
- batch and furnace manager; will continue to follow.
Original Note:
Consultation
Consultation Request
Date/Time Consultation Requested: 03/21/25922
Date/Time Consultation Performed: 03/21/25927
Requesting Provider: Dr. Sanon
Performing Provider: Rose MANCINI for
Reason for Consultation: AFIB with RVR
Medical History
-
Chief Complaint: respiratory distress
History of Present Illness:
79 y/o female ([place] Citizen-speaking) with dementia, hypertension, hypothyroidism, obesity, venous insufficiency, PAF on Eliquis, bradycardia, endometrial cancer (s/p hysterectomy), and anemia who is here from nursing facility for respiratory distress
and hypoxia with sats in 60's per chart, lethargy, and hypotension. She is admitted with septic shock with aspiration PNA. She has required intubation. She is being treated with antibiotics. She is getting IV antibiotics and is requiring pressors.
Also received steroids. Subacute stroke noted on head CT. She was briefly off Eliquis for anemia requiring PRBC transfusion. We are consulted for AFIB with RVR. Levo was switched to rafael and she was placed on amiodarone drip. She is rate-controlled
in AFIB and in no distress at the time of my assessment.
Past Medical History
Past Medical History: Arrhythmias, Cancer, HTN, Hypothyroidism and Other (as above)
Social History
Living: [facility]
Family History
Family History: Reviewed & Not Pertinent
Allergies / Home Medications
Allergy/AdvReac Type Severity Reaction Status Date / Time
No Known Allergies Allergy Verified 01/15/25 11:41
�Medication �Instructions �Recorded �Confirmed �Type
ascorbic acid (vitamin C) 500 mg 500 mg PO DAILY Supplement 07/12/22 03/13/25 History
tablet (Vitamin C)
ferrous sulfate 325 mg (65 mg 325 mg PO DAILY Supplement 07/12/22 03/13/25 History
iron) tablet
folic acid 1 mg tablet 1 mg PO DAILY Supplement 07/12/22 03/13/25 History
sertraline 25 mg tablet (Zoloft) 25 mg PO DAILY Mental 07/12/22 03/13/25 History
Health/Anxiety
acetaminophen 325 mg tablet 650 mg PO Q4HPRN PRN mild 09/06/24 03/13/25 History
pain/temp>100F
bisacodyl 10 mg rectal suppository 10 mg DE DAILYPRN PRN if no 09/06/24 03/13/25 History
(Dulcolax (bisacodyl)) results for MOM
cyanocobalamin (vitamin B-12) 500 500 mcg PO DAILY Supplement 09/06/24 03/13/25 History
mcg tablet
magnesium hydroxide 400 mg/5 mL 30 ml PO HSPRN PRN if no bm in 3 09/06/24 03/13/25 History
oral suspension (Milk of Magnesia) days
vitamin A and D 1 applic topical DAILY Skin Issues 09/06/24 03/13/25 History
apixaban 5 mg tablet (Eliquis) 5 mg PO BID #60 tabs 01/22/25 03/13/25 Rx
calcium carbonate 500 mg PO DAILY Supplement 03/13/25 03/13/25 History
ipratropium 0.5 mg-albuterol 3 mg 3 ml inhalation R Q6HPRN PRN SOB 03/13/25 03/13/25 History
(2.5 mg base)/3 mL nebulization
soln
levothyroxine 75 mcg tablet 75 mcg PO DAILY Thyroid 03/13/25 03/13/25 History
(Synthroid)
Review of Systems
-
Unable to obtain full review of systems at this time due to: Patient Intubation
History Source: Other (chart)
Constitutional: Other (lethargy)
Respiratory: Trouble Breathing
Physical Exam
Vital Signs
Temp Pulse Resp BP Pulse Ox
99.7 F 81 18 89/77 96
03/21/25 08:00 03/21/25 08:38 03/21/25 08:38 03/21/25 07:48 03/21/25 08:38
Lab Results
03/21/25 03:37
03/21/25 03:36
Troponin I 0.032 ng/ml 03/20/25 21:00
Bft-L-Svqatkhzqnl Pept 4830 pg/ml 03/15/25 08:30
Physical Exam
General: Well Developed, Well Nourished and No Apparent Distress
HEENT: Normocephalic and Anicteric
Respiratory: Other (intubated and ventilated, diminished to bases)
Cardiac: Irregular Rhythm and Peripheral Edema (mild BLE edema)
Musculoskeletal: Edema
Psych: Calm
Impression / Plan
-
Acute hypoxemic respiratory failure:
-this condition is threat to life
-patient remains intubated/ventilated- management per scrub tech team
-patient with PNA being treated with IV abx
Septic shock:
-this condition is threat to life
-patient with PNA being treated with IV abx
-patient remains on phenylephrine, which requires intensive monitoring
-has received IVF
AFIB with RVR: previously considered paroxysmal
-was not on rate agents due to bradycardia
-now on IV amiodarone due to AFIB with RVR in setting of acute illness- this requires intensive monitoring and would continue for now
-update echo
-on Eliquis for OAC
Data Reviewed
-
EKG: Tracing Personally Visualized and interpreted (AFIB with RVR 151 BPM, ST abnormalities anterior and lateral)
Radiology: Report Reviewed by me (CXR: Right upper lobe opacity at least in part compatible with volume loss/atelectasis, stable. Slightly improved left lung opacity.)
Medical Tests (Nuc Med, Echo etc): Report Reviewed by me (echo 09/06/24: Normal biventricular size and systolic function without regional wall motion abnormality. Estimated LVEF 55-60%. No significant valve disease.)
Labs: Labs Reviewed by me
--- NOTE | 2025-03-21 09:58 | CON.ID ---
Consultation
-
Date/Time Consultation Requested: 03/21/25 9:06
Date/Time Consultation Performed: 03/21/25 9:59
Requesting Provider: Dr Sanon
Performing Provider: Dr Perez
Reason for Consultation: septic shock, asp PNA
Chief Complaint / Past History
Chief Complaint
hypoxemia and hypotension
History of Present Illness
Ms Ronquillo is a 79 year old female with history notable for morbid obesity, dementia with possible undiagnosed JC/OHS who presented here after being found hypoxemic and hypotensive at [facility]. Staff noted she choked on food
about 3 days prior to coming in.
In the ER, she was found to be diaphoretic with a blood pressure of 66/30, sats of on nonrebreather mask 95%, bradycardic and tachypneic at 41. She was transitioned to BiPAP, was given 2 L of IV fluid boluses, DuoNebs, vancomycin and Zosyn.
Patient cyanosis resolved, continued to remain hypotensive and patient was started on Levophed A CXR was consistent with pneumonia. She became obtunded and underwent elective intubation 03/13, ETT was suctioned for thick brown/pink tinged sputum.
She was originally started on zosyn which she received or 3 days, vancomycin was stopped when MRSA screen negative, then transitioned to ceftriaxone for two days then broadened to cefepime which has continued for the last 4 days. Coures complicated
by a subacute CVA of the L basal ganglion also relative adrenal insufficiency treated with IV hydrocortisone and then dexamethasone through yesterday. Additionally mild SAYDA. Current wb count has increased from 12s to 20.9, hgb 8.3, plt 383, na
140, cr 1.0 from a peak of 1.2, t bili 1.5, ast 20, alt 22, alk phos 341, 03/13 covid ag negative, initial CXR 03/13 right upper lobe > right basilar opacification, most recent CXR right upper lobe opacity with volume loss, lung opacity minimally
iproved, 10/8 resp culture many K pneumoniae sensitive to cefazolin, CONS pseuobacteremia also noted and cleared on repeat examination, most recent sputum culture with mold. Patient is currently on day 10 of effective antibiotics, ID is consulted
for assistance with management. She transiently required vasopressors yesterday into today in the setting of a rapid afib, pressors are now off. A trial of extubation is planned with patient being DNR/DNI should she fail
Past History
Additional Past Medical History:
Patient developed postoperative decompensation of hypercapnia 01/2025.
Chronic hypercapnic respiratory failure-likely obesity hypoventilation.
Atrial fibrillation 01/2025
Dementia
Anxiety / Depression
Essential Hypertension
Hypothyroidism
Vaginal Bleeding
Endometrial Carcinoma
Additional Past Surgical History:
D&C
Robotic�assisted�laparoscopy�hysterectomy�with BSO�and�sentinel�lymph�node�bx on 01/15/25
Allergy History:
No Known Allergies Allergy (Verified 01/15/25 11:41)
Medications Reviewed: Yes
Social History
Tobacco: Other (unable to obtain due to the condition of the patient)
Family History
Family History: Not Pertinent
Review of Systems
Review of Systems
unable to obtain due to the condition of the patient
Vital Signs
Temp Pulse Resp BP Pulse Ox
99.7 F 95 22 90/43 95
03/21/25 08:00 03/21/25 09:30 03/21/25 09:30 03/21/25 08:00 03/21/25 09:30
Physical Exam
Physical Exam
Constitutional: No Acute Distress and Chronically Ill
Cardiovascular: Regular Rate and S1/S2; Negative Murmur or Rub
Pulmonary: Symmetric, Rhonchi and Coarse; Negative Wheezes or Rales
Gastrointestinal: Soft, Non Tender, Non Distended and Normal Bowel Sounds
Skin: Warm and Dry; Negative Rash or Jaundice
Neurological: Awake
Lines: PIV (teddy - no erythema warmth tenderness or drainage)
Lab / Diagnostic Study Results
03/21/25 03:37
03/21/25 03:36
Abs Immat Gran (auto) 0.4 10^3/uL (0-0.05) H 03/19/25 03:51
Absolute Neuts (auto) 9.9 10^3/uL (1.4-6.5) H 03/19/25 03:51
Absolute Lymphs (auto) 0.8 10^3/uL (1.2-3.4) L 03/19/25 03:51
Absolute Monos (auto) 0.4 10^3/uL (0.1-0.6) 03/19/25 03:51
Absolute Basos (auto) 0.0 10^3/uL (0-0.2) 03/19/25 03:51
Total Counted 100 03/15/25 04:18
Immature Gran % 3.7 % (0-0.5) H 03/19/25 03:51
Neutrophils % 85.2 % (42.2-75.2) H 03/19/25 03:51
Lymphocytes % 7.2 % (20.5-51.1) L 03/19/25 03:51
Monocytes % 3.5 % (1.7-9.3) 03/19/25 03:51
Eosinophils % 0.1 % (0-6) 03/19/25 03:51
Basophils % 0.3 % (0-2) 03/19/25 03:51
Abs Neuts (Manual) 16.6 10^3/uL (1.4-6.5) H 03/15/25 04:18
Segmented Neutrophils 54 % (42-75) 03/15/25 04:18
Band Neutrophils 39 % (0-3) H 03/15/25 04:18
Lymphocytes (Manual) 5 % (20-51) L 03/15/25 04:18
PT 16.0 Sec (11.4-14.6) H 03/13/25 12:03
INR 1.23 03/13/25 12:03
Lactic Acid Cancelled 03/13/25 17:29
Procalcitonin 1.45 ng/ml (0.0-0.25) H 03/13/25 09:11
Microbiology Results
Micro:
03/18/25 04:02 Blood Culture - Preliminary
Blood/Venous No Growth in 72 hours- Final report to follow
03/18/25 04:02 Blood Culture - Preliminary
Blood/Venous No Growth in 72 hours- Final report to follow
03/18/25 10:09 Respiratory Culture - Final
Tracheal Aspirate Mold
Gram Stain - Final
03/13/25 08:27 Blood Culture - Final
Blood/Venous Coagulase neg. staphylococcus
Additional testing on request
Gram Stain - Final
03/13/25 08:07 Blood Culture - Final
Blood/Venous No Growth - Final Report
03/13/25 16:14 Respiratory Culture - Final
Sputum Klebsiella pneumoniae
Gram Stain - Final
03/13/25 16:14 Nasal Screen MRSA (PCR) - Final
Nose MRSA not detected - performed by PCR methodology.
03/13/25 16:14 Legionella Urinary Antigen - Final
Urine Negative for Legionella pneumophila Serogroup 1 antigen.
A negative result does not rule out the possiblity of
Legionella infection due to other serogroups or species of
Legionella. Clinical correlation is recommended.
Streptococcus pneumoniae Antigen (M - Final
Negative for Streptococcus pneumoniae antigen.
A negative result does not exclude infection with
Streptococcus pneumoniae. Clinical correlation is
recommended.
03/13/25 08:07 Influenza Types A & B (EMMA) - Final
Nasal Swab Negative for Influenza A & B, NAAT
Negative results must be combined with clinical observations
and patient history.
Nucleic Acid Amplification test (NAAT)performed on the
[employer] platform.
Assessment / Plan
Leukocytosis
Pneumonia due to K pneumoniae
- leukocytosis may relate to 3 day course of decadron for relative adrenal insufficiency which was stopped yesterday
- previous resp cultures with a susceptible K pneumoniae
- repeat blood cultures no growth to date
- check UA for completeness
- loose stools likely relate to tube feeds/miralax
- has received 10 days of broad spectrum therapy can continue to 14 days with cefepime given recent need for pressors
CONS pseudobacteremia
- does not require further workup or treatment
[2025-03-21] MEDS: THIAMINE INJECTION 200 MG IV (10:33)
--- NOTE | 2025-03-21 10:44 | PTCARENOTE ---
Pt having echo at bedside.
--- NOTE | 2025-03-21 11:08 | W.PN.UPDATE ---
Update Note
Progress Note Update
Discussed with patient's legal guardian, Veronica. Updated regarding patient's clinical condition. Explained how she is more awake, alert and stable for extubation. Certainly at risk of re-intubation with her baseline poor mental status, dementia and
stroke. If she requires intubation a third time, high likelihood of needing tracheostomy and PEG with superintendent terminal ventilatory support. Veronica expressed that she would not want her to be on superintendent terminal life support in accordance with patient's wishes
and patient's preference to continue to stay in the same facility.
We discussed about DNI/DNR and decision was made not to re-intubate if patient were to develop respiratory distress.
Code staus changed to DNR/DNI.
--- NOTE | 2025-03-21 11:12 | CARDSERVLU ---
Echocardiogram with Lumason completed after protocol screening completed. Allergies verified.
Patent IV site: _Right antecubital ____
IV site flushed with 0.9% NaCl pre and post administration.
Diluted bolus method utilized to enhance visualization of ventricular hair.
Total volume given: ___4_ mL
Patient tolerated all procedures well without complications.
[2025-03-21] MEDS: NOVOLOG FLEXPEN-HIGH RESISTANCE 1 UNITS SC ×2 (12:15→17:29)
--- NOTE | 2025-03-21 12:17 | PTCARENOTE ---
Systems reviewed. Pt extubated around 1130 to 4lnc. Encouraged coughing and deep breathing but minimal effort despite using [place]cu[place]orean wire brush maker (Cierra from respiratory). Weaned to 3lnc presently. Sats mid 90s. Continues to have rhonchi t/o.
Mildly increased wob since extubation, but appears comfortable. Pt is now DNR. Purple wrist band applied.
[2025-03-21 12:19] LABS: Glucose - Point of Care 126 mg/dl (70-99)
--- NOTE | 2025-03-21 15:13 | PTCARENOTE ---
Pt keeps leaking around fms. Once skin/katie/falk care completed, replaced fms with rectal trumpet. Otherwise no changes.
--- NOTE | 2025-03-21 15:35 | CM ---
Entry Level Civil Engineer discussed and updated Guardian. Now DNR. Has been extubated to IN. NPO, tube feeds. Discharge POC: Was LTC at [facility]. Anticipate return. Referral previously forwarded.
[2025-03-21 15:39] LABS: Urine Character Slightly Cloudy (Clear)
[2025-03-21 16:48] LABS: Urine Squamous Cell 21-25 /LPF (Few)
[2025-03-21 16:51] LABS: Urine Red Blood Cell 0-2 /HPF (0-2)
[2025-03-21 17:18] LABS: Glucose - Point of Care 145 mg/dl (70-99)
--- NOTE | 2025-03-21 17:30 | PTCARENOTE ---
L radial arterial line removed. Pt has now been weaned to 2lnc. Moist psych arnp cough especially with turning/repositioning. Rectal trumpet is intact with brown thick/loose stool. Pt eyes have remained open and making eye contact t/o shift. Does
attempt to hold side rail with repositioning. Otherwise no changes.
--- NOTE | 2025-03-21 21:00 | PTCARENOTE ---
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 AFib HR 80s. R DL PICC with amio gtt infusing per work list. Jefferson draining adequate amt yellow urine. mouth care, CHG cloths, katie care, turned/repositioned. care ongoing.
[2025-03-21 23:59] LABS: Glucose - Point of Care 153 mg/dl (70-99)
[2025-03-22] VITALS (13 sets, daily range): BP systolic 94–133; BP diastolic 53–92; BMI 39.3
[2025-03-22] MEDS: NOVOLOG FLEXPEN-HIGH RESISTANCE 2 UNITS SC ×4 (00:11→18:09)
[2025-03-22] MEDS: MAXIPIME 1000 MG IV ×3 (02:40→18:10)
[2025-03-22] MEDS: STERILE WATER FOR INJECTION 10 ML IV ×3 (02:40→18:10)
[2025-03-22 03:40] LABS: Hematocrit 18.5 % (37.0-47.0); Hemoglobin 5.6 g/dL (12.0-16.0); Mean Corp Hgb Conc. 30.3 g/dL (33.0-37.0); Mean Corpuscular Volume 98.4 fL (81.0-99.0); Platelet Count 384 10^3/uL (130-400); Red Cell Dist. Width 18.9 % (11.5-14.5)
[2025-03-22 03:51] LABS: ALT (SGPT) 29 U/L (0-35); AST (SGOT) 25 U/L (14-36); Albumin 2.3 g/dl (3.5-5.0); Alkaline Phosphatase 284 U/L (38-126); Blood Urea Nitrogen 42 mg/dl (7-17); Calcium 7.6 mg/dl (8.4-10.2); Carbon Dioxide 28 mmol/L (22-30); Chloride 107 mmol/L (98-107); Estimated Creatinine Clearance 63 ml/min; Glucose 153 mg/dl (70-99); Potassium 4.2 mmol/L (3.5-5.1); Sodium 138 mmol/L (135-145); Total Protein 5.5 g/dl (6.3-8.2); eGFR > 60.00
[2025-03-22 04:17] LABS: Hematocrit 25.8 % (37.0-47.0); Hemoglobin 8.0 g/dL (12.0-16.0); Mean Corp Hgb Conc. 31.0 g/dL (33.0-37.0); Mean Corpuscular Volume 98.5 fL (81.0-99.0); Platelet Count 333 10^3/uL (130-400); Red Cell Dist. Width 19.1 % (11.5-14.5)
[2025-03-22 04:33] LABS: ALT (SGPT) 28 U/L (0-35); AST (SGOT) 20 U/L (14-36); Albumin 2.3 g/dl (3.5-5.0); Alkaline Phosphatase 303 U/L (38-126); Blood Urea Nitrogen 39 mg/dl (7-17); Calcium 7.7 mg/dl (8.4-10.2); Carbon Dioxide 30 mmol/L (22-30); Chloride 107 mmol/L (98-107); Estimated Creatinine Clearance 56 ml/min; Glucose 161 mg/dl (70-99); Potassium 4.3 mmol/L (3.5-5.1); Sodium 138 mmol/L (135-145); Total Protein 5.5 g/dl (6.3-8.2); eGFR > 60.00
[2025-03-22] MEDS: SYNTHROID 75 MCG TUBE (06:11)
[2025-03-22 06:27] LABS: Glucose - Point of Care 177 mg/dl (70-99)
--- NOTE | 2025-03-22 06:31 | PTCARENOTE ---
no changes in assessment, Jefferson cath d/c'd, purewick applied.
[2025-03-22] MEDS: CORDARONE 259 MG IV (07:09)
[2025-03-22] MEDS: SODIUM CHLORIDE 3% FOR INHALATION 1 VIAL INH ×2 (07:24→19:56)
[2025-03-22] MEDS: DUONEB 3 ML INH ×2 (07:24→19:56)
--- NOTE | 2025-03-22 07:58 | W.PN.INTV ---
Today's Communication / Plan
Recommendations
- Downgrade to IMU
- Give 20mg IV lasix today
- Repeat CXR today
- Continue scheduled duonebs in addition to PRN
- Continue 3% saline mist
- Continue cefepime abx for 7 day course (03/18-)
- Continue amio gtt
- Eliquis 5mg bid
- Tube feeds, pending speech eval
- DNR/DNI
Assessment
-
Patient is 71-year-old F with a PMH notable for HTN, likely JC, A-fib (on Eliquis), hypothyroidism, endometrial carcinoma (s/p resection 2024), anxiety/depression, and dementia who presented on 03/13 with hypoxia and hypotension following witnessed
aspiration event 3 days prior, found to have Klebsiella+ pneumonia, now s/p intubation 03/13-03/16), failed weaning from BiPAP, and reintubation on 03/18. Patient required pressors (Levophed) from 03/13-03/15 for presumed septic shock. Patient
received Zosyn, which was transitioned to ceftriaxone on 03/16.
[employer] consulted for management, plan/course as below.
#Acute hypoxic respiratory failure
#Aspiration pneumonia
#C/f cardiogenic pulm edema vs. aspiration pneumonitis
Patient was intubated from 03/13 through 03/16 for hypercapnic respiratory failure. Following extubation, patient was unable to be weaned from BiPAP. Reintubated on 03/18 AM. ABG prior to intubation with pH 7.39, pCO2 44, O2 70, bicarbonate 26.6.
ABG post-intubation: 7.45, pCO2 36, pO2 263, bicarb 25.0.
Patient with positive sputum culture from 03/13 demonstrating Klebsiella. Legionella negative, strep urinary antigen negative, COVID-negative, influenza negative. Treated with course of abx (ceftriaxone) through 03/18. CXR 03/18 with worsening
consolidation as compared to prior; new L-sided consolidation in addition to RLL pneumonia. CXR 03/19: 'progression of bilateral PNA.' Blood cx no growth in 48hr. Sputum cx with usual respiratory shayna and some mold. CXR 03/20: R sided opacities
improved from yesterday. S/p 40mg lasix 03/19 & 03/20. CXR 03/21: less hazy on L, more hazy on R. SBT on 03/20 successful, pt on ASV 03/20.
Ddx for worsened CXR: infectious PNA (less likely, WBC trending down, afebrile, no speciation thus far aside from Klebsiella being treated) vs. cardiogenic pulm edema (pt with +1204 mL fluid balance 03/19 & JULIANNA on exam; no hx HF) vs. aspiration
pneumonitis. Improvement in CXR s/p lasix supports cardiogenic contribution etiology. Extubated successfully 03/21.
Today: WBC (19.3>>>11.9>20.9>18.8); afebrile; satting 90% on 3-4L O2. Overnight just on O2 NC, went from 2L>4L due to sats in the 80s. Breath sounds coarse/wheeze anteriorly. Wet cough on exam. Appears to be breathing with some effort but without
accessory muscle use. Not in distress. 1+ pitting edema feet bilat. Fluid balance +1074mL. Likely ongoing cardiopulm edema +/- aspiration.
- Give 20mg IV lasix today
- Repeat CXR today
- Continue scheduled duonebs in addition to PRN
- Continue 3% saline mist
- Continue cefepime abx for 7 day course (03/18-)
- ID consulted, appreciate recs
#Labile BP
#Afib
Patient with systolic BP 180, MAP 131 approximately 1.5 hours s/p intubation on 03/18. With HR 115. Received 10mg PRN labetalol overnight 03/18, along with hydralazine 10mg after labetalol ineffective. Fentanyl bolus also helped wtih BP regulation,
per RN. Pt also received 10mg hydral on 03/19. Hypotensive MAP 57 on 03/20 following lasix. Pt started on levophed. Later in day 03/20, pt went into rapid afib 160-170. Was transitioned to phenylephrine & amiodarone load & gtt started. Echo (03/21):
normal LV fxn (LVEF 65-70%), no valvular dz, no change from 09/28. Off phenylephrine 03/21 afternoon.
Today: BP 110/75 (MAP 86), HR 91, afib
Pressors: none
- Continue amiodarone gtt
- Continue eliquis 5mg bid
- PRN 10mg hydralazine q6hr for systolic BP >160
- Cards consulted, appreciate recs
#AMS, lack of responsiveness
#Subacute CVA L basal ganglia
Patient with dementia at baseline. Hospital course was been complicated by depressed mental status/concern for toxic metabolic encephalopathy vs. hypoactive delirium vs. new infarct. CT head on 03/15: 'Nonspecific 13 mm hypodensity within L basal
ganglia/mcmahan radiata which may represent a subacute infarct. This finding is new compared to the prior CT from 01/16/2025. Unchanged chronic white matter disease.' CT head 03/18: 'Probable subacute infarct of the left basal ganglia as seen
previously. No significant change as compared with the prior examination.'
Today: not sedated; pt alerts to voice, makes eye contact, speaks in Cook Islander w somewhat garbled/weak voice; MS c/w baseline dementia/known subacute infarct
- Continue to monitor mental status
- 200mg IV thiamine daily
#Low random cortisol level, presumed relative adrenal insufficiency
Random cortisol on 01/16/2025 of 2.7 (low). Response was partially blunted with cosyntropin stimulation test at that time. Patient was treated this admission for relative adrenal insufficiency in the setting of shock with IV hydrocortisone for 2
days. Now s/p 3-day course of dex 10mg IV daily (03/18-03/20).
Today: glucose 161
- Continue SSI high dose
#Anemia
Patient with chronic anemia, hemoglobin fluctuating within somewhat low range. Normocytic. S/p transfusion 1 unit 03/16 due to hemoglobin of 7. No signs of acute bleeding source.
Today: Hemoglobin 7>>8.6>>8.0
- Continue to monitor
#SAYDA, resolved
Patient with SAYDA during earlier part of admission, now resolved s/p blood pressure control and fluids. S/p 40mg IV lasix 03/19-.
Today: Cr 1.2>>>0.9
- Continue to monitor
#Chronic
- Hypothyroid�continue home Synthroid
- CAD�holding low-dose aspirin
#Global
- DVT PPx: eliquis 5mg bid
- Diet: tube feeds via Dobbhoff, pending speech eval
- Code: DNR/DNI
- Dispo: Downgrade to IMU today
Subjective Dataa
Subjective Data
Date of Service:
Date of Service: March 22, 2025
Chief Complaint: [employer] Follow Up (Acute respiratory failure-septic shock), Pneumonia Follow Up and Vent Management Follow Up
Subjective:
Pt awake/alert this am. Eyes open, alerts to voice/greeting. Pt making eye contact and also speaking intermittently in [place] Islander. Voice somewhat weak/garbled. Intermittent wet cough while in room. Does not appear to be in respiratory distress/no
accessory muscle use, although pt breathing looks somewhat effortful. Li removed yesterday. Per RN, no overnight events other than desat to 80s% on 2L O2 NC, requiring increase to 4L O2 NC.
Review of Systems
General: Unobtainable - Pat Unresp
Objective Data
Data Reviewed
Vital Signs / I&O / Oxygen:
Vital Signs
Temp Pulse Resp BP Pulse Ox
98.8 F 96 18 94/65 96
03/22/25 03:49 03/22/25 07:27 03/22/25 07:27 03/22/25 06:00 03/22/25 07:27
Intake and Output
03/21/25 03/22/25 03/23/25
06:59 06:59 06:59
Intake Total 2663.3 / 2686.0 2200.1 / 2200.1
Output Total 2710 / 2760 1050 / 1050
Balance -46.7 / -74.0 1150.1 / 1150.1
SaO2 [ASV] 95
SaO2 [NIV (Non Invasive 95
Ventilation)]
SaO2 [CPAP/PSV] 94
SaO2 [A/C] 95
SaO2 96
Nasal Cannula flow liters per 4
minute
Physical Exam
General: Other (lying in bed, O2 NC and Dobbhoff tubes in place; intermittent cough with somewhat effortful breathing but does not appear to be in resp distress )
HEENT: Normocephalic, Anicteric and Other (Poor dentition)
Cardiovascular: S1-S2, Irregular Rhythm (A-fib) and Peripheral Edema (1+ pitting edema in bilt LE; SCDs in place bilat )
Respiratory: Non-Labored Respirations, Accessory Resp Muscle Use (none), Other (O2 NC ) and Other (loud/coarse/wheezing breath sounds auscultated anteriorly )
GI: Soft, Non Distended and Feeding Tube (Dobbhoff)
Neurology: Awake and Alert
Skin: Warm and Dry
Labs/Micro/Reports
Lab Data
03/22/25 03:48
03/22/25 03:48
Microbiology
03/18/25 04:02 Blood/Venous Blood Culture - Preliminary
No Growth in 4 days- Final report to follow
03/18/25 04:02 Blood/Venous Blood Culture - Preliminary
No Growth in 4 days- Final report to follow
03/18/25 10:09 Tracheal Aspirate Respiratory Culture - Final
Mold
03/18/25 10:09 Tracheal Aspirate Gram Stain - Final
03/13/25 08:27 Blood/Venous Blood Culture - Final
Coagulase neg. staphylococcus
Additional testing on request
03/13/25 08:27 Blood/Venous Gram Stain - Final
--- NOTE | 2025-03-22 08:40 | W.PN.ID1 ---
Date of Service
Date of Service: March 22, 2025
Today's Communication
- UA with minimal pyuria - follow up urine culture
- cefepime day 11
Assessment / Plan
Leukocytosis
Pneumonia due to K pneumoniae
- leukocytosis may relate to 3 day course of decadron for relative adrenal insufficiency which was stopped 03/20
- previous resp cultures with a susceptible K pneumoniae
- repeat blood cultures no growth to date
- UA with minimal pyuria - follow up urine culture
- cefepime day 11
CONS pseudobacteremia
- does not require further workup or treatment
Chief Complaint
-: Pneumonia
Subjective / Review of Systems
remains afebrile
bp stable off of pressors
does not respond to questions
Vital Signs / Physical Exam
Vital Signs
Vital Signs
Temp Pulse Resp BP Pulse Ox
98.8 F 96 18 94/65 96
03/22/25 03:49 03/22/25 07:27 03/22/25 07:27 03/22/25 06:00 03/22/25 07:27
Physical Exam
Constitutional: No Acute Distress
Cardiovascular: Regular Rate and S1/S2; Negative Murmur or Rub
Pulmonary: Clear and Symmetric; Negative Wheezes or Rales
Gastrointestinal: Soft, Non Tender, Non Distended and Normal Bowel Sounds
Genito-Urinary: Negative Suprapubic Tenderness
Skin: Warm and Dry; Negative Rash or Jaundice
Objective Data
Lab Data
Lab Results
03/22/25 03:48
03/22/25 03:48
PT 16.0 Sec (11.4-14.6) H 03/13/25 12:03
INR 1.23 03/13/25 12:03
APTT 42.6 Sec (23.4-35.0) H 03/13/25 12:03
Estimated Creat Clear 56 ml/min 03/22/25 03:48
Lactic Acid Cancelled 03/13/25 17:29
Total Bilirubin 0.8 mg/dl (0.2-1.3) 03/22/25 03:48
AST 20 U/L (14-36) 03/22/25 03:48
ALT 28 U/L (0-35) 03/22/25 03:48
Alkaline Phosphatase 303 U/L (38-126) H 03/22/25 03:48
Most recent labs reviewed.
Micro Results:
03/18/25 04:02 Blood Culture - Preliminary
Blood/Venous No Growth in 4 days- Final report to follow
03/18/25 04:02 Blood Culture - Preliminary
Blood/Venous No Growth in 4 days- Final report to follow
03/21/25 15:15 Urine Culture - Pending
Urine
03/18/25 10:09 Respiratory Culture - Final
Tracheal Aspirate Mold
Gram Stain - Final
03/13/25 08:27 Blood Culture - Final
Blood/Venous Coagulase neg. staphylococcus
Additional testing on request
Gram Stain - Final
03/13/25 08:07 Blood Culture - Final
Blood/Venous No Growth - Final Report
03/13/25 16:14 Respiratory Culture - Final
Sputum Klebsiella pneumoniae
Gram Stain - Final
03/13/25 16:14 Nasal Screen MRSA (PCR) - Final
Nose MRSA not detected - performed by PCR methodology.
03/13/25 16:14 Legionella Urinary Antigen - Final
Urine Negative for Legionella pneumophila Serogroup 1 antigen.
A negative result does not rule out the possiblity of
Legionella infection due to other serogroups or species of
Legionella. Clinical correlation is recommended.
Streptococcus pneumoniae Antigen (M - Final
Negative for Streptococcus pneumoniae antigen.
A negative result does not exclude infection with
Streptococcus pneumoniae. Clinical correlation is
recommended.
03/13/25 08:07 Influenza Types A & B (EMMA) - Final
Nasal Swab Negative for Influenza A & B, NAAT
Negative results must be combined with clinical observations
and patient history.
Nucleic Acid Amplification test (NAAT)performed on the
[employer] platform.
--- NOTE | 2025-03-22 08:54 | W.PN.CD ---
Today's Communication / Plan
-
Cont IV amio HRs are reasonable
Currently receiving tube feeds and NPO
We will follow peripherally over the weekend pls reach out with questions
Impression / Plan
-
Acute hypoxemic respiratory failure:
-this condition is threat to life
-now extubated still requiring 02 high risk for reintubation
-patient with PNA being treated with IV abx
Septic shock:
-this condition is threat to life
-patient with PNA being treated with IV abx
-off IV pressors
AFIB with RVR: previously considered paroxysmal
-was not on rate agents due to bradycardia
-now on IV amiodarone due to AFIB with RVR in setting of acute illness- this requires intensive monitoring and would continue for now
-update echo
-on Eliquis for OAC
- amio is currently controlling HRs
- she is NPO requiring tube feeds HRs are reasonable
Subjective: Limited interaction unable to communicate
Echo Mar 21 2025: SUMMARY
1. Normal left ventricular size, and systolic function. Estimated LVEF 65-70%. Contrast was used.
2. No significant valve disease.
3. Compared to 09/06/24: no significant change.
Physical Exam
Vital Signs/Labs
Vital Signs
Temp Pulse Resp BP Pulse Ox
98.8 F 96 18 94/65 90
03/22/25 03:49 03/22/25 07:27 03/22/25 07:27 03/22/25 06:00 03/22/25 08:46
03/21/25 03/22/25 03/23/25
06:59 06:59 06:59
Actual Weight 213 lb 6.519 oz 214 lb 8.156 oz
03/22/25 03:48
03/22/25 03:48
PT 16.0 Sec (11.4-14.6) H 03/13/25 12:03
INR 1.23 03/13/25 12:03
APTT 42.6 Sec (23.4-35.0) H 03/13/25 12:03
Magnesium 1.9 mg/dl (1.6-2.3) 03/20/25 20:57
Magnesium Cancelled 03/20/25 20:57
Triglycerides Cancelled 03/18/25 08:28
03/13/25 03/15/25
08:00 08:30
Sir-K-Tgeyjejkxco Pept [id number]
LAB Results
03/20/25
21:00
Troponin I 0.032
Physical Exam
Constitutional: Confusion
EENT: Moist mucous membranes
Cardiovascular: Rhythm/rate is irregular
Respiratory: Labored respirations and Rhonchi Present
GI: Soft
Neuro/Psych: Other (unable to assess )
Data Reviewed
-
Date of Service: March 22, 2025
EKG: Tracing Personally Visualized and interpreted (af)
Echo: Report Reviewed by me
Labs: Labs Reviewed by me
--- NOTE | 2025-03-22 09:07 | W.PN.HOSP.TC ---
Today's Communication/Plan
-
see plan
Assessment / Plan
Assessment / Plan
Gen: NAD, awake and alert, NCAT
Eyes: EOMI, PERRLA, no scleral icterus.
Neck: supple.
CV: irreg/irreg, +S1/S2, no m/r/g.
Resp: B/L end expiratory wheezes
Abd: +BS, soft, NT, ND
Skin: No rashes.
Neuro: CN2-12 intact
Psych: calm
03/18/25 04:02 Blood/Venous Blood Culture - Preliminary
No Growth in 4 days- Final report to follow
03/18/25 04:02 Blood/Venous Blood Culture - Preliminary
No Growth in 4 days- Final report to follow
03/18/25 10:09 Tracheal Aspirate Respiratory Culture - Final
Mold
03/18/25 10:09 Tracheal Aspirate Gram Stain - Final
03/13/25 08:27 Blood/Venous Blood Culture - Final
Coagulase neg. staphylococcus
Additional testing on request
03/13/25 08:27 Blood/Venous Gram Stain - Final
03/13/25 08:07 Blood/Venous Blood Culture - Final
No Growth - Final Report
03/13/25 16:14 Sputum Respiratory Culture - Final
Klebsiella pneumoniae
03/13/25 16:14 Sputum Gram Stain - Final
03/13/25 16:14 Nose Nasal Screen MRSA (PCR) - Final
MRSA not detected - performed by PCR methodology.
03/13/25 16:14 Urine Legionella Urinary Antigen - Final
Negative for Legionella pneumophila Serogroup 1 antigen.
A negative result does not rule out the possiblity of
Legionella infection due to other serogroups or species of
Legionella. Clinical correlation is recommended.
03/13/25 16:14 Urine Streptococcus pneumoniae Antigen (M - Final
Negative for Streptococcus pneumoniae antigen.
A negative result does not exclude infection with
Streptococcus pneumoniae. Clinical correlation is
recommended.
03/13/25 08:07 Nasal Swab Influenza Types A & B (EMMA) - Final
Negative for Influenza A & B, NAAT
Negative results must be combined with clinical observations
and patient history.
Nucleic Acid Amplification test (NAAT)performed on the
[employer] platform.
CXR 03/13: Right upper lobe greater than right basilar opacification most likely representing pneumonia.
CT brain 03/18: Probable subacute infarct of the left basal ganglia as seen previously. No significant change as compared with the prior examination.
CXR 03/18: ET tube and enteric catheter in position. Unchanged bilateral upper lung consolidation.
CXR 03/19: Limited by patient rotation. Stable position of the endotracheal tube and enteric tube. Airspace opacities in the right upper lobe and throughout the left lung remain concerning for pneumonia. No large pleural effusion or pneumothorax.
Stable cardiomediastinal silhouette.
Echo:
1. Normal left ventricular size, and systolic function. Estimated LVEF 65-70%. Contrast was used.
2. No significant valve disease.
3. Compared to 09/06/24: no significant change.
Septic shock (POA), acute metabolic encephalopathy, and acute hypoxemic respiratory failure due to aspiration PNA:
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
- leukopenia, tachypnea, shock state requiring pressors on admission
- Levophed weaned off 03/15, then was back on Levophed, went into afib with RVR 15PM, transitioned to CHAVEZ, now off pressors
- s/p sepsis protocol IVFs, lactic acidosis resolved
- s/p stress dose steroid course, currently on Decadron 10mg IV daily
- intubated 13AM as pt was not tolerating NIPPV, extubated 16AM, as per discussion with guardian pt will not be reintubated, now DNR
- sputum culture: Klebsiella
- strep/legionella neg
- follow Cxs (see above)
- cont Cefepime as per ID
- persistent leukocytosis
- suspect underlying undiagnosed JC/OHS
- speech eval
- c/s palliative care
Afib with RVR:
-cont Amio gtt
-cont Eliquis
-echo unremarkable as above
-cards following
Other problems:
Subacute CVA: cont Eliquis
Hypernatremia, resolved
Dementia
SAYDA, resolved with IVFs
Hyperkalemia, resolved
Hypokalemia, resolved
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
h/o stage 1 endometrial cancer
PAF: cont Eliquis
Anxiety/Depression: cont Zoloft
Hypothyroidism: cont Synthroid
Thrombocytopenia, likely consumptive due to infection, resolved
Acute anemia of critical illness on chronic anemia: trend Hb (stable)
FULL/Eliquis
Anticipated Discharge: > 48 hours
Subjective/Interval History
-
Date of Service: March 22, 2025
Pt does not offer acute complaints.
Objective Data
-
Labs:
Laboratory Results
03/22/25 03/22/25
03:10 03:48
WBC 21.0 H 18.8 H
Hgb 5.6 L* D 8.0 L D
Hct 18.5 L* 25.8 L
Plt Count 384 333
Sodium 138 138
Potassium 4.2 4.3
Chloride 107 107
Carbon Dioxide 28 30
BUN 42 H 39 H
Creatinine 0.8 0.9
Glucose 153 H 161 H
Calcium 7.6 L 7.7 L
Total Bilirubin 0.9 0.8
AST 25 20
ALT 29 28
Alkaline Phosphatase 284 H 303 H
Vital Signs:
Vital Signs
Temp Pulse Resp BP Pulse Ox
98.4 F 92 29 110/75 90
03/22/25 08:55 10/17/25 08:00 03/22/25 08:00 03/22/25 08:00 03/22/25 08:46
I&O
03/21/25 03/22/25 03/23/25
06:59 06:59 06:59
Intake Total 2663.3 / 2686.0 2200.1 / 2200.1 96.7 / 96.7
Output Total 2710 / 2760 1050 / 1050
Balance -46.7 / -74.0 1150.1 / 1150.1 96.7 / 96.7
[2025-03-22] MEDS: DESENEX/MITRAZOL/ZEASORB 1 APPLIC TOPICAL ×2 (10:09→20:26)
[2025-03-22] MEDS: MIRALAX TUBE (10:10)
[2025-03-22] MEDS: LASIX 20 MG IV (10:11)
[2025-03-22] MEDS: THIAMINE INJECTION 200 MG IV (10:11)
[2025-03-22] MEDS: ZOLOFT 25 MG TUBE (10:11)
[2025-03-22] MEDS: ELIQUIS 5 MG TUBE ×2 (10:11→20:25)
[2025-03-22] MEDS: NSS (PRESERVATIVE FREE) IV (10:15)
[2025-03-22] MEDS: PROTONIX IV IV (10:15)
--- NOTE | 2025-03-22 10:56 | PTCARENOTE ---
Patient downgraded to IMU during rounds. Continues tube feeds, rectal trumpet, amiodarone gtt, 2-4L NC. ICU team ordered another CXR this morning for continued cough and sputum production. GOC discussion ongoing with guardian.
--- NOTE | 2025-03-22 12:02 | W.CON.PAL ---
Consultation
-
Date/Time Consultation Requested: 03/22
Date/Time Consultation Performed: 03/22
Requesting Provider: Antonio Sanon
Performing Provider: Chelsie Nguyen
Reason for Consult: Goals of Care Discussion
Reason for Admission
Illness Course/HPI
79 year old F with history of hypothyroidism, hypertension, anxiety, dementia, morbid obesity with BMI of 45, recent hospitalization for grade 1 endometrioid adenocarcinoma s/p hysterectomy, Atrial fibrillation on eliquis, chronic hypercapnic
respiratory failure with questionable undiagnosed JC/OHS admitted from LTC facility with hypoxia and hypotension. Per long-term care facility, had choking episode 3 days ago.
Upon arrival to the ER, she was found to be diaphoretic with a blood pressure of 66/30, sats of on nonrebreather mask 95% on nonrebreather mask, bradycardic and tachypneic at 41. Patient is primarily Albanian-speaking. Transitioned to BiPAP, given
IVF, ABX, nebs. Continued to remain hypotensive and patient was started on Levophed. Required intubation for respiratory distress. Managed in ICU, was extubated then required reintubation. Now extubated again on NC. Team spoke with patients legal
guardian about high risk for ongoing aspiration and need for trach peg if intubated again - guardian made her DNR/DNI, full care.
Consult for hospice discussions.
Called guardian listed in chart, no answer. Left message for call back.
Objective Data
-
Objective Data:
Vital Signs
Temp Pulse Resp BP Pulse Ox
98.7 F 93 30 114/71 94
03/22/25 11:24 03/22/25 11:00 03/22/25 11:00 03/22/25 10:11 03/22/25 11:00
Laboratory Results
03/22/25 03:48
03/22/25 03:48
PT 16.0 Sec (11.4-14.6) H 03/13/25 12:03
INR 1.23 03/13/25 12:03
APTT 42.6 Sec (23.4-35.0) H 03/13/25 12:03
Total Protein 5.5 g/dl (6.3-8.2) L 03/22/25 03:48
Albumin 2.3 g/dl (3.5-5.0) L 03/22/25 03:48
Urine Color Yellow 03/21/25 15:15
Urine Clarity Slightly cloudy (Clear) 03/21/25 15:15
Urine pH 5.0 (5.0-9.0) 03/21/25 15:15
Ur Specific [place] 1.010 (<1.030) 03/21/25 15:15
Urine Ketones Negative (Negative) 03/21/25 15:15
Urine Bilirubin Negative (Negative) 03/21/25 15:15
Palliative Performance Scale
Palliative Performance Scale:
PPS Level Ambulation Activity & Evidence of Disease Self Care Intake Conscious Level
100% Full Normal Activity & Work; Full Intake Full
No Evidence of Disease
90% Full Normal Activity & Work; Full Normal Full
Some Evidence of Disease
80% Full Normal Activity with Effort Full Normal or Full
Some Evidence of Disease Reduced
70% Reduced Unable Normal Job/Work Full Normal or Full
Significant Disease Reduced
60% Reduced Unable Hobby/Housework Occasional Normal or Full or Confusion
Significant Disease Assistance Reduced
50% Mainly Sit/Lie Unable to do Any Work Considerable Normal or Full or Confusion
Extensive Disease Assistance Req'd Reduced
40% Mainly in Bed Unable to do Most Activity Mainly Assistance Normal or Full or Drowsy;
Extensive Disease Reduced +/- Confusion
30% Totally Bed Unable to do Any Activity Total Care Normal or Full or Drowsy;
Bound Extensive Disease Reduced +/- Confusion
20% Totally Bed Bound Unable to do Any Activity Total Care Minimal to Full or Drowsy;
Extensive Disease Sips +/- Confusion
10% Totally Bed Bound Unable to do Any Activity Total Care Mouth Care Drowsy or Coma;
Extensive Disease Only +/- Confusion
0%
PPS Score Level:
Physical Exam
-
General: Appears Chronically Ill and Morbidly Obese
HEENT: Normocephalic
Respiratory: Decreased Breath Sounds
Cardiac: Regular Rhythm
GI: Soft
Skin: Warm
Neuro: Awake
Psych: Apparent Dementia
Assessment / Plan
-
Assessment/Plan:
79 year old F with respiratory failure from PNA, dementia.
- DNR/DNI
- LTC resident
- left message for guardian to discuss possible hospice - did not receive a call back by the end of the day
Care Reviewed
Data Reviewed
Chest X ray: Report Reviewed
Medical Tests: I reviewed
Reviewed with: Patient and Physician
--- NOTE | 2025-03-22 12:54 | PTCARENOTE ---
Gave report to receiving RNTari. Pt insulin pen sent on patients bedside table to the new room.
--- NOTE | 2025-03-22 13:09 | PTOTSP ---
Speech Therapy Evaluation:
Pt with chronic risk factors of dysphagia including dementia and chronic hypercapnic respiratory failure, acutely compounded by complex hospital course including persistent pneumonia, septic shock 2/2 PNA, respiratory failure, prolonged intubation
(03/13-03/21), and subacute CVA. 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 Poor alertness maintained for evaluation and pt with s/sx of aspiration with minimal amounts of thin liquids provided via oral swab. Pt will
likely benefit from instrumental assessment prior to diet initiation given complexity of hospital course, multiple risk factors for dysphagia, and concern for aspiration at bedside, pending goc.
Recommend:
1. Continue NPO with DHT
2. Medications non-oral
3. Not appropriate for ARHP at this time
4. Oral dare 3x/daily
5. FIELD MERCHANDISER to follow
--- NOTE | 2025-03-22 13:58 | CM ---
Transferred to IMU. Awake, alert, NPO, NGT, Speech eval, high risk for aspiration, if fails speech eval will discuss GOC with guardian, PT/OT eval. Updated Guardian. Guardian said she discussed with MD and if fails speech eval will proceed with
comfort care/hospice. Discharge POC: TBD. Was LTC at [facility].
--- NOTE | 2025-03-22 14:30 | PTCARENOTE ---
Received patient from ICU in bed. Patient awake and alert but nonverbal to questions. Patient makes eye contact but difficult to assess orientation. Amio drip infusing via right PICC. Tube feeding through right nare dobhoff as ordered. Afib on
monitor HR 90's. Pure wick and rectal trumpet in place. Will monitor.
[2025-03-22 14:43] LABS: Glucose - Point of Care 153 mg/dl (70-99)
[2025-03-22 15:48] LABS: Magnesium 2.2 mg/dl (1.6-2.3)
[2025-03-22 18:06] LABS: Glucose - Point of Care 180 mg/dl (70-99)
[2025-03-22] MEDS: FLUSH (NSS) 2 FLUSH IV (18:10)
--- NOTE | 2025-03-22 21:40 | PTCARENOTE ---
Assume car from AM RN. Pt awake and alert, Stimulant to pain and verbal. Nonverbal. Patient does make eye contact. Pt is in Afib 80-90's. Irregular HR +1 BLLE and +2 BLUE. Pt remains on Amio gtt at 0.5 mg infusing via right PICC. Lung sounds are
course and rhonchi, SaO2 90-93% 5L. Weak occasional productive cough. Oral care provided. Tube feeding through right nare dobhoff per order at 55 ml/ hr. Pure wick and rectal trumpet in place.Abd round and obese. Call dixon within reach. Q2 turn.
[2025-03-22] MEDS: NOVOLOG FLEXPEN-HIGH RESISTANCE 4 UNITS SC (23:37)
[2025-03-22 23:38] LABS: Glucose - Point of Care 211 mg/dl (70-99)
[2025-03-23] VITALS (12 sets, daily range): BP systolic 93–137; BP diastolic 51–83; BMI 39.3
[2025-03-23] MEDS: CORDARONE 259 MG IV (02:06)
[2025-03-23] MEDS: MAXIPIME 1000 MG IV ×3 (02:07→17:45)
[2025-03-23] MEDS: STERILE WATER FOR INJECTION 10 ML IV ×3 (02:07→17:45)
[2025-03-23] MEDS: SYNTHROID 75 MCG TUBE (05:18)
[2025-03-23 05:39] LABS: Glucose - Point of Care 205 mg/dl (70-99)
[2025-03-23] MEDS: NOVOLOG FLEXPEN-HIGH RESISTANCE 4 UNITS SC ×3 (06:05→17:58)
[2025-03-23] MEDS: ELIQUIS 5 MG TUBE ×2 (08:08→19:28)
[2025-03-23] MEDS: DESENEX/MITRAZOL/ZEASORB 1 APPLIC TOPICAL ×2 (08:08→19:29)
[2025-03-23] MEDS: THIAMINE INJECTION 200 MG IV (08:09)
[2025-03-23] MEDS: ZOLOFT 25 MG TUBE (08:09)
[2025-03-23] MEDS: MIRALAX TUBE (08:09)
[2025-03-23] MEDS: DUONEB 3 ML INH ×2 (08:12→19:56)
[2025-03-23] MEDS: SODIUM CHLORIDE 3% FOR INHALATION 1 VIAL INH ×2 (08:12→19:56)
--- NOTE | 2025-03-23 08:32 | W.PN.ID1 ---
Date of Service
Date of Service: March 23, 2025
Today's Communication
Continue antibiotics.
Assessment / Plan
Leukocytosis
Pneumonia due to K pneumoniae
- leukocytosis may relate to 3 day course of decadron for relative adrenal insufficiency which was (stopped 03/20)
- previous resp cultures with a susceptible K pneumoniae
- repeat blood cultures no growth to date
- UA with minimal pyuria - follow up urine culture
- Continue cefepime (d# 11 abx tx)
- Follow white count and temperature curve.
CONS pseudobacteremia
- does not require further workup or treatment
Chief Complaint
-: Pneumonia
Subjective / Review of Systems
Review of Systems: No Fever
Vital Signs / Physical Exam
Vital Signs
Vital Signs
Temp Pulse Resp BP Pulse Ox
97.4 F 72 19 111/69 98
03/23/25 07:52 03/23/25 08:15 03/23/25 08:15 03/23/25 02:00 03/23/25 08:15
Physical Exam
Constitutional: No Acute Distress
Head: Other (Dobbhoff in place.)
Oropharyngeal: Poor Dention
Cardiovascular: Regular Rate and S1/S2
Pulmonary: Clear, Symmetric, Coarse and Non Labored; Negative Rhonchi
Gastrointestinal: Soft, Non Tender, Non Distended and Normal Bowel Sounds
Genito-Urinary: Negative Suprapubic Tenderness
Skin: Warm and Dry; Negative Rash or Jaundice
Objective Data
Lab Data
Lab Results
03/22/25 03:48
03/22/25 03:48
PT 16.0 Sec (11.4-14.6) H 03/13/25 12:03
INR 1.23 03/13/25 12:03
APTT 42.6 Sec (23.4-35.0) H 03/13/25 12:03
Estimated Creat Clear 56 ml/min 03/22/25 03:48
Lactic Acid Cancelled 03/13/25 17:29
Total Bilirubin 0.8 mg/dl (0.2-1.3) 03/22/25 03:48
AST 20 U/L (14-36) 03/22/25 03:48
ALT 28 U/L (0-35) 03/22/25 03:48
Alkaline Phosphatase 303 U/L (38-126) H 03/22/25 03:48
Most recent labs reviewed.
Micro Results:
03/18/25 04:02 Blood Culture - Final
Blood/Venous No Growth - Final Report
03/18/25 04:02 Blood Culture - Final
Blood/Venous No Growth - Final Report
03/21/25 15:15 Urine Culture - Preliminary
Urine Sparse growth, too young to be identified. Further results
to follow.
03/18/25 10:09 Respiratory Culture - Final
Tracheal Aspirate Mold
Gram Stain - Final
03/13/25 08:27 Blood Culture - Final
Blood/Venous Coagulase neg. staphylococcus
Additional testing on request
Gram Stain - Final
03/13/25 08:07 Blood Culture - Final
Blood/Venous No Growth - Final Report
03/13/25 16:14 Respiratory Culture - Final
Sputum Klebsiella pneumoniae
Gram Stain - Final
03/13/25 16:14 Nasal Screen MRSA (PCR) - Final
Nose MRSA not detected - performed by PCR methodology.
03/13/25 16:14 Legionella Urinary Antigen - Final
Urine Negative for Legionella pneumophila Serogroup 1 antigen.
A negative result does not rule out the possiblity of
Legionella infection due to other serogroups or species of
Legionella. Clinical correlation is recommended.
Streptococcus pneumoniae Antigen (M - Final
Negative for Streptococcus pneumoniae antigen.
A negative result does not exclude infection with
Streptococcus pneumoniae. Clinical correlation is
recommended.
03/13/25 08:07 Influenza Types A & B (EMMA) - Final
Nasal Swab Negative for Influenza A & B, NAAT
Negative results must be combined with clinical observations
and patient history.
Nucleic Acid Amplification test (NAAT)performed on the
[employer] platform.
Imaging:
03/22/2025 CXR (portable): heart top normal size. Right PICC over central SVC. Dense airspace consolidation within the right upper lobe. Patchy opacities seen within the left mid and upper lung zones.
--- NOTE | 2025-03-23 09:15 | W.PN.HOSP.TC ---
Today's Communication/Plan
-
See plan
Assessment / Plan
Assessment / Plan
Gen: NAD, awake and alert, NCAT
Eyes: EOMI, PERRLA, no scleral icterus.
Neck: supple.
CV: Remains irreg/irreg, +S1/S2, no m/r/g.
Resp: B/L rhonchi
Abd: Remain +BS, soft, NT, ND
Skin: No rashes.
Neuro: CN2-12 intact
Psych: calm
03/18/25 04:02 Blood/Venous Blood Culture - Final
No Growth - Final Report
03/18/25 04:02 Blood/Venous Blood Culture - Final
No Growth - Final Report
03/21/25 15:15 Urine Urine Culture - Preliminary
Sparse growth, too young to be identified. Further results
to follow.
03/18/25 10:09 Tracheal Aspirate Respiratory Culture - Final
Mold
03/18/25 10:09 Tracheal Aspirate Gram Stain - Final
03/13/25 08:27 Blood/Venous Blood Culture - Final
Coagulase neg. staphylococcus
Additional testing on request
03/13/25 08:27 Blood/Venous Gram Stain - Final
03/13/25 08:07 Blood/Venous Blood Culture - Final
No Growth - Final Report
03/13/25 16:14 Sputum Respiratory Culture - Final
Klebsiella pneumoniae
03/13/25 16:14 Sputum Gram Stain - Final
03/13/25 16:14 Nose Nasal Screen MRSA (PCR) - Final
MRSA not detected - performed by PCR methodology.
03/13/25 16:14 Urine Legionella Urinary Antigen - Final
Negative for Legionella pneumophila Serogroup 1 antigen.
A negative result does not rule out the possiblity of
Legionella infection due to other serogroups or species of
Legionella. Clinical correlation is recommended.
03/13/25 16:14 Urine Streptococcus pneumoniae Antigen (M - Final
Negative for Streptococcus pneumoniae antigen.
A negative result does not exclude infection with
Streptococcus pneumoniae. Clinical correlation is
recommended.
03/13/25 08:07 Nasal Swab Influenza Types A & B (EMMA) - Final
Negative for Influenza A & B, NAAT
Negative results must be combined with clinical observations
and patient history.
Nucleic Acid Amplification test (NAAT)performed on the
[employer] ID NOW platform.
CXR 03/13: Right upper lobe greater than right basilar opacification most likely representing pneumonia.
CT brain 03/18: Probable subacute infarct of the left basal ganglia as seen previously. No significant change as compared with the prior examination.
CXR 03/18: ET tube and enteric catheter in position. Unchanged bilateral upper lung consolidation.
CXR 03/19: Limited by patient rotation. Stable position of the endotracheal tube and enteric tube. Airspace opacities in the right upper lobe and throughout the left lung remain concerning for pneumonia. No large pleural effusion or pneumothorax.
Stable cardiomediastinal silhouette.
Echo:
1. Normal left ventricular size, and systolic function. Estimated LVEF 65-70%. Contrast was used.
2. No significant valve disease.
3. Compared to 09/06/24: no significant change.
Septic shock (POA), acute metabolic encephalopathy, and acute hypoxemic respiratory failure due to aspiration PNA:
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
- leukopenia, tachypnea, shock state requiring pressors on admission
- Levophed weaned off 03/15, then was back on Levophed, went into afib with RVR 15PM, transitioned to CHAVEZ, now off pressors
- s/p sepsis protocol IVFs, lactic acidosis resolved
- s/p stress dose steroid course, followed by Decadron 10mg IV daily, now off steroids
- intubated 13AM as pt was not tolerating NIPPV, extubated 16AM, as per discussion with guardian pt will not be reintubated, now DNR
- sputum culture: Klebsiella
- strep/legionella neg
- follow Cxs (see above)
- cont Cefepime as per ID
- persistent leukocytosis
- suspect underlying undiagnosed JC/OHS
- speech eval noted, NPO for now, cont TFs
- palliative care saw in c/s
Afib with RVR:
-was on Amio gtt, now off
-cont Eliquis
-echo unremarkable as above
-cards following
Other problems:
Subacute CVA: cont Eliquis
Hypernatremia, resolved
Dementia
SAYDA, resolved with IVFs
Hyperkalemia, resolved
Hypokalemia, resolved
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
h/o stage 1 endometrial cancer
PAF: cont Eliquis
Anxiety/Depression: cont Zoloft
Hypothyroidism: cont Synthroid
Thrombocytopenia, likely consumptive due to infection, resolved
Acute anemia of critical illness on chronic anemia: trend Hb (stable)
FULL/Eliquis
Anticipated Discharge: > 48 hours
Subjective/Interval History
-
Date of Service: March 23, 2025
Patient does not offer any acute complaints.
Objective Data
-
Vital Signs:
Vital Signs
Temp Pulse Resp BP Pulse Ox
97.4 F 72 19 111/69 98
03/23/25 07:52 03/23/25 08:15 03/23/25 08:15 03/23/25 02:00 03/23/25 08:15
I&O
03/22/25 03/23/25 03/24/25
06:59 06:59 06:59
Intake Total 2200.1 / 2200.1 2200.5 / 2200.5
Output Total 1050 / 1050 1250 / 1250
Balance 1150.1 / 1150.1 950.5 / 950.5
[2025-03-23 09:49] LABS: Hematocrit 25.9 % (37.0-47.0); Hemoglobin 8.3 g/dL (12.0-16.0); Mean Corp Hgb Conc. 32.0 g/dL (33.0-37.0); Mean Corpuscular Volume 98.1 fL (81.0-99.0); Platelet Count 378 10^3/uL (130-400); Red Cell Dist. Width 18.5 % (11.5-14.5)
[2025-03-23 10:06] LABS: Blood Urea Nitrogen 34 mg/dl (7-17); Calcium 7.6 mg/dl (8.4-10.2); Carbon Dioxide 30 mmol/L (22-30); Chloride 106 mmol/L (98-107); Estimated Creatinine Clearance 72 ml/min; Glucose 182 mg/dl (70-99); Potassium 4.6 mmol/L (3.5-5.1); Sodium 136 mmol/L (135-145); eGFR > 60.00
--- NOTE | 2025-03-23 11:10 | W.PN.CD ---
Today's Communication / Plan
-
monitor off of amiodarone
continue eliquis
Impression / Plan
-
Acute hypoxemic respiratory failure: improved
-now extubated still requiring 02 high risk for reintubation
-patient with PNA being treated with IV abx
Septic shock: improved
-patient with PNA being treated with IV abx
-off IV pressors
AFIB with RVR: previously considered paroxysmal, may be persistent now
-was not on rate agents previously due to bradycardia
-s/p IV amiodarone: monitor off of med
-update echo: EF 65-70%, no sig valve disease
-on Eliquis 5mg bid for OAC: continue
Physical Exam
Vital Signs/Labs
Vital Signs
Temp Pulse Resp BP Pulse Ox
97.4 F 72 19 111/69 98
03/23/25 07:52 03/23/25 08:15 03/23/25 08:15 03/23/25 02:00 03/23/25 08:15
03/22/25 03/23/25 03/24/25
06:59 06:59 06:59
Actual Weight 97.3 kg 97.4 kg
03/23/25 09:38
03/23/25 09:38
PT 16.0 Sec (11.4-14.6) H 03/13/25 12:03
INR 1.23 03/13/25 12:03
APTT 42.6 Sec (23.4-35.0) H 03/13/25 12:03
Magnesium 2.2 mg/dl (1.6-2.3) 03/22/25 15:14
Triglycerides Cancelled 03/18/25 08:28
03/13/25 03/15/25
08:00 08:30
Lgn-[id number] Pept [id number]
LAB Results
03/20/25
21:00
Troponin I 0.032
Physical Exam
EENT: Moist mucous membranes
Cardiovascular: JVD pressure is normal and Rhythm/rate is irregular
Respiratory: Respiratory effort normal
Data Reviewed
-
Date of Service: March 23, 2025
EKG: Other (Tele: A fib 90s)
Labs: Labs Reviewed by me
[2025-03-23 12:29] LABS: Glucose - Point of Care 222 mg/dl (70-99)
--- NOTE | 2025-03-23 13:00 | PTCARENOTE ---
Patient lethargic, wakes to tactile stimuli, flat, withdrawn. 3-5L NC depending on mouth breathing or not, sats 95%. Weak cough, mouth suctioned. +2 extremity edema. Amiodarone gtt off at 1335 due to HR of 60. VSS. Aflutter/NSR on monitor. R dobhoff
in place, patient tolerating tube feeds. Rectal trumpet intact. Continuing to closely monitor.
[2025-03-23 18:07] LABS: Glucose - Point of Care 206 mg/dl (70-99)
[2025-03-23 23:36] LABS: Glucose - Point of Care 176 mg/dl (70-99)
[2025-03-23] MEDS: NOVOLOG FLEXPEN-HIGH RESISTANCE 2 UNITS SC (23:48)
[2025-03-24] VITALS (14 sets, daily range): BP systolic 95–128; BP diastolic 53–112; BMI 38.8
[2025-03-24] MEDS: STERILE WATER FOR INJECTION 10 ML IV ×3 (01:02→17:05)
[2025-03-24] MEDS: MAXIPIME 1000 MG IV ×3 (01:03→17:04)
[2025-03-24] MEDS: LOPRESSOR 2.5 MG IV (01:44)
[2025-03-24] MEDS: SYNTHROID 75 MCG TUBE (05:10)
[2025-03-24] MEDS: NOVOLOG FLEXPEN-HIGH RESISTANCE 4 UNITS SC ×3 (05:12→18:15)
[2025-03-24 05:19] LABS: Glucose - Point of Care 205 mg/dl (70-99)
[2025-03-24 05:31] LABS: Hematocrit 25.3 % (37.0-47.0); Hemoglobin 7.8 g/dL (12.0-16.0); Mean Corp Hgb Conc. 30.8 g/dL (33.0-37.0); Mean Corpuscular Volume 97.3 fL (81.0-99.0); Platelet Count 401 10^3/uL (130-400); Red Cell Dist. Width 18.5 % (11.5-14.5)
[2025-03-24 05:55] LABS: Blood Urea Nitrogen 31 mg/dl (7-17); Calcium 7.7 mg/dl (8.4-10.2); Carbon Dioxide 31 mmol/L (22-30); Chloride 104 mmol/L (98-107); Estimated Creatinine Clearance 72 ml/min; Glucose 193 mg/dl (70-99); Potassium 5.2 mmol/L (3.5-5.1); Sodium 134 mmol/L (135-145); eGFR > 60.00
--- NOTE | 2025-03-24 06:25 | PTCARENOTE ---
Assume car from AM RN. Pt awake and alert, Stimulant to pain and verbal. Minimal words. Patient does make eye contact. Pt is in Afib 110-120's. Irregular HR. Pt was given a one time dose of 2.5 mg metoprolol IV. Pt HR went to the 90-100's post drug
administration. +1 BLLE and +2 BLUE. Lung sounds are course and rhonchi, SaO2 90-93% 5L. Oral care provided. Tube feeding through right nare dobhoff per order at 55 ml/ hr. Pure wick and rectal trumpet in place. Abd round and obese. Q2 turn
[2025-03-24] MEDS: LOKELMA 10 GRAM PO (06:30)
[2025-03-24] MEDS: SODIUM CHLORIDE 3% FOR INHALATION 1 VIAL INH ×2 (07:36→20:29)
[2025-03-24] MEDS: DUONEB 3 ML INH ×2 (07:36→20:29)
--- NOTE | 2025-03-24 07:46 | PTCARENOTE ---
Pt on 4l O2 RT 98 %, [place] speaking although patient is non responsive at this time. Lungs are coarse. Pt in Afib, NG tube in R nare with Osmolite at 55 with 25 water flush. Pure wick in place. Rectal trumpet in place. Pt is total dependant care.
Aspiration precaurtions in place, and a R dual PICC.
[2025-03-24] MEDS: ZOLOFT 25 MG TUBE (08:10)
[2025-03-24] MEDS: ELIQUIS 5 MG TUBE ×2 (08:10→21:30)
[2025-03-24] MEDS: THIAMINE INJECTION 200 MG IV (08:10)
[2025-03-24] MEDS: DESENEX/MITRAZOL/ZEASORB 1 APPLIC TOPICAL ×2 (08:10→21:30)
[2025-03-24] MEDS: MIRALAX TUBE (08:11)
--- NOTE | 2025-03-24 09:19 | W.PN.HOSP.TC ---
Today's Communication/Plan
-
see plan
Assessment / Plan
Assessment / Plan
Gen: NAD, NCAT
CV: continues to remains irreg/irreg, +S1/S2, no m/r/g.
Resp: B/L exp wheezes (mostly upper airway transmission)
Abd: continues to remain +BS, soft, NT, ND
Skin: No rashes.
Psych: calm
03/18/25 04:02 Blood/Venous Blood Culture - Final
No Growth - Final Report
03/18/25 04:02 Blood/Venous Blood Culture - Final
No Growth - Final Report
03/21/25 15:15 Urine Urine Culture - Preliminary
Sparse growth, too young to be identified. Further results
to follow.
03/18/25 10:09 Tracheal Aspirate Respiratory Culture - Final
Mold
03/18/25 10:09 Tracheal Aspirate Gram Stain - Final
03/13/25 08:27 Blood/Venous Blood Culture - Final
Coagulase neg. staphylococcus
Additional testing on request
03/13/25 08:27 Blood/Venous Gram Stain - Final
03/13/25 08:07 Blood/Venous Blood Culture - Final
No Growth - Final Report
03/13/25 16:14 Sputum Respiratory Culture - Final
Klebsiella pneumoniae
03/13/25 16:14 Sputum Gram Stain - Final
03/13/25 16:14 Nose Nasal Screen MRSA (PCR) - Final
MRSA not detected - performed by PCR methodology.
03/13/25 16:14 Urine Legionella Urinary Antigen - Final
Negative for Legionella pneumophila Serogroup 1 antigen.
A negative result does not rule out the possiblity of
Legionella infection due to other serogroups or species of
Legionella. Clinical correlation is recommended.
03/13/25 16:14 Urine Streptococcus pneumoniae Antigen (M - Final
Negative for Streptococcus pneumoniae antigen.
A negative result does not exclude infection with
Streptococcus pneumoniae. Clinical correlation is
recommended.
03/13/25 08:07 Nasal Swab Influenza Types A & B (EMMA) - Final
Negative for Influenza A & B, NAAT
Negative results must be combined with clinical observations
and patient history.
Nucleic Acid Amplification test (NAAT)performed on the
[employer] ID NOW platform.
CXR 03/13: Right upper lobe greater than right basilar opacification most likely representing pneumonia.
CT brain 03/18: Probable subacute infarct of the left basal ganglia as seen previously. No significant change as compared with the prior examination.
CXR 03/18: ET tube and enteric catheter in position. Unchanged bilateral upper lung consolidation.
CXR 03/19: Limited by patient rotation. Stable position of the endotracheal tube and enteric tube. Airspace opacities in the right upper lobe and throughout the left lung remain concerning for pneumonia. No large pleural effusion or pneumothorax.
Stable cardiomediastinal silhouette.
Echo:
1. Normal left ventricular size, and systolic function. Estimated LVEF 65-70%. Contrast was used.
2. No significant valve disease.
3. Compared to 09/06/24: no significant change.
Septic shock (POA), acute metabolic encephalopathy, and acute hypoxemic respiratory failure due to aspiration PNA:
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
- leukopenia, tachypnea, shock state requiring pressors on admission
- Levophed weaned off 03/15, then was back on Levophed, went into afib with RVR 15PM, transitioned to CHAVEZ, now off pressors
- s/p sepsis protocol IVFs, lactic acidosis resolved
- s/p stress dose steroid course, followed by Decadron 10mg IV daily, now off steroids
- intubated 13AM as pt was not tolerating NIPPV, extubated 16AM, as per discussion with guardian pt will not be reintubated, now DNR
- sputum culture: Klebsiella
- strep/legionella neg
- follow Cxs (see above)
- cont Cefepime as per ID
- persistent leukocytosis
- suspect underlying undiagnosed JC/OHS
- speech eval noted, NPO for now, cont TFs
- palliative care saw in c/s
- Case discussed with Pt's guardian, Veronica Vazquez, on 03/24/25 at 0918. Veronica does not want the patient to have a feeding tube and would like the patient to transition to hospice. c/s placed to .
Afib with RVR:
-was on Amio gtt, now off
-cont Eliquis
-echo unremarkable as above
-cards following
Other problems:
Subacute CVA: cont Eliquis
Hypernatremia, resolved
Dementia
SAYDA, resolved with IVFs
Hyperkalemia, received Lokelma
Hypokalemia, resolved
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
h/o stage 1 endometrial cancer
PAF: cont Eliquis
Anxiety/Depression: cont Zoloft
Hypothyroidism: cont Synthroid
Thrombocytopenia, likely consumptive due to infection, resolved
Acute anemia of critical illness on chronic anemia: trend Hb (stable)
FULL/Eliquis
Dispo: as per discussion with pts guardian, goal for d/c to hospice 03/25/25
Anticipated Discharge: Within 24 hours
Subjective/Interval History
-
Date of Service: March 24, 2025
Pt sleeping.
Objective Data
-
Labs:
Laboratory Results
03/24/25
05:11
WBC 16.4 H
Hgb 7.8 L
Hct 25.3 L
Plt Count 401 H
Sodium 134 L
Potassium 5.2 H
Chloride 104
Carbon Dioxide 31 H
BUN 31 H
Creatinine 0.7
Glucose 193 H
Calcium 7.7 L
Vital Signs:
Vital Signs
Temp Pulse Resp BP Pulse Ox
99 F 78 15 95/60 98
03/24/25 07:46 03/24/25 07:37 03/24/25 07:37 03/24/25 06:00 03/24/25 09:00
I&O
03/23/25 03/24/25 03/25/25
06:59 06:59 06:59
Intake Total 2200.5 / 2200.5 1020 / 1020
Output Total 1250 / 1250 1351 / 1351
Balance 950.5 / 950.5 -331 / -331
--- NOTE | 2025-03-24 09:40 | W.PN.ID1 ---
Date of Service
Date of Service: March 24, 2025
Today's Communication
Continue antibiotics for today pending transition to hospice.
Assessment / Plan
Leukocytosis
Pneumonia due to K pneumoniae
- leukocytosis may relate to 3 day course of decadron for relative adrenal insufficiency which was (stopped 03/20)
- Slowly trending down
- previous resp cultures with a susceptible K pneumoniae
- repeat blood cultures no growth to date
- UA with minimal pyuria - follow up urine culture
- Continue cefepime (d#12 abx tx)
- Follow white count and temperature curve.
CONS pseudobacteremia
- does not require further workup or treatment
Chart reviewed. Patient for possible transition to hospice 03/25/2025.
Chief Complaint
-: Pneumonia
Subjective / Review of Systems
Patient seen and examined. No significant changes overnight.
Review of Systems: No Fever
Vital Signs / Physical Exam
Vital Signs
Vital Signs
Temp Pulse Resp BP Pulse Ox
99 F 78 15 95/60 98
03/24/25 07:46 03/24/25 07:37 03/24/25 07:37 03/24/25 06:00 03/24/25 09:00
Physical Exam
Constitutional: No Acute Distress
Head: Other (Dobbhoff in place.)
Oropharyngeal: Poor Dention
Cardiovascular: Regular Rate and S1/S2
Pulmonary: Clear, Symmetric, Coarse and Non Labored; Negative Rhonchi
Gastrointestinal: Soft, Non Tender, Non Distended and Normal Bowel Sounds
Genito-Urinary: Negative Suprapubic Tenderness
Skin: Warm and Dry; Negative Rash or Jaundice
Objective Data
Lab Data
Lab Results
03/24/25 05:11
03/24/25 05:11
PT 16.0 Sec (11.4-14.6) H 03/13/25 12:03
INR 1.23 03/13/25 12:03
APTT 42.6 Sec (23.4-35.0) H 03/13/25 12:03
Estimated Creat Clear 72 ml/min 03/24/25 05:11
Lactic Acid Cancelled 03/13/25 17:29
Total Bilirubin 0.8 mg/dl (0.2-1.3) 03/22/25 03:48
AST 20 U/L (14-36) 03/22/25 03:48
ALT 28 U/L (0-35) 03/22/25 03:48
Alkaline Phosphatase 303 U/L (38-126) H 03/22/25 03:48
Most recent labs reviewed.
Micro Results:
03/21/25 15:15 Urine Culture - Final
Urine
03/18/25 04:02 Blood Culture - Final
Blood/Venous No Growth - Final Report
03/18/25 04:02 Blood Culture - Final
Blood/Venous No Growth - Final Report
03/18/25 10:09 Respiratory Culture - Final
Tracheal Aspirate Mold
Gram Stain - Final
03/13/25 08:27 Blood Culture - Final
Blood/Venous Coagulase neg. staphylococcus
Additional testing on request
Gram Stain - Final
03/13/25 08:07 Blood Culture - Final
Blood/Venous No Growth - Final Report
03/13/25 16:14 Respiratory Culture - Final
Sputum Klebsiella pneumoniae
Gram Stain - Final
03/13/25 16:14 Nasal Screen MRSA (PCR) - Final
Nose MRSA not detected - performed by PCR methodology.
03/13/25 16:14 Legionella Urinary Antigen - Final
Urine Negative for Legionella pneumophila Serogroup 1 antigen.
A negative result does not rule out the possiblity of
Legionella infection due to other serogroups or species of
Legionella. Clinical correlation is recommended.
Streptococcus pneumoniae Antigen (M - Final
Negative for Streptococcus pneumoniae antigen.
A negative result does not exclude infection with
Streptococcus pneumoniae. Clinical correlation is
recommended.
03/13/25 08:07 Influenza Types A & B (EMMA) - Final
Nasal Swab Negative for Influenza A & B, NAAT
Negative results must be combined with clinical observations
and patient history.
Nucleic Acid Amplification test (NAAT)performed on the
[employer] platform.
Imaging:
03/22/2025 CXR (portable): heart top normal size. Right PICC over central SVC. Dense airspace consolidation within the right upper lobe. Patchy opacities seen within the left mid and upper lung zones.
--- NOTE | 2025-03-24 09:55 | CM ---
Addendum entered by Brooke Durán 03/24/25 16:07:
CM spoke with Gayle [phone], beverage inspection machine tender with [facility], consents have been signed and approved for patient to return to [facility] to [facility] on, plan for tomorrow 03/25.
Original Note:
CM reviewed chart, consult received for hospice.
CM spoke with patients Guardian, Veronica, aware of plan to return to facility tomorrow with hospice.
CM spoke with Nursing Educational Administrator, Blessing, at [facility] ([phone]), facilities [facility]
Aware plan will be for patient to return to [facility], pending Hospice able to sign patient on.
CM will continue to follow.
Plan; return to [facility] with Hospice, [facility]
[2025-03-24 12:11] LABS: Glucose - Point of Care 221 mg/dl (70-99)
[2025-03-24 18:07] LABS: Glucose - Point of Care 204 mg/dl (70-99)
[2025-03-25] VITALS: BP 97/55
[2025-03-25 00:15] LABS: Glucose - Point of Care 217 mg/dl (70-99)
[2025-03-25 02:00] VITALS: BP 125/64
[2025-03-25] MEDS: NOVOLOG FLEXPEN-HIGH RESISTANCE 4 UNITS SC (02:02)
[2025-03-25] MEDS: MAXIPIME 1000 MG IV (02:03)
[2025-03-25] MEDS: STERILE WATER FOR INJECTION 10 ML IV (02:04)
[2025-03-25 04:00] VITALS: BP 110/59
[2025-03-25 04:10] VITALS: BMI 39.0
--- NOTE | 2025-03-25 05:57 | VATNOTE ---
03/25 530
Patient with PICC line that can be flushed but no blood return from either lumen. PCN Tova aware and will reach out to INSTALLATION SUPERVISOR for order for Cath raya. She will call when it arrives.
[2025-03-25 06:00] VITALS: BP 118/68
[2025-03-25] MEDS: NOVOLOG FLEXPEN-HIGH RESISTANCE 2 UNITS SC (06:05)
[2025-03-25] MEDS: SYNTHROID 75 MCG TUBE (06:06)
[2025-03-25 06:15] LABS: Glucose - Point of Care 174 mg/dl (70-99)
[2025-03-25 06:59] LABS: Hematocrit 25.4 % (37.0-47.0); Hemoglobin 8.0 g/dL (12.0-16.0); Mean Corp Hgb Conc. 31.5 g/dL (33.0-37.0); Mean Corpuscular Volume 99.2 fL (81.0-99.0); Platelet Count 368 10^3/uL (130-400); Red Cell Dist. Width 18.6 % (11.5-14.5)
--- NOTE | 2025-03-25 07:14 | VATNOTE ---
03/25 645
After speaking to PCN - patient potentially being discharged today on hospice. Labs were needed so straight stuck patient for nurse and she will have day shift speak to the doctor to see if the PICC is going to be pulled when discharged, if PICC is
to remain IMU with contact VAT to then cath raya the PICC.
[2025-03-25 07:22] LABS: Blood Urea Nitrogen 32 mg/dl (7-17); Calcium 7.9 mg/dl (8.4-10.2); Carbon Dioxide 29 mmol/L (22-30); Chloride 104 mmol/L (98-107); Estimated Creatinine Clearance 72 ml/min; Glucose 162 mg/dl (70-99); Potassium 5.3 mmol/L (3.5-5.1); Sodium 136 mmol/L (135-145); eGFR > 60.00
[2025-03-25] MEDS: SODIUM CHLORIDE 3% FOR INHALATION 1 VIAL INH (07:29)
[2025-03-25] MEDS: DUONEB 3 ML INH (07:29)
[2025-03-25 08:00] VITALS: BP 93/49
[2025-03-25] MEDS: ELIQUIS 5 MG TUBE (08:24)
[2025-03-25] MEDS: ZOLOFT 25 MG TUBE (08:24)
[2025-03-25] MEDS: TYLENOL ORAL SOLUTION 650 MG TUBE (08:24)
[2025-03-25] MEDS: THIAMINE INJECTION 200 MG IV (08:24)
[2025-03-25] MEDS: MIRALAX TUBE (08:25)
[2025-03-25] MEDS: DESENEX/MITRAZOL/ZEASORB 1 APPLIC TOPICAL (08:50)
--- NOTE | 2025-03-25 09:39 | W.PN.UPDATE ---
Update Note
Progress Note Update
Patient is transitioning to hospice, ID will no longer actively follow this patient please recall for further questions.
[2025-03-25] MEDS: MORPHINE SULFATE 1 MG IV (10:07)
--- NOTE | 2025-03-25 10:17 | HOSPNOTE ---
Spoke with Veronica AG and she is in agreement with hospice and the philosophy. The patient will remain inpatient for management of resp distress. Attending and CM aware of plan.
--- NOTE | 2025-03-25 10:51 | PTCARENOTE ---
Received this am, eyes open, 90% on 4L sometimes alarming 84%- increased to 5L, RR 24-30 using abdominal muscles. Audible crackles / wheezing occasionally weak cough. Suctioned with little return. Oral care given. Skin very hot all over, no
fever noted- cool clothed whole front of body and Tylenol given via tube. Dobhoff in place with tube feeds at goal flushes well. Purewick intact- voided 200ml and rectal trumpet in place with brown thick liquid stool. Grossly edematous, scaly hot
skin. d/w Dr. Martinez order obtained for MSO4- and given - currently looks much more comfortable RR 22, 95% on 5L ,eyes closed.
--- NOTE | 2025-03-25 11:42 | W.PN.HOSP.TC ---
Today's Communication/Plan
-
inpatient hospice today
Assessment / Plan
Assessment / Plan
03/18/25 04:02 Blood/Venous Blood Culture - Final
No Growth - Final Report
03/18/25 04:02 Blood/Venous Blood Culture - Final
No Growth - Final Report
03/21/25 15:15 Urine Urine Culture - Preliminary
Sparse growth, too young to be identified. Further results
to follow.
03/18/25 10:09 Tracheal Aspirate Respiratory Culture - Final
Mold
03/18/25 10:09 Tracheal Aspirate Gram Stain - Final
03/13/25 08:27 Blood/Venous Blood Culture - Final
Coagulase neg. staphylococcus
Additional testing on request
03/13/25 08:27 Blood/Venous Gram Stain - Final
03/13/25 08:07 Blood/Venous Blood Culture - Final
No Growth - Final Report
03/13/25 16:14 Sputum Respiratory Culture - Final
Klebsiella pneumoniae
03/13/25 16:14 Sputum Gram Stain - Final
03/13/25 16:14 Nose Nasal Screen MRSA (PCR) - Final
MRSA not detected - performed by PCR methodology.
03/13/25 16:14 Urine Legionella Urinary Antigen - Final
Negative for Legionella pneumophila Serogroup 1 antigen.
A negative result does not rule out the possiblity of
Legionella infection due to other serogroups or species of
Legionella. Clinical correlation is recommended.
03/13/25 16:14 Urine Streptococcus pneumoniae Antigen (M - Final
Negative for Streptococcus pneumoniae antigen.
A negative result does not exclude infection with
Streptococcus pneumoniae. Clinical correlation is
recommended.
03/13/25 08:07 Nasal Swab Influenza Types A & B (EMMA) - Final
Negative for Influenza A & B, NAAT
Negative results must be combined with clinical observations
and patient history.
Nucleic Acid Amplification test (NAAT)performed on the
[facility] ID NOW platform.
CXR 03/13: Right upper lobe greater than right basilar opacification most likely representing pneumonia.
CT brain 03/18: Probable subacute infarct of the left basal ganglia as seen previously. No significant change as compared with the prior examination.
CXR 03/18: ET tube and enteric catheter in position. Unchanged bilateral upper lung consolidation.
CXR 03/19: Limited by patient rotation. Stable position of the endotracheal tube and enteric tube. Airspace opacities in the right upper lobe and throughout the left lung remain concerning for pneumonia. No large pleural effusion or pneumothorax.
Stable cardiomediastinal silhouette.
Echo:
1. Normal left ventricular size, and systolic function. Estimated LVEF 65-70%. Contrast was used.
2. No significant valve disease.
3. Compared to 09/06/24: no significant change.
Septic shock (POA), acute metabolic encephalopathy, and acute hypoxemic respiratory failure due to aspiration PNA:
- Suspected aspiration pneumonia (witness aspiration event 3 days [employer] at [facility])
- leukopenia, tachypnea, shock state requiring pressors on admission
- Levophed weaned off 03/15, then was back on Levophed, went into afib with RVR 15PM, transitioned to CHAVEZ, now off pressors
- s/p sepsis protocol IVFs, lactic acidosis resolved
- s/p stress dose steroid course, followed by Decadron 10mg IV daily, now off steroids
- intubated 03/18AM as pt was not tolerating NIPPV, extubated 16AM, as per discussion with guardian pt will not be reintubated, now DNR
- sputum culture: Klebsiella
- strep/legionella neg
- follow Cxs (see above)
- cont Cefepime as per ID
- persistent leukocytosis
- suspect underlying undiagnosed JC/OHS
- speech eval noted, NPO for now, cont TFs
- palliative care saw in c/s
- Case discussed with Pt's guardian, Veronica Vazquez, on 03/24/25 at 0918. Veronica does not want the patient to have a feeding tube and would like the patient to transition to hospice. c/s placed to CM.
Afib with RVR:
-was on Amio gtt, now off
-cont Eliquis
-echo unremarkable as above
-cards following
Other problems:
Subacute CVA: cont Eliquis
Hypernatremia, resolved
Dementia
SAYDA, resolved with IVFs
Hyperkalemia, received Lokelma
Hypokalemia, resolved
BCxs with TIP STITCHER, likely contaminant
h/o stage 1 endometrial cancer
PAF: cont Eliquis
Anxiety/Depression: cont Zoloft
Hypothyroidism: cont Synthroid
Thrombocytopenia, likely consumptive due to infection, resolved
Acute anemia of critical illness on chronic anemia: trend Hb (stable)
FULL/Eliquis
Dispo: as per discussion with pts guardian, transition to IP hospice today
Anticipated Discharge: Today
Subjective/Interval History
-
Date of Service: March 25, 2025
more respiratory distress and tachypnea
Guardian Veronica has agreed to inpatient hospice care - consent signed
Objective Data
-
Labs:
Laboratory Results
03/25/25
06:36
WBC 16.5 H
Hgb 8.0 L
Hct 25.4 L
Plt Count 368
Sodium 136
Potassium 5.3 H
Chloride 104
Carbon Dioxide 29
BUN 32 H
Creatinine 0.7
Glucose 162 H
Calcium 7.9 L
Vital Signs:
Vital Signs
Temp Pulse Resp BP Pulse Ox
98.5 F 84 26 93/49 91
03/25/25 11:11 03/25/25 08:00 03/25/25 08:00 03/25/25 08:00 03/25/25 08:40
I&O
03/24/25 03/25/25 03/26/25
06:59 06:59 06:59
Intake Total 1020 / 1020 1920 / 1920
Output Total 1351 / 1351 1600 / 1600
Balance -331 / -331 320 / 320
Physical Exam
-
General: Respiratory Distress
HEENT: Normocephalic and Atraumatic
Respiratory: Wheezes and Rhonchi
GI: Soft
Neuro: Awake
Psych: Calm
Data Reviewed
-
Total Time Spent with Patient (in minutes): 41
Labs: Labs Reviewed by me
--- NOTE | 2025-03-25 11:45 | W.DCSUMMARY ---
Discharge Summary
Discharge Data
Date of Admission: 03/13/25
Date of Discharge: 03/25/25
-
Pending Results: No
Hospital Course
79 y/o Pakistani speaker with history of dementia, Hypothyroidism, hypertension, anxiety, morbid obesity with BMI of 45, recent hospitalization for grade 1 endometrioid adenocarcinoma, Atrial fibrillation on eliquis, history of chronic hypercapnic
respiratory failure with questionable undiagnosed JC/OHS admitted 03/13/25 with acute hypoxic and hypotension. Patient was intubated later that evening and also formed septic shock requiring pressors and antibiotics. She was extubated and
reintubated for inability to clear secretions. She subsequently was extubated and completed antibiotics. Despite aggressive measures, patient had labored breathing and was a threat for further reintubation; guardian Veronica opted for DNR/DNI status
and patient was admitted to inpatient hospice on 03/25/25. Of note, patient was found in this hospitalization to also have a L sided basal ganglia stroke.
Discharge Plan
-
Patient Disposition: Hospice - Inpatient DH
Discharge Orders:
Discharge Patient (As Directed); Ordered 03/25/25
Ordered By: Bert Martinez
Discharge Date and Time
Print Language: SPANISH
[2025-03-25 12:42] LABS: Glucose - Point of Care 211 mg/dl (70-99)
--- NOTE | 2025-03-25 14:44 | CM ---
F/U: There is a change in plans for this patient. Patient is too unstable to transfer so ROBERTO Powers was told that Hospice consult was made to [place] ([facility]). [facility] liaison Neda informed ROBERTO Powers that patient will be inpatient today. ROBERTO Powers
completed IMM with the Guardian. [facility] was informed of the plan that this patient will not be on their service and also informed [place]. PLAN: Inpatient Hospice with [facility]
--- NOTE | 2025-03-25 16:23 | PTCARENOTE ---
Dobhoff pulled , tube feeds off per providers. NPO x meds and sips. Transition to hospice.
== END 2025-03-25 12:13 | disposition hospice, inpatient (51) | DRG 871 ==
LOC: IMU 11:17
PROVIDERS: Internal Medicine; Nurse Practitioner Family; Nurse Practitioner Primary Care; Student in an Organized Health Care Education/Training Program; ADMITTING PHYSICIAN Internal Medicine; CONSULT PHYSICIAN Internal Medicine Critical Care Medicine; CONSULT PHYSICIAN Nurse Practitioner Gerontology; EMERGENCY PHYSICIAN Emergency Medicine; FAMILY PHYSICIAN Internal Medicine; OTHER PHYSICIAN Internal Medicine; OTHER PHYSICIAN Student in an Organized Health Care Education/Training Program
PROC: 5A1945Z Respiratory Ventilation, 24-96 Consecutive Hours (ICD-10-PCS; 2025-03-13)
PROC: 0BH17EZ Insertion of Endotracheal Airway into Trachea, Via Natural or Artificial Opening (ICD-10-PCS; 2025-03-13)
PROC: 03HY32Z Insertion of Monitoring Device into Upper Artery, Percutaneous Approach (ICD-10-PCS; 2025-03-13)
PROC: 5A09357 Assistance with Respiratory Ventilation, Less than 24 Consecutive Hours, Continuous Positive Airway Pressure (ICD-10-PCS; 2025-03-13)
PROC: 30233N1 Transfusion of Nonautologous Red Blood Cells into Peripheral Vein, Percutaneous Approach (ICD-10-PCS; 2025-03-16)
PROC: 02HV33Z Insertion of Infusion Device into Superior Vena Cava, Percutaneous Approach (ICD-10-PCS; 2025-03-21)
DX: A41.9 Sepsis, unspecified organism (principal); G93.41 Metabolic encephalopathy; I63.89 Other cerebral infarction; R65.21 Severe sepsis with septic shock; J96.22 Acute and chronic respiratory failure with hypercapnia; J96.21 Acute and chronic respiratory failure with hypoxia; J69.0 Pneumonitis due to inhalation of food and vomit; J15.0 Pneumonia due to Klebsiella pneumoniae; E66.2 Morbid (severe) obesity with alveolar hypoventilation; Z68.42 Body mass index [BMI] 45.0-49.9, adult; F03.94 Unspecified dementia, unspecified severity, with anxiety; F03.93 Unspecified dementia, unspecified severity, with mood disturbance; E87.20 Acidosis, unspecified; N17.9 Acute kidney failure, unspecified; E27.40 Unspecified adrenocortical insufficiency; E87.0 Hyperosmolality and hypernatremia; Z66 Do not resuscitate; Z51.5 Encounter for palliative care; E03.9 Hypothyroidism, unspecified; I11.9 Hypertensive heart disease without heart failure; R00.1 Bradycardia, unspecified; D63.8 Anemia in other chronic diseases classified elsewhere; D53.9 Nutritional anemia, unspecified; D69.6 Thrombocytopenia, unspecified; I48.0 Paroxysmal atrial fibrillation; F32.A Depression, unspecified; D72.819 Decreased white blood cell count, unspecified; R79.89 Other specified abnormal findings of blood chemistry; J38.4 Edema of larynx; E87.5 Hyperkalemia; E87.6 Hypokalemia; L89.891 Pressure ulcer of other site, stage 1; L89.151 Pressure ulcer of sacral region, stage 1; L89.812 Pressure ulcer of head, stage 2; Z85.42 Personal history of malignant neoplasm of other parts of uterus; Z79.01 Long term (current) use of anticoagulants; Z11.52 Encounter for screening for COVID-19
CPT/HCPCS: 36600; 70450; 71045; 74018; 80048; 80053; 80202; 81003; 81015; 82330; 82607; 82805; 82962; 83605; 83735; 83880; 84100; 84132; 84145; 84302; 84443; 84484; 85014; 85018; 85025; 85027; 85610; 85730; 86850; 86900; 86901; 86920; 87040; 87070; 87077; 87086; 87147; 87154; 87186; 87205; 87449; 87502; 87641; 87811; 87899; 92526; 92610; 93005; 93306; 94002; 94003; 94640; 94660; 96361; 96365; 99291; J0282; J2997; P9016; Q9950

== ENCOUNTER 2025-03-25 12:15 | Inpatient (IN) | payer OTHER, SELFPAY ==
--- NOTE | 2025-03-25 11:48 | ADM.HSP ---
Admission - Hospice
History of Present Illness
79 y/o Iraqi speaker with history of dementia, Hypothyroidism, hypertension, anxiety, morbid obesity with BMI of 45, recent hospitalization for grade 1 endometrioid adenocarcinoma, Atrial fibrillation on eliquis, history of chronic hypercapnic
respiratory failure with questionable undiagnosed JC/OHS admitted 03/13/25 with acute hypoxic and hypotension. Patient was intubated later that evening and also formed septic shock requiring pressors and antibiotics. She was extubated and
reintubated for inability to clear secretions. She subsequently was extubated and completed antibiotics. Despite aggressive measures, patient had labored breathing and was a threat for further reintubation; guardian Veronica opted for DNR/DNI status
and patient was admitted to inpatient hospice on 03/25/25 due to worsening distress. Of note, patient was found in this hospitalization to also have a L sided basal ganglia stroke.
Reason for Hospice Admission
worsening respiratory distress
Physical Exam
General: Respiratory Distress
Respiratory: Wheezes, Rhonchi and Decreased Breath Sounds
Cardiology: Regular Rhythm and S1/S2
GI: Soft
Neuro: Awake
Psych: Calm
Assessment/Medication Plan
Assessment:
Septic shock (POA), acute metabolic encephalopathy, and acute hypoxemic respiratory failure due to aspiration PNA:
Suspected aspiration pneumonia (witness aspiration event 3 days [facility] NE[facility]AL[facility] at [facility])
Afib with RVR
Subacute CVA
Hypernatremia
Dementia
SAYDA
Hyperkalemia
Hypokalemia
BCxs with SUBSTITUTE TEACHER, likely contaminant
h/o stage 1 endometrial cancer
PAF
Anxiety/Depression
Hypothyroidism
Thrombocytopenia
Acute anemia of critical illness on chronic anemia
Data Reviewed
Labs: Labs Reviewed by me
--- NOTE | 2025-03-25 13:50 | VATNOTE ---
Evaluated for PICC removal, hospice team requests continued picc for comfort medications.
--- NOTE | 2025-03-25 14:15 | HOSPNOTE ---
Patient admitted to inpatient hospice level of care. Hospice will visit daily.
[2025-03-25] MEDS: MORPHINE SULFATE 2 MG IV ×5 (14:31→22:23)
--- NOTE | 2025-03-25 16:57 | PTCARENOTE ---
Transitioned to hospice- admission completed. Morphine 2mg given at 1431 for mod resp distress. Report given to Jayleen, transfer to [id number].
[2025-03-25] MEDS: ROBINUL 0.2 MG IV (17:42)
[2025-03-25 19:18] VITALS: BP 164/73
[2025-03-25] MEDS: VALIUM INJECTION 2 MG IV (20:48)
[2025-03-26] MEDS: MORPHINE SULFATE 2 MG IV ×5 (00:49→17:41)
[2025-03-26] MEDS: ROBINUL 0.2 MG IV ×2 (00:50→08:03)
[2025-03-26] MEDS: MORPHINE 100 IV (02:40)
[2025-03-26] MEDS: VALIUM INJECTION 2 MG IV ×2 (04:33→10:00)
[2025-03-26 07:26] VITALS: BP 114/80
--- NOTE | 2025-03-26 10:09 | CM ---
Reviewed the chart note. Patient is now [facility]ospice.
--- NOTE | 2025-03-26 11:42 | HOSPNOTE ---
Received patient in bed unresponsive.Loud reparations noted but not distressful.[place] patient for [facility] nurse reports Morphine ,valium and rubinol administered this am prior to care.IV continuous morphine infusing via picc line rt arm
.Flacc 0 at this time.rectal tube removed .No stool.no oral intake.edema + 3 bilateral upper and lower extremities.GiP continues for manangement iv medications for pain, aggitation and secretions.discharge planning continues.ANCELMO figueredo updated to
todays visit.
--- NOTE | 2025-03-26 14:56 | W.PN.HOSP.TC ---
Today's Communication/Plan
-
maximize comfort
Assessment / Plan
Assessment / Plan
Assessment:
Septic shock (POA), acute metabolic encephalopathy, and acute hypoxemic respiratory failure due to aspiration PNA:
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
Afib with RVR
Subacute CVA
Hypernatremia
Dementia
SAYDA
Hyperkalemia
Hypokalemia
BCxs with FIRESTOP/CONTAINMENT WORKER, likely contaminant
h/o stage 1 endometrial cancer
PAF
Anxiety/Depression
Hypothyroidism
Thrombocytopenia
Acute anemia of critical illness on chronic anemia
Plan:
IV morphine drip + pushes
IV Valium
Anticipated Discharge: > 48 hours
Subjective/Interval History
-
Date of Service: March 26, 2025
on morphine drip of 1
Objective Data
-
Vital Signs:
Vital Signs
Temp Pulse Resp BP Pulse Ox
97.7 F 110 18 114/80 75
03/26/25 07:26 03/26/25 07:26 03/26/25 07:26 03/26/25 07:26 03/26/25 07:26
I&O
03/25/25 03/26/25 03/27/25
06:59 06:59 06:59
Output Total 600 / 600
Balance -600 / -600
Physical Exam
-
General: No Apparent Distress
HEENT: Normocephalic and Atraumatic
Respiratory: Rhonchi; Negative Wheezes
Cardiac: Regular Rhythm and S1/S2
GI: Soft
Neuro: AO x 3
Psych: Calm
Data Reviewed
-
Total Time Spent with Patient (in minutes): 42
Labs: Labs Reviewed by me
[2025-03-26 19:39] VITALS: BP 133/70
[2025-03-27] MEDS: ROBINUL 0.2 MG IV (00:08)
[2025-03-27] MEDS: MORPHINE SULFATE 2 MG IV ×2 (00:09→06:29)
--- NOTE | 2025-03-27 06:28 | DOWNTIME ---
There was a [facility] [employer] Downtime on 03/27/2025 from 0100 to 03/27/2025 at 0215. Downtime documentation of patient's care, including medication administrations, has been reconciled in the electronic record per guidelines. Refer to the
patient's paper chart under the miscellaneous tab to see printed paper medication records and downtime forms.
--- NOTE | 2025-03-27 07:42 | W.PN.DEATH ---
Pronouncement of
-
Called to see patient to pronounce.
No spontaneous heart tones or respirations noted.
Patient not responsive to verbal stimuli.
Patient is pronounced .
Time of : 07:28
Date of : 03/27/25
Cause of : Septic shock
Family Notified: Yes (Julia Vazquez)
--- NOTE | 2025-03-27 08:23 | W.DCSUMMARY ---
Discharge Summary
Discharge Data
Date of Admission: 03/25/25
Date of Discharge: 03/27/25
-
Pending Results: No
Hospital Course
79 y/o [place] Zealander speaker with history of dementia, Hypothyroidism, hypertension, anxiety, morbid obesity with BMI of 45, recent hospitalization for grade 1 endometrioid adenocarcinoma, Atrial fibrillation on eliquis, history of chronic hypercapnic
respiratory failure with questionable undiagnosed JC/OHS admitted 03/13/25 with acute hypoxic and hypotension. Patient was intubated later that evening and also formed septic shock requiring pressors and antibiotics. She was extubated and
reintubated for inability to clear secretions. She subsequently was extubated and completed antibiotics. Despite aggressive measures, patient had labored breathing and was a threat for further reintubation; guardian Veronica opted for DNR/DNI status
and patient was admitted to inpatient hospice on 03/25/25. She peacefully on 03/27/25 at 7:28 AM. POA was notified.
Discharge Plan
-
Patient Disposition:
Date/Time
Date/Time: 03/27/25 07:28
Discharge Date and Time
Print Language: FAROESE
== END 2025-03-27 07:28 | disposition expired | DRG 951 ==
LOC: 2 NORTH 12:15
PROVIDERS: ADMITTING PHYSICIAN Internal Medicine
DX: Z51.5 Encounter for palliative care (principal); A41.9 Sepsis, unspecified organism; G93.41 Metabolic encephalopathy; R65.21 Severe sepsis with septic shock; J96.01 Acute respiratory failure with hypoxia; J69.0 Pneumonitis due to inhalation of food and vomit; J96.12 Chronic respiratory failure with hypercapnia; F03.93 Unspecified dementia, unspecified severity, with mood disturbance; Z68.42 Body mass index [BMI] 45.0-49.9, adult; E87.0 Hyperosmolality and hypernatremia; N17.9 Acute kidney failure, unspecified; F03.94 Unspecified dementia, unspecified severity, with anxiety; I48.0 Paroxysmal atrial fibrillation; E03.9 Hypothyroidism, unspecified; E66.01 Morbid (severe) obesity due to excess calories; Z66 Do not resuscitate; E87.5 Hyperkalemia; E87.6 Hypokalemia; Z85.42 Personal history of malignant neoplasm of other parts of uterus; D69.6 Thrombocytopenia, unspecified; D64.9 Anemia, unspecified; F32.A Depression, unspecified; I10 Essential (primary) hypertension; Z79.01 Long term (current) use of anticoagulants